=== PATIENT | male | born 1955 | race African-American/Black ===

== ENCOUNTER 2017-08-16 14:43 | Inpatient (IN) | payer BC, OTHER ==
--- NOTE | 2017-08-16 14:49 | PDOC ---
Rapid Medical Evaluation Time Seen by Provider: 08/16/17 14:46 Medical Evaluation: 08/16/17 14:46 I have performed a brief in-person evaluation of this patient. The patient presents with a chief complaint of: "I have a sore on my buttocks." Pertinent physical exam findings: GEN: NAD I have ordered the following: Nothing The patient will proceed to the ED for further evaluation. Discharge Disposition - Diagnosis Wound of sacral region - Referrals Referrals: Amado Hernandes MD [Primary Care Provider] - - Patient Instructions - Post Discharge Activity
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
[2017-08-16 16:34] LABS: EOS % 0.2 % (0-4.5); MCH 27.7 pg (25.7-33.7); MCHC 33.3 g/dl (32.0-35.9); MEAN CELL VOLUME 83.3 fl (80-96); MEAN PLT VOLUME 8.1 fl (7.5-11.1); NEUT % 95.1 % (42.8-82.8); PLATELET COUNT 417 K/MM3 (134-434); RDW 18.1 % (11.9-15.9); WHITE BLOOD COUNT 9.8 K/mm3 (4.0-10.0)
[2017-08-16 16:50] LABS: INR 1.33 (0.82-1.09)
[2017-08-16 16:53] LABS: ACTIVATED PTT 33.3 SECONDS (26.9-34.4)
[2017-08-16] MEDS ORDERED: SODIUM CHLORIDE 1,000 ML IV STA ×2 (16:59→22:25)
--- NOTE | 2017-08-16 17:08 | PDOC ---
Attending Attestation - Resident Resident Name: Robert Shankar - ED Attending Attestation I have performed the following: I have examined & evaluated the patient, The case was reviewed & discussed with the resident, I agree w/resident's findings & plan, Exceptions are as noted - HPI HPI: 08/16/17 17:01 62 M with h/o Stage IV lung cancer on chemotherapy at [facility], paraplegic, presenting to ER with worsening sacral decubitus ulcer. Pt states that his wounds are being cared for by a wound-care nurse, but the ulcer on his buttock has been progressively worsening. He denies F/C. Denies any significant pain or drainage from wound. Of note, pt was found to be tachycardic in ER to 120. EKG was obtained revealing ST elevations in II, III, aVF, and V4-V6. Pt denies any chest pain or shortness of breath. He states that he has known metastases to his heart. Denies any recent viral illnesses. - Physicial Exam PE: 08/16/17 17:05 "GENERAL: Awake, alert, and fully oriented, in no acute distress HEAD: No signs of trauma EYES: PERRLA, EOMI, sclera anicteric, conjunctiva clear ENT: Auricles normal inspection, hearing grossly normal, nares patent, oropharynx clear without exudates. Moist mucosa NECK: Nontender, no stepoffs, Normal ROM, supple, no lymphadenopathy, JVD, or masses LUNGS: Breath sounds equal, clear to auscultation bilaterally. No wheezes, and no crackles HEART: tachycardic, no friction rub ABDOMEN: Soft, nontender, normoactive bowel sounds. No guarding, no rebound. No masses EXTREMITIES: Normal range of motion, no edema. No clubbing or cyanosis. No cords, erythema, or tenderness SKIN: Stage IV decubitus ulcer to L buttock, with surrounding erythema, foul smelling " - Medical Decision Making 08/16/17 17:08 62 M with metastatic lung CA presenting with worsening decubitus ulcer. Vitals notable for tachycardia, concerning for sepsis. Exam notable for stage IV ulcer , with signs of infection. Pt also found to have ST elevations on EKG. Pt without chest pain or SOB. EKG more consistent with pericarditis rather than acute ischemia, especially given that there are no reciprocal changes on EKG. - Labs, trop, cultures - Abx - Admit Spoke with Dr. Suazo regarding EKG findings. Given that pt denies CP/SOB, he agrees that ischemia is unlikely. Pt admitted to hospitalist. Heart Score/ECG Review - ECG Impressions Comment:: 08/16/17 17:15 NSR, DANIEL in II, III, aVF, V4-V6, no reciprocal changes
[2017-08-16] MEDS ORDERED: VANCOMYCIN 1 GRAM (PRE-DOCKED) 1,000 MG/250 ML BAG IVPB ONE ×2 (17:15→17:18)
[2017-08-16 17:40] LABS: URINE APPEARANCE SLCLOUDY; URINE BILIRUBIN NEGATIVE (NEGATIVE); URINE BLOOD 2+ (NEGATIVE); URINE COLOR YELLOW; URINE GLUCOSE (UA) NEGATIVE (NEGATIVE); URINE KETONE NEGATIVE (NEGATIVE); URINE NITRITE POSITIVE (NEGATIVE); URINE PROTEIN NEGATIVE (NEGATIVE); URINE UROBILINOGEN NEGATIVE mg/dL (0.2-1.0)
[2017-08-16 17:43] LABS: URINE LEUK ESTERASE 3+ (NEGATIVE)
[2017-08-16 17:46] LABS: URINE BACTERIA MANY /hpf (NONE SEEN); URINE HYALINE CAST 1 /lpf; URINE MUCUS RARE; URINE RBC 2 /hpf (0-3); URINE WBC 22 /hpf (3-5)
[2017-08-16 18:00] LABS: ALBUMIN 3.1 g/dl (3.4-5.0); ANION GAP 8 (8-16); BILIRUBIN,TOTAL 0.5 mg/dL (0.2-1.0); CALCIUM 8.8 mg/dL (8.5-10.1); CO2 28 mmol/L (21-32); CREATININE 0.7 mg/dL (0.7-1.3); GLUCOSE,RANDOM 96 mg/dL (74-106); SGOT/AST 25 U/L (15-37); SGPT/ALT 59 U/L (12-78); TOT PROT 6.8 g/dl (6.4-8.2)
[2017-08-16 18:01] LABS: TROPONIN I 0.02 ng/ml (0.00-0.05)
[2017-08-16 18:01] LABS: ALK PHOS 143 U/L (45-117)
[2017-08-16] MEDS ORDERED: LEVOFLOXACIN 750 MG IVPB 750 MG/150 ML BAG IVPB ONE ×2 (18:54→19:01)
[2017-08-16] MEDS ORDERED: SODIUM CHLORIDE 1,000 ML IV SCH ×2 (19:15→21:00)
[2017-08-16] MEDS ORDERED: ONDANSETRON 8 MG TABLET (FP) PO PRN (20:15)
[2017-08-16 20:50] LABS: URINE LEUK ESTERASE 3+ (NEGATIVE)
[2017-08-16] MEDS ORDERED: METRONIDAZOLE 500 MG PREMIXED 500 MG/100 ML MG IVPB SCH (21:00)
[2017-08-16] MEDS ORDERED: AZTREONAM 2 GM in DEXTROSE 5%-WATER - 50 ML IVPB SCH ×2 (21:00→21:45)
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
[2017-08-16] MEDS ORDERED: AZTREONAM 2 GRAM SYRINGE 2 GM/10 ML DISP.SYRIN IVPUSH ONE (21:15)
[2017-08-16] MEDS ORDERED: ENOXAPARIN NA (PORCINE) 40 MG/0.4 ML DISP.SYRIN SQ SCH ×2 (21:15→21:45)
[2017-08-16] MEDS ORDERED: MAGNESIUM OXIDE 400 MG TABLET (FP) ONE (21:30)
[2017-08-16] MEDS: MAGNESIUM OXIDE 400 MG TABLET (FP) PO SCH (21:31)
[2017-08-16] MEDS ORDERED: ENOXAPARIN NA (PORCINE) 30 MG/0.3 ML DISP.SYRIN SQ SCH (22:00)
[2017-08-16] MEDS ORDERED: HEPARIN NA (PORCINE) 5,000 UNITS/ML 1ML VIAL SQ SCH (22:00)
[2017-08-16] MEDS ORDERED: HYDROXYCHLOROQUINE SO4 200 MG TABLET (FP) PO SCH (22:00)
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
[2017-08-16] MEDS: SODIUM CHLORIDE 1,000 ML IV SCH (23:30)
[2017-08-17] MEDS: DIPHENOXYLATE 2.5/ATROPINE.025 1 COMBO TABLET PO SCH ×3 (00:15→14:34)
[2017-08-17 01:00] VITALS: BMI 34.8
[2017-08-17] MEDS: morphine SO4 SUSTAINED ACTING 15 MG TABLET.SA PO SCH ×4 (01:10→17:14)
[2017-08-17] MEDS: METRONIDAZOLE 500 MG PREMIXED 500 MG/100 ML MG IVPB SCH ×3 (01:14→17:17)
[2017-08-17] MEDS ORDERED: VANCOMYCIN 1,000 MG in DEXTROSE 5%-WATER - 250 ML IVPB SCH ×2 (06:00→12:45)
[2017-08-17] MEDS ORDERED: VANCOMYCIN 1,000 MG in DEXTROSE 5%-WATER - 250 ML IVPB ONE (06:00)
[2017-08-17] MEDS: ENOXAPARIN NA (PORCINE) 40 MG/0.4 ML DISP.SYRIN SQ SCH (09:56)
[2017-08-17] MEDS: FOLIC ACID 1 MG TABLET (FP) PO SCH (09:56)
[2017-08-17] MEDS: MAGNESIUM OXIDE 400 MG TABLET (FP) PO SCH (09:56)
--- NOTE | 2017-08-17 12:35 | PN ---
Progress Note (short form) - Note Progress Note: ID Consult dictated R ischial decubitus ulcer Tachycardia, lactic acidosis R/O sepsis secondary to skin source PCN allergy Stage IV lung ca Await c/s Surgical evaluation Empiric vancomycin/ ceftriaxone/ flagyl
--- NOTE | 2017-08-17 14:32 | PN ---
Progress Note (short form) - Note Progress Note: currently has no complaints. on further pressing states he occasionally has CP around his port-acath site that is worse when he is sitting up. denies fever, chills, N/V/C/D Current Medications Generic Name Dose Route Start Last Admin Trade Name Freq PRN Reason Stop Dose Admin Diphenoxylate HCl/Atropine 2 combo 08/16/17 22:00 08/17/17 06:36 Lomotil - PO Not Given TID RACHEAL Enoxaparin Sodium 40 mg 08/17/17 10:00 08/17/17 09:56 Lovenox - SQ 40 mg DAILY RACHEAL Administration Folic Acid 1 mg 08/17/17 10:00 08/17/17 09:56 Folic Acid - PO 1 mg DAILY RACHEAL Administration Metronidazole 500 mg in 100 mls @ 100 mls/hr 08/16/17 22:30 08/17/17 09:56 Flagyl 500mg Premixed Ivpb - IVPB 100 mls/hr Q8H-IV RACHEAL Administration Sodium Chloride 1,000 mls @ 83 mls/hr 08/16/17 22:30 08/16/17 23:30 Normal Saline - IV 83 mls/hr ASDIR RACHEAL Administration Ceftriaxone Sodium 2 gm/ 100 mls @ 200 mls/hr 08/17/17 14:00 Dextrose IVPB DAILY RACHEAL Vancomycin HCl 1,000 mg/ 250 mls @ 166.667 mls/hr 08/17/17 14:00 Dextrose IVPB 0200,1400 RACHEAL Magnesium Oxide 400 mg 08/16/17 20:15 08/17/17 09:56 Mag-Ox - PO 400 mg DAILY RACHEAL Administration Morphine Sulfate 15 mg 08/17/17 00:00 08/17/17 12:00 Ms Contin - PO Not Given Q6HPO RACHEAL Ondansetron HCl 8 mg 08/16/17 20:15 Zofran - PO Q6H PRN Last Vital Signs Temp Pulse Resp BP Pulse Ox 98 F 115 H 20 127/76 98 08/17/17 06:00 08/17/17 06:00 08/17/17 08:00 08/17/17 06:00 08/17/17 08:00 General NAD CV S1 S2 RRR no murmur/rub/gallop +chest wall tenderness around port Lungs CTA B/L no wheezing/rales/rhonchi Abdomen soft NT/ND Extremities LUE mobile mass 1cm tender refused my examination of his sacrum CBCD WBC 9.8 K/mm3 (4.0-10.0) 08/16/17 15:17 RBC 5.08 M/mm3 (4.00-5.60) 08/16/17 15:17 Hgb 14.1 GM/dL (11.7-16.9) 08/16/17 15: Hct 42.3 % (35.4-49) 08/16/17 15: MCV 83.3 fl (80-96) 08/16/17 15: MCHC 33.3 g/dl (32.0-35.9) 08/16/17 15: RDW 18.1 % (11.9-15.9) H 08/16/17 15:17 Plt Count 417 K/MM3 (134-434) 08/16/17 15: MPV 8.1 fl (7.5-11.1) 08/16/17 15:17 CMP Sodium 137 mmol/L (136-145) 08/16/17 17:00 Potassium 4.4 mmol/L (3.5-5.1) 08/16/17 17:00 Chloride 101 mmol/L (98-107) 08/16/17 17:00 Carbon Dioxide 28 mmol/L (21-32) 08/16/17 17:00 Anion Gap 8 (8-16) 08/16/17 17:00 BUN 17 mg/dL (7-18) 08/16/17 17:00 Creatinine 0.7 mg/dL (0.7-1.3) 08/16/17 17:00 Creat Clearance w eGFR > 60 (>60) 08/16/17 17:00 Calcium 8.8 mg/dL (8.5-10.1) 08/16/17 17:00 Total Bilirubin 0.5 mg/dL (0.2-1.0) 08/16/17 17:00 AST 25 U/L (15-37) 08/16/17 17:00 ALT 59 U/L (12-78) 08/16/17 17:00 Alkaline Phosphatase 143 U/L (45-117) H 08/16/17 17:00 Total Protein 6.8 g/dl (6.4-8.2) 08/16/17 17:00 Albumin 3.1 g/dl (3.4-5.0) L 08/16/17 17:00 Microbiology 08/17/17 02:15 Gram Stain - Final Decubiti A/P 62 yo M [facility] stage 4 Lung ca s/p RTx and on chemo ([id number], last cycle 08/12) and paraplegia presented to the ER after his noticed that his sacral decubitus ulcer had debris and foul odor 1. Severe Sepsis due to sacral decubitus- as per RN who visualized has slough. pt did not allow my evaluation as he just had bandage changed. will likely require debridement. lactic acidosis resolved Started on Vanco/Ceftriaxone/ Flagyl. ID and vascular surgery on board. pain control 2. Diffuse ST elevation- low suspicion for pericarditis. symptoms vaguely suggestive of it. will get echo. hold treatment at this time. cardiac enzymes neg x2. 3. Sinus tachycardia- improved but remains tachycardic. CTA negative for PE. doppler negative for dvt. will monitor as infection is treated 4. +UA- possible source of infection however has chronic indwelling corral. will wait for UCx. on abx 5. Diarrhea- no repeat episdoes while hospitalized. will hold lomotil 6. Stage 4 lung ca- will call [facility] on Saturday at pts request to inform of current hospital stay. next scheduled chemo 09/03/17 7. Paraplegia 8. DVT ppx- lovenox Visit type - Emergency Visit Emergency Visit: Yes ED Registration Date: 08/16/17 Care time: The patient presented to the Emergency Department on the above date and was hospitalized for further evaluation of their emergent condition. - New Patient This patient is new to me today: Yes Date on this admission: 08/17/17 - Critical Care Critical Care patient: No - Discharge Referral Referred to [facility] No
[2017-08-17] MEDS: VANCOMYCIN 1,000 MG in DEXTROSE 5%-WATER - 250 ML IVPB SCH (14:43)
[2017-08-17] MEDS: CEFTRIAXONE 2 GM in DEXTROSE 5%-WATER - 100 ML IVPB SCH (16:25)
[2017-08-18] MEDS: SODIUM CHLORIDE 1,000 ML IV SCH (00:34)
[2017-08-18] MEDS: morphine SO4 SUSTAINED ACTING 15 MG TABLET.SA PO SCH ×4 (00:34→17:33)
[2017-08-18] MEDS ORDERED: PT OWN MED DRAWER 7, Y5N ONE ×2 (01:16→09:52)
[2017-08-18] MEDS: METRONIDAZOLE 500 MG PREMIXED 500 MG/100 ML MG IVPB SCH ×3 (01:19→17:33)
[2017-08-18] MEDS: VANCOMYCIN 1,000 MG in DEXTROSE 5%-WATER - 250 ML IVPB SCH ×2 (02:01→14:55)
[2017-08-18] MEDS ORDERED: DIPHENOXYLATE 2.5/ATROPINE.025 1 COMBO TABLET PO PRN (05:21)
[2017-08-18] MEDS: ENOXAPARIN NA (PORCINE) 40 MG/0.4 ML DISP.SYRIN SQ SCH (09:47)
[2017-08-18] MEDS: MAGNESIUM OXIDE 400 MG TABLET (FP) PO SCH (09:47)
[2017-08-18] MEDS: FOLIC ACID 1 MG TABLET (FP) PO SCH (09:48)
[2017-08-18] MEDS: CEFTRIAXONE 2 GM in DEXTROSE 5%-WATER - 100 ML IVPB SCH (09:54)
--- NOTE | 2017-08-18 12:06 | PN ---
Physical Exam: SUBJECTIVE: c/o right upper arm mass which gives him chronic pain at times. Requested wheelchair accessible room but no such room available on . Disimpacted himself last night. Denies diarrhea, pain, palpitation, chest pain or sob. OBJECTIVE: Vital Signs Period Temp Pulse Resp BP Sys/Topete Pulse Ox Last 24 Hr 98 F-99.6 F 108-119 20-20 114-129/63-87 97-98 GENERAL: The patient is awake, alert, and fully oriented, in no acute distress. EYES: PERRL, extraocular movements intact, sclera anicteric, conjunctiva clear. No ptosis. ENT: Ears normal, nares patent, oropharynx clear without exudates, moist mucous membranes. LUNGS: CTAB HEART: Tachycardic but regular, S1, S2 without murmur, rub or gallop. ABDOMEN: Soft, nt, nd, normoactive bowel sound BACK: stage 2 sacral decubitus, erythematous, no drainage, foul smelling. : corral 100cc clear urine Active Medications Generic Name Dose Route Start Last Admin Trade Name Freq PRN Reason Stop Dose Admin Diphenoxylate HCl/Atropine 2 combo 08/18/17 05:21 Lomotil - PO Q8H PRN DIARRHEA Enoxaparin Sodium 40 mg 08/17/17 10:00 08/18/17 09:47 Lovenox - SQ 40 mg DAILY RACHEAL Administration Folic Acid 1 mg 08/17/17 10:00 08/18/17 09:48 Folic Acid - PO 1 mg DAILY RACHEAL Administration Metronidazole 500 mg in 100 mls @ 100 mls/hr 08/16/17 22:30 08/18/17 09:49 Flagyl 500mg Premixed Ivpb - IVPB 100 mls/hr Q8H-IV RACHEAL Administration Sodium Chloride 1,000 mls @ 83 mls/hr 08/16/17 22:30 08/18/17 00:34 Normal Saline - IV 83 mls/hr ASDIR RACHEAL Administration Ceftriaxone Sodium 2 gm/ 100 mls @ 200 mls/hr 08/17/17 14:00 08/18/17 09:54 Dextrose IVPB 200 mls/hr DAILY RACHEAL Administration Vancomycin HCl 1,000 mg/ 250 mls @ 166.667 mls/hr 08/17/17 14:00 08/18/17 02: 01 Dextrose IVPB 166.667 mls/hr 0200,1400 RACHEAL Administration Magnesium Oxide 400 mg 08/16/17 20:15 08/18/17 09:47 Mag-Ox - PO 400 mg DAILY RACHEAL Administration Morphine Sulfate 15 mg 08/17/17 00:00 08/18/17 06:40 Ms Contin - PO 15 mg Q6HPO RACHEAL Administration Ondansetron HCl 8 mg 08/16/17 20:15 Zofran - PO Q6H PRN ASSESSMENT/PLAN: 62 year old male with a pmh stage IV lung CA, paraplegia, and multiple sacral decubiti is admitted to the hospital for treatment of sepsis 2/2 sacral decubitus ulcer. Sepsis 2/2 Sacral Ulcer - Afrebile - cont. vanco/ceftriaxone/flagyl day 3 - Cont. maintainence fluid NS 83/hr - Vascular and ID on board Pericarditis - Repeat EKG consistent with pericarditis - Start motrin 600mg TID - f/u ECHO and daily EKG Sinus tachycardia - Asymptomatic; likely reactive - Repeat EKG shows rate improving to low 100s R upper arm mass - chronic - f/u U/S Metastatic Lung Cancer: - Next chemo at [place] 09/03/17 Chronic Indwelling Corral Catheter - Change corral q1 month - +ve urine culture - cont. abx FEN -NS @ 83cc/hr -replete lytes as necessary -regular diet Prophylaxis -Lovenox 40mg QD for DVT prophylaxis Disposition - Need to inform [facility] on saturday regarding patient's hospitalization Visit type - Emergency Visit Emergency Visit: No - New Patient This patient is new to me today: Yes Date on this admission: 08/18/17 - Critical Care Critical Care patient: No
[2017-08-18 15:07] LABS: C-REACTIVE PROTEIN 5.1 MG/DL (0.00-0.3)
--- NOTE | 2017-08-18 15:18 | PN ---
Teaching Attending Note Name of Resident: Gustavo Hairston ATTENDING PHYSICIAN STATEMENT I saw and evaluated the patient. I reviewed the resident's note and discussed the case with the resident. I agree with the resident's findings and plan as documented. SUBJECTIVE:asymptomatic. denies CP, SOB, fever, chills, N/V/C/D, palpitations OBJECTIVE: Last Vital Signs Temp Pulse Resp BP Pulse Ox 98 F 119 H 20 114/63 97 08/18/17 10:00 08/18/17 10:00 08/18/17 10:00 08/18/17 10:00 08/18/17 09:00 General NAD CV S1 S2 tachy + port R chest Lungs CTA B/L anteriorly Extremities firm mobile tender 1 cm mass LUE ASSESSMENT AND PLAN: 62 yo M iwth PMH stage 4 Lung ca s/p RTx and on chemo ([id number], last cycle 08/12 ) and paraplegia presented to the ER after his noticed that his sacral decubitus ulcer had debris and foul odor 1. Severe Sepsis due to sacral decubitus- stable. remains tachycardic. awaiting vascular surgery input on wound. on Vanco/Ceftriaxone/Flagyl day 2. ID and vascular surgery on board. pain control 2. Diffuse ST elevation- repeat EKG done for tachycardia with now more pronounced ST elevatins diffusely. Check CRP. start IBU 600mg TID. Echo tomorrow. 3. Sinus tachycardia- remains tachycardic. CTA neg for PE. will monitor for improvement with IBU. cont low dose IVF. 4. LUE mass- check U/s. no signs of infection 5. +UA- possible source of infection however has chronic indwelling corral. will wait for UCx. on abx 6. Diarrhea- no repeat episdoes while hospitalized. will hold lomotil 7. Stage 4 lung ca- will call [facility] on Saturday at pts request to inform of current hospital stay. next scheduled chemo 09/03/17 8. Paraplegia 9. DVT ppx- lovenox
--- NOTE | 2017-08-18 15:25 | CONS ---
DATE OF CONSULTATION: DATE OF DICTATION: 08/17/2017 The patient is a 62-year-old male with recent diagnosis of stage IV adenocarcinoma of the lung on chemotherapy, history of paraplegia, evaluated for worsening decubitus ulcer. 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 He is a longstanding paraplegic since 1975. He had developed a decubitus ulcer in the past which healed. He now presents with a worsening right ischial decubitus over the past 2 weeks. There was some drainage reported. He denies any associated fever or chills. He receives chemotherapy for his lung cancer every 3 weeks, the last cycle of which was on August 12, 2017. He denies history of resistant pathogens. PAST MEDICAL HISTORY: Positive for stage IV lung cancer with metastases to the spine, paraplegia, prior history of sacral decubitus ulcer in 2009, chronic indwelling River catheter. ALLERGIES: PENICILLIN. Reports developing hives, no history of anaphylaxis. MEDICATIONS: The patient's chemotherapy includes carboplatin, pemetrexed, and bevacizumab. SOCIAL HISTORY: Lives at home with his . SYSTEMS REVIEW: Neurologic: Positive for paraplegia. Cardiac: Negative chest pain or palpitations. Respiratory: Negative cough or sputum production. Gastrointestinal: Negative vomiting or diarrhea. Genitourinary: Positive for indwelling River catheter. LABORATORY DATA: White count 9.8, hematocrit 42.3, platelet count 417. BUN 17, creatinine 0.7. Urinalysis with 22 white cells. Lactic acid 4.4. Doppler exam negative for DVT. CAT scan of the chest shows a right upper lobe lung mass and right pleural effusion. Cultures are pending. PHYSICAL EXAMINATION: General: He is awake and alert. He is not acutely toxic-appearing. Vital Signs: Temperature 98, blood pressure 127/76, pulse 110 and regular, respirations 20 per minute. HEENT: Sclerae are anicteric. Heart Sounds: S1, S2. Tachycardic. Lungs: Clear. Abdomen: Soft. No tenderness elicited. No mass, rebound or rigidity. Skin: There was a port present in the right upper chest. No erythema or tenderness. Extremities: Positive for edema. There is a right ischial decubitus ulcer which is packed. There are superficial ulcers present in the sacral area and the right buttock. IMPRESSION: 1. Right ischial decubitus ulcer. 2. Tachycardia and elevated lactic acidosis, possible sepsis secondary to skin sores. 3. PENICILLIN ALLERGY. 4. Metastatic lung cancer. Await cultures. Empiric antibiotic coverage in this PENICILLIN ALLERGIC patient with vancomycin, ceftriaxone and Flagyl. Local wound care. Surgical evaluation. Case discussed with patient's present at the time of examination. Thank you for the kind referral. MELANIA JOSHI M.D. [id number]
[2017-08-18] MEDS: IBUPROFEN 600 MG TABLET (FP) PO SCH ×2 (16:49→22:00)
[2017-08-19] MEDS: SODIUM CHLORIDE 1,000 ML IV SCH (00:47)
[2017-08-19] MEDS: VANCOMYCIN 1,000 MG in DEXTROSE 5%-WATER - 250 ML IVPB SCH (01:42)
[2017-08-19] MEDS: morphine SO4 SUSTAINED ACTING 15 MG TABLET.SA PO SCH ×6 (02:19→21:02)
[2017-08-19] MEDS: METRONIDAZOLE 500 MG PREMIXED 500 MG/100 ML MG IVPB SCH ×4 (02:19→18:00)
[2017-08-19] MEDS: IBUPROFEN 600 MG TABLET (FP) PO SCH ×4 (06:49→23:48)
[2017-08-19 08:10] LABS: BASO % 0.4 % (0-2.0); EOS % 0.6 % (0-4.5); MCH 27.3 pg (25.7-33.7); MEAN CELL VOLUME 82.6 fl (80-96); MEAN PLT VOLUME 8.2 fl (7.5-11.1); NEUT % 79.3 % (42.8-82.8); PLATELET COUNT 210 K/MM3 (134-434); WHITE BLOOD COUNT 3.5 K/mm3 (4.0-10.0)
[2017-08-19 08:31] LABS: ANION GAP 9 (8-16); CALCIUM 8.3 mg/dL (8.5-10.1); CO2 26 mmol/L (21-32); CREATININE 0.4 mg/dL (0.7-1.3); GLUCOSE,RANDOM 81 mg/dL (74-106)
[2017-08-19 08:40] LABS: C-REACTIVE PROTEIN 11.6 MG/DL (0.00-0.3)
[2017-08-19] MEDS ORDERED: PT OWN MED DRAWER 7, Y5N ONE ×2 (10:15→11:56)
[2017-08-19] MEDS: FOLIC ACID 1 MG TABLET (FP) PO SCH (10:24)
[2017-08-19] MEDS: CEFTRIAXONE 2 GM in DEXTROSE 5%-WATER - 100 ML IVPB SCH (10:24)
[2017-08-19] MEDS: MAGNESIUM OXIDE 400 MG TABLET (FP) PO SCH (10:24)
[2017-08-19] MEDS: ENOXAPARIN NA (PORCINE) 40 MG/0.4 ML DISP.SYRIN SQ SCH (10:25)
--- NOTE | 2017-08-19 13:12 | PN ---
Progress Note, Physician History of Present Illness: Patient examined with Dr Del Rosario Afebrile Remains tachycardic Leukopenic Wound c/s polymicrobial - Current Medication List Current Medications: Active Medications Diphenoxylate HCl/Atropine (Lomotil -) 2 combo PO Q8H PRN PRN Reason: DIARRHEA Enoxaparin Sodium (Lovenox -) 40 mg SQ DAILY [facility] Last Admin: 08/19/17 10:25 Dose: 40 mg Folic Acid (Folic Acid -) 1 mg PO DAILY [facility] Last Admin: 08/19/17 10:24 Dose: 1 mg Metronidazole (Flagyl 500mg Premixed Ivpb -) 500 mg in 100 mls @ 100 mls/hr IVPB Q8H-IV [facility] Last Admin: 08/19/17 10:24 Dose: 100 mls/hr Ceftriaxone Sodium 2 gm/ (Dextrose) 100 mls @ 200 mls/hr IVPB DAILY [facility] Last Admin: 08/19/17 10:24 Dose: 200 mls/hr Vancomycin HCl 1,000 mg/ (Dextrose) 250 mls @ 166.667 mls/hr IVPB 0200,1400 [facility] Last Admin: 08/19/17 01:42 Dose: 166.667 mls/hr Ibuprofen (Motrin -) 600 mg PO Q8H [facility] Last Admin: 08/19/17 06:49 Dose: 600 mg Magnesium Oxide (Mag-Ox -) 400 mg PO DAILY [facility] Last Admin: 08/19/17 10:24 Dose: 400 mg Morphine Sulfate (Ms Contin -) 15 mg PO Q6HPO [facility] Last Admin: 08/19/17 06:51 Dose: Not Given Ondansetron HCl (Zofran -) 8 mg PO Q6H PRN Last Admin: 08/19/17 11:59 Dose: 8 mg - Objective Vital Signs: Vital Signs Temperature 97.8 F 08/19/17 10:00 Pulse Rate 105 H 08/19/17 10:00 Respiratory Rate 24 08/19/17 10:00 Blood Pressure 137/85 08/19/17 10:00 O2 Sat by Pulse Oximetry (%) 97 08/18/17 21:00 Constitutional: Yes: No Distress Eyes: Yes: Conjunctiva Clear Cardiovascular: Yes: Regular Rate and Rhythm, Tachycardia, S1, S2 Respiratory: Yes: Diminished Gastrointestinal: Yes: Normal Bowel Sounds, Soft. No: Tenderness Integumentary: Yes: Other (R ischial ulcer with some necrotic tissue, malodorous drainage) Labs: CBC, BMP 08/19/17 06:00 08/19/17 06:00 INR, PTT INR 1.33 (0.82-1.09) H 08/16/17 15:54 Assessment/Plan Infected R ischial decubitus ulcer- polymicrobial Possible sepsis secondary to skin source Leukopenia Paraplegia PCN allergy Metastatic lung ca Continue ceftriaxone/ flagyl D/C vancomycin For debridement
--- NOTE | 2017-08-19 13:40 | PN ---
Physical Exam: SUBJECTIVE: Patient seen and examined at bedside. Patient feels better today; no new complaints. OBJECTIVE: Vital Signs Period Temp Pulse Resp BP Sys/Topete Pulse Ox Last 24 Hr 97.8 F-98.5 F 105-117 20-24 102-154/63-98 97 GENERAL: The patient is awake, alert, and fully oriented, in no acute distress. HEAD: Normal with no signs of trauma. LUNGS: Breath sounds equal, clear to auscultation bilaterally, no wheezes, no crackles, no accessory muscle use. HEART: Regular rate and rhythm, S1, S2 without murmur, rub or gallop. ABDOMEN: Soft, nontender, nondistended, normoactive bowel sounds, no guarding, no rebound, no hepatosplenomegaly, no masses. NEUROLOGICAL: Cranial nerves II through XII grossly intact. Normal speech, gait not observed. Laboratory Results - last 24 hr 08/16/17 08/16/17 08/19/17 17:00 20:06 06:00 WBC RBC Hgb Hct MCV MCH MCHC RDW Plt Count MPV Neutrophils % Lymphocytes % Monocytes % Eosinophils % Basophils % Total Absolute Neuts 9.30 Sodium 137 139 Potassium 4.4 4.0 Chloride 101 104 Carbon Dioxide 28 26 Anion Gap 8 9 BUN 17 10 D Creatinine 0.7 0.4 L D Creat Clearance w eGFR > 60 Random Glucose 96 81 Calcium 8.8 8.3 L Total Bilirubin 0.5 AST 25 ALT 59 Alkaline Phosphatase 143 H C-Reactive Protein 5.1 H 11.6 H D Total Protein 6.8 Albumin 3.1 L 08/19/17 06:00 WBC 3.5 L D RBC 3.99 L D Hgb 10.9 L D Hct 33.0 L D MCV 82.6 MCH 27.3 MCHC 33.0 RDW 18.0 H Plt Count 210 D MPV 8.2 Neutrophils % 79.3 Lymphocytes % 10.9 D Monocytes % 8.8 D Eosinophils % 0.6 D Basophils % 0.4 D Total Absolute Neuts Sodium Potassium Chloride Carbon Dioxide Anion Gap BUN Creatinine Creat Clearance w eGFR Random Glucose Calcium Total Bilirubin AST ALT Alkaline Phosphatase C-Reactive Protein Total Protein Albumin Active Medications Generic Name Dose Route Start Last Admin Trade Name Freq PRN Reason Stop Dose Admin Diphenoxylate HCl/Atropine 2 combo 08/18/17 05:21 Lomotil - PO Q8H PRN DIARRHEA Enoxaparin Sodium 40 mg 08/17/17 10:00 08/19/17 10:25 Lovenox - SQ 40 mg DAILY RACHEAL Administration Folic Acid 1 mg 08/17/17 10:00 08/19/17 10:24 Folic Acid - PO 1 mg DAILY RACHEAL Administration Metronidazole 500 mg in 100 mls @ 100 mls/hr 08/16/17 22:30 08/19/17 10:24 Flagyl 500mg Premixed Ivpb - IVPB 100 mls/hr Q8H-IV RACHEAL Administration Ceftriaxone Sodium 2 gm/ 100 mls @ 200 mls/hr 08/17/17 14:00 08/19/17 10:24 Dextrose IVPB 200 mls/hr DAILY RACHEAL Administration Ibuprofen 600 mg 08/18/17 15:00 08/19/17 06:49 Motrin - PO 600 mg Q8H RACHEAL Administration Magnesium Oxide 400 mg 08/16/17 20:15 08/19/17 10:24 Mag-Ox - PO 400 mg DAILY RACHEAL Administration Morphine Sulfate 15 mg 08/17/17 00:00 08/19/17 13:08 Ms Contin - PO Not Given Q6HPO RACHEAL Ondansetron HCl 8 mg 08/16/17 20:15 08/19/17 11:59 Zofran - PO 8 mg Q6H PRN Administration ASSESSMENT/PLAN: The patient is a 62 year old male w/ PMH stage IV lung CA w/ mets to spine and heart, paraplegia, and multiple sacral decubiti is admitted to the hospital for treatment of sepsis 2/2 sacral decubitus ulcer. Sepsis 2/2 Sacral Ulcer - Afrebile for the past 24h - cont. vanco/ceftriaxone/flagyl day 3 -vanco trough pending - Vascular and ID on board; will f/u reccs Sinus tachycardia w/ multiple ST elevations 2/2 Pericarditis vs heart mets -motrin 600mg TID -f/u ECHO -patient asymptomatic R upper arm mass -US showing solid mass concerning for malignancy -will reach out to patient's oncologist at [facility] for decision to biopsy Metastatic Lung Cancer: - Next chemo at [place] 09/03/17 Chronic Indwelling Corral Catheter - Change corral q1 month - +ve urine culture - cont. abx FEN -no fluids indicated -replete lytes as necessary -regular diet Prophylaxis -Lovenox 40mg QD for DVT prophylaxis Dispo -admit to tele Visit type - Emergency Visit Emergency Visit: Yes ED Registration Date: 08/16/17 Care time: The patient presented to the Emergency Department on the above date and was hospitalized for further evaluation of their emergent condition. - New Patient This patient is new to me today: Yes Date on this admission: 08/19/17 - Critical Care Critical Care patient: No
--- NOTE | 2017-08-19 13:59 | PN ---
Teaching Attending Note Name of Resident: Conner Abreu ATTENDING PHYSICIAN STATEMENT I saw and evaluated the patient. I reviewed the resident's note and discussed the case with the resident. I agree with the resident's findings and plan as documented. SUBJECTIVE:continues to have chest discomfort but same as on presentation. denies CP, SOB, fever, chills, N/V/C/D OBJECTIVE: Last Vital Signs Temp Pulse Resp BP Pulse Ox 97.8 F 105 H 24 137/85 97 08/19/17 10:00 08/19/17 10:00 08/19/17 10:00 08/19/17 10:00 08/18/17 21:00 General NAD CV S1 S2 tachy + port R chest Lungs CTA B/L anteriorly ASSESSMENT AND PLAN: 62 yo M iwth PMH stage 4 Lung ca s/p RTx and on chemo (k8ldism, last cycle 08/12 ) and paraplegia presented to the ER after his noticed that his sacral decubitus ulcer had debris and foul odor 1. Severe Sepsis due to sacral decubitus- stable. remains tachycardic. plan for debridement in the AM. on Vanco/Ceftriaxone/Flagyl day 3. ID and vascular surgery on board. pain control 2. Diffuse ST elevation- concern for pericarditis. does have mets to the heart that this can be. awaiting echo. on IBU RTC. 3. Sinus tachycardia- remains tachycardic. elevated CRP. CTA neg for PE. will monitor for improvement with IBU. cont low dose IVF. 4. LUE mass- consistent with solid tumor concern for malignancy. spoke with pt and who wants to hold off on bx at this time and f/u with [facility] for further management 5. +E coli UTI- + indwelling catheter. place new catheter this admission. on abx for ulcer. f/u C&S. 6. Diarrhea- no repeat episdoes while hospitalized. will hold lomotil 7. Stage 4 lung ca- will call [facility] on Saturday at pts request to inform of current hospital stay. next scheduled chemo 09/03/17 8. Paraplegia 9. DVT ppx- lovenox 10. spoke with on the phone about plan. wants to discuss with [facility] prior to any procedure being performed but will likely request the debridement done here. will wait on arm mass. verbalized understanding and agreement with plan. all questions answered.
--- NOTE | 2017-08-19 15:16 | PN ---
Progress Note (short form) - Note Progress Note: Vascular Surgery Right buttocks ulcer with necrotic tissue. Will do debridement mark at 2pm. NPO past midnight. Rufus Del Rosario DO
[2017-08-20] MEDS: morphine SO4 SUSTAINED ACTING 15 MG TABLET.SA PO SCH ×4 (01:26→18:28)
[2017-08-20] MEDS: METRONIDAZOLE 500 MG PREMIXED 500 MG/100 ML MG IVPB SCH ×3 (01:27→17:59)
--- NOTE | 2017-08-20 01:35 | EKG ---
Test Reason : Blood Pressure : / mmHG Vent. Rate : 108 BPM Atrial Rate : 108 BPM P-R Int : 154 ms QRS Dur : 094 ms QT Int : 304 ms P-R-T Axes : 051 042 051 degrees QTc Int : 407 ms SINUS TACHYCARDIA DIFFUSE ST ELEVATION SUGGESTS ACUTE PERICARDITIS CANNOT RULE OUT INJURY PATTERN ABNORMAL ECG WHEN COMPARED WITH ECG OF 16-AUG-2017 15:13, VENT. RATE HAS DECREASED CLINICAL CORRELATION IS RECOMMENDED Confirmed by SILAS ZAPATA, ROMAIN ([id number]) on 08/20/2017 1:34:55 AM Referred By: Jeremy KNOTT Confirmed By:ROMAIN ROSEN MD
--- NOTE | 2017-08-20 01:49 | EKG ---
Test Reason : Blood Pressure : / mmHG Vent. Rate : 124 BPM Atrial Rate : 124 BPM P-R Int : 148 ms QRS Dur : 078 ms QT Int : 280 ms P-R-T Axes : 047 034 069 degrees QTc Int : 402 ms SINUS TACHYCARDIA DIFFUSE ST ELEVATION SUGGESTS ACUTE PERICARDITIS CANNOT RULE OUT ACUTE INJURY PATTERN ABNORMAL ECG NO PREVIOUS ECGS AVAILABLE Confirmed by ROMAIN ROSEN MD ([id number]) on 08/20/2017 1:49:05 AM Referred By: Confirmed By:ROMAIN ROSEN MD
[2017-08-20] MEDS: IBUPROFEN 600 MG TABLET (FP) PO SCH ×3 (06:30→21:16)
[2017-08-20 07:28] LABS: BASO % 0.4 % (0-2.0); EOS % 0.5 % (0-4.5); MCHC 32.5 g/dl (32.0-35.9); MEAN CELL VOLUME 82.8 fl (80-96); MEAN PLT VOLUME 8.3 fl (7.5-11.1); PLATELET COUNT 188 K/MM3 (134-434); WHITE BLOOD COUNT 3.9 K/mm3 (4.0-10.0)
[2017-08-20 07:33] LABS: ALBUMIN 2.5 g/dl (3.4-5.0); ANION GAP 10 (8-16); CALCIUM 8.4 mg/dL (8.5-10.1); CO2 25 mmol/L (21-32); GLUCOSE,RANDOM 84 mg/dL (74-106); SGOT/AST 26 U/L (15-37); SGPT/ALT 33 U/L (12-78)
[2017-08-20 07:34] LABS: ALK PHOS 112 U/L (45-117); BILIRUBIN,TOTAL 0.5 mg/dL (0.2-1.0); CREATININE 0.4 mg/dL (0.7-1.3); TOT PROT 5.5 g/dl (6.4-8.2)
[2017-08-20] MEDS: FOLIC ACID 1 MG TABLET (FP) PO SCH (09:40)
[2017-08-20] MEDS: MAGNESIUM OXIDE 400 MG TABLET (FP) PO SCH (09:41)
[2017-08-20] MEDS: ENOXAPARIN NA (PORCINE) 40 MG/0.4 ML DISP.SYRIN SQ SCH (09:41)
[2017-08-20] MEDS ORDERED: PT OWN MED DRAWER 7, Y5N ONE (10:23)
[2017-08-20] MEDS: CEFTRIAXONE 2 GM in DEXTROSE 5%-WATER - 100 ML IVPB SCH (10:25)
--- NOTE | 2017-08-20 13:13 | PN ---
Teaching Attending Note Name of Resident: Ambika Carty ATTENDING PHYSICIAN STATEMENT Time of evaluation: 12:05 PM I saw and evaluated the patient. I reviewed the resident's note and discussed the case with the resident. I agree with the resident's findings and plan as documented. SUBJECTIVE: Patient seen and examined, denies any pain currently, no new fevers, chills, nausea, vomiting, abdominal or urinary symptoms. No back pain currently. OBJECTIVE: Vital Signs Period Temp Pulse Resp BP Sys/Topete Pulse Ox Last 24 Hr 97.3 F-98.8 F 113-120 20-20 103-143/74-100 99 Intake & Output 08/17/17 08/18/17 08/19/17 08/20/17 23:59 23:59 23:59 23:59 Intake Total 728 1114 1960 120 Output Total 4100 2450 2000 1200 Balance -3372 -1336 -40 -1080 Weight 250 lb General: lying in bed in no acute distress CVS:S1S2 regular, tachy Chest: CTAB, no rales or wheezing Extremities: LUE arm 3x3 cm circular swelling on ventral arm with ill defined margin, no swelling/erythema or tenderness noted, Positive pulses Abdomen: soft, NT, ND Home Medication List Medication Instructions Recorded Confirmed Type Diphenoxylate 2.5/Atropine.025 2 combo PO TID 08/16/17 08/16/17 History [Lomotil -] Folic Acid 1 mg PO DAILY 08/16/17 08/16/17 History Hydroxychloroquine So4 [Plaquenil 200 mg PO BID 08/16/17 08/16/17 History -] Magnesium Oxide [Magnesium] 400 mg PO DAILY 08/16/17 08/16/17 History Morphine Sulfate [Morphine Sulfate 15 mg PO QID 08/16/17 08/16/17 History ER] Ondansetron [Zofran -] 8 mg PO PRN 08/16/17 08/16/17 History Active Medications Generic Name Dose Route Start Last Admin Trade Name Freq PRN Reason Stop Dose Admin Diphenoxylate HCl/Atropine 2 combo 08/18/17 05:21 Lomotil - PO Q8H PRN DIARRHEA Enoxaparin Sodium 40 mg 08/17/17 10:00 08/20/17 09:41 Lovenox - SQ Not Given DAILY RACHEAL Folic Acid 1 mg 08/17/17 10:00 08/20/17 09:40 Folic Acid - PO Not Given DAILY [facility] Metronidazole 500 mg in 100 mls @ 100 mls/hr 08/16/17 22:30 08/20/17 09:40 Flagyl 500mg Premixed Ivpb - IVPB 100 mls/hr Q8H-IV RACHEAL Administration Ceftriaxone Sodium 2 gm/ 100 mls @ 200 mls/hr 08/17/17 14:00 08/20/17 10:25 Dextrose IVPB 200 mls/hr DAILY RACHEAL Administration Ibuprofen 600 mg 08/18/17 15:00 08/20/17 06:30 Motrin - PO 600 mg Q8H RACHEAL Administration Magnesium Oxide 400 mg 08/16/17 20:15 08/20/17 09:41 Mag-Ox - PO Not Given DAILY [facility] Morphine Sulfate 15 mg 08/17/17 00:00 08/20/17 05:31 Ms Contin - PO Not Given Q6HPO [facility] Ondansetron HCl 8 mg 08/16/17 20:15 08/19/17 11:59 Zofran - PO 8 mg Q6H PRN Administration Laboratory Results - last 24 hr 08/19/17 08/20/17 08/20/17 13:42 05:05 05:05 WBC 3.9 L RBC 4.03 Hgb 10.9 L Hct 33.3 L MCV 82.8 MCH 27.0 MCHC 32.5 RDW 18.0 H Plt Count 188 MPV 8.3 Neutrophils % 73.0 Lymphocytes % 13.3 D Monocytes % 12.8 H Eosinophils % 0.5 Basophils % 0.4 Sodium 140 Potassium 3.9 Chloride 105 Carbon Dioxide 25 Anion Gap 10 BUN 8 Creatinine 0.4 L Creat Clearance w eGFR > 60 Random Glucose 84 Calcium 8.4 L Total Bilirubin 0.5 AST 26 ALT 33 D Alkaline Phosphatase 112 D Total Protein 5.5 L Albumin 2.5 L Vancomycin Pre-Dose 6.[address] Chest - neg for PE, RUL spiculated lung mass LUE Ultrasound - solid mass 4.1-3.2 cm ASSESSMENT AND PLAN: 62 yo M iwth PMH stage 4 Lung ca s/p RTx and on chemo ([id number], last cycle 08/12 ) and paraplegia presented to the ER after his noticed that his sacral decubitus ulcer had debris and foul odor - Severe Sepsis due to sacral decubitus - Diffuse ST elevation- concern for pericarditis. does have mets to the heart that this can be. awaiting echo. on IBU RTC. - Sinus tachycardia - LUE mass - +E coli UTI - Diarrhea resolved, hold lomotil - Stage 4 lung ca- will call [facility] on Saturday at pts request to inform of current hospital stay. next scheduled chemo 09/03/17 - Paraplegia -Chronic indwelling corral. Plan: -For debridement today, Ceftriaxone/Flagyl day 4, vancomycin d/mine. Wound cultures noted. EKG unchanged, 2D echo reviewed, Outpatient follow up. Corral catheter changed, urine cultures noted, on Ceftriaxone. Sinus tachycardia overall unchanged, CT PE neg, sepsis resolved. Check TSH discuss with [facility] for outpatient follow for LUE mass, per patient, [facility] aware of the same. Will defer further management to them. Dispo pending debridement with improvement in infectious process, with outpatient oncology follow up. Plan discussed with patient in detail, all questions answered.
[2017-08-20] MEDS ORDERED: LIDOCAINE HCL 1%, 10 MG/ML (20ML VIAL) ONE (13:27)
[2017-08-20] MEDS ORDERED: ONDANSETRON 4 MG/2 ML VIAL IVPUSH PRN ×2 (14:04→15:57)
[2017-08-20] MEDS ORDERED: PROMETHAZINE HCL 25 MG/1 ML VIAL IVPUSH PRN ×2 (14:04→15:57)
[2017-08-20] MEDS ORDERED: LACTATED RINGERS SOLUTION 1,000 ML IV SCH ×2 (14:15→15:57)
[2017-08-20] MEDS ORDERED: PROPOFOL 20 ML ONE (14:45)
[2017-08-20] MEDS ORDERED: MIDAZOLAM HCL 2 MG/2 ML SINGLE DOSE VIAL ONE (14:45)
[2017-08-20] MEDS ORDERED: LIDOCAINE HCL 1%, 10 MG/ML (50 mL VIAL) IJ ONE (15:09)
--- NOTE | 2017-08-20 15:37 | OP ---
Operative Note - Note: Operative Date: 08/20/17 Pre-Operative Diagnosis: right buttocks ulcer stage 4 Operation: Excisional debridement skin, subcutaneous tissue, muscle. Post-Operative Diagnosis: Same as Pre-op Surgeon: Rufus Del Rosario Anesthesia: Fractional Estimated Blood Loss (mls): 10 Operative Report Dictated: Yes
--- NOTE | 2017-08-20 16:44 | PN ---
Physical Exam: SUBJECTIVE: Patient seen and examined. Pt denies pain. No fever, chills. Pt ready for debridement procedure today. No events overnight. OBJECTIVE: Vital Signs Period Temp Pulse Resp BP Sys/Topete Pulse Ox Last 24 Hr 97.3 F-98.8 F 108-120 16-76 103-143/74-94 99-100 GENERAL: The patient is awake, alert, and fully oriented, in no acute distress. LUNGS: Breath sounds equal, clear to auscultation bilaterally, no wheezes, no crackles, no accessory muscle use. HEART: Regular rhythm, tachycardia, +S1/S2. ABDOMEN: Soft, nontender, nondistended. EXTREMITIES: Warm, well-perfused, no edema. PSYCH: Normal mood, normal affect. SKIN: Warm, dry, normal turgor, no rashes. Stage 4 ulcer to Right buttock. Laboratory Results - last 24 hr 08/20/17 08/20/17 05:05 05:05 WBC 3.9 L RBC 4.03 Hgb 10.9 L Hct 33.3 L MCV 82.8 MCH 27.0 MCHC 32.5 RDW 18.0 H Plt Count 188 MPV 8.3 Neutrophils % 73.0 Lymphocytes % 13.3 D Monocytes % 12.8 H Eosinophils % 0.5 Basophils % 0.4 Sodium 140 Potassium 3.9 Chloride 105 Carbon Dioxide 25 Anion Gap 10 BUN 8 Creatinine 0.4 L Creat Clearance w eGFR > 60 Random Glucose 84 Calcium 8.4 L Total Bilirubin 0.5 AST 26 ALT 33 D Alkaline Phosphatase 112 D Total Protein 5.5 L Albumin 2.5 L Active Medications Generic Name Dose Route Start Last Admin Trade Name Freq PRN Reason Stop Dose Admin Diphenoxylate HCl/Atropine 2 combo 08/20/17 15:57 Lomotil - PO Q8H PRN DIARRHEA Enoxaparin Sodium 40 mg 08/21/17 10:00 Lovenox - SQ DAILY [facility] Fentanyl 50 mcg 08/20/17 15:57 Sublimaze Injection - IVPUSH [id number] PRN PAIN Folic Acid 1 mg 08/21/17 10:00 Folic Acid - PO DAILY [facility] Ceftriaxone Sodium 2 gm/ 100 mls @ 200 mls/hr 08/21/17 10:00 Dextrose IVPB DAILY [facility] Metronidazole 500 mg in 100 mls @ 100 mls/hr 08/20/17 18:00 Flagyl 500mg Premixed Ivpb - IVPB Q8H-IV [facility] Lactated Ringer's 1,000 mls @ 125 mls/hr 08/20/17 15:57 Lactated Ringers Solution IV ASDIR RACHEAL Ibuprofen 600 mg 08/20/17 22:00 Motrin - PO TID [facility] Magnesium Oxide 400 mg 08/21/17 10:00 Mag-Ox - PO DAILY [facility] Morphine Sulfate 15 mg 08/20/17 18:00 Ms Contin - PO Q6HPO [facility] Ondansetron HCl 8 mg 08/20/17 18:00 Zofran - PO QID PRN Ondansetron HCl 4 mg 08/20/17 15:57 Zofran Injection IVPUSH Q6H PRN NAUSEA AND/OR VOMITING Promethazine HCl 12.5 mg 08/20/17 15:57 Phenergan Injection - IVPUSH Q6H PRN NAUSEA-FOR RESCUE AFTER 15 MIN IMAGIN08/19/17 Echo -> Left ventricle normal size and function. Mild MR and aortic sclerosis. Mild AR. ASSESSMENT/PLAN: 62yo M with PMH of Lung Ca Stage IV (on chemo, last tx 08/12/17), paraplegic, presenting with sacral decub with debris and foul odor, admitted for sepsis 2/2 sacral decub. # severe sepsis 2/2 sacral decub - s/p debridement -> Wound Vac ordered - Day 4 of IV Ceftriaxone and Day 5 of IV Flagyl - pain control with morphine and motrin - specialty bed (accumax pump/mattress) ordered # UTI - urine culture (+) for E. coli -> continue IV Ceftriaxone - new corral placed # Left UE mass - concerning for malignancy - call placed to [facility] (Dr. Hernandes), waiting for call-back - pt wants to f/u with [facility] for further management # Lung Ca Stage IV - f/u as outpt with [facility] (next chemo tx scheduled for 09/03) # consistent tachycardia - pt denies chest pain - CTA (-) for PE - Echo reveals normal Left ventricle size and function # FEN - Fluids: po - Electrolytes: wnl, continue to monitor - Nutrition: regular diet # Prophylaxis - DVT ppx with Lovenox Visit type - Emergency Visit Emergency Visit: Yes ED Registration Date: 08/16/17 Care time: The patient presented to the Emergency Department on the above date and was hospitalized for further evaluation of their emergent condition. - New Patient This patient is new to me today: Yes Date on this admission: 08/20/17 - Critical Care Critical Care patient: No
[2017-08-20] MEDS ORDERED: ONDANSETRON 4 MG TABLET PO PRN (18:00)
[2017-08-20] MEDS: DIPHENOXYLATE 2.5/ATROPINE.025 1 COMBO TABLET PO PRN (21:17)
[2017-08-21] MEDS: morphine SO4 SUSTAINED ACTING 15 MG TABLET.SA PO SCH ×4 (00:06→18:07)
[2017-08-21] MEDS: METRONIDAZOLE 500 MG PREMIXED 500 MG/100 ML MG IVPB SCH ×3 (01:24→17:26)
[2017-08-21] MEDS: DIPHENOXYLATE 2.5/ATROPINE.025 1 COMBO TABLET PO PRN (02:52)
[2017-08-21] MEDS: IBUPROFEN 600 MG TABLET (FP) PO SCH ×3 (06:04→21:38)
[2017-08-21 07:41] LABS: BASO % 0.9 % (0-2.0); EOS % 0.8 % (0-4.5); MCH 27.1 pg (25.7-33.7); MCHC 32.8 g/dl (32.0-35.9); MEAN CELL VOLUME 82.6 fl (80-96); MEAN PLT VOLUME 8.2 fl (7.5-11.1); NEUT % 62.5 % (42.8-82.8); PLATELET COUNT 148 K/MM3 (134-434); RDW 18.3 % (11.9-15.9); WHITE BLOOD COUNT 2.9 K/mm3 (4.0-10.0)
[2017-08-21] MEDS: AZTREONAM 2 GRAM SYRINGE 2 GM/10 ML DISP.SYRIN IVPUSH SCH (08:27)
[2017-08-21 08:39] LABS: ANION GAP 9 (8-16); CALCIUM 8.4 mg/dL (8.5-10.1); CO2 25 mmol/L (21-32); CREATININE 0.4 mg/dL (0.7-1.3); GLUCOSE,RANDOM 81 mg/dL (74-106); THYROID STIMULATING HORMONE 1.68 uIU/ml (0.358-3.74)
--- NOTE | 2017-08-21 09:46 | OP ---
DATE OF OPERATION: 08/20/2017 PREOPERATIVE DIAGNOSIS: Right buttock ulcer, stage 4. POSTOPERATIVE DIAGNOSIS: Right buttock ulcer, stage 4. PROCEDURE: Excisional debridement, right buttock, skin, subcutaneous tissue, and muscle. SURGEON: Rufus Scott DO ANESTHESIA: Fractional. BLOOD LOSS: 10 mL INDICATION FOR PROCEDURE: The patient is a 62-year-old paraplegic who has recently developed a stage 4 right buttock ulcer with necrotic tissue. It was decided that he would need to go in for an excisional debridement. Patient was consented for the procedure, understanding all risks, benefits, and alternatives, then taken to the operating room. DESCRIPTION OF PROCEDURE: Once in the operating room, he was laid on the operating table in supine manner and then was shifted to left side down. We then went ahead and prepped and draped the right buttocks in a sterile surgical manner. We then went ahead and injected 10 mL of % into the ulcer. We then went ahead and took Metzenbaum scissors and excised all the necrotic tissue including the skin, subcutaneous tissue, and muscle. Bovie electrocautery was used to control all hemostasis. Once all the necrotic tissue was removed, it was sent to Pathology. We then went ahead and irrigated the area copiously. We then went ahead and placed a saline-moist dressing inside the wound. We then went ahead and placed a 4 x 4, ABD pad, and tape. We will now evaluate the patient in the morning and place a wound VAC in the area. Patient tolerated the procedure with no complication. Patient transferred to the PACU in stable condition. RUFUS SCOTT DO FINISHING POWDER PRESS OPERATOR/[id number]
[2017-08-21] MEDS ORDERED: CEFTRIAXONE 2 GM in DEXTROSE 5%-WATER - 100 ML IVPB SCH (10:00)
[2017-08-21] MEDS: CEFTRIAXONE 2 GM in DEXTROSE 5%-WATER - 100 ML IVPB SCH (10:04)
[2017-08-21] MEDS: FOLIC ACID 1 MG TABLET (FP) PO SCH (10:05)
[2017-08-21] MEDS: ENOXAPARIN NA (PORCINE) 40 MG/0.4 ML DISP.SYRIN SQ SCH (10:05)
[2017-08-21] MEDS: MAGNESIUM OXIDE 400 MG TABLET (FP) PO SCH (10:05)
--- NOTE | 2017-08-21 10:11 | PN ---
Progress Note (short form) - Note Progress Note: POD #1 Alert. Paraplegic. Resting comfortably without complaint. AVSS. Afebril. Gen: nad Skin: Stage 1 pressure ulcer located on low thoracic spine ~ 2 x 2 x 1 cm, clean Right buttock Stage 4 ulcer 4 x 2.5 x 1.5 cm (no bone exposed) Problem List - Problems (1) Wound of right buttock Assessment/Plan: VAC dressing applied on rounds. Dressing changes ordered for W-F-Sat Optifoam dressing to thoracic pressure ulcer Offload all pressure sensitive areas Frequent repositioning Cont medical management Code(s): S31.819A - UNSPECIFIED OPEN WOUND OF RIGHT BUTTOCK, INITIAL ENCOUNTER
--- NOTE | 2017-08-21 11:19 | PN ---
Progress Note, Physician Chief Complaint: s/p debridement of right buttock ulcer History of Present Illness: under MAC post op day one - Current Medication List Current Medications: Active Medications Diphenoxylate HCl/Atropine (Lomotil -) 2 combo PO Q8H PRN PRN Reason: DIARRHEA Last Admin: 08/21/17 02:52 Dose: 2 combo Enoxaparin Sodium (Lovenox -) 40 mg SQ DAILY [facility] Last Admin: 08/21/17 10:05 Dose: 40 mg Fentanyl (Sublimaze Injection -) 50 mcg IVPUSH [id number] PRN PRN Reason: PAIN Folic Acid (Folic Acid -) 1 mg PO DAILY [facility] Last Admin: 08/21/17 10:05 Dose: 1 mg Metronidazole (Flagyl 500mg Premixed Ivpb -) 500 mg in 100 mls @ 100 mls/hr IVPB Q8H-IV [facility] Last Admin: 08/21/17 10:48 Dose: 100 mls/hr Ceftriaxone Sodium 2 gm/ (Dextrose) 100 mls @ 200 mls/hr IVPB DAILY [facility] Last Admin: 08/21/17 10:04 Dose: 200 mls/hr Ibuprofen (Motrin -) 600 mg PO TID [facility] Last Admin: 08/21/17 06:04 Dose: 600 mg Magnesium Oxide (Mag-Ox -) 400 mg PO DAILY [facility] Last Admin: 08/21/17 10:05 Dose: 400 mg Morphine Sulfate (Ms Contin -) 15 mg PO Q6HPO [facility] Last Admin: 08/21/17 06:05 Dose: 15 mg Ondansetron HCl (Zofran -) 8 mg PO QID PRN Ondansetron HCl (Zofran Injection) 4 mg IVPUSH Q6H PRN PRN Reason: NAUSEA AND/OR VOMITING Promethazine HCl (Phenergan Injection -) 12.5 mg IVPUSH Q6H PRN PRN Reason: NAUSEA-FOR RESCUE AFTER 15 MIN - Objective Vital Signs: Vital Signs Temperature 98.8 F 08/21/17 06:00 Pulse Rate 108 H 08/21/17 06:00 Respiratory Rate 18 08/21/17 06:00 Blood Pressure 139/84 08/21/17 06:00 O2 Sat by Pulse Oximetry (%) 98 08/20/17 21:00 Constitutional: Yes: Well Nourished Cardiovascular: Yes: WNL Respiratory: Yes: WNL Gastrointestinal: Yes: WNL Labs: CBC, BMP 08/21/17 05:25 08/21/17 05:25 INR, PTT INR 1.33 (0.82-1.09) H 08/16/17 15:54 Assessment/Plan No adverse effect of anesthetic, pain controlled, dept of anesthesia will sign off care at this time
[2017-08-21] MEDS ORDERED: MINERAL OIL/PETROLAT/WATER TOPICAL CREAM 113 GM JAR TP PRN (12:16)
--- NOTE | 2017-08-21 16:44 | PN ---
Teaching Attending Note Name of Resident: Ambika Carty ATTENDING PHYSICIAN STATEMENT Time of evaluation: 10:10 AM I saw and evaluated the patient. I reviewed the resident's note and discussed the case with the resident. I agree with the resident's findings and plan as documented. SUBJECTIVE: Patient seen and examined. diarrhea post procedure yesterday, none since. No nausea, vomiting or abdominal pain. denies any fevers or chills. OBJECTIVE: Vital Signs Period Temp Pulse Resp BP Sys/Topete Pulse Ox Last 24 Hr 97.5 F-98.8 F 100-120 18-20 106-140/60-84 98-100 Intake & Output 08/18/17 08/19/17 08/20/17 08/21/17 23:59 23:59 23:59 23:59 Intake Total 1114 1960 570 590 Output Total 2450 1999 2059 300 Balance -5146 -40 -8571 290 General: sitting in bed in no acute distress Abdomen: soft, NT, ND back: sharply demarcated erythamotous area (?contact dermatitis), non warm, non tender Sacral decub with dressing, further exam deferred for now Extremities; Left arm unchanged mass Home Medication List Medication Instructions Recorded Confirmed Type Diphenoxylate 2.5/Atropine.025 2 combo PO TID 08/16/17 08/16/17 History [Lomotil -] Folic Acid 1 mg PO DAILY 08/16/17 08/16/17 History Hydroxychloroquine So4 [Plaquenil 200 mg PO BID 08/16/17 08/16/17 History -] Magnesium Oxide [Magnesium] 400 mg PO DAILY 08/16/17 08/16/17 History Morphine Sulfate [Morphine Sulfate 15 mg PO QID 08/16/17 08/16/17 History ER] Ondansetron [Zofran -] 8 mg PO PRN 08/16/17 08/16/17 History Active Medications Generic Name Dose Route Start Last Admin Trade Name Freq PRN Reason Stop Dose Admin Enoxaparin Sodium 40 mg 08/21/17 10:00 08/21/17 10:05 Lovenox - SQ 40 mg DAILY RACHEAL Administration Fentanyl 50 mcg 08/20/17 15:57 Sublimaze Injection - IVPUSH [id number] PRN PAIN Folic Acid 1 mg 08/21/17 10:00 08/21/17 10:05 Folic Acid - PO 1 mg DAILY RACHEAL Administration Metronidazole 500 mg in 100 mls @ 100 mls/hr 08/20/17 18:00 08/21/17 10:48 Flagyl 500mg Premixed Ivpb - IVPB 100 mls/hr Q8H-IV [facility] Administration Ceftriaxone Sodium 2 gm/ 100 mls @ 200 mls/hr 08/21/17 10:00 08/21/17 10:04 Dextrose IVPB 200 mls/hr DAILY [facility]HEAL Administration Ibuprofen 600 mg 08/20/17 22:00 08/21/17 13:27 Motrin - PO 600 mg TID RACHEAL Administration Magnesium Oxide 400 mg 08/21/17 10:00 08/21/17 10:05 Mag-Ox - PO 400 mg DAILY R[facility]AL Administration Morphine Sulfate 15 mg 08/20/17 18:00 08/21/17 11:59 Ms Contin - PO 15 mg Q6HPO RACHEAL Administration Multi-Ingredient Lotion 1 applic 08/21/17 12:16 Eucerin (Small Jar) - TP BID PRN DRY SKIN Ondansetron HCl 8 mg 08/20/17 18:00 Zofran - PO QID PRN Ondansetron HCl 4 mg 08/20/17 15:57 Zofran Injection IVPUSH Q6H PRN NAUSEA AND/OR VOMITING Promethazine HCl 12.5 mg 08/20/17 15:57 Phenergan Injection - IVPUSH Q6H PRN NAUSEA-FOR RESCUE AFTER 15 MIN Laboratory Results - last 24 hr 08/21/17 08/21/17 05:25 05:25 WBC 2.9 L RBC 3.88 L Hgb 10.5 L Hct 32.0 L MCV 82.6 MCH 27.1 MCHC 32.8 RDW 18.3 H Plt Count 148 D MPV 8.2 Neutrophils % 62.5 Lymphocytes % 16.1 D Monocytes % 19.7 H Eosinophils % 0.8 Basophils % 0.9 Sodium 141 Potassium 4.0 Chloride 107 Carbon Dioxide 25 Anion Gap 9 BUN 10 D Creatinine 0.4 L Random Glucose 81 Calcium 8.4 L TSH 1.68 Microbiology 08/16/17 15:17 Blood - Peripheral Venous Blood Culture - Final NO GROWTH AFTER 5 DAYS INCUBATION 08/16/17 15:17 Blood - Peripheral Venous Blood Culture - Final NO GROWTH AFTER 5 DAYS INCUBATION 12/16/17 02:15 Decubiti Gram Stain - Final 08/17/17 02:15 Decubiti Wound Culture - Final Escherichia Coli Morganella Morganii Corynebacterium Species Streptococcus Viridans 08/16/17 15:17 Urine - Urine Clean Catch Urine Culture - Final Escherichia Coli ASSESSMENT AND PLAN: 62 yo M iwth PMH stage 4 Lung ca s/p RTx and on chemo ([id number], last cycle 08/12 ) and paraplegia presented to the ER after his noticed that his sacral decubitus ulcer had debris and foul odor - Severe Sepsis due to sacral decubitus - Diffuse ST elevation- concern for pericarditis. h/o mets to heart, 2D echo non concerning, EKG unchanged - Sinus tachycardia - LUE mass - +E coli UTI - Diarrhea resolved, hold lomotil - Stage 4 lung ca- will call [facility] on Saturday at pts request to inform of current hospital stay. next scheduled chemo 09/03/17 - Paraplegia -Chronic indwelling corral. Plan: -s/p debridement 08/20 with no concerns. Afebrile, normal WBC, Wound care, wound vac Ceftriaxone/Flagyl day 5, vancomycin d/mine. Wound cultures noted. Discuss with ID for taper. Diarrhea post procedure yesterday, resolved now. Will hold lomotil, check Stool C difficile if recurrent before resuming lomotil. EKG unchanged, 2D echo reviewed, Outpatient follow up. Corral catheter changed, urine cultures noted, on Ceftriaxone. Sinus tachycardia overall unchanged, CT PE neg, sepsis resolved. TSH WNL. Per Patient, [facility] aware of LUE mass,discussed with PCP as well, agree with further w/u outpatient at [facility] for the mass. Dispo planning in 24 hours if no new events, improving, on oral antibiotics pending ID input. Anticipate home VNS/wound care, discuss with CM. Plan discussed with patient in detail, all questions answered.
--- NOTE | 2017-08-21 22:20 | PN ---
Physical Exam: SUBJECTIVE: Patient seen and examined. Pt denies chest pain, abdominal pain, sob, fever, chills. Pt c/o diarrhea, which he attributes to chemo meds. No events overnight. OBJECTIVE: Vital Signs Period Temp Pulse Resp BP Sys/Topete Pulse Ox Last 24 Hr 97.5 F-98.8 F 100-118 18-20 108-139/60-84 98-100 GENERAL: The patient is awake, alert, and fully oriented, in no acute distress. LUNGS: Breath sounds equal, clear to auscultation bilaterally, no wheezes, no crackles, no accessory muscle use. HEART: Regular rhythm, tachycardia, +S1/S2. ABDOMEN: Soft, nontender, nondistended. EXTREMITIES: Warm, well-perfused, no edema. Left arm mass unchanged. PSYCH: Normal mood, normal affect. SKIN: Warm, dry, normal turgor, no rashes. Stage 4 ulcer to Right buttock and Stage 1 pressure ulcer to lower thoracic spine, clean. Laboratory Results - last 24 hr 08/21/17 08/21/17 05:25 05:25 WBC 2.9 L RBC 3.88 L Hgb 10.5 L Hct 32.0 L MCV 82.6 MCH 27.1 MCHC 32.8 RDW 18.3 H Plt Count 148 D MPV 8.2 Neutrophils % 62.5 Lymphocytes % 16.1 D Monocytes % 19.7 H Eosinophils % 0.8 Basophils % 0.9 Sodium 141 Potassium 4.0 Chloride 107 Carbon Dioxide 25 Anion Gap 9 BUN 10 D Creatinine 0.4 L Random Glucose 81 Calcium 8.4 L TSH 1.68 Active Medications Generic Name Dose Route Start Last Admin Trade Name Calvin PRN Reason Stop Dose Admin Enoxaparin Sodium 40 mg 08/21/17 10:00 08/21/17 10:05 Lovenox - SQ 40 mg DAILY [facility]AL Administration Fentanyl 50 mcg 08/20/17 15:57 Sublimaze Injection - IVPUSH [id number] PRN PAIN Folic Acid 1 mg 08/21/17 10:00 08/21/17 10:05 Folic Acid - PO 1 mg DAILY [facility] Administration Metronidazole 500 mg in 100 mls @ 100 mls/hr 08/20/17 18:00 08/21/17 17:26 Flagyl 500mg Premixed Ivpb - IVPB 100 mls/hr Q8H-IV [facility] Administration Ceftriaxone Sodium 2 gm/ 100 mls @ 200 mls/hr 08/21/17 10:00 08/21/17 10:04 Dextrose IVPB 200 mls/hr DAILY [facility] Administration Ibuprofen 600 mg 08/20/17 22:00 08/21/17 21:38 Motrin - PO 600 mg TID RACHEAL Administration Magnesium Oxide 400 mg 08/21/17 10:00 08/21/17 10:05 Mag-Ox - PO 400 mg DAILY [facility] Administration Morphine Sulfate 15 mg 08/20/17 18:00 08/21/17 18:07 Ms Contin - PO 15 mg Q6HPO RACHEAL Administration Multi-Ingredient Lotion 1 applic 08/21/17 12:16 Eucerin (Small Jar) - TP BID PRN DRY SKIN Ondansetron HCl 8 mg 08/20/17 18:00 Zofran - PO QID PRN Ondansetron HCl 4 mg 08/20/17 15:57 Zofran Injection IVPUSH Q6H PRN NAUSEA AND/OR VOMITING Promethazine HCl 12.5 mg 08/20/17 15:57 Phenergan Injection - IVPUSH Q6H PRN NAUSEA-FOR RESCUE AFTER 15 MIN ASSESSMENT/PLAN: 62yo M with PMH of Lung Ca Stage IV (on chemo, last tx 08/12/17), paraplegic, presenting with sacral decub with debris and foul odor, admitted for sepsis 2/2 sacral decub. # severe sepsis 2/2 sacral decub, s/p debridement - POD 1 - Wound VAC dressing applied by surgical PA - dressing changes ordered for W-F-Sat - Optifoam dressing to thoracic pressure ulcer - offload all pressure sensitive areas - frequent repositioning - Day 5 of IV Ceftriaxone and Day 6 of IV Flagyl - pain control with morphine and motrin # diarrhea - f/u cdiff - hold Lomitil until cdiff sample provided # UTI - urine culture (+) for E. coli -> continue IV Ceftriaxone - corral cath changed # Left UE mass - concerning for malignancy - spoke with Dr. Hernandes from [facility] and we agree that pt should f /u there for further management # Lung Ca Stage IV - f/u as outpt with [facility] (next chemo tx scheduled for 09/03) # consistent tachycardia - pt denies chest pain - CTA (-) for PE - Echo reveals normal Left ventricle size and function - TSH wnl # FEN - Fluids: po - Electrolytes: wnl, continue to monitor - Nutrition: regular diet # Prophylaxis - DVT ppx with Lovenox Visit type - Emergency Visit Emergency Visit: Yes ED Registration Date: 08/16/17 Care time: The patient presented to the Emergency Department on the above date and was hospitalized for further evaluation of their emergent condition. - New Patient This patient is new to me today: No - Critical Care Critical Care patient: No
[2017-08-22] MEDS: morphine SO4 SUSTAINED ACTING 15 MG TABLET.SA PO SCH ×3 (00:03→12:00)
[2017-08-22] MEDS: METRONIDAZOLE 500 MG PREMIXED 500 MG/100 ML MG IVPB SCH ×2 (01:30→09:27)
[2017-08-22] MEDS: IBUPROFEN 600 MG TABLET (FP) PO SCH ×2 (06:27→13:47)
[2017-08-22 07:15] LABS: BASO % 0.7 % (0-2.0); EOS % 0.7 % (0-4.5); MCH 27.4 pg (25.7-33.7); MCHC 33.1 g/dl (32.0-35.9); MEAN CELL VOLUME 82.8 fl (80-96); MEAN PLT VOLUME 8.8 fl (7.5-11.1); PLATELET COUNT 151 K/MM3 (134-434); RDW 17.8 % (11.9-15.9); WHITE BLOOD COUNT 2.8 K/mm3 (4.0-10.0)
[2017-08-22] MEDS ORDERED: PT OWN MED DRAWER 7, Y5N ONE (09:00)
[2017-08-22] MEDS: MAGNESIUM OXIDE 400 MG TABLET (FP) PO SCH (09:27)
[2017-08-22] MEDS: FOLIC ACID 1 MG TABLET (FP) PO SCH (09:27)
[2017-08-22] MEDS: ENOXAPARIN NA (PORCINE) 40 MG/0.4 ML DISP.SYRIN SQ SCH (09:27)
[2017-08-22] MEDS: CEFTRIAXONE 2 GM in DEXTROSE 5%-WATER - 100 ML IVPB SCH (09:27)
--- NOTE | 2017-08-22 13:19 | PN ---
Teaching Attending Note Name of Resident: Ambika Carty ATTENDING PHYSICIAN STATEMENT Time of evaluation: 11:45 AM I saw and evaluated the patient. I reviewed the resident's note and discussed the case with the resident. I agree with the resident's findings and plan as documented. SUBJECTIVE: Patient seen and examined. no complaints. Overall feels good. No fevers, chills , back pain or new complaints. OBJECTIVE: Vital Signs Period Temp Pulse Resp BP Sys/Topete Pulse Ox Last 24 Hr 98.0 F-98.8 F 98-110 18-20 118-136/60-83 98 Intake & Output 08/19/17 08/20/17 08/21/17 08/22/17 23:59 23:59 23:59 23:59 Intake Total 5972 117 0125 100 Output Total 1999 2059 700 400 Balance -40 -1490 670 -300 General: sitting in bed in no acute distress Home Medication List Medication Instructions Recorded Confirmed Type Diphenoxylate 2.5/Atropine.025 2 combo PO TID 08/16/17 08/16/17 History [Lomotil -] Folic Acid 1 mg PO DAILY 08/16/17 08/16/17 History Hydroxychloroquine So4 [Plaquenil 200 mg PO BID 08/16/17 08/16/17 History -] Magnesium Oxide [Magnesium] 400 mg PO DAILY 08/16/17 08/16/17 History Morphine Sulfate [Morphine Sulfate 15 mg PO QID 08/16/17 08/16/17 History ER] Ondansetron [Zofran -] 8 mg PO PRN 08/16/17 08/16/17 History Active Medications Generic Name Dose Route Start Last Admin Trade Name Freq PRN Reason Stop Dose Admin Enoxaparin Sodium 40 mg 08/21/17 10:00 08/22/17 09:27 Lovenox - SQ 40 mg DAILY RACHEAL Administration Fentanyl 50 mcg 08/20/17 15:57 Sublimaze Injection - IVPUSH [id number] PRN PAIN Folic Acid 1 mg 08/21/17 10:00 08/22/17 09:27 Folic Acid - PO 1 mg DAILY RACHEAL Administration Metronidazole 500 mg in 100 mls @ 100 mls/hr 08/20/17 18:00 08/22/17 09:27 Flagyl 500mg Premixed Ivpb - IVPB 100 mls/hr Q8H-IV RACHEAL Administration Ceftriaxone Sodium 2 gm/ 100 mls @ 200 mls/hr 08/21/17 10:00 08/22/17 09:27 Dextrose IVPB 200 mls/hr DAILY RACHEAL Administration Ibuprofen 600 mg 08/20/17 22:00 08/22/17 06:27 Motrin - PO 600 mg TID RACHEAL Administration Magnesium Oxide 400 mg 08/21/17 10:00 08/22/17 09:27 Mag-Ox - PO 400 mg DAILY RACHEAL Administration Morphine Sulfate 15 mg 08/20/17 18:00 08/22/17 06:28 Ms Contin - PO 15 mg Q6HPO RACHEAL Administration Multi-Ingredient Lotion 1 applic 08/21/17 12:16 Eucerin (Small Jar) - TP BID PRN DRY SKIN Ondansetron HCl 8 mg 08/20/17 18:00 Zofran - PO QID PRN Ondansetron HCl 4 mg 08/20/17 15:57 Zofran Injection IVPUSH Q6H PRN NAUSEA AND/OR VOMITING Promethazine HCl 12.5 mg 08/20/17 15:57 Phenergan Injection - IVPUSH Q6H PRN NAUSEA-FOR RESCUE AFTER 15 MIN Laboratory Results - last 24 hr 08/22/17 05:05 WBC 2.8 L RBC 3.77 L Hgb 10.3 L Hct 31.2 L MCV 82.8 MCH 27.4 MCHC 33.1 RDW 17.8 H Plt Count 151 MPV 8.8 Neutrophils % 63.0 Lymphocytes % 15.5 Monocytes % 20.1 H Eosinophils % 0.7 Basophils % 0.7 Microbiology 08/16/17 15:17 Blood - Peripheral Venous Blood Culture - Final NO GROWTH AFTER 5 DAYS INCUBATION 08/16/17 15:17 Blood - Peripheral Venous Blood Culture - Final NO GROWTH AFTER 5 DAYS INCUBATION 08/17/17 02:15 Decubiti Gram Stain - Final 08/17/17 02:15 Decubiti Wound Culture - Final Escherichia Coli Morganella Morganii Corynebacterium Species Streptococcus Viridans 08/16/17 15:17 Urine - Urine Clean Catch Urine Culture - Final Escherichia Coli ASSESSMENT AND PLAN: 62 yo M iwth PMH stage 4 Lung ca s/p RTx and on chemo ([id number], last cycle 08/12 ) and paraplegia presented to the ER after his noticed that his sacral decubitus ulcer had debris and foul odor - Severe Sepsis due to sacral decubitus - Diffuse ST elevation- concern for pericarditis. h/o mets to heart, 2D echo non concerning, EKG unchanged - Sinus tachycardia - LUE mass - +E coli UTI - Diarrhea resolved, hold lomotil - Stage 4 lung ca- will call [facility] on Saturday at pts request to inform of current hospital stay. next scheduled chemo 09/03/17 - Paraplegia -Chronic indwelling corral. Plan: -s/p debridement 08/20 with no concerns. Afebrile, normal WBC, Wound care, wound vac, discuss with Dr. Del Rosario for outpatient wound care follow up. Ceftriaxone/Flagyl day 6, vancomycin d/mine. Wound cultures noted. Follow up with Dr. Hughes for oral taper. Diarrhea post procedure 1 episode, resolved now. No active concerns. EKG unchanged, 2D echo reviewed, Outpatient follow up. Corral catheter changed, urine cultures noted, on Ceftriaxone. Sinus tachycardia overall unchanged, CT PE neg, sepsis resolved. TSH WNL. Per Patient, MSK aware of LUE mass,discussed with PCP as well, agree with further w/u outpatient at [facility] for the mass. Dispo planning in 24 hours if no new events, improving, on oral antibiotics pending ID input. Anticipate home VNS/wound care today pending ID input, disposition arrangements and home wound care/wound Vac arrangement. Plan discussed with patient in detail, all questions answered.
--- NOTE | 2017-08-22 15:07 | PN ---
Progress Note, Physician History of Present Illness: No c/o ischial pain Afebrile Leukopenic Wound c/s polymicrobial - Current Medication List Current Medications: Active Medications Enoxaparin Sodium (Lovenox -) 40 mg SQ DAILY [facility] Last Admin: 08/22/17 09:27 Dose: 40 mg Fentanyl (Sublimaze Injection -) 50 mcg IVPUSH [id number] PRN PRN Reason: PAIN Folic Acid (Folic Acid -) 1 mg PO DAILY [facility] Last Admin: 08/22/17 09:27 Dose: 1 mg Metronidazole (Flagyl 500mg Premixed Ivpb -) 500 mg in 100 mls @ 100 mls/hr IVPB Q8H-IV [facility] Last Admin: 08/22/17 09:27 Dose: 100 mls/hr Ceftriaxone Sodium 2 gm/ (Dextrose) 100 mls @ 200 mls/hr IVPB DAILY [facility] Last Admin: 08/22/17 09:27 Dose: 200 mls/hr Ibuprofen (Motrin -) 600 mg PO TID [facility] Last Admin: 08/22/17 13:47 Dose: 600 mg Magnesium Oxide (Mag-Ox -) 400 mg PO DAILY [facility] Last Admin: 08/22/17 09:27 Dose: 400 mg Morphine Sulfate (Ms Contin -) 15 mg PO Q6HPO [facility] Last Admin: 08/22/17 12:00 Dose: 15 mg Multi-Ingredient Lotion (Eucerin (Small Jar) -) 1 applic TP BID PRN PRN Reason: DRY SKIN Ondansetron HCl (Zofran -) 8 mg PO QID PRN Ondansetron HCl (Zofran Injection) 4 mg IVPUSH Q6H PRN PRN Reason: NAUSEA AND/OR VOMITING Promethazine HCl (Phenergan Injection -) 12.5 mg IVPUSH Q6H PRN PRN Reason: NAUSEA-FOR RESCUE AFTER 15 MIN - Objective Vital Signs: Vital Signs Temperature 98.0 F 08/22/17 07:39 Pulse Rate 108 H 08/22/17 07:39 Respiratory Rate 20 08/22/17 09:00 Blood Pressure 129/76 08/22/17 07:39 O2 Sat by Pulse Oximetry (%) 98 08/22/17 09:00 Constitutional: Yes: No Distress Eyes: Yes: Conjunctiva Clear Cardiovascular: Yes: Regular Rate and Rhythm, S1, S2 Respiratory: Yes: Diminished Gastrointestinal: Yes: Normal Bowel Sounds, Soft, Abdomen, Obese. No: Tenderness Integumentary: Yes: Other (VAC in place) Labs: CBC, BMP 08/22/17 05:05 08/21/17 05:25 INR, PTT INR 1.33 (0.82-1.09) H 08/16/17 15:54 Assessment/Plan Infected R ischial decubitus ulcer- polymicrobial Possible sepsis secondary to skin source Leukopenia Paraplegia PCN allergy- tolerated cephalosporin Metastatic lung ca Discontinue ceftriaxone/ flagyl Keflex / Flagyl po additional 7d Outpatient wound care follow up
[2017-08-22] MEDS ORDERED: metroNIDAZOLE 250 MG TABLET PO SCH (15:15)
--- NOTE | 2017-08-22 16:50 | PATH ---
Surgical Pathology Report Patient Name: DWAYNE ROLAND [facility]. Rec. #: [id number] /Age/Gender: 1955 (Age: 62) / M Account: [id number] Location: 4 W TELEMETRY U Taken: 08/20/2017 Received: 08/21/2017 Reported: 08/22/2017 Physicians: Dilia Mclean M.D. Specimen(s) Received DEBRIDEMENT TISSUE RIGHT BUTTOCKS Clinical History Wound right buttocks Final Diagnosis BUTTOCKS, RIGHT, DEBRIDEMENT: FIBROADIPOSE TISSUE AND SKELETAL MUSCLE WITH MARKED ACUTE AND CHRONIC INFLAMMATION AND NECROSIS. Electronically Signed Courtney Grajeda M.D. Gross Description Received in formalin labeled "debrided tissue right buttocks," is a 4.8 x 4.5 x 1.7 cm aggregate of ware koenig, necrotic portions of soft tissue. A service center representative section is submitted in one cassette. 08/21/201708/21/2017
--- NOTE | 2017-08-22 17:33 | PN ---
Progress Note (short form) - Note Progress Note: VA[facility] Surgery Pt seen and examined. VAC paper work filled out Pt will get vac at home Will follow up in wound care clinic in 2 weeks. Rufus Del Rosario DO
[2017-08-22] MEDS ORDERED: CEPHALEXIN MONOHYDRATE 500 MG CAPSULE (UD) PO SCH (18:00)
[2017-08-22 19:03] VITALS: BP 130/90; PULSE 109; TEMP 98.8
--- NOTE | 2017-08-22 21:32 | DS ---
Physical Exam: SUBJECTIVE: Patient seen and examined. Pt feels ready to go home and offers no complaints. No fevers, chills, diarrhea. No events overnight. OBJECTIVE: Vital Signs Period Temp Pulse Resp BP Sys/Topete Pulse Ox Last 24 Hr 98.0 F-98.8 F 98-113 18-20 112-134/71-90 98 PHYSICAL EXAM GENERAL: The patient is awake, alert, and fully oriented, in no acute distress. LUNGS: Breath sounds equal, clear to auscultation bilaterally, no wheezes, no crackles, no accessory muscle use. HEART: Regular rhythm, tachycardia, +S1/S2. ABDOMEN: Soft, nontender, nondistended, (+) bowel sounds x 4. EXTREMITIES: Warm, well-perfused, no edema. Left arm mass unchanged. PSYCH: Normal mood, normal affect. SKIN: Warm, dry, normal turgor, no rashes. Stage 4 ulcer to Right buttock and Stage 1 pressure ulcer to lower thoracic spine, clean. LABS Laboratory Results - last 24 hr 08/22/17 05:05 WBC 2.8 L RBC 3.77 L Hgb 10.3 L Hct 31.2 L MCV 82.8 MCH 27.4 MCHC 33.1 RDW 17.8 H Plt Count 151 MPV 8.8 Neutrophils % 63.0 Lymphocytes % 15.5 Monocytes % 20.1 H Eosinophils % 0.7 Basophils % 0.7 HOSPITAL COURSE: Date of Admission:08/16/17 Date of Discharge: 08/22/17 62yo M with PMH of Lung Ca Stage IV (on chemo, last tx 08/12/17), paraplegic, presenting with sacral decub with debris and foul odor, admitted for sepsis 2/2 sacral decub. Pt received debridement and wound vac application. Pt had some episodes of diarrhea (including one episode just after the debridement procedure ), which resolved on its own. Pt found to have a UTI and treated with IV antibiotics. A mass on the Left UE concerning for malignancy was discovered and will be followed-up by Dr. Hernandes at [facility], where pt receives chemotherapy. Pt had consistent tachycardia throughout this hospitalization, which he attributed to cancer in his heart. 08/16/17 CXR -> no acute pathology. Right jugular line in place. Degenerative changes noted. 08/16/17 CTA -> no pulmonary embolism. Small-moderate Right pleural effusion and nonspecific mediastinal lymphadenopathy. 4 x 2 cm spiculated Right upper lobe lateral opacity - ?primary neoplasm. Marked T10 compression fracture with marked T9-T10 dislocation, with resultant severe central spinal canal narrowing. 08/17/17 Vascular Study -> no DVTs to eriberto LE. 08/18/17 Extremity US -> 4.1 x 3.2 cm solid lesion in Left UE just superior to elbow suspicious for neoplasm. 08/19/17 Echo -> Left ventricle normal in size and function. Mild MR and aortic sclerosis noted. Mild Aortic regurg. 08/16/17 blood culture (-) x 5 days 08/16/17 urine culture (+) for E. coli 08/17/17 decub wound culture (+) for E. coli, Morganella Morganii, Corynebacterium species, and Strep Viridans 08/22/17 cdiff (-) Pt at baseline level of function. Pt stable for discharge home with wound vac and wound care instructions. Minutes to complete discharge: 45 Discharge Summary Reason For Visit: WOUND OF SACRAL REGION Condition: Improved - Instructions Diet, Activity, Other Instructions: You were treated for infection of a decubitus ulcer. Please continue your antibiotics: Flagyl 3 times daily (every 8 hrs) and Keflex 4 times daily (every 6 hrs) both for 7 more days. Your Wound Vac will be delivered tomorrow. Follow surgeon (Dr. Del Rosario) instructions for wound care. Please continue your other home medications as prescribed. Please follow up with your Oncologist (Dr. Hernandes) for ongoing chemotherapy and to assess the mass on your Left arm. Please follow up with Dr. Del Rosario for Wound Care. An appointment has been made for you at the [facility]ound [facility] on Saturday09/06/16 at 10:30am. Please continue to eat a regular diet and increase physical activity as tolerated. Please return to the hospital immediately if you experience persistent or increased pain related to your ulcers, fever, chills, chest pain, difficulty breathing, or for any other medical emergency. Referrals: Amado Hernandes MD [Primary Care Provider] - Rufus Del Rosario MD [Staff Physician] - 09/06/17 10:30 am Disposition: VNS/HOME HEALTH CARE - Home Medications Comprehensive Discharge Medication List: Ambulatory Orders Diphenoxylate 2.5/Atropine.025 [Lomotil -] 2 combo PO TID 08/16/17 Folic Acid 1 mg PO DAILY 08/16/17 Hydroxychloroquine So4 [Plaquenil -] 200 mg PO BID 08/16/17 Magnesium Oxide [Magnesium] 400 mg PO DAILY 08/16/17 Morphine Sulfate [Morphine Sulfate ER] 15 mg PO QID 08/16/17 Ondansetron [Zofran -] 8 mg PO PRN 08/16/17 Cephalexin Monohydrate [Keflex -] 500 mg PO Q6HPO #28 capsule 08/22/17 Ibuprofen [Motrin -] 600 mg PO TID tablet 08/22/17 Metronidazole [Flagyl -] 500 mg PO TID #21 tablet 08/22/17 Mineral Oil/Petrolat,Wht/Water [Eucerin (Small Jar) -] 1 applic TP BID PRN jar 08/22/17 This patient is new to me today: No Emergency Visit: Yes ED Registration Date: 08/16/17 Care time: The patient presented to the Emergency Department on the above date and was hospitalized for further evaluation of their emergent condition. Critical Care patient: No - Discharge Referral Referred to [facility] Yes Physician Referral: Rufus Del Rosario DO ([facility])
== END 2017-08-22 17:55 | disposition home health service (06) | DRG 853 ==
LOC: JER 14:43 → JERBED 18:49 → UNDODISIN 21:39 → J4W 08-17 00:46
PROVIDERS: ADMIT Internal Medicine; ATTEND Hospitalist
PROC: 0KBN0ZZ Excision of Right Hip Muscle, Open Approach (ICD-10-PCS; principal; 2017-08-20 14:00)
DX: A41.89 Other specified sepsis (principal); L89.314 Pressure ulcer of right buttock, stage 4; C34.90 Malignant neoplasm of unspecified part of unspecified bronchus or lung; C79.89 Secondary malignant neoplasm of other specified sites; C79.51 Secondary malignant neoplasm of bone; G82.20 Paraplegia, unspecified; E87.2 Acidosis; N39.0 Urinary tract infection, site not specified; M48.54XA Collapsed vertebra, not elsewhere classified, thoracic region, initial encounter for fracture; J90 Pleural effusion, not elsewhere classified; R59.0 Localized enlarged lymph nodes; R00.0 Tachycardia, unspecified; A08.8 Other specified intestinal infections; D72.818 Other decreased white blood cell count; R22.9 Localized swelling, mass and lump, unspecified; B96.29 Other Escherichia coli [E. coli] as the cause of diseases classified elsewhere; S31.819A Unspecified open wound of right buttock, initial encounter; I70.0 Atherosclerosis of aorta; Z88.0 Allergy status to penicillin
CPT/HCPCS: 36415; 71020-TC; 71275-TC; 76882; 80048; 80053; 81003; 81015; 82550; 83605; 83880; 84443; 84484; 85025; 85610; 85730; 86140; 87040; 87070; 87086; 87186; 87205; 87324; 87449; 88304-TC; 93005; 93010; 93306-TC; 93970-TC; 94760; 99283-25; G0480

== ENCOUNTER 2017-09-20 12:48 | Inpatient (IN) | payer BC, OTHER ==
[2017-09-20] MEDS ORDERED: SODIUM CHLORIDE 1,000 ML IV STA (13:10)
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
[2017-09-20] MEDS ORDERED: ONDANSETRON 4 MG/2 ML VIAL IVPB ONE (13:17)
[2017-09-20] MEDS ORDERED: ONDANSETRON *ODT* 4 MG TABLET ONE (13:18)
[2017-09-20] MEDS ORDERED: LIDOCAINE 2.5%/PRILOCAINE 2.5% (5 Gram/TUBE) TP ONE (13:19)
[2017-09-20] MEDS ORDERED: ACETAMINOPHEN 1000 MG/100 ML VIAL (NON FORMULARY) IVPB ONE (13:38)
[2017-09-20] MEDS ORDERED: ACETAMINOPHEN INJECTION 100 ML IVPB ONE (14:20)
[2017-09-20 14:23] LABS: VENOUS PC02 25.6 mmHg (38-52); VENOUS PH 7.49 (7.32-7.42); VENOUS PO2 28.5 mmHg (28-48)
[2017-09-20 14:24] LABS: HEMATOCRIT 33.3 % (35.4-49); HEMOGLOBIN 10.8 GM/dL (11.7-16.9); MCH 27.5 pg (25.7-33.7); MCHC 32.3 g/dl (32.0-35.9); MEAN CELL VOLUME 84.9 fl (80-96); MEAN PLT VOLUME 9.8 fl (7.5-11.1); PLATELET COUNT 108 K/MM3 (134-434); RBC 3.92 M/mm3 (4.00-5.60); RDW 21.5 % (11.9-15.9); WHITE BLOOD COUNT 7.4 K/mm3 (4.0-10.0)
[2017-09-20] MEDS ORDERED: ONDANSETRON *ODT* 4 MG TABLET SL ONE (14:25)
[2017-09-20 14:44] LABS: INR 1.73 (0.82-1.09); PROTHROMBIN TIME (PATIENT) 19.6 SEC (9.98-11.88)
[2017-09-20 14:47] LABS: ACTIVATED PTT 33.1 SECONDS (26.9-34.4)
[2017-09-20 14:49] LABS: ALBUMIN 1.6 g/dl (3.4-5.0); ANION GAP 15 (8-16); BILIRUBIN,TOTAL 1.7 mg/dL (0.2-1.0); BLOOD UREA NITROGEN 33 mg/dL (7-18); CALCIUM 7.4 mg/dL (8.5-10.1); CHLORIDE 96 mmol/L (98-107); CO2 19 mmol/L (21-32); CREATININE 0.8 mg/dL (0.7-1.3); GLUCOSE,RANDOM 109 mg/dL (74-106); POTASSIUM 4.2 mmol/L (3.5-5.1); SGOT/AST 44 U/L (15-37); SGPT/ALT 19 U/L (12-78); SODIUM 130 mmol/L (136-145); TOT PROT 5.7 g/dl (6.4-8.2)
[2017-09-20 14:52] LABS: ALK PHOS 134 U/L (45-117)
[2017-09-20] MEDS ORDERED: VANCOMYCIN 1,500 MG in DEXTROSE 5%-WATER - 500 ML IVPB ONE (15:17)
[2017-09-20] MEDS ORDERED: PIPERACILLIN/TAZOB 4.5 GM/100 ML PRE-DOCKED IVPB ONE (15:17)
[2017-09-20] MEDS ORDERED: SODIUM CHLORIDE 1,000 ML IV ONE ×2 (15:19→16:41)
[2017-09-20] MEDS ORDERED: ADENOSINE 6 MG/2 ML VIAL IVPUSH ONE ×5 (15:23→16:27)
[2017-09-20] MEDS ORDERED: PIPERACILLIN/TAZOB 4.5 GM 4.5 GM/100 ML BAG IVPB ONE (15:30)
[2017-09-20 15:47] LABS: ANISOCYTOSIS 2+; MACROCYTOSIS 0; PLATELET ESTIMATE DECREASED; TEAR DROP CELLS 0
[2017-09-20] MEDS ORDERED: AMIODARONE HCL 150 MG/3 ML VIAL IVPUSH ONE (16:26)
[2017-09-20] MEDS ORDERED: AMIODARONE HCL 150 MG/3 ML VIAL ONE (16:34)
[2017-09-20] MEDS ORDERED: AMIODARONE HCL INJECTION 150 MG in DEXTROSE 5%-WATER - 97 ML IVPB ONE (16:39)
[2017-09-20] MEDS ORDERED: HEPARIN NA (PORCINE) 5,000 UNITS/ML 1ML VIAL IVPUSH PRN ×2 (17:10)
[2017-09-20] MEDS ORDERED: HEPARIN - 25,000 UNIT in SODIUM CHLORIDE 495 ML IV SCH (17:15)
[2017-09-20] MEDS: AMIODARONE IN DEXTROSE,ISO-OSM 360 MG/200 ML BAG IVPB SCH (17:22)
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
[2017-09-20] MEDS ORDERED: SODIUM CHLORIDE 0.9% 1000 ML INFUS.BAG IV ONE (21:11)
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
[2017-09-20 22:46] LABS: HEMATOCRIT 27.2 % (35.4-49); MCH 27.9 pg (25.7-33.7); MCHC 32.9 g/dl (32.0-35.9); MEAN CELL VOLUME 84.8 fl (80-96); MEAN PLT VOLUME 9.1 fl (7.5-11.1); PLATELET COUNT 78 K/MM3 (134-434); RBC 3.21 M/mm3 (4.00-5.60); RDW 20.5 % (11.9-15.9); WHITE BLOOD COUNT 6.2 K/mm3 (4.0-10.0)
[2017-09-20 23:35] LABS: ANION GAP 11 (8-16); BLOOD UREA NITROGEN 29 mg/dL (7-18); CHLORIDE 102 mmol/L (98-107); CO2 22 mmol/L (21-32); CREATININE 0.6 mg/dL (0.7-1.3); GLUCOSE,RANDOM 137 mg/dL (74-106); POTASSIUM 3.4 mmol/L (3.5-5.1); SODIUM 135 mmol/L (136-145)
[2017-09-21] MEDS ORDERED: PIPERACIL/TAZOB 3.375 GM 3.375 GM/50 ML PREMIX IVPB ONE (02:00)
[2017-09-21] MEDS ORDERED: PIPERACILLIN/TAZOB 3.375 GM 3.375 GM in DEXTROSE 5%-WATER - 100 ML IVPB ONE (02:00)
[2017-09-21] MEDS ORDERED: SODIUM CHLORIDE 1,000 ML IV ONE (03:15)
[2017-09-21 06:26] LABS: HEMATOCRIT 26.4 % (35.4-49); HEMOGLOBIN 8.8 GM/dL (11.7-16.9); MCH 28.1 pg (25.7-33.7); MCHC 33.3 g/dl (32.0-35.9); MEAN CELL VOLUME 84.3 fl (80-96); MEAN PLT VOLUME 9.7 fl (7.5-11.1); PLATELET COUNT 88 K/MM3 (134-434); RBC 3.13 M/mm3 (4.00-5.60); RDW 21.6 % (11.9-15.9); WHITE BLOOD COUNT 6.5 K/mm3 (4.0-10.0)
[2017-09-21 06:43] LABS: ADD RBC MORPHOLOGY YES
[2017-09-21 06:58] LABS: ALBUMIN 1.3 g/dl (3.4-5.0); ANION GAP 11 (8-16); BLOOD UREA NITROGEN 25 mg/dL (7-18); CHLORIDE 105 mmol/L (98-107); CO2 21 mmol/L (21-32); GLUCOSE,RANDOM 98 mg/dL (74-106); MAGNESIUM 1.7 mg/dL (1.8-2.4); POTASSIUM 3.5 mmol/L (3.5-5.1); SODIUM 137 mmol/L (136-145)
[2017-09-21 07:02] LABS: ALK PHOS 100 U/L (45-117); BILIRUBIN,TOTAL 1.2 mg/dL (0.2-1.0); CALCIUM 7.3 mg/dL (8.5-10.1); CREATININE 0.5 mg/dL (0.7-1.3); SGOT/AST 38 U/L (15-37); SGPT/ALT 17 U/L (12-78); TOT PROT 4.7 g/dl (6.4-8.2)
--- NOTE | 2017-09-21 09:04 | PN ---
Progress Note (short form) - Note Progress Note: Patient seen and examined in the ICU. Awake and alert. Denies CP but reports some intermittent SOB. Now saturation 94% on RA. Rapid AFib on Amiodarone drip. Noted (+) blood cultures. ID has been consulted. Intake & Output 09/18/17 09/19/17 09/20/17 09/21/17 23:59 23:59 23:59 23:59 Intake Total 1000 1000 Output Total 1000 Balance 1000 0 Weight 235 lb 9 oz Last Vital Signs Temp Pulse Resp BP Pulse Ox 99.5 F 136 H 30 H 90/55 100 09/21/17 08:22 09/21/17 08:22 09/21/17 08:22 09/21/17 08:22 09/20/17 20:55 Active Medications Folic Acid (Folic Acid -) 1 mg PO DAILY RACHEAL Amiodarone HCl/Dextrose (Nexterone 360 Mg/200 Ml Bag) 360 mg in 200 mls @ 16.667 mls/hr IVPB TITR RACHEAL; 0.5 MG/MIN PRN Reason: Protocol Last Titration: 09/21/17 03:00 Dose: 0.5 mg/min, 16.667 mls/hr Pneumococcal 13-Valent Conj Vacc (Prevnar 13 Syringe -) 0.5 ml IM .ONCE ONE Stop: 09/21/17 10:01 Gen: awake, alert, NAD HEENT: PERRL, EOMI, no rhinorhea or exudate PULM: clear, no wheezes, accessed L side portacath CDI CV: tachy, irregular ABD: soft, NT, ND Back: Large ~ 5 x 5 cm stage IV sacral to R thigh with tunneling, there is pus draining from wound, appears to be tracking downward. EXT: no sensation, dependent edema bilaterally, there is increase edema in R posterior thigh with skin changes and ? induration (pt is unclear if this is chronic) Neuro: T8 paraplegia, no sensation or mvt ~ umbilicus down. UE and mental status otherwise intact. IMP: Rapid AFib Metastatic Lung CA (?) Infected deep tissue Sacral decubitus ulcer Lactic acidosis Paraplegia Elevated INR Thrombocytopenia (?) VTE PLAN: ABX per ID Surgical evaluation O2 as needed To discuss with Heme need/safety for AC Amiodarone CTA ICU monitoring Dr Redding Critical care time spent in reviewing chart, evaluating patient and formulating plan - 36 minutes.
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
[2017-09-21] MEDS ORDERED: MAGNESIUM SULF 50% (8.12 MEQ/2 ML-1 GM VIAL) IVPB ONE (09:18)
[2017-09-21 09:57] LABS: ANISOCYTOSIS 2+; MACROCYTOSIS 0; PLATELET ESTIMATE DECREASED
[2017-09-21] MEDS ORDERED: PNEUMOC 13-VAL CONJ-DIP CRM/PF 0.5 ML DISP.SYRIN IM ONE (10:00)
[2017-09-21] MEDS ORDERED: FOLIC ACID 1 MG TABLET (FP) PO SCH (10:00)
[2017-09-21] MEDS ORDERED: MAGNESIUM SULFATE IN WATER 2 GM/50 ML IVPB IVPB ONE (10:00)
[2017-09-21] MEDS ORDERED: CEFEPIME HCL 2 GM VIAL (RESTRICTED TO ID) IVPB SCH (10:30)
[2017-09-21] MEDS ORDERED: MEROPENEM 1 GM PUSH 1 GM/20 ML DISP.SYRIN IVPUSH SCH (10:45)
[2017-09-21 10:52] LABS: URINE APPEARANCE CLEAR; URINE BILIRUBIN NEGATIVE (NEGATIVE); URINE BLOOD NEGATIVE (NEGATIVE); URINE COLOR YELLOW; URINE GLUCOSE (UA) NEGATIVE (NEGATIVE); URINE KETONE NEGATIVE (NEGATIVE); URINE LEUK ESTERASE NEGATIVE (NEGATIVE); URINE NITRITE NEGATIVE (NEGATIVE); URINE PROTEIN NEGATIVE (NEGATIVE); URINE UROBILINOGEN NEGATIVE mg/dL (0.2-1.0)
[2017-09-21] MEDS ORDERED: CEFEPIME 2 GM in DEXTROSE 5%-WATER - 100 ML IVPB SCH (11:00)
[2017-09-21] MEDS: VANCOMYCIN 1,500 MG in DEXTROSE 5%-WATER - 500 ML IVPB SCH ×2 (11:39→23:41)
--- NOTE | 2017-09-21 13:02 | PN ---
Progress Note, Physician History of Present Illness: Pt w/o fever, chills, CP, palp, dizziness. - Current Medication List Current Medications: Active Medications Folic Acid (Folic Acid -) 1 mg PO DAILY RACHEAL Last Admin: 09/21/17 10:49 Dose: 1 mg Amiodarone HCl/Dextrose (Nexterone 360 Mg/200 Ml Bag) 360 mg in 200 mls @ 16.667 mls/hr IVPB TITR RACHEAL; 0.5 MG/MIN PRN Reason: Protocol Last Titration: 09/21/17 03:00 Dose: 0.5 mg/min, 16.667 mls/hr Vancomycin HCl 1,500 mg/ (Dextrose) 500 mls @ 250 mls/hr IVPB BID@1100,2300 RACHEAL PRN Reason: Protocol Last Admin: 09/21/17 11:39 Dose: 250 mls/hr Metronidazole (Flagyl 500mg Premixed Ivpb -) 500 mg in 100 mls @ 100 mls/hr IVPB Q8H-IV RACHEAL Last Admin: 09/21/17 10:49 Dose: 100 mls/hr Cefepime HCl 2 gm/ Dextrose 100 mls @ 100 mls/hr IVPB Q8H-IV RACHEAL - Objective Vital Signs: Vital Signs Temperature 99.5 F 09/21/17 08:22 Pulse Rate 139 H 09/21/17 11:56 Respiratory Rate 21 09/21/17 11:56 Blood Pressure 106/60 09/21/17 11:56 O2 Sat by Pulse Oximetry (%) 97 09/21/17 09:00 Constitutional: Yes: No Distress, Calm, Other (VAC is noted) Cardiovascular: Yes: Tachycardia, S1, S2 Respiratory: Yes: Regular, CTA Bilaterally. No: Rales Gastrointestinal: Yes: Normal Bowel Sounds, Soft. No: Tenderness Wound/Incision: Yes: Other (right site chest scar: healed, no erythema/ calor/ pain with palpation. left side of the chest (site of current port-a-cath): healed, no erythema/ calor/ pain with palpation.) Neurological: Yes: Alert, Oriented Labs: CBC, BMP 09/21/17 06:00 09/21/17 06:00 INR, PTT INR 1.73 (0.82-1.09) H D 09/20/17 14:15 - ....Imaging Cat Scan: Pending Problem List - Problems (1) Septic shock Code(s): A41.9 - SEPSIS, UNSPECIFIED ORGANISM; R65.21 - SEVERE SEPSIS WITH SEPTIC SHOCK (2) Sepsis Code(s): A41.9 - SEPSIS, UNSPECIFIED ORGANISM Qualifiers: Sepsis type: sepsis due to unspecified organism Qualified Code(s): A41.9 - Sepsis, unspecified organism (3) Sacral decubitus ulcer, stage IV Code(s): L89.154 - PRESSURE ULCER OF SACRAL REGION, STAGE 4 (4) Atrial tachycardia Code(s): I47.1 - SUPRAVENTRICULAR TACHYCARDIA (5) Lactic acidosis Assessment/Plan: improving Code(s): E87.2 - ACIDOSIS (6) Metastatic primary lung cancer Code(s): C34.90 - MALIGNANT NEOPLASM OF UNSP PART OF UNSP BRONCHUS OR LUNG Qualifiers: Laterality: unspecified laterality Qualified Code(s): C34.90 - Malignant neoplasm of unspecified part of unspecified bronchus or lung (7) Paraplegia Code(s): G82.20 - PARAPLEGIA, UNSPECIFIED (8) Bacteremia Code(s): R78.81 - BACTEREMIA Assessment/Plan IV Amiodarone- heart rate still above 100 IV abtx- per ID Admitted to ICU Pulmonary/CCM, ID, Cardio consults appreciated; Case was d/w Dr. Hidalgo and K[facility]h Onco consult Surgery consult AM labs Pt's family at bedside (, son, other relatives). I reviewed with pt and family possibility of port-a-cath removal; all questions were answered; pt and family agreed with removal of port-a-cath. Poor prognosis; pt's is aware, all questions were answered. Time spent for managing pt's care: over 45 minutes
[2017-09-21] MEDS ORDERED: morphine CARPU-JECT 10 MG/1 ML DISP.SYRIN IVPUSH PRN (14:51)
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
[2017-09-21] MEDS: AMIODARONE IN DEXTROSE,ISO-OSM 360 MG/200 ML BAG IVPB SCH (16:56)
[2017-09-21] MEDS ORDERED: PT OWN MED DRAWER 7, Y5N ONE ×3 (17:37→23:38)
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
[2017-09-21] MEDS: MEROPENEM 1 GM PUSH 1 GM/20 ML DISP.SYRIN IVPUSH SCH (19:28)
[2017-09-21] MEDS ORDERED: LIDOCAINE HCL/PF 2% SDV 5ML VIAL ONE (19:48)
[2017-09-21] MEDS ORDERED: SODIUM CHLORIDE 0.9% P/F 10 ML VIAL IJ ONE (19:48)
[2017-09-21] MEDS ORDERED: AMIODARONE HCL 150 MG/3 ML VIAL ONE (19:48)
[2017-09-21] MEDS ORDERED: ETOMIDATE 20 MG/10 ML AMPUL IVPUSH ONE (19:48)
[2017-09-21] MEDS ORDERED: VECURONIUM BROMIDE 10 MG VIAL ONE (19:48)
[2017-09-21] MEDS ORDERED: AMIODARONE IN DEXTROSE,ISO-OSM 360 MG/200 ML BAG IVPB SCH (20:18)
[2017-09-21] MEDS ORDERED: SUCCINYLCHOLINE CHLORIDE 200 MG/10 ML VIAL ONE (20:24)
[2017-09-21] MEDS: CLINDAMYCIN 900 MG PREMIX IVPB 900 MG/50 ML BAG IVPB SCH (20:30)
[2017-09-21] MEDS ORDERED: MIDAZOLAM HCL 2 MG/2 ML SINGLE DOSE VIAL ONE (20:30)
[2017-09-21] MEDS ORDERED: AMIODARONE HCL 150 MG/3 ML VIAL IVPB ONE (20:30)
[2017-09-21] MEDS ORDERED: CLINDAMYCIN 900 MG PREMIX BAG IVPB ONE (21:50)
[2017-09-21] MEDS ORDERED: PROMETHAZINE HCL 25 MG/1 ML VIAL IVPUSH PRN (22:16)
[2017-09-21] MEDS ORDERED: ONDANSETRON 4 MG/2 ML VIAL IVPUSH PRN (22:16)
[2017-09-21] MEDS ORDERED: PROPOFOL 1,000,000 MCG/100 ML VIAL ONE (22:16)
[2017-09-21] MEDS ORDERED: ELECTROLYTE-148 SOLN 1,000 ML IV SCH (22:30)
[2017-09-21] MEDS ORDERED: PROPOFOL 1,000,000 MCG/100 ML VIAL IVPB SCH (22:30)
--- NOTE | 2017-09-21 22:41 | OP ---
Operative Note - Note: Operative Date: 09/21/17 Pre-Operative Diagnosis: Gas gangrene of sacrum right buttock and Right leg Operation: Right guillotine above knee amputation, Irrigation and Dressing Right sacral decubitus ulcer Findings: Wet gangrene of Right leg posterior compartment tracking proximal to he sacrum and distal to the knee, 400ml of foul smelling pus right thigh posterior compartment tracking along fascia. Post-Operative Diagnosis: Same as Pre-op Surgeon: Juan Antonio Pacheco Slab Installer: Henry Cruz Anesthesiologist/HOSPICE DIRECTOR: Naveed Amor Specimens Removed: right leg with wet gangrene Estimated Blood Loss (mls): 10 Instrument used (Debridements only): scalpel, scissor, sagital saw Drains, Volume Out (mls): 200 (corral) Blood Volume Replaced (mls): 0 Fluid Volume Replaced (mls): 1,500 Operative Report Dictated: Yes
[2017-09-21] MEDS ORDERED: SODIUM CHLORIDE 1,000 ML IV SCH (23:00)
[2017-09-21] MEDS ORDERED: CLINDAMYCIN 600MG PREMIX IVPB 600 MG/50 ML BAG IVPB SCH (23:00)
[2017-09-21] MEDS ORDERED: fentaNYL CITRATE 250 MCG/5 ML VIAL ONE (23:02)
[2017-09-21] MEDS: FENTANYL INJECTION 500 MCG in DEXTROSE 5%-WATER - 90 ML IVPB SCH (23:43)
[2017-09-22 00:24] LABS: ALBUMIN 1.3 g/dl (3.4-5.0); ANION GAP 14 (8-16); BLOOD UREA NITROGEN 21 mg/dL (7-18); CALCIUM 7.1 mg/dL (8.5-10.1); CHLORIDE 101 mmol/L (98-107); CO2 20 mmol/L (21-32); CREATININE 0.5 mg/dL (0.7-1.3); GLUCOSE,RANDOM 166 mg/dL (74-106); POTASSIUM 3.1 mmol/L (3.5-5.1); SODIUM 135 mmol/L (136-145); TOT PROT 4.9 g/dl (6.4-8.2)
[2017-09-22 00:25] LABS: ALK PHOS 133 U/L (45-117); BILIRUBIN,TOTAL 0.9 mg/dL (0.2-1.0); SGOT/AST 53 U/L (15-37); SGPT/ALT 24 U/L (12-78)
[2017-09-22 00:27] LABS: MCH 27.8 pg (25.7-33.7); MCHC 32.3 g/dl (32.0-35.9); MEAN PLT VOLUME 10.3 fl (7.5-11.1); PLATELET COUNT 96 K/MM3 (134-434); RBC 3.26 M/mm3 (4.00-5.60); RDW 21.7 % (11.9-15.9); WHITE BLOOD COUNT 6.9 K/mm3 (4.0-10.0)
[2017-09-22 00:41] LABS: ADD RBC MORPHOLOGY YES
[2017-09-22] MEDS ORDERED: SODIUM CHLORIDE 0.9% 1000 ML INFUS.BAG IV ONE (01:02)
[2017-09-22 01:42] LABS: PHOSPHOROUS 3.5 mg/dL (2.5-4.9)
[2017-09-22 01:43] LABS: MAGNESIUM 1.8 mg/dL (1.8-2.4)
[2017-09-22] MEDS ORDERED: NOREPINEPHRINE BITARTRATE 4 MG/4 ML ML IV ONE (01:47)
[2017-09-22] MEDS ORDERED: PT OWN MED DRAWER 7, Y5N ONE ×3 (01:52→16:39)
[2017-09-22] MEDS: CLINDAMYCIN 900 MG PREMIX IVPB 900 MG/50 ML BAG IVPB SCH ×3 (01:54→17:12)
[2017-09-22] MEDS: MEROPENEM 1 GM PUSH 1 GM/20 ML DISP.SYRIN IVPUSH SCH ×3 (01:54→17:12)
[2017-09-22] MEDS ORDERED: VASOPRESSIN 20 UNITS/ML VIAL IV ONE (02:55)
[2017-09-22 02:56] LABS: ANISOCYTOSIS 2+; MACROCYTOSIS 2+
[2017-09-22] MEDS ORDERED: KCL 10 MEQ IVPB 10 MEQ/100 ML INFUS.BAG IVPB SCH (03:00)
[2017-09-22] MEDS ORDERED: MAGNESIUM SULF 50% (8.12 MEQ/2 ML-1 GM VIAL) ONE (03:13)
[2017-09-22] MEDS: NOREPINEPHRINE BITARTRATE 4,000 MCG in DEXTROSE 5%-WATER - 496 ML IV SCH ×2 (03:19→14:34)
[2017-09-22] MEDS: VASOPRESSIN 50 UNITS in SODIUM CHLORIDE 97.5 ML IVPB SCH (03:21)
[2017-09-22] MEDS ORDERED: fentaNYL CITRATE 250 MCG/5 ML VIAL ONE ×3 (03:45→19:26)
[2017-09-22] MEDS ORDERED: PROPOFOL 1,000,000 MCG/100 ML VIAL ONE ×4 (03:46→19:26)
[2017-09-22 07:20] LABS: HEMATOCRIT 27.5 % (35.4-49); HEMOGLOBIN 8.9 GM/dL (11.7-16.9); MCH 27.8 pg (25.7-33.7); MCHC 32.4 g/dl (32.0-35.9); MEAN CELL VOLUME 85.8 fl (80-96); MEAN PLT VOLUME 9.9 fl (7.5-11.1); PLATELET COUNT 96 K/MM3 (134-434); RBC 3.21 M/mm3 (4.00-5.60); RDW 21.8 % (11.9-15.9)
[2017-09-22 07:27] LABS: ALBUMIN 1.2 g/dl (3.4-5.0); ALK PHOS 128 U/L (45-117); ANION GAP 12 (8-16); BILIRUBIN,TOTAL 0.8 mg/dL (0.2-1.0); BLOOD UREA NITROGEN 21 mg/dL (7-18); CHLORIDE 102 mmol/L (98-107); CO2 18 mmol/L (21-32); CREATININE 0.5 mg/dL (0.7-1.3); GLUCOSE,RANDOM 144 mg/dL (74-106); SGOT/AST 43 U/L (15-37); SGPT/ALT 21 U/L (12-78); SODIUM 132 mmol/L (136-145); TOT PROT 4.7 g/dl (6.4-8.2)
[2017-09-22 07:37] LABS: CALCIUM 6.6 mg/dL (8.5-10.1)
[2017-09-22] MEDS ORDERED: morphine CARPU-JECT 10 MG/1 ML DISP.SYRIN IVPUSH PRN (07:54)
[2017-09-22] MEDS ORDERED: AMIODARONE IN DEXTROSE,ISO-OSM 360 MG/200 ML BAG IVPB SCH (07:54)
[2017-09-22] MEDS ORDERED: PIPERACIL/TAZOB 3.375 GM 3.375 GM/50 ML PREMIX IVPB ONE (07:54)
[2017-09-22] MEDS ORDERED: BENZOIN/ALOE VERA/STORAX/TOLU 58 ML BOTTLE ONE (08:57)
--- NOTE | 2017-09-22 09:10 | OP ---
DATE OF OPERATION: 09/21/2017 PREOPERATIVE DIAGNOSIS: Gas gangrene of the sacrum, buttock and right leg. POSTOPERATIVE DIAGNOSIS: Gas gangrene of the sacrum, buttock and right leg. PROCEDURES PERFORMED: 1. Right guillotine above-knee amputation. 2. Irrigation and dressing of right sacral decubitus ulcer. ATTENDING SURGEON: Juan Antonio Pacheco M.D. RADAR TECHNICIAN: Henry Cruz M.D. ANESTHESIOLOGIST: Naveed Amor M.D. ESTIMATED BLOOD LOSS: 10 mL. TOURNIQUET TIME: 51 minutes. Drainge: River with 200 mL of urine, and 400 mL of pus right leg and buttock. INTRAVENOUS FLUID REPLACED: 1500 mL. SPECIMENS: Culture swab of right leg pus, and right leg with wet gangrene. INSTRUMENTS USED FOR DEBRIDEMENT: Scalpel, scissors, sagittal saw, Bovie cautery. INDICATIONS: The patient is a 62-year-old male admitted on September 20 with worsening weakness, malaise and hemodynamic instability, tachycardic to 170. Two weeks earlier he had debridement by Dr. Del Rosario of a sacral decubitus ulcer. He had a VAC placed on the sacral decubitus ulcer, and did not note, until presenting to the hospital, the change in girth of his right leg. It was twice the size of his left. He did not feel it. He is a paraplegic and has been since 18 years. He was seen by Infectious Disease on September 21, 2017. They noticed the change in the size of the girth of his leg as well as redness and warmth. CT scan of the right lower extremity revealed gas gangrene of the right hemipelvis in the area of the right buttock, tracking cranially towards the sacrum and distally towards the right knee/right lower extremity. This finding was shared and we were called for evaluation at this time, at which point we had a discussion with regards to the risks, benefits and alternatives to guillotine amputation and irrigation to allow for drainage of the site. DESCRIPTION OF PROCEDURE: The patient was brought to the operating room and placed in the supine position on the operating table with the legs extended and parallel to the body's axis in the midline. The right leg was shaved, prepped and draped into a standard surgical field. The patient was induced with general anesthesia and endotracheally intubated. The right and left arms were 90 degrees perpendicular to the body's axis. A formal time-out was completed, identifying the right leg as the operative site. We proceeded first with a sterile prep and drape, and then scribing a circumferential straight-line incision for guillotine amputation of the right leg. The leg was exsanguinated, and the tourniquet was inflated to a pressure of 350 mmHg. We proceeded then with a scalpel to open the horizontal line on the right lower extremity which was scribed. This was carried down through, with care taken to identify the femoral bundle anteromedially in the field. This was taken down with Bovie cautery. Of note, there was significant edema in the soft tissues. When we entered the fascia medially and posteriorly on the field, there was a gush of foul-smelling pus. The pus was suctioned from the wound after a culture was taken. There was a significant amount of soft tissue loss within the medial and posterior compartments of the thigh. Carefully, the femoral bundle was identified. The vein and artery were cross clamped, divided and then suture ligated to allow for hemostasis. The muscle bellies themselves were cut with limited regard for the fascial plane, making an attempt to cauterize the muscle bellies with Bovie cautery as we proceeded. The dissection was carried laterally down through the femur itself. It was identified and a Ogden was used to elevate the tissue proximally and distally. We then proceeded to identify the femur and circumferentially clear soft tissues away. Once the sciatic nerve was identified, it was also cross clamped and tied. After being divided, we then proceeded with division of the femur itself. A sagittal saw was used, after the periosteum of the femur was elevated proximally , to create a deep through the femur, protecting the posterior structures. Once this was completed, the medullary cavity was packed with bone wax, and contoured to allow for hemostasis of the medullary cavity. The remainder of the superficial vessels medially, including the saphenous vein and posterior small branches, were identified, tied and divided. The right leg was then passed off of the field. It was clear that there was a dissection plane in the posterior compartment. Foul smelling pus, approximately an additional 300 mL, was suctioned from the field. An attempt was made to dissect along the infection dissection plane to clean up any tissue which was infected. We proceeded to do that until the tourniquet was inflated. We then held pressure at the site of the guillotine amputation on the right, on the cut surface, and the tourniquet was released. Small bleeders were controlled using cautery along the periphery of the skin. There was not significant blood loss beyond this. We proceeded then, with the leg elevated, suction and irrigate the cavity that seemed to track proximally into the sacral decubitus ulcer. This was copiously irrigated with sterile irrigation, approximately 1 liter. Once all of the purulent material was removed from the site, the wound itself was packed on its distal cut edge with Betadine-soaked Kerlix and then dressed sterilely along the edge proximally. In the right sacral decubitus ulcer and right buttock, the site was cleaned, and gauze packing was placed with an absorbent dressing at the site of the previous VAC dressing. We attempted to express any purulent from the area of the sacrum, and the remainder of the hip and thigh. There appeared to be no more purulent material that we were able to drain. The site had a sterile dressing placed, and was it was secured to the skin using Joey wrap and tape. After completion of the case, the patient remained stable throughout. He was returned to the ICU in stable condition. He tolerated the procedure well. He was left intubated, with the plan for possible extubation and possible return to the operating room. The findings of the surgery were discussed with the family, and they had their questions answered to their satisfaction. We will continue to follow the patient throughout his postoperative course. MD CHUCHO Arroyo/[id number] MTDClifford
--- NOTE | 2017-09-22 09:12 | PN ---
Progress Note (short form) - Note Progress Note: Patient seen and examined in the ICU. S/P Right AKA yesterday. Intubated and sedated. NE And Vasopressin for hemodynamic support. AC Mode of vent 40% FiO2. Remains on Amiodarone drip. Intake & Output 09/19/17 09/20/17 09/21/17 09/22/17 23:59 23:59 23:59 23:59 Intake Total 1000 4950 1430 Output Total 2520 300 Balance 1000 2430 1130 Weight 235 lb 9 oz Last Vital Signs Temp Pulse Resp BP Pulse Ox 99.4 F 89 19 122/92 100 09/22/17 09:00 09/22/17 09:00 09/22/17 09:00 09/22/17 09:00 09/22/17 08:00 Active Medications Chlorhexidine Gluconate (Hibiclens For Decolonization -) 1 applic TP HS RACHEAL Folic Acid (Folic Acid -) 1 mg PO DAILY RACHEAL Sodium Chloride (Normal Saline -) 1,000 mls @ 100 mls/hr IV ASDIR RACHEAL Last Admin: 09/21/17 23:48 Dose: 100 mls/hr Fentanyl 500 mcg/ Dextrose 100 mls @ 10 mls/hr IVPB TITR RACHEAL PRN Reason: 50 MCG/HR Stop: 09/22/17 22:59 Last Admin: 09/21/17 23:43 Dose: 10 mls/hr Norepinephrine Bitartrate 4, (000 mcg/ Dextrose) 500 mls @ 37.5 mls/hr IV TITR RACHEAL; 5 MCG/MIN PRN Reason: Protocol Last Admin: 09/22/17 03:19 Dose: 5 mcg/min, 37.5 mls/hr Vasopressin 50 units/ Sodium (Chloride) 100 mls @ 4 mls/hr IVPB TITR RACHEAL; 2 UNITS/HR PRN Reason: Protocol Last Admin: 09/22/17 03:21 Dose: 2 units/hr, 4 mls/hr Amiodarone HCl/Dextrose (Nexterone 360 Mg/200 Ml Bag) 360 mg in 200 mls @ 33.333 mls/hr IVPB TITR RACHEAL; 1 MG/MIN PRN Reason: Protocol Clindamycin Phosphate (Cleocin 900 Mg Premix Ivpb -) 900 mg in 50 mls @ 100 mls /hr IVPB Q8H-IV RACHEAL Meropenem (Merrem (Restricted To Id) -) 1 gm in 20 mls @ 240 mls/hr IVPUSH Q8H- IV RACHEAL PRN Reason: Protocol Vancomycin HCl 1,500 mg/ (Dextrose) 500 mls @ 250 mls/hr IVPB BID@1100,2300 RACHEAL PRN Reason: Protocol Morphine Sulfate (Morphine Injection -) 2 mg IVPUSH Q6H PRN PRN Reason: PAIN LEVEL 4 - 6 Mupirocin (Bactroban Ointment (For Decolonization) -) 1 applic NS BID RACHEAL Stop: 09/27/17 09:59 Piperacillin/Tazobactam/Dextrose (Zosyn 3.375gm Ivpb (Premix)) 3.375 gm IVPB ONCE ONE Stop: 09/22/17 07:55 Gen: Intubated and sedated HEENT: Orally intubated PULM: clear, no wheezes, accessed L side portacath CDI CV: tachy, irregular ABD: soft, NT, ND EXT: Right AKA, (+) PP on the LLE Neuro: sedated Laboratory Results - last 24 hr 09/21/17 09/21/17 09/21/17 06:00 08:30 23:10 WBC RBC Hgb Hct MCV MCH MCHC RDW Plt Count MPV Total Counted Neutrophils % Neutrophils % (Manual) 55.7 D Band Neutrophils % 33.0 Lymphocytes % Lymphocytes % (Manual) 6.2 L D Monocytes % (Manual) 1 L Eosinophils % (Manual) 0.0 Basophils % (Manual) 0.0 Myelocytes % (Man) 2 D Metamyelocytes 1 D Hypochromia 1+ Platelet Estimate Decreased Polychromasia 1+ Poikilocytosis 0 Anisocytosis 2+ Microcytosis 0 Macrocytosis 0 PTT (Actin FS) Sodium 135 L Potassium 3.1 L Chloride 101 Carbon Dioxide 20 L Anion Gap 14 BUN 21 H Creatinine 0.5 L Creat Clearance w eGFR > 60 Random Glucose 166 H D Lactic Acid Calcium 7.1 L Phosphorus 3.5 Magnesium 1.8 Total Bilirubin 0.9 D AST 53 H D ALT 24 D Alkaline Phosphatase 133 H D Creatine Kinase 292 Creatine Kinase Index 0.3 CK-MB (CK-2) < 1.0 Troponin I 0.03 Total Protein 4.9 L Albumin 1.3 L Urine Color Yellow Urine Appearance Clear Urine pH 5.0 Ur Specific [place] 1.018 Urine Protein Negative Urine Glucose (UA) Negative Urine Ketones Negative Urine Blood Negative Urine Nitrite Negative Urine Bilirubin Negative Urine Urobilinogen Negative Ur Leukocyte Esterase Negative 09/21/17 09/21/17 09/22/17 23:10 23:10 06:35 WBC 6.9 11.0 H D RBC 3.26 L 3.21 L Hgb 9.0 L 8.9 L Hct 28.0 L 27.5 L MCV 86.0 85.8 MCH 27.8 27.8 MCHC 32.3 32.4 RDW 21.7 H 21.8 H Plt Count 96 L 96 L MPV 10.3 9.9 Total Counted 100 Neutrophils % No Result Required. Neutrophils % (Manual) 87.0 H D Band Neutrophils % 5.0 Lymphocytes % No Result Required. Lymphocytes % (Manual) 2.0 L D Monocytes % (Manual) 4 D Eosinophils % (Manual) 2.0 D Basophils % (Manual) Myelocytes % (Man) Metamyelocytes Hypochromia Platelet Estimate Polychromasia Poikilocytosis Anisocytosis 2+ Microcytosis 2+ Macrocytosis 2+ PTT (Actin FS) Sodium Potassium Chloride Carbon Dioxide Anion Gap BUN Creatinine Creat Clearance w eGFR Random Glucose Lactic Acid 2.4 H* Calcium Phosphorus Magnesium Total Bilirubin AST ALT Alkaline Phosphatase Creatine Kinase Creatine Kinase Index CK-MB (CK-2) Troponin I Total Protein Albumin Urine Color Urine Appearance Urine pH Ur Specific [place] Urine Protein Urine Glucose (UA) Urine Ketones Urine Blood Urine Nitrite Urine Bilirubin Urine Urobilinogen Ur Leukocyte Esterase 09/22/17 09/22/17 09/22/17 06:35 06:35 06:35 WBC RBC Hgb Hct MCV MCH MCHC RDW Plt Count MPV Total Counted Neutrophils % Neutrophils % (Manual) Band Neutrophils % Lymphocytes % Lymphocytes % (Manual) Monocytes % (Manual) Eosinophils % (Manual) Basophils % (Manual) Myelocytes % (Man) Metamyelocytes Hypochromia Platelet Estimate Polychromasia Poikilocytosis Anisocytosis Microcytosis Macrocytosis PTT (Actin FS) 32.4 Sodium 132 L Potassium 4.0 D Chloride 102 Carbon Dioxide 18 L Anion Gap 12 BUN 21 H Creatinine 0.5 L Creat Clearance w eGFR > 60 Random Glucose 144 H Lactic Acid 2.2 H* Calcium 6.6 L* Phosphorus Magnesium Total Bilirubin 0.8 AST 43 H ALT 21 Alkaline Phosphatase 128 H Creatine Kinase Creatine Kinase Index CK-MB (CK-2) Troponin I Total Protein 4.7 L Albumin 1.2 L Urine Color Urine Appearance Urine pH Ur Specific [place] Urine Protein Urine Glucose (UA) Urine Ketones Urine Blood Urine Nitrite Urine Bilirubin Urine Urobilinogen Ur Leukocyte Esterase IMP: Rapid AFib Metastatic Lung CA (?) Infected deep tissue Sacral decubitus ulcer Lactic acidosis Paraplegia Elevated INR Thrombocytopenia (?) cardiac thrombus vs malignancy (?) VTE PLAN: ABX per ID Increase AC Mode of vent Pressors to maintain MAP Amiodarone AC Strict I & O Wound care per surgery Hope to extubate by tomorrow Dr Redding Critical care time spent in reviewing chart, evaluating patient and formulating plan - 36 minutes.
[2017-09-22] MEDS: SODIUM CHLORIDE 1,000 ML IV SCH (09:15)
[2017-09-22] MEDS: FOLIC ACID 1 MG TABLET (FP) PO SCH (09:38)
[2017-09-22] MEDS: MUPIROCIN 2% TOPICAL OINTMENT FOR DECOLONIZATION NS SCH ×2 (09:38→22:15)
--- NOTE | 2017-09-22 10:12 | PN ---
Progress Note (short form) - Note Progress Note: Anesthesia post op note, POD#1, S/P Right AKA amputation, due to sepsis in a patient with metastatic lung cancer. Patient seen and examined. Intubated, sedated. On pressors and Amiodarone. Continued hemodynamic support, ventilation and antibiotics. Managed by ICU. No apparent anesthesia related complications. Signed off.
--- NOTE | 2017-09-22 10:48 | PN ---
Progress Note, Physician Chief Complaint: gas gangrene sacurm and right leg History of Present Illness: 62yo male PMH Lung CA with mets to Skin, Heart, Spine, left eye; pt is under care of [facility], were he is receiving Chemo( last chemo was last week on Saturday) via port-a-cath (than was changer last week. Presented with fever and weakness on 09/20. CT scan showed extensive gas gangrene of the right leg. He has been on vasopressor support since surgery, fount to have MRSA bactermia, febrile - Current Medication List Current Medications: Active Medications Chlorhexidine Gluconate (Hibiclens For Decolonization -) 1 applic TP HS RACHEAL Folic Acid (Folic Acid -) 1 mg PO DAILY RACHEAL Last Admin: 09/22/17 09:38 Dose: Not Given Fentanyl 500 mcg/ Dextrose 100 mls @ 10 mls/hr IVPB TITR RACHEAL PRN Reason: 50 MCG/HR Stop: 09/22/17 22:59 Last Admin: 09/21/17 23:43 Dose: 10 mls/hr Norepinephrine Bitartrate 4, (000 mcg/ Dextrose) 500 mls @ 37.5 mls/hr IV TITR RACHEAL; 5 MCG/MIN PRN Reason: Protocol Last Admin: 09/22/17 03:19 Dose: 5 mcg/min, 37.5 mls/hr Vasopressin 50 units/ Sodium (Chloride) 100 mls @ 4 mls/hr IVPB TITR RACHEAL; 2 UNITS/HR PRN Reason: Protocol Last Admin: 09/22/17 03:21 Dose: 2 units/hr, 4 mls/hr Amiodarone HCl/Dextrose (Nexterone 360 Mg/200 Ml Bag) 360 mg in 200 mls @ 33.333 mls/hr IVPB TITR RACHEAL; 1 MG/MIN PRN Reason: Protocol Clindamycin Phosphate (Cleocin 900 Mg Premix Ivpb -) 900 mg in 50 mls @ 100 mls /hr IVPB Q8H-IV RACHEAL Last Admin: 09/22/17 09:38 Dose: 100 mls/hr Meropenem (Merrem (Restricted To Id) -) 1 gm in 20 mls @ 240 mls/hr IVPUSH Q8H- IV RACHEAL PRN Reason: Protocol Vancomycin HCl 1,500 mg/ (Dextrose) 500 mls @ 250 mls/hr IVPB BID@1100,2300 RACHEAL PRN Reason: Protocol Sodium Chloride (Normal Saline -) 1,000 mls @ 150 mls/hr IV ASDIR RACHEAL Last Admin: 09/22/17 09:15 Dose: 150 mls/hr Morphine Sulfate (Morphine Injection -) 2 mg IVPUSH Q6H PRN PRN Reason: PAIN LEVEL 4 - 6 Mupirocin (Bactroban Ointment (For Decolonization) -) 1 applic NS BID RACHEAL Stop: 09/27/17 09:59 Last Admin: 09/22/17 09:38 Dose: 1 applic - Objective Vital Signs: Vital Signs Temperature 99.3 F 09/22/17 10:00 Pulse Rate 81 09/22/17 10:00 Respiratory Rate 19 09/22/17 10:00 Blood Pressure 93/64 09/22/17 10:00 O2 Sat by Pulse Oximetry (%) 100 09/22/17 08:00 Vital Signs Period Temp Pulse Resp BP Sys/Topete Pulse Ox Last 24 Hr 96.6 F-99.5 F 81-142 12-26 67-122/54-92 100-100 Intake & Output 09/21/17 09/22/17 09/22/17 23:59 07:59 15:59 Intake Total 3000 1430 Output Total 620 300 Balance 2380 1130 Intake: IV 2500 1080 DIPRIVAN - 1,000,000 mcg 100 In 100 ml @ 10 MCG/KG/MIN 6.411 mls/hr IVPB TITR [facility] Rx#:[id number] Levophed - 4,000 Mcg In 150 D5w - 496 ml @ 5 MCG/MIN 37.5 mls/hr IV TITR [facility] Rx#:[id number] NEXTERONE 360 MG/200 ML 200 BAG 360 mg In 200 ml @ 1 MG/MIN 33.333 mls/hr IVPB TITR [facility] Rx#:[id number] Normal Saline - 1,000 ml 1000 600 @ 100 mls/hr IV ASDIR RACHEAL Rx#:[id number] Pitressin - 50 Units In 30 Normal Saline - 97.5 ml @ 2 UNITS/HR 4 mls/hr IVPB TITR [facility] Rx#:[id number] IVPB 500 350 Output: Urine 600 300 River 500 300 Estimated Blood Loss 20 Other: Voiding Method Indwelling Catheter Indwelling Catheter Constitutional: Yes: Obese Eyes: Yes: Conjunctiva Clear, EOM Intact HENT: Yes: Atraumatic, Normocephalic Neck: Yes: Supple, Trachea Midline Cardiovascular: Yes: Tachycardia, S1, S2 Respiratory: Yes: Regular, CTA Bilaterally, Intubated, Mechanically Ventilated Gastrointestinal: Yes: Normal Bowel Sounds, Soft ...Rectal Exam: Yes: Deferred Extremities: Yes: Amputation (RLE). No: Cool, Cyanosis Peripheral Pulses: Left Doralis Pedis: 2+, Left Femoral: 2+, Right Femoral: 2+ Neurological: Yes: Alert, Oriented Psychiatric: Yes: Alert, Oriented Labs: CBC, BMP 09/22/17 06:35 09/22/17 06:35 INR, PTT INR 1.73 (0.82-1.09) H D 09/20/17 14:15 Microbiology 09/22/17 06:35 Blood - Tara Cath Blood Culture - Preliminary NO GROWTH OBTAINED AFTER 24 HOURS, INCUBATION TO CONTINUE FOR 4 DAYS. 09/22/17 06:35 Blood - Tara Cath Blood Culture - Preliminary NO GROWTH OBTAINED AFTER 24 HOURS, INCUBATION TO CONTINUE FOR 4 DAYS. 09/20/17 14:20 Blood - Peripheral Venous Blood Culture - Preliminary Presumptive Mrsa (Pbp2a Pos) 09/20/17 14:20 Back Gram Stain - Final 09/20/17 14:20 Back Wound Culture - Preliminary Escherichia Coli Staphylococcus Coagulase Neg Diphtheroid/Corynebacterium Pending Organism 09/20/17 14:20 Blood - Peripheral Venous Blood Culture - Preliminary Staphylococcus Latex Coag Pos 09/20/17 14:20 Nasopharyngeal Swab Influenza Types A,B Antigen (ABNER) - Final 09/20/17 14:20 Nasopharyngeal Swab - Final - ....Imaging X-ray: Report Reviewed, Image Reviewed (Right sided chemoport) Problem List - Problems (1) Gas gangrene of lower extremity Assessment/Plan: 62 yo male PMH Right leg gas gangrene (extending from upper sacrum to Knee) extending from a pelvic abscess and an infected decubitus ulcer seen on CT scan of of the pelvis and lower extremity. Patient is a and will not accept blood transfusion or blood products. He hemodynamically unstable BP 94/60 and HR 140, no pressors. POD#1 s/p RLE Guillotine AKA, Now toxic shock on pressors. ICU supportive care Broad spectrum IV antibiotics appreciate orthopedics reccomendations - Dr. Mckinley Allen appreciate advice - Dr. Del Rosario Discussed hubbard with Dr. Tahyer Plan to Return to OR for Re-debridemnt Right AKA stump and sacral decubitus ulcer, removal of chemoport and placement of central line 09/23/2017 Code(s): A48.0 - GAS GANGRENE (2) Septic shock Code(s): A41.9 - SEPSIS, UNSPECIFIED ORGANISM; R65.21 - SEVERE SEPSIS WITH SEPTIC SHOCK (3) Lung cancer metastatic to bone Code(s): C34.90 - MALIGNANT NEOPLASM OF UNSP PART OF UNSP BRONCHUS OR LUNG; C79.51 - SECONDARY MALIGNANT NEOPLASM OF BONE (4) Atrial tachycardia Code(s): I47.1 - SUPRAVENTRICULAR TACHYCARDIA (5) Gram-positive bacteremia Code(s): R78.81 - BACTEREMIA (6) Infected pressure ulcer Code(s): L89.90 - PRESSURE ULCER OF UNSPECIFIED SITE, UNSPECIFIED STAGE; L08.9 - LOCAL INFECTION OF THE SKIN AND SUBCUTANEOUS TISSUE, UNSP Qualifiers: Pressure ulcer stage: stage 4 Qualified Code(s): L89.94 - Pressure ulcer of unspecified site, stage 4; L08.9 - Local infection of the skin and subcutaneous tissue, unspecified; L08.9 - Local infection of the skin and subcutaneous tissue, unspecified
--- NOTE | 2017-09-22 11:04 | CONSULT ---
Consult - text type - Consultation Consultation Note: Asked to evaluate this patient from orthopaedic standpoint. He is a 62M with a complex medical history. His PMH is significant for paraplegia, metastatic lung CA (receiving chemotherapy at [facility]), sacral decubitus ulcer s/p debridement with vac dressing. He was admitted on 09/20/17 with fever, hemodynamic instability, malaise, and right leg swelling. CT scan showed gas gangrene of the right hemipevis and thigh. The patient underwent emergent right AKA with I& D of decubitus ulcer. PMH: as above Meds: reviewed in the chart All: metronidazole/penicillins/lactose ROS: positive for fevers/mailaise PE: Tmax: 99.3 patient is intubated. Has dressings overlying recent surgical site on right LE. Unable to perform a focused exam due to current patient status. Labs: WBC 11.0, H/H: 8.9/27.5 Blood Cultures: coag positive Staph Aureus CT scan 09/21: extensive inflammatory changes right lower pelvis and thigh with abscess Imp: Right chronic pelvic/sacral infection with abscess s/p I&D and right AKA last night -continue current care per Dr Pacheco and ICU team -from an orthopedic standpoint, if infection is not controlled and further extension of the debridement is required to include the right hip joint or hemipelvis and orthopaedic input in felt necessary, would recommend transfer to local tertiary care facility as this would require support from either an Orthopaedic Tumor specialist or Orthopaedic Trauma specialist. This would be the type of orthopaedic surgeon that could offer the needed support in this clinical setting.
[2017-09-22] MEDS: FENTANYL INJECTION 500 MCG in DEXTROSE 5%-WATER - 90 ML IVPB SCH ×2 (11:06→14:45)
[2017-09-22] MEDS: VANCOMYCIN 1,500 MG in DEXTROSE 5%-WATER - 500 ML IVPB SCH ×2 (11:08→22:19)
[2017-09-22] MEDS: AMIODARONE IN DEXTROSE,ISO-OSM 360 MG/200 ML BAG IVPB SCH (12:30)
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
--- NOTE | 2017-09-22 12:50 | EKG ---
Test Reason : Blood Pressure : / mmHG Vent. Rate : 125 BPM Atrial Rate : 125 BPM P-R Int : 184 ms QRS Dur : 116 ms QT Int : 250 ms P-R-T Axes : 054 076 059 degrees QTc Int : 360 ms SINUS TACHYCARDIA LOW VOLTAGE QRS INCOMPLETE LEFT BUNDLE BRANCH BLOCK ACUTE PERICARDITIS NONSPECIFIC T WAVE ABNORMALITY ABNORMAL ECG WHEN COMPARED WITH ECG OF 20-SEP-2017 13:08, PREVIOUS ECG HAS UNDETERMINED RHYTHM, NEEDS REVIEW INCOMPLETE LEFT BUNDLE BRANCH BLOCK IS NOW PRESENT Confirmed by Srinivas Flores ([id number]) on 09/22/2017 12:49:54 PM Referred By: Confirmed By:Srinivas Flores
--- NOTE | 2017-09-22 13:32 | PN ---
Progress Note, Physician - Current Medication List Current Medications: Active Medications Chlorhexidine Gluconate (Hibiclens For Decolonization -) 1 applic TP HS RACHEAL Folic Acid (Folic Acid -) 1 mg PO DAILY RACHEAL Last Admin: 09/22/17 09:38 Dose: Not Given Fentanyl 500 mcg/ Dextrose 100 mls @ 10 mls/hr IVPB TITR RAC[facility]AL PRN Reason: 50 MCG/HR Stop: 09/22/17 22:59 Last Admin: 09/22/17 14:45 Dose: 10 mls/hr Norepinephrine Bitartrate 4, (000 mcg/ Dextrose) 500 mls @ 37.5 mls/hr IV TITR RACHEAL; 5 MCG/MIN PRN Reason: Protocol Last Admin: 09/22/17 14:34 Dose: 5 mcg/min, 37.5 mls/hr Vasopressin 50 units/ Sodium (Chloride) 100 mls @ 4 mls/hr IVPB TITR RACHEAL; 2 UNITS/HR PRN Reason: Protocol Last Titration: 09/22/17 14:30 Dose: 0 units/hr, 0 mls/hr Clindamycin Phosphate (Cleocin 900 Mg Premix Ivpb -) 900 mg in 50 mls @ 100 mls /hr IVPB Q8H-IV RACHEAL Last Admin: 09/22/17 09:38 Dose: 100 mls/hr Meropenem (Merrem (Restricted To Id) -) 1 gm in 20 mls @ 240 mls/hr IVPUSH Q8H- IV RACHEAL PRN Reason: Protocol Last Admin: 09/22/17 10:00 Dose: 240 mls/hr Vancomycin HCl 1,500 mg/ (Dextrose) 500 mls @ 250 mls/hr IVPB BID@1100,2300 RACHEAL PRN Reason: Protocol Last Admin: 09/22/17 11:08 Dose: 250 mls/hr Sodium Chloride (Normal Saline -) 1,000 mls @ 150 mls/hr IV ASDIR RACHEAL Last Admin: 09/22/17 09:15 Dose: 150 mls/hr Amiodarone HCl/Dextrose (Nexterone 360 Mg/200 Ml Bag) 360 mg in 200 mls @ 16.667 mls/hr IVPB TITR [facility]; 0.5 MG/MIN PRN Reason: Protocol Last Admin: 09/22/17 12:30 Dose: 0.5 mg/min, 16.667 mls/hr Morphine Sulfate (Morphine Injection -) 2 mg IVPUSH Q6H PRN PRN Reason: PAIN LEVEL 4 - 6 Mupirocin (Bactroban Ointment (For Decolonization) -) 1 applic NS BID RACHEAL Stop: 09/27/17 09:59 Last Admin: 09/22/17 09:38 Dose: 1 applic - Objective Vital Signs: Vital Signs Temperature 99.6 F 09/22/17 14:00 Pulse Rate 83 09/22/17 14:34 Respiratory Rate 16 09/22/17 14:00 Blood Pressure 94/64 09/22/17 14:34 O2 Sat by Pulse Oximetry (%) 100 09/22/17 08:00 Labs: CBC, BMP 09/22/17 06:35 09/22/17 06:35 INR, PTT INR 1.73 (0.82-1.09) H D 09/20/17 14:15 <Joel Suazo - Last Filed: 09/22/17 15:05> History of Present Illness: Pt is intubated. Pt is on Pressors (NE, Vassopressin) Pt is on IV Ammiodarone, Pt is sedated, on IV Propofol - Current Medication List Current Medications: Active Medications Chlorhexidine Gluconate (Hibiclens For Decolonization -) 1 applic TP HS RACHEAL Folic Acid (Folic Acid -) 1 mg PO DAILY [facility] Last Admin: 09/22/17 09:38 Dose: Not Given Fentanyl 500 mcg/ Dextrose 100 mls @ 10 mls/hr IVPB TITR [facility] PRN Reason: 50 MCG/HR Stop: 09/22/17 22:59 Last Admin: 09/22/17 11:06 Dose: 10 mls/hr Norepinephrine Bitartrate 4, (000 mcg/ Dextrose) 500 mls @ 37.5 mls/hr IV TITR [facility]ACHEAL; 5 MCG/MIN PRN Reason: Protocol Last Admin: 09/22/17 03:19 Dose: 5 mcg/min, 37.5 mls/hr Vasopressin 50 units/ Sodium (Chloride) 100 mls @ 4 mls/hr IVPB TITR [facility]; 2 UNITS/HR PRN Reason: Protocol Last Titration: 09/22/17 11:00 Dose: 2 units/hr, 4 mls/hr Clindamycin Phosphate (Cleocin 900 Mg Premix Ivpb -) 900 mg in 50 mls @ 100 mls /hr IVPB Q8H-IV RACHEAL Last Admin: 09/22/17 09:38 Dose: 100 mls/hr Meropenem (Merrem (Restricted To Id) -) 1 gm in 20 mls @ 240 mls/hr IVPUSH Q8H- IV RACHEAL PRN Reason: Protocol Last Admin: 09/22/17 10:00 Dose: 240 mls/hr Vancomycin HCl 1,500 mg/ (Dextrose) 500 mls @ 250 mls/hr IVPB BID@1100,2300 RACHEAL PRN Reason: Protocol Last Admin: 09/22/17 11:08 Dose: 250 mls/hr Sodium Chloride (Normal Saline -) 1,000 mls @ 150 mls/hr IV ASDIR RACHEAL Last Admin: 09/22/17 09:15 Dose: 150 mls/hr Amiodarone HCl/Dextrose (Nexterone 360 Mg/200 Ml Bag) 360 mg in 200 mls @ 16.667 mls/hr IVPB TITR RACHEAL; 0.5 MG/MIN PRN Reason: Protocol Last Admin: 09/22/17 12:30 Dose: 0.5 mg/min, 16.667 mls/hr Morphine Sulfate (Morphine Injection -) 2 mg IVPUSH Q6H PRN PRN Reason: PAIN LEVEL 4 - 6 Mupirocin (Bactroban Ointment (For Decolonization) -) 1 applic NS BID [facility] Stop: 09/27/17 09:59 Last Admin: 09/22/17 09:38 Dose: 1 applic - Objective Vital Signs: Vital Signs Temperature 99.4 F 09/22/17 12:00 Pulse Rate 79 09/22/17 12:00 Respiratory Rate 19 09/22/17 12:00 Blood Pressure 99/70 09/22/17 12:00 O2 Sat by Pulse Oximetry (%) 100 09/22/17 08:00 Constitutional: Yes: No Distress, Calm Cardiovascular: Yes: Regular Rate and Rhythm, S1, S2 Respiratory: Yes: Regular, Other (coase BS bilat.) Gastrointestinal: Yes: Normal Bowel Sounds, Soft Extremities: Yes: Other (s/p right AKA, clean dressing) Labs: CBC, BMP 09/22/17 06:35 09/22/17 06:35 INR, PTT INR 1.73 (0.82-1.09) H D 09/20/17 14:15 <Brody Thayer - Last Filed: 09/22/17 19:43> Problem List - Problems (1) Septic shock Code(s): A41.9 - SEPSIS, UNSPECIFIED ORGANISM; R65.21 - SEVERE SEPSIS WITH SEPTIC SHOCK (2) Atrial tachycardia Code(s): I47.1 - SUPRAVENTRICULAR TACHYCARDIA (3) Paraplegia Code(s): G82.20 - PARAPLEGIA, UNSPECIFIED (4) Metastatic primary lung cancer Code(s): C34.90 - MALIGNANT NEOPLASM OF UNSP PART OF UNSP BRONCHUS OR LUNG QualifierTitle: Laterality: unspecified laterality Qualified Code(s): C34.90 - Malignant neoplasm of unspecified part of unspecified bronchus or lung (5) Wound of sacral region Code(s): S31.000A - UNSP OPN WND LOW BACK AND PELV W/O PENET RETROPERITON, INIT QualifierTitle: Encounter type: initial encounter Qualified Code(s): S31.000A - Unspecified open wound of lower back and pelvis without penetration into retroperitoneum, initial encounter (6) Coagulopathy Code(s): D68.9 - COAGULATION DEFECT, UNSPECIFIED (7) Anemia Code(s): D64.9 - ANEMIA, UNSPECIFIED QualifierTitle: Anemia type: unspecified type Qualified Code(s): D64.9 - Anemia, unspecified (8) Thrombocytopenia Code(s): D69.6 - THROMBOCYTOPENIA, UNSPECIFIED <Joel Suazo - Last Filed: 09/22/17 15:05> - Problems (1) Septic shock Code(s): A41.9 - SEPSIS, UNSPECIFIED ORGANISM; R65.21 - SEVERE SEPSIS WITH SEPTIC SHOCK (2) Sepsis Code(s): A41.9 - SEPSIS, UNSPECIFIED ORGANISM Qualifiers: Sepsis type: sepsis due to unspecified organism Qualified Code(s): A41.9 - Sepsis, unspecified organism (3) Sacral decubitus ulcer, stage IV Code(s): L89.154 - PRESSURE ULCER OF SACRAL REGION, STAGE 4 (4) Atrial tachycardia Code(s): I47.1 - SUPRAVENTRICULAR TACHYCARDIA (5) Lactic acidosis Code(s): E87.2 - ACIDOSIS (6) Metastatic primary lung cancer Code(s): C34.90 - MALIGNANT NEOPLASM OF UNSP PART OF UNSP BRONCHUS OR LUNG Qualifiers: Laterality: unspecified laterality Qualified Code(s): C34.90 - Malignant neoplasm of unspecified part of unspecified bronchus or lung (7) Paraplegia Code(s): G82.20 - PARAPLEGIA, UNSPECIFIED (8) Bacteremia Code(s): R78.81 - BACTEREMIA (9) Gas gangrene of lower extremity Assessment/Plan: per LE CT scan, needed surgery last night; due to extensive infection pt underwent right AKA Code(s): A48.0 - GAS GANGRENE (10) Above knee amputation of right lower extremity Code(s): Z89.611 - ACQUIRED ABSENCE OF RIGHT LEG ABOVE KNEE (11) Gram-positive bacteremia Code(s): R78.81 - BACTEREMIA <Brody Thayer - Last Filed: 09/22/17 19:43> Assessment/Plan Admitted to ICU. Pt on Pressors, Ammidarone, Propofol Pulmonary/CCM, ID, Cardio, Onco, Surgery consults appreciated. s/p emergency surgery last night, s/p right AKA Pt for OR tomorrow for reevaluation. Case was d/w Dr. Linn: pt with MRSA bacteremia, needs port-a-cath removed. Case was d/w Dr. Del Rosario. AM labs. Case was d/w pt's nurse. Prognosis: poor; pt's is aware, all questions were answered. <Brody Thayer - Last Filed: 09/22/17 19:43>
--- NOTE | 2017-09-22 17:33 | PN ---
Progress Note (short form) - Note Progress Note: sedated intubated POD #1 Vital Signs Period Temp Pulse Resp BP Sys/Topete Pulse Ox Last 24 Hr 96.6 F-100.2 F 78-138 12-23 67-122/54-92 100-100 cor-rrr lungs decreased at bases abd soft,nt ext dressing right amputation site CBC, BMP 09/22/17 06:35 09/22/17 06:35 Microbiology 09/20/17 14:20 Blood - Peripheral Venous Blood Culture - Preliminary Presumptive Mrsa (Pbp2a Pos) 09/20/17 14:20 Back Gram Stain - Final 09/20/17 14:20 Back Wound Culture - Preliminary Escherichia Coli Staphylococcus Coagulase Neg Diphtheroid/Corynebacterium Pending Organism 09/20/17 14:20 Blood - Peripheral Venous Blood Culture - Preliminary Staphylococcus Latex Coag Pos 09/20/17 14:20 Nasopharyngeal Swab Influenza Types A,B Antigen (ABNER) - Final 09/20/17 14:20 Nasopharyngeal Swab - Final a/p sepsis pressors being tapered mrsa bacteremia gas gangrene of the RLE with sacral ulcer/decubitus jehovahs witness metastatic lung cancer doing poorly vanco/meropenem/clindamycin vancomycin trough in am repeat blood cultures sent today may need port removed overall prognosis guarded d/w Dr Thayer Problem List - Problems (1) Sepsis Code(s): A41.9 - SEPSIS, UNSPECIFIED ORGANISM Qualifiers: Sepsis type: sepsis due to unspecified organism Qualified Code(s): A41.9 - Sepsis, unspecified organism (2) Gram-positive bacteremia Code(s): R78.81 - BACTEREMIA (3) Infected pressure ulcer Code(s): L89.90 - PRESSURE ULCER OF UNSPECIFIED SITE, UNSPECIFIED STAGE; L08.9 - LOCAL INFECTION OF THE SKIN AND SUBCUTANEOUS TISSUE, UNSP Qualifiers: Pressure ulcer stage: stage 4 Qualified Code(s): L89.94 - Pressure ulcer of unspecified site, stage 4; L08.9 - Local infection of the skin and subcutaneous tissue, unspecified; L08.9 - Local infection of the skin and subcutaneous tissue, unspecified (4) Atrial tachycardia Code(s): I47.1 - SUPRAVENTRICULAR TACHYCARDIA (5) Metastatic primary lung cancer Code(s): C34.90 - MALIGNANT NEOPLASM OF UNSP PART OF UNSP BRONCHUS OR LUNG Qualifiers: Laterality: unspecified laterality Qualified Code(s): C34.90 - Malignant neoplasm of unspecified part of unspecified bronchus or lung (6) Penicillin allergy Code(s): Z88.0 - ALLERGY STATUS TO PENICILLIN
[2017-09-22] MEDS ORDERED: ACETAMINOPHEN 1000 MG/100 ML VIAL (NON FORMULARY) IVPB ONE (17:45)
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
[2017-09-22] MEDS ORDERED: VASOPRESSIN 50 UNITS in SODIUM CHLORIDE 97.5 ML IVPB SCH (20:45)
[2017-09-22] MEDS ORDERED: CHLORHEXIDINE GLUCONATE 4% CLEANSER FOR DECOLONIZATION TP SCH (22:00)
[2017-09-23] MEDS: CLINDAMYCIN 900 MG PREMIX IVPB 900 MG/50 ML BAG IVPB SCH ×3 (01:09→17:23)
[2017-09-23] MEDS: MEROPENEM 1 GM PUSH 1 GM/20 ML DISP.SYRIN IVPUSH SCH ×3 (01:09→17:41)
[2017-09-23] MEDS ORDERED: fentaNYL CITRATE 250 MCG/5 ML VIAL ONE ×3 (02:44→23:02)
[2017-09-23] MEDS: NOREPINEPHRINE BITARTRATE 4,000 MCG in DEXTROSE 5%-WATER - 496 ML IV SCH ×4 (06:17→22:00)
[2017-09-23] MEDS: VASOPRESSIN 50 UNITS in SODIUM CHLORIDE 97.5 ML IVPB SCH ×2 (06:18→15:39)
[2017-09-23 06:24] LABS: HEMATOCRIT 27.8 % (35.4-49); HEMOGLOBIN 8.7 GM/dL (11.7-16.9); MCH 27.3 pg (25.7-33.7); MCHC 31.4 g/dl (32.0-35.9); MEAN PLT VOLUME 10.5 fl (7.5-11.1); PLATELET COUNT 123 K/MM3 (134-434); RDW 22.2 % (11.9-15.9); WHITE BLOOD COUNT 13.9 K/mm3 (4.0-10.0)
[2017-09-23 06:59] LABS: CHLORIDE 98 mmol/L (98-107); POTASSIUM 3.7 mmol/L (3.5-5.1); SODIUM 131 mmol/L (136-145)
[2017-09-23 07:11] LABS: ALBUMIN 1.2 g/dl (3.4-5.0); ALK PHOS 122 U/L (45-117); ANION GAP 15 (8-16); BILIRUBIN,TOTAL 0.8 mg/dL (0.2-1.0); BLOOD UREA NITROGEN 14 mg/dL (7-18); CO2 18 mmol/L (21-32); CREATININE 0.5 mg/dL (0.7-1.3); GLUCOSE,RANDOM 127 mg/dL (74-106); SGOT/AST 33 U/L (15-37); SGPT/ALT 17 U/L (12-78); TOT PROT 4.9 g/dl (6.4-8.2)
[2017-09-23 07:27] LABS: CALCIUM 6.5 mg/dL (8.5-10.1)
[2017-09-23 07:27] LABS: ARTERIAL BLD GAS O2 SATURATION 99.2 % (90-98.9); ARTERIAL BLOOD GAS BASE EXCESS -3.6 meq/l (-2-2); ARTERIAL BLOOD GAS PCO2 31.2 mmHg (35-45); ARTERIAL BLOOD GAS pH 7.42 (7.35-7.45)
[2017-09-23 07:30] LABS: ALLENS TEST POSITIVE
[2017-09-23 07:37] LABS: MAGNESIUM 1.4 mg/dL (1.8-2.4); PHOSPHOROUS 3.7 mg/dL (2.5-4.9)
--- NOTE | 2017-09-23 07:39 | PN ---
Progress Note, Physician Chief Complaint: ID Intubated pressor support Antibiotics Vancomycin Meropenem Clindamycin S/P amputation AKA and schedule for debridement OR - Current Medication List Current Medications: Active Medications Chlorhexidine Gluconate (Hibiclens For Decolonization -) 1 applic TP HS RACHEAL Last Admin: 09/22/17 22:15 Dose: 1 applic Folic Acid (Folic Acid -) 1 mg PO DAILY RACHEAL Last Admin: 09/22/17 09:38 Dose: Not Given Norepinephrine Bitartrate 4, (000 mcg/ Dextrose) 500 mls @ 37.5 mls/hr IV TITR RACHEAL; 5 MCG/MIN PRN Reason: Protocol Last Admin: 09/23/17 06:17 Dose: 10 mcg/min, 75 mls/hr Vasopressin 50 units/ Sodium (Chloride) 100 mls @ 4 mls/hr IVPB TITR RACHEAL; 2 UNITS/HR PRN Reason: Protocol Last Admin: 09/23/17 06:18 Dose: 3 units/hr, 6 mls/hr Clindamycin Phosphate (Cleocin 900 Mg Premix Ivpb -) 900 mg in 50 mls @ 100 mls /hr IVPB Q8H-IV RACHEAL Last Admin: 09/23/17 01:09 Dose: 100 mls/hr Meropenem (Merrem (Restricted To Id) -) 1 gm in 20 mls @ 240 mls/hr IVPUSH Q8H- IV RACHEAL PRN Reason: Protocol Last Admin: 09/23/17 01:09 Dose: 240 mls/hr Vancomycin HCl 1,500 mg/ (Dextrose) 500 mls @ 250 mls/hr IVPB BID@1100,2300 RACHEAL PRN Reason: Protocol Last Admin: 09/22/17 22:19 Dose: 250 mls/hr Sodium Chloride (Normal Saline -) 1,000 mls @ 150 mls/hr IV ASDIR RACHEAL Last Admin: 09/22/17 09:15 Dose: 150 mls/hr Amiodarone HCl/Dextrose (Nexterone 360 Mg/200 Ml Bag) 360 mg in 200 mls @ 16.667 mls/hr IVPB TITR RACHEAL; 0.5 MG/MIN PRN Reason: Protocol Last Admin: 09/22/17 12:30 Dose: 0.5 mg/min, 16.667 mls/hr Morphine Sulfate (Morphine Injection -) 2 mg IVPUSH Q6H PRN PRN Reason: PAIN LEVEL 4 - 6 Mupirocin (Bactroban Ointment (For Decolonization) -) 1 applic NS BID RACHEAL Stop: 09/27/17 09:59 Last Admin: 09/22/17 22:15 Dose: 1 applic - Objective Vital Signs: Vital Signs Temperature 98.8 F 09/23/17 06:53 Pulse Rate 82 09/23/17 06:53 Respiratory Rate 19 09/23/17 06:53 Blood Pressure 98/71 09/23/17 06:53 O2 Sat by Pulse Oximetry (%) 100 09/22/17 20:30 Labs: CBC, BMP 09/23/17 05:22 09/23/17 05:22 INR, PTT INR 1.73 (0.82-1.09) H D 09/20/17 14:15 Assessment/Plan Microbiology 09/20/17 14:20 Back Gram Stain - Final 09/22/17 06:35 Blood - Tara Cath Blood Culture - Preliminary NO GROWTH OBTAINED AFTER 24 HOURS, INCUBATION TO CONTINUE FOR 4 DAYS. 09/22/17 06:35 Blood - Tara Cath Blood Culture - Preliminary NO GROWTH OBTAINED AFTER 24 HOURS, INCUBATION TO CONTINUE FOR 4 DAYS. 09/20/17 14:20 Blood - Peripheral Venous Blood Culture - Preliminary Staphylococcus Latex Coag Pos 09/20/17 14:20 Blood - Peripheral Venous Blood Culture - Preliminary Presumptive Mrsa (Pbp2a Pos) 09/20/17 14:20 Back Wound Culture - Preliminary Escherichia Coli Staphylococcus Coagulase Neg Diphtheroid/Corynebacterium Pending Organism Laboratory Tests 09/22/17 09/22/17 09/23/17 06:35 06:35 05:22 WBC 13.9 H Hgb 8.7 L Hct 27.8 L Plt Count 123 L D ABG pO2 at Pt Temp Oxygen Flow Rate BUN 21 H Creatinine 0.5 L Lactic Acid 2.2 H* 09/23/17 09/23/17 05:22 07:10 WBC Hgb Hct Plt Count ABG pO2 at Pt Temp 153.0 H* Oxygen Flow Rate 40% BUN Pending Creatinine Pending Lactic Acid Assessment Toxic shock syndrome MRSA Gas gangrene sacrum leg Sepsis syndrome Metastatic cancer Plan Recommendation for transfer to tertiary care facility made though probably to unstable to be moved now Surgery per Dr Tara Rothman level to repeat ECHO shows no vegetations LENIN Robin MD
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
[2017-09-23] MEDS: MUPIROCIN 2% TOPICAL OINTMENT FOR DECOLONIZATION NS SCH ×2 (09:00→21:20)
[2017-09-23] MEDS: FOLIC ACID 1 MG TABLET (FP) PO SCH (09:01)
[2017-09-23] MEDS ORDERED: PT OWN MED DRAWER 7, Y5N ONE ×2 (09:07→17:39)
[2017-09-23] MEDS ORDERED: MAGNESIUM SULF 50% (8.12 MEQ/2 ML-1 GM VIAL) IVPB ONE (09:11)
[2017-09-23] MEDS ORDERED: PROPOFOL 1,000,000 MCG/100 ML VIAL IVPB SCH (09:15)
[2017-09-23] MEDS ORDERED: FENTANYL INJECTION 500 MCG in DEXTROSE 5%-WATER - 90 ML IVPB SCH ×3 (09:15→14:30)
[2017-09-23] MEDS: SODIUM CHLORIDE 1,000 ML IV SCH ×2 (09:15→15:38)
[2017-09-23] MEDS ORDERED: MAGNESIUM 1GM/D5W - 1 GM/100 ML IVPB IVPB ONE (09:30)
[2017-09-23] MEDS ORDERED: LIDOCAINE HCL 1%, 10 MG/ML (20ML VIAL) ONE (10:11)
[2017-09-23] MEDS ORDERED: BUPIVACAINE HCL/PF 0.5% (5MG/ML) 10 ML VIAL ONE (10:11)
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
--- NOTE | 2017-09-23 11:56 | PN ---
Teaching Attending Note Name of Resident: Kenny Willard ATTENDING PHYSICIAN STATEMENT I saw and evaluated the patient. I reviewed the resident's note and discussed the case with the resident. I agree with the resident's findings and plan as documented. SUBJECTIVE: Patient seen and examined in the ICU. Intubated and sedated. NE And Vasopressin for hemodynamic support. AC Mode of vent 40% FiO2. Remains on Amiodarone drip. Intake & Output 09/20/17 09/21/17 09/22/17 09/23/17 23:59 23:59 23:59 23:59 Intake Total 1000 4950 5238.2 3100 Output Total 2520 1550 700 Balance 1000 2430 3688.2 2400 Weight 235 lb 9 oz Last Vital Signs Temp Pulse Resp BP Pulse Ox 99.3 F 79 16 106/68 100 09/23/17 11:00 09/23/17 11:00 09/23/17 11:00 09/23/17 11:00 09/23/17 08:00 Active Medications Chlorhexidine Gluconate (Hibiclens For Decolonization -) 1 applic TP HS RACHEAL Last Admin: 09/22/17 22:15 Dose: 1 applic Folic Acid (Folic Acid -) 1 mg PO DAILY RACHEAL Last Admin: 09/23/17 09:01 Dose: Not Given Norepinephrine Bitartrate 4, (000 mcg/ Dextrose) 500 mls @ 37.5 mls/hr IV TITR RACHEAL; 5 MCG/MIN PRN Reason: Protocol Last Admin: 09/23/17 06:17 Dose: 10 mcg/min, 75 mls/hr Vasopressin 50 units/ Sodium (Chloride) 100 mls @ 4 mls/hr IVPB TITR RACHEAL; 2 UNITS/HR PRN Reason: Protocol Last Admin: 09/23/17 06:18 Dose: 3 units/hr, 6 mls/hr Clindamycin Phosphate (Cleocin 900 Mg Premix Ivpb -) 900 mg in 50 mls @ 100 mls /hr IVPB Q8H-IV RACHEAL Last Admin: 09/23/17 09:00 Dose: 100 mls/hr Meropenem (Merrem (Restricted To Id) -) 1 gm in 20 mls @ 240 mls/hr IVPUSH Q8H- IV RACHEAL PRN Reason: Protocol Last Admin: 09/23/17 09:13 Dose: 240 mls/hr Vancomycin HCl 1,500 mg/ (Dextrose) 500 mls @ 250 mls/hr IVPB BID@1100,2300 RACHEAL PRN Reason: Protocol Last Admin: 09/22/17 22:19 Dose: 250 mls/hr Sodium Chloride (Normal Saline -) 1,000 mls @ 150 mls/hr IV ASDIR RACHEAL Last Admin: 09/23/17 09:15 Dose: 150 mls/hr Amiodarone HCl/Dextrose (Nexterone 360 Mg/200 Ml Bag) 360 mg in 200 mls @ 16.667 mls/hr IVPB TITR RACHEAL; 0.5 MG/MIN PRN Reason: Protocol Last Admin: 09/22/17 12:30 Dose: 0.5 mg/min, 16.667 mls/hr Fentanyl 500 mcg/ Dextrose 100 mls @ 1 mls/hr IVPB TITR RACHEAL PRN Reason: 5 MCG/HR Last Admin: 09/23/17 09:15 Dose: 1 mls/hr Propofol (Diprivan -) 1,000,000 mcg in 100 mls @ 3.205 mls/hr IVPB TITR RACHEAL; 5 MCG/KG/MIN PRN Reason: Protocol Last Admin: 09/23/17 09:00 Dose: 5 mcg/kg/min, 3.205 mls/hr Morphine Sulfate (Morphine Injection -) 2 mg IVPUSH Q6H PRN PRN Reason: PAIN LEVEL 4 - 6 Mupirocin (Bactroban Ointment (For Decolonization) -) 1 applic NS BID RACHEAL Stop: 09/27/17 09:59 Last Admin: 09/23/17 09:00 Dose: 1 applic Gen: Intubated and sedated HEENT: Orally intubated PULM: scattered rhonchi, no wheezes, accessed L side portacath CDI CV: tachy, irregular ABD: soft, NT, ND EXT: Right AKA, (+) PP on the LLE Neuro: sedated Laboratory Results - last 24 hr 09/23/17 09/23/17 09/23/17 05:22 05:22 05:22 WBC 13.9 H RBC 3.20 L Hgb 8.7 L Hct 27.8 L MCV 87.0 MCH 27.3 MCHC 31.4 L RDW 22.2 H Plt Count 123 L D MPV 10.5 PTT (Actin FS) 35.1 H Puncture Site ABG pH ABG pCO2 at Pt Temp ABG pO2 at Pt Temp ABG HCO3 ABG O2 Sat (Measured) ABG O2 Content ABG Base Excess Jean Carlos Test O2 Delivery Device Oxygen Flow Rate Vent Mode Vent Rate Mechanical Rate PEEP Pressure Support Vent Sodium Potassium Chloride Carbon Dioxide Anion Gap BUN Creatinine Creat Clearance w eGFR Random Glucose Lactic Acid Calcium Phosphorus 3.7 Magnesium 1.4 L D Ferritin Total Bilirubin AST ALT Alkaline Phosphatase C-Reactive Protein Total Protein Albumin Vitamin B12 Vancomycin Pre-Dose 09/23/17 09/23/17 09/23/17 05:22 05:22 05:45 WBC RBC Hgb Hct MCV MCH MCHC RDW Plt Count MPV PTT (Actin FS) Puncture Site ABG pH ABG pCO2 at Pt Temp ABG pO2 at Pt Temp ABG HCO3 ABG O2 Sat (Measured) ABG O2 Content ABG Base Excess Jean Carlos Test O2 Delivery Device Oxygen Flow Rate Vent Mode Vent Rate Mechanical Rate PEEP Pressure Support Vent Sodium 131 L Potassium 3.7 Chloride 98 Carbon Dioxide 18 L Anion Gap 15 BUN 14 D Creatinine 0.5 L Creat Clearance w eGFR > 60 Random Glucose 127 H Lactic Acid 2.8 H* Calcium 6.5 L* Phosphorus Magnesium Ferritin 1859.992 H Total Bilirubin 0.8 AST 33 D ALT 17 Alkaline Phosphatase 122 H C-Reactive Protein Cancelled Total Protein 4.9 L Albumin 1.2 L Vitamin B12 52519 H Vancomycin Pre-Dose 09/23/17 09/23/17 07:10 09:50 WBC RBC Hgb Hct MCV MCH MCHC RDW Plt Count MPV PTT (Actin FS) Puncture Site Right brachial ABG pH 7.42 ABG pCO2 at Pt Temp 31.2 L ABG pO2 at Pt Temp 153.0 H* ABG HCO3 19.8 L ABG O2 Sat (Measured) 99.2 H ABG O2 Content 12.0 L ABG Base Excess -3.6 L Jean Carlos Test Positive O2 Delivery Device Vent Oxygen Flow Rate 40% Vent Mode Vent Vent Rate 12 Mechanical Rate Yes PEEP 5.0 Pressure Support Vent 600 Sodium Potassium Chloride Carbon Dioxide Anion Gap BUN Creatinine Creat Clearance w eGFR Random Glucose Lactic Acid Calcium Phosphorus Magnesium Ferritin Total Bilirubin AST ALT Alkaline Phosphatase C-Reactive Protein Total Protein Albumin Vitamin B12 Vancomycin Pre-Dose 16.966 H* D IMP: Rapid AFib Metastatic Lung CA (?) Infected deep tissue Sacral decubitus ulcer Lactic acidosis Paraplegia Elevated INR Thrombocytopenia (?) cardiac thrombus vs malignancy (?) VTE PLAN: For OR today ABX per ID AC Mode of vent Pressors to maintain MAP Amiodarone AC Strict I & O Wound care per surgery Dr Redding Critical care time spent in reviewing chart, evaluating patient and formulating plan - 36 minutes.
[2017-09-23] MEDS ORDERED: ROCURONIUM BROMIDE 50 MG/5 ML VIAL ONE ×2 (11:57→13:02)
[2017-09-23] MEDS: AMIODARONE IN DEXTROSE,ISO-OSM 360 MG/200 ML BAG IVPB SCH ×3 (12:30→21:21)
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
--- NOTE | 2017-09-23 13:35 | OP ---
Operative Note - Note: Operative Date: 09/23/17 Pre-Operative Diagnosis: Septic shock, gas gangrene right leg and ischium Operation: Placement of Right Internal Jugular Central Venous Catheter, Removal of Left internal Jugular Chemoport, Pulse Irrigation and Debridement of Right Lower extremity stump and Right ischial Decubitus Findings: Dissecting tract posterior fascia of the stump to sacral level, pouring out foul smelling pus (~50m) with patch necrosis and minimal bleeding on tissue surfaces. 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 Implants: none Post-Operative Diagnosis: Same as Pre-op Surgeon: Juan Antonio Pacheco Routing Machine Operator: Henry Cruz Anesthesiologist/DIRECTOR MEDICAL SAFETY: Matilda House MD Anesthesia: General Specimens Removed: chemoport Estimated Blood Loss (mls): 5 Instrument used (Debridements only): silva scissor Drains, Volume Out (mls): 75 (corral, pus 50ml) Blood Volume Replaced (mls): 0 Fluid Volume Replaced (mls): 500 Operative Report Dictated: Yes
[2017-09-23] MEDS: VANCOMYCIN 1,500 MG in DEXTROSE 5%-WATER - 500 ML IVPB SCH ×2 (14:01→23:07)
[2017-09-23] MEDS ORDERED: morphine CARPU-JECT 10 MG/1 ML DISP.SYRIN IVPUSH PRN (15:25)
[2017-09-23] MEDS: PROPOFOL 1,000,000 MCG/100 ML VIAL IVPB SCH ×2 (15:37→21:21)
[2017-09-23] MEDS: FENTANYL INJECTION 500 MCG in DEXTROSE 5%-WATER - 90 ML IVPB SCH (16:04)
--- NOTE | 2017-09-23 16:53 | PN ---
Progress Note, Physician History of Present Illness: Pt is intubated. Pt is on Pressors (NE, Vassopressin) Pt is on IV Ammiodarone, Pt is sedated, on IV Propofol - Current Medication List Current Medications: Active Medications Chlorhexidine Gluconate (Hibiclens For Decolonization -) 1 applic TP HS RACHEAL Folic Acid (Folic Acid -) 1 mg PO DAILY RACHEAL Amiodarone HCl/Dextrose (Nexterone 360 Mg/200 Ml Bag) 360 mg in 200 mls @ 16.667 mls/hr IVPB TITR RACHEAL; 0.5 MG/MIN PRN Reason: Protocol Last Admin: 09/23/17 15:36 Dose: 0.5 mg/min, 16.667 mls/hr Clindamycin Phosphate (Cleocin 900 Mg Premix Ivpb -) 900 mg in 50 mls @ 100 mls /hr IVPB Q8H-IV RACHEAL Meropenem (Merrem (Restricted To Id) -) 1 gm in 20 mls @ 240 mls/hr IVPUSH Q8H- IV RACHEAL PRN Reason: Protocol Norepinephrine Bitartrate 4, (000 mcg/ Dextrose) 500 mls @ 37.5 mls/hr IV TITR RACHEAL; 5 MCG/MIN PRN Reason: Protocol Last Titration: 09/23/17 15:41 Dose: 10 mcg/min, 75 mls/hr Propofol (Diprivan -) 1,000,000 mcg in 100 mls @ 3.205 mls/hr IVPB TITR RACHEAL; 5 MCG/KG/MIN PRN Reason: Protocol Last Titration: 09/23/17 15:49 Dose: 30 mcg/kg/min, 19.233 mls/hr Sodium Chloride (Normal Saline -) 1,000 mls @ 150 mls/hr IV ASDIR RACHEAL Last Admin: 09/23/17 15:38 Dose: 150 mls/hr Vancomycin HCl 1,500 mg/ (Dextrose) 500 mls @ 250 mls/hr IVPB BID@1100,2300 RACHEAL PRN Reason: Protocol Vasopressin 50 units/ Sodium (Chloride) 100 mls @ 4 mls/hr IVPB TITR RACHEAL; 2 UNITS/HR PRN Reason: Protocol Last Titration: 09/23/17 15:43 Dose: 3 units/hr, 6 mls/hr Fentanyl 500 mcg/ Dextrose 100 mls @ 10 mls/hr IVPB TITR RACHEAL; 50 MCG/HR PRN Reason: Protocol Last Admin: 09/23/17 16:04 Dose: 10 mls/hr Morphine Sulfate (Morphine Injection -) 2 mg IVPUSH Q6H PRN PRN Reason: PAIN LEVEL 4 - 6 Mupirocin (Bactroban Ointment (For Decolonization) -) 1 applic NS BID RACHEAL Stop: 09/27/17 09:59 - Objective Vital Signs: Vital Signs Temperature 99.0 F 09/23/17 16:00 Pulse Rate 77 09/23/17 16:00 Respiratory Rate 16 09/23/17 16:05 Blood Pressure 102/75 09/23/17 16:00 O2 Sat by Pulse Oximetry (%) 100 09/23/17 14:00 Constitutional: Yes: No Distress, Calm Cardiovascular: Yes: Regular Rate and Rhythm, S1, S2 Respiratory: Yes: Regular, CTA Bilaterally. No: Rales Gastrointestinal: Yes: Normal Bowel Sounds, Soft Extremities: Yes: Other (s/p right AKA) Labs: CBC, BMP 09/23/17 05:22 09/23/17 05:22 INR, PTT INR 1.73 (0.82-1.09) H D 09/20/17 14:15 Problem List - Problems (1) Septic shock Code(s): A41.9 - SEPSIS, UNSPECIFIED ORGANISM; R65.21 - SEVERE SEPSIS WITH SEPTIC SHOCK (2) Sepsis Code(s): A41.9 - SEPSIS, UNSPECIFIED ORGANISM Qualifiers: Sepsis type: sepsis due to unspecified organism Qualified Code(s): A41.9 - Sepsis, unspecified organism (3) Sacral decubitus ulcer, stage IV Code(s): L89.154 - PRESSURE ULCER OF SACRAL REGION, STAGE 4 (4) Atrial tachycardia Code(s): I47.1 - SUPRAVENTRICULAR TACHYCARDIA (5) Lactic acidosis Code(s): E87.2 - ACIDOSIS (6) Metastatic primary lung cancer Code(s): C34.90 - MALIGNANT NEOPLASM OF UNSP PART OF UNSP BRONCHUS OR LUNG Qualifiers: Laterality: unspecified laterality Qualified Code(s): C34.90 - Malignant neoplasm of unspecified part of unspecified bronchus or lung (7) Paraplegia Code(s): G82.20 - PARAPLEGIA, UNSPECIFIED (8) Bacteremia Assessment/Plan: with MRSA Code(s): R78.81 - BACTEREMIA (9) Gas gangrene of lower extremity Code(s): A48.0 - GAS GANGRENE (10) Above knee amputation of right lower extremity Code(s): Z89.611 - ACQUIRED ABSENCE OF RIGHT LEG ABOVE KNEE (11) Gram-positive bacteremia Code(s): R78.81 - BACTEREMIA Assessment/Plan Admitted to ICU. Pt on IV Pressors (NE, Vasopressin), Amidarone, Propofol, abtx. IV abtx per ID. HR improved. Pulmonary/CCM, ID, Cardio, Onco, Surgery, Ortho consults appreciated. s/p emergency surgery 09/21/2017, s/p right AKA. Case was d/w anesthesia pre-procedure. s/p OR today for reevaluation/ debridment/ removal of port-a-cath. Both surgeries should be consider lifesaving procedures. Pt remained high risk for cardiovascular complications postop. Monitor electrolytes and replete AM labs. Case was d/w pt's nurse. Prognosis: poor; pt's is aware, all questions were answered. Time spent for managing pt's care: 45 minutes
[2017-09-23] MEDS: CHLORHEXIDINE GLUCONATE 4% CLEANSER FOR DECOLONIZATION TP SCH (21:21)
--- NOTE | 2017-09-23 21:55 | EKG ---
Test Reason : Blood Pressure : / mmHG Vent. Rate : 157 BPM Atrial Rate : 157 BPM P-R Int : 000 ms QRS Dur : 084 ms QT Int : 224 ms P-R-T Axes : 000 039 046 degrees QTc Int : 362 ms LIKELY ATRIAL FLUTTER WITH 2:1 AV CONDUCTION LOW VOLTAGE QRS ABNORMAL ECG WHEN COMPARED WITH ECG OF 18-AUG-2017 11:46, ATRIAL FLUTTER HAS REPLACED SINUS ATRIAL TACHYCARDIA VENT. RATE HAS INCREASED Confirmed by SILAS ZAPATA, ROMAIN ([id number]) on 09/23/2017 9:55:16 PM Referred By: Confirmed By:ROMAIN ROSEN MD
[2017-09-23] MEDS ORDERED: MUPIROCIN 2% TOPICAL OINTMENT FOR DECOLONIZATION NS SCH (22:00)
[2017-09-23] MEDS ORDERED: CHLORHEXIDINE GLUCONATE 4% CLEANSER FOR DECOLONIZATION TP SCH (22:00)
[2017-09-24] MEDS: VASOPRESSIN 50 UNITS in SODIUM CHLORIDE 97.5 ML IVPB SCH ×2 (01:00→15:16)
[2017-09-24] MEDS: MEROPENEM 1 GM PUSH 1 GM/20 ML DISP.SYRIN IVPUSH SCH ×3 (02:45→17:30)
[2017-09-24] MEDS: CLINDAMYCIN 900 MG PREMIX IVPB 900 MG/50 ML BAG IVPB SCH ×3 (02:46→17:30)
[2017-09-24] MEDS ORDERED: fentaNYL CITRATE 250 MCG/5 ML VIAL ONE (03:11)
[2017-09-24 06:17] LABS: BASO % 0.2 % (0-2.0); EOS % 2.4 % (0-4.5); HEMATOCRIT 25.8 % (35.4-49); HEMOGLOBIN 8.4 GM/dL (11.7-16.9); LYMPH % 6.9 % (8-40); MCH 27.8 pg (25.7-33.7); MCHC 32.6 g/dl (32.0-35.9); MEAN CELL VOLUME 85.4 fl (80-96); MEAN PLT VOLUME 9.7 fl (7.5-11.1); MONO % 5.9 % (3.8-10.2); NEUT % 84.6 % (42.8-82.8); PLATELET COUNT 101 K/MM3 (134-434); RBC 3.02 M/mm3 (4.00-5.60); RDW 21.7 % (11.9-15.9); WHITE BLOOD COUNT 9.9 K/mm3 (4.0-10.0)
[2017-09-24 06:27] LABS: ARTERIAL BLOOD GAS BASE EXCESS -0.7 meq/l (-2-2); ARTERIAL BLOOD GAS PCO2 34.6 mmHg (35-45); ARTERIAL BLOOD GAS pH 7.43 (7.35-7.45)
[2017-09-24 06:38] LABS: ALLENS TEST POSITIVE
[2017-09-24 06:41] LABS: CHLORIDE 89 mmol/L (98-107); POTASSIUM 3.3 mmol/L (3.5-5.1); SODIUM 125 mmol/L (136-145)
[2017-09-24 06:54] LABS: ALBUMIN 1.1 g/dl (3.4-5.0); ALK PHOS 126 U/L (45-117); ANION GAP 11 (8-16); BILIRUBIN,TOTAL 0.6 mg/dL (0.2-1.0); BLOOD UREA NITROGEN 6 mg/dL (7-18); CO2 25 mmol/L (21-32); CREATININE 0.3 mg/dL (0.7-1.3); GLUCOSE,RANDOM 104 mg/dL (74-106); MAGNESIUM 0.9 mg/dL (1.8-2.4); PHOSPHOROUS 2.3 mg/dL (2.5-4.9); SGOT/AST 24 U/L (15-37); SGPT/ALT 13 U/L (12-78); TOT PROT 4.6 g/dl (6.4-8.2)
[2017-09-24 07:00] LABS: CALCIUM 6.1 mg/dL (8.5-10.1)
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
--- NOTE | 2017-09-24 08:40 | PN ---
Progress Note (short form) - Note Progress Note: sedated intubated- opening his eyes POD #1-debridement #2 Right AKA site and decub ulcer with port removal Vital Signs Period Temp Pulse Resp BP Sys/Topete Pulse Ox Last 24 Hr 98.9 F-99.6 F 71-95 12-16 93-130/66-89 97-100 cor-rrr lungs decreased bs at bases abd soft, nt ext dressing intact right AKA RIGHT IJ, dressing left Chest wall CBC, BMP 09/24/17 05:13 09/24/17 05:13 vanco trough 15.9 Microbiology 09/22/17 06:35 Blood - Tara Cath Blood Culture - Preliminary NO GROWTH OBTAINED AFTER 48 HOURS, INCUBATION TO CONTINUE FOR 3 DAYS. 09/22/17 06:35 Blood - Tara Cath Blood Culture - Preliminary NO GROWTH OBTAINED AFTER 48 HOURS, INCUBATION TO CONTINUE FOR 3 DAYS. 09/20/17 14:20 Blood - Peripheral Venous Blood Culture - Final S Aureus 09/20/17 14:20 Blood - Peripheral Venous Blood Culture - Final S Aureus 09/20/17 14:20 Back Gram Stain - Final 09/20/17 14:20 Back Wound Culture - Preliminary Escherichia Coli Staphylococcus Coagulase Neg Diphtheroid/Corynebacterium Group D Strep Or Entero Coccus 09/21/17 08:30 Urine - Urine River Urine Culture - Final Yeast Like Organism 09/21/17 Unknown Leg - Right Upper Wound Culture - Preliminary Non Lactose Fermenting Gnb Presumptive Mrsa (Pbp2a Pos) 09/20/17 14:20 Nasopharyngeal Swab Influenza Types A,B Antigen (ABNER) - Final 09/20/17 14:20 Nasopharyngeal Swab - Final a/p sepsis pressors being tapered mrsa bacteremia gas gangrene of the RLE with sacral ulcer/decubitus s/p AKA 09/21 jehovahs witness metastatic lung cancer doing poorly vanco/meropenem/clindamycin repeat blood cultures negative port removed source of bacteremia appears to be leg- operative culture growing MRSA and GNR- id and sensi pending continue same antibiotics aggressive wound management per surgery Problem List - Problems (1) Sepsis Code(s): A41.9 - SEPSIS, UNSPECIFIED ORGANISM Qualifiers: Sepsis type: sepsis due to unspecified organism Qualified Code(s): A41.9 - Sepsis, unspecified organism (2) Gram-positive bacteremia Code(s): R78.81 - BACTEREMIA (3) Infected pressure ulcer Code(s): L89.90 - PRESSURE ULCER OF UNSPECIFIED SITE, UNSPECIFIED STAGE; L08.9 - LOCAL INFECTION OF THE SKIN AND SUBCUTANEOUS TISSUE, UNSP Qualifiers: Pressure ulcer stage: stage 4 Qualified Code(s): L89.94 - Pressure ulcer of unspecified site, stage 4; L08.9 - Local infection of the skin and subcutaneous tissue, unspecified; L08.9 - Local infection of the skin and subcutaneous tissue, unspecified (4) Atrial tachycardia Code(s): I47.1 - SUPRAVENTRICULAR TACHYCARDIA (5) Metastatic primary lung cancer Code(s): C34.90 - MALIGNANT NEOPLASM OF UNSP PART OF UNSP BRONCHUS OR LUNG Qualifiers: Laterality: unspecified laterality Qualified Code(s): C34.90 - Malignant neoplasm of unspecified part of unspecified bronchus or lung (6) Penicillin allergy Code(s): Z88.0 - ALLERGY STATUS TO PENICILLIN
[2017-09-24] MEDS: PROPOFOL 1,000,000 MCG/100 ML VIAL IVPB SCH ×2 (09:07→18:36)
[2017-09-24] MEDS: FOLIC ACID 1 MG TABLET (FP) PO SCH (09:22)
[2017-09-24] MEDS: MUPIROCIN 2% TOPICAL OINTMENT FOR DECOLONIZATION NS SCH ×2 (09:22→21:34)
--- NOTE | 2017-09-24 09:32 | PN ---
Progress Note, Physician Chief Complaint: gas gangrene sacurm and right leg History of Present Illness: 62yo male PMH Lung CA with mets to Skin, Heart, Spine, left eye; pt is under care of [facility] [place], were he is receiving Chemo( last chemo was last week on Saturday) via port-a-cath (than was changer last week. Presented with fever and weakness on 09/20. CT scan showed extensive gas gangrene of the right leg. He has been on vasopressor support since surgery, found to have MRSA bactermia, low grade fevers 99. sedated and intubated. - Current Medication List Current Medications: Active Medications Chlorhexidine Gluconate (Hibiclens For Decolonization -) 1 applic TP HS RACHEAL Last Admin: 09/23/17 21:21 Dose: 1 applic Folic Acid (Folic Acid -) 1 mg PO DAILY RACHEAL Last Admin: 09/24/17 09:22 Dose: Not Given Amiodarone HCl/Dextrose (Nexterone 360 Mg/200 Ml Bag) 360 mg in 200 mls @ 16.667 mls/hr IVPB TITR RACHEAL; 0.5 MG/MIN PRN Reason: Protocol Last Admin: 09/23/17 21:21 Dose: 0.5 mg/min, 16.667 mls/hr Clindamycin Phosphate (Cleocin 900 Mg Premix Ivpb -) 900 mg in 50 mls @ 100 mls /hr IVPB Q8H-IV RACHEAL Last Admin: 09/24/17 09:20 Dose: 100 mls/hr Meropenem (Merrem (Restricted To Id) -) 1 gm in 20 mls @ 240 mls/hr IVPUSH Q8H- IV RACHEAL PRN Reason: Protocol Last Admin: 09/24/17 09:21 Dose: 240 mls/hr Norepinephrine Bitartrate 4, (000 mcg/ Dextrose) 500 mls @ 37.5 mls/hr IV TITR RACHEAL; 5 MCG/MIN PRN Reason: Protocol Last Titration: 09/24/17 06:35 Dose: 8 mcg/min, 60 mls/hr Propofol (Diprivan -) 1,000,000 mcg in 100 mls @ 3.205 mls/hr IVPB TITR RACHEAL; 5 MCG/KG/MIN PRN Reason: Protocol Last Admin: 09/24/17 09:07 Dose: 40 mcg/kg/min, 25.644 mls/hr Sodium Chloride (Normal Saline -) 1,000 mls @ 150 mls/hr IV ASDIR RACHEAL Last Admin: 09/23/17 15:38 Dose: 150 mls/hr Vancomycin HCl 1,500 mg/ (Dextrose) 500 mls @ 250 mls/hr IVPB BID@1100,2300 RACHEAL PRN Reason: Protocol Last Admin: 09/23/17 23:07 Dose: 250 mls/hr Vasopressin 50 units/ Sodium (Chloride) 100 mls @ 4 mls/hr IVPB TITR RACHEAL; 2 UNITS/HR PRN Reason: Protocol Last Admin: 09/24/17 01:00 Dose: 3 units/hr, 6 mls/hr Fentanyl 500 mcg/ Dextrose 100 mls @ 10 mls/hr IVPB TITR RACHEAL; 50 MCG/HR PRN Reason: Protocol Last Admin: 09/24/17 00:00 Dose: 10 mls/hr Morphine Sulfate (Morphine Injection -) 2 mg IVPUSH Q6H PRN PRN Reason: PAIN LEVEL 4 - 6 Mupirocin (Bactroban Ointment (For Decolonization) -) 1 applic NS BID RACHEAL Stop: 09/27/17 09:59 Last Admin: 09/24/17 09:22 Dose: 1 applic - Objective Vital Signs: Vital Signs Temperature 99.5 F 09/24/17 06:00 Pulse Rate 81 09/24/17 06:00 Respiratory Rate 15 09/24/17 06:30 Blood Pressure 107/75 09/24/17 06:00 O2 Sat by Pulse Oximetry (%) 100 09/23/17 21:00 Vital Signs Period Temp Pulse Resp BP Sys/Topete Pulse Ox Last 24 Hr 98.9 F-99.6 F 71-95 12-16 93-130/67-89 97-100 Intake & Output 09/23/17 09/24/17 09/24/17 23:59 07:59 15:59 Intake Total 3449.6 3931.2 Output Total 900 1300 Balance 2549.6 2631.2 Weight 231 lb Intake: IV 3399.6 3331.2 FENTANYL 240 180 Levophed - 4,000 Mcg In 900 900 D5w - 496 ml @ 5 MCG/MIN 37.5 mls/hr IV TITR RACHEAL Rx#:[id number] NEXTERONE 360 MG/200 ML 200.4 192 BAG 360 mg In 200 ml @ 0. 5 MG/MIN 16.667 mls/hr IVPB TITR RACHEAL Rx#: [id number] Normal Saline - 1,000 ml 1800 1800 @ 150 mls/hr IV ASDIR RACHEAL Rx#:[id number] PROPOFOL 187.2 187.2 Pitressin - 50 Units In 72 72 Normal Saline - 97.5 ml @ 2 UNITS/HR 4 mls/hr IVPB TITR RACHEAL Rx#:[id number] IVPB 50 600 Oral 0 Output: Urine 900 1300 River 900 1300 Other: Voiding Method Indwelling Catheter Weight Measurement Method Built in [facility] Constitutional: Yes: No Distress, Calm, Obese Eyes: Yes: Conjunctiva Clear, EOM Intact HENT: Yes: Atraumatic, Normocephalic Neck: Yes: Supple, Trachea Midline Cardiovascular: Yes: Regular Rate and Rhythm, S1, S2 Respiratory: Yes: Regular, Intubated, Mechanically Ventilated Gastrointestinal: Yes: Normal Bowel Sounds, Soft ...Rectal Exam: Yes: Deferred Genitourinary: No: CVA Tenderness - Left, CVA Tenderness - Right Musculoskeletal: Yes: Muscle Weakness Extremities: Yes: Amputation (R AKA). No: Cool, Cyanosis Edema: No Peripheral Pulses WNL: Yes Peripheral Pulses: Left Radial: 2+, Right Radial: 2+, Left Doralis Pedis: 2+, Left Femoral: 2+, Right Femoral: 2+ Wound/Incision: Yes: Dressing Dry and Intact, Unapproximated. No: Dressing Removed, Draining, Reddened Neurological: Yes: Alert, Oriented Psychiatric: Yes: Alert, Oriented Labs: CBC, BMP 09/24/17 05:13 09/24/17 05:13 INR, PTT INR 1.73 (0.82-1.09) H D 09/20/17 14:15 Problem List - Problems (1) Septic shock Assessment/Plan: 62 yo male PMH Right leg gas gangrene (extending from upper sacrum to Knee) extending from a pelvic abscess and an infected decubitus ulcer seen on CT scan of of the pelvis and lower extremity. Patient is a BAHAI and will not accept blood transfusion or blood products. He hemodynamically unstable BP 94/60 and HR 140, no pressors. POD#3/1 s/p RLE Gaudencio SANCHES, Now toxic shock on vasopressors. From perspective of general surgery there is not much more I can offer. He likely has osteomyelitis that is i the sacrum, right radames- pelvis and remaining femur. This was discussed with family. ICU supportive care Broad spectrum IV antibiotics trend labs, correct electrolyte abnormalities hypoNa Local wound care Ethics discussion with family to discuss goals of care Code(s): A41.9 - SEPSIS, UNSPECIFIED ORGANISM; R65.21 - SEVERE SEPSIS WITH SEPTIC SHOCK (2) Gas gangrene of lower extremity Code(s): A48.0 - GAS GANGRENE (3) Lung cancer metastatic to bone Code(s): C34.90 - MALIGNANT NEOPLASM OF UNSP PART OF UNSP BRONCHUS OR LUNG; C79.51 - SECONDARY MALIGNANT NEOPLASM OF BONE (4) Atrial tachycardia Code(s): I47.1 - SUPRAVENTRICULAR TACHYCARDIA (5) Gram-positive bacteremia Code(s): R78.81 - BACTEREMIA (6) Infected pressure ulcer Code(s): L89.90 - PRESSURE ULCER OF UNSPECIFIED SITE, UNSPECIFIED STAGE; L08.9 - LOCAL INFECTION OF THE SKIN AND SUBCUTANEOUS TISSUE, UNSP Qualifiers: Pressure ulcer stage: stage 4 Qualified Code(s): L89.94 - Pressure ulcer of unspecified site, stage 4; L08.9 - Local infection of the skin and subcutaneous tissue, unspecified; L08.9 - Local infection of the skin and subcutaneous tissue, unspecified
[2017-09-24] MEDS ORDERED: MAGNESIUM SULF 50% (8.12 MEQ/2 ML-1 GM VIAL) IVPB ONE ×2 (09:55→15:39)
[2017-09-24] MEDS ORDERED: POTASSIUM PHOSPHATE 15 MM in SODIUM CHLORIDE 250 ML IVPB ONE (09:55)
[2017-09-24] MEDS ORDERED: MAGNESIUM SULFATE IN WATER 2 GM/50 ML IVPB IVPB ONE (10:15)
--- NOTE | 2017-09-24 10:25 | PN ---
Progress Note (short form) - Note Progress Note: Anesthesia postop note 62 y/o M, critically ill, s/p GA for port removal, central line placement, wash out of right stump wound POD#1, in ICU, ventilated, on Propofol and Fentanyl drips, septic on vasopressine and levophed, DNR. No anesthesia complications.
[2017-09-24] MEDS: VANCOMYCIN 1,500 MG in DEXTROSE 5%-WATER - 500 ML IVPB SCH ×2 (10:36→23:07)
[2017-09-24] MEDS ORDERED: MAGNESIUM SULF 50% (8.12 MEQ/2 ML-1 GM VIAL) ONE (10:42)
[2017-09-24] MEDS: NOREPINEPHRINE BITARTRATE 4,000 MCG in DEXTROSE 5%-WATER - 496 ML IV SCH ×2 (11:03→15:25)
--- NOTE | 2017-09-24 11:13 | PN ---
Progress Note (short form) - Note Progress Note: seen and examined. intubated/sedated s/p RT. AKA for gas gangrene Cor: RSR, No murmurs, No gallops Lungs: Clear to P&A Abd: Soft, Normal bowel sounds, No organomegaly Ext:No significant edema Temp Pulse Resp BP Pulse Ox 99 F 90 14 93/66 99 09/24/17 10:00 09/24/17 10:00 09/24/17 10:00 09/24/17 10:00 09/24/17 09:27 CBC, BMP 09/24/17 05:13 09/24/17 05:13 Current Medications Generic Name Dose Route Start Last Admin Trade Name Freq PRN Reason Stop Dose Admin Chlorhexidine Gluconate 1 applic 09/23/17 22:00 09/23/17 21:21 Hibiclens For Decolonization - TP 1 applic HS RACHEAL Administration Folic Acid 1 mg 09/24/17 10:00 09/24/17 09:22 Folic Acid - PO Not Given DAILY RACHEAL Amiodarone HCl/Dextrose 360 mg in 200 mls @ 16.667 mls/hr 09/23/17 15:25 21:21 Nexterone 360 Mg/200 Ml Bag IVPB 0.5 mg/min TITR RACHEAL 16.667 mls/hr Protocol Administration 0.5 MG/MIN Clindamycin Phosphate 900 mg in 50 mls @ 100 mls/hr 09/23/17 18:00 09/24/17 09:20 Cleocin 900 Mg Premix Ivpb - IVPB 100 mls/hr Q8H-IV RACHEAL Administration Meropenem 1 gm in 20 mls @ 240 mls/hr 09/23/17 18:00 09/24/17 09:21 Merrem (Restricted To Id) - IVPUSH 240 mls/hr Q8H-IV RACHEAL Administration Protocol Norepinephrine Bitartrate 4, 500 mls @ 37.5 mls/hr 09/23/17 15:25 09/24/17 11 :03 000 mcg/ Dextrose IV 8 mcg/min TITR RACHEAL 60 mls/hr Protocol Administration 5 MCG/MIN Propofol 1,000,000 mcg in 100 mls @ 3.205 mls/hr 09/23/17 15:25 09/24/17 09: 07 Diprivan - IVPB 40 mcg/kg/min TITR RACHEAL 25.644 mls/hr Protocol Administration 5 MCG/KG/MIN Sodium Chloride 1,000 mls @ 150 mls/hr 09/23/17 15:25 09/23/17 15:38 Normal Saline - IV 150 mls/hr ASDIR RACHEAL Administration Vancomycin HCl 1,500 mg/ 500 mls @ 250 mls/hr 09/23/17 23:00 09/24/17 10:36 Dextrose IVPB 250 mls/hr BID@1100,2300 RACHEAL Administration Protocol Vasopressin 50 units/ Sodium 100 mls @ 4 mls/hr 09/23/17 15:25 09/24/17 01:00 Chloride IVPB 3 units/hr TITR RACHEAL 6 mls/hr Protocol Administration 2 UNITS/HR Fentanyl 500 mcg/ Dextrose 100 mls @ 10 mls/hr 09/23/17 15:58 09/24/17 00:00 IVPB 10 mls/hr TITR RACHEAL Administration Protocol 50 MCG/HR Potassium Phosphate 15 mm/ 255 mls @ 62.5 mls/hr 09/24/17 09:55 09/24/17 11: 04 Sodium Chloride IVPB 09/24/17 13:59 62.5 mls/hr ONCE ONE Administration MAGNESIUM SULFATE IN WATER 2 gm in 50 mls @ 50 mls/hr 09/24/17 10:15 11:05 Magnesium Sulf 2 G/50 Ml Bag IVPB 09/24/17 11:14 50 mls/hr ONCE ONE Administration Morphine Sulfate 2 mg 09/23/17 15:25 Morphine Injection - IVPUSH Q6H PRN PAIN LEVEL 4 - 6 Mupirocin 1 applic 09/23/17 22:00 09/24/17 09:22 Bactroban Ointment (For Decolonization) - NS 09/27/17 09:59 1 applic BID RACHEAL Administration 62 y/o man bed 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 s/p palliative chemotherapy in 07/19 at [place]. Had RT to rt. lung in 07/19 Most recent chemotherapy 09/19/17 On vanco/flagyl/cefepime for septic shock from sacral decubitus Continue supportive care sepsis pressors being tapered mrsa bacteremia gas gangrene of the RLE with sacral ulcer/decubitus Jehovah witness, monitor hgb. if needed will start High dose epogen with IV iron vanco/meropenem/clindamycin
--- NOTE | 2017-09-24 12:06 | PN ---
Teaching Attending Note Name of Resident: Kenny Willard ATTENDING PHYSICIAN STATEMENT I saw and evaluated the patient. I reviewed the resident's note and discussed the case with the resident. I agree with the resident's findings and plan as documented. SUBJECTIVE: Patient seen and examined in the ICU. Remains intubated and sedated. Remains on NE And Vasopressin for hemodynamic support. AC Mode of vent 40% FiO2. Remains on Amiodarone drip. Intake & Output 09/21/17 09/22/17 09/23/17 09/24/17 23:59 23:59 23:59 23:59 Intake Total 4950 5238.2 7099.6 3931.2 Output Total 2520 1550 2350 1300 Balance 2430 3688.2 4749.6 2631.2 Weight 231 lb Last Vital Signs Temp Pulse Resp BP Pulse Ox 99 F 90 14 93/66 99 09/24/17 10:00 09/24/17 10:00 09/24/17 10:00 09/24/17 10:00 09/24/17 09:27 Active Medications Chlorhexidine Gluconate (Hibiclens For Decolonization -) 1 applic TP HS RACHEAL Last Admin: 09/23/17 21:21 Dose: 1 applic Folic Acid (Folic Acid -) 1 mg PO DAILY RACHEAL Last Admin: 09/24/17 09:22 Dose: Not Given Amiodarone HCl/Dextrose (Nexterone 360 Mg/200 Ml Bag) 360 mg in 200 mls @ 16.667 mls/hr IVPB TITR RACHEAL; 0.5 MG/MIN PRN Reason: Protocol Last Admin: 09/23/17 21:21 Dose: 0.5 mg/min, 16.667 mls/hr Clindamycin Phosphate (Cleocin 900 Mg Premix Ivpb -) 900 mg in 50 mls @ 100 mls /hr IVPB Q8H-IV RACHEAL Last Admin: 09/24/17 09:20 Dose: 100 mls/hr Meropenem (Merrem (Restricted To Id) -) 1 gm in 20 mls @ 240 mls/hr IVPUSH Q8H- IV RACHEAL PRN Reason: Protocol Last Admin: 09/24/17 09:21 Dose: 240 mls/hr Norepinephrine Bitartrate 4, (000 mcg/ Dextrose) 500 mls @ 37.5 mls/hr IV TITR RACHEAL; 5 MCG/MIN PRN Reason: Protocol Last Admin: 09/24/17 11:03 Dose: 8 mcg/min, 60 mls/hr Propofol (Diprivan -) 1,000,000 mcg in 100 mls @ 3.205 mls/hr IVPB TITR RACHEAL; 5 MCG/KG/MIN PRN Reason: Protocol Last Admin: 09/24/17 09:07 Dose: 40 mcg/kg/min, 25.644 mls/hr Sodium Chloride (Normal Saline -) 1,000 mls @ 150 mls/hr IV ASDIR RACHEAL Last Admin: 09/23/17 15:38 Dose: 150 mls/hr Vancomycin HCl 1,500 mg/ (Dextrose) 500 mls @ 250 mls/hr IVPB BID@1100,2300 RACHEAL PRN Reason: Protocol Last Admin: 09/24/17 10:36 Dose: 250 mls/hr Vasopressin 50 units/ Sodium (Chloride) 100 mls @ 4 mls/hr IVPB TITR RACHEAL; 2 UNITS/HR PRN Reason: Protocol Last Admin: 09/24/17 01:00 Dose: 3 units/hr, 6 mls/hr Fentanyl 500 mcg/ Dextrose 100 mls @ 10 mls/hr IVPB TITR RACHEAL; 50 MCG/HR PRN Reason: Protocol Last Admin: 09/24/17 00:00 Dose: 10 mls/hr Potassium Phosphate 15 mm/ (Sodium Chloride) 255 mls @ 62.5 mls/hr IVPB ONCE ONE Stop: 09/24/17 13:59 Last Admin: 09/24/17 11:04 Dose: 62.5 mls/hr Morphine Sulfate (Morphine Injection -) 2 mg IVPUSH Q6H PRN PRN Reason: PAIN LEVEL 4 - 6 Mupirocin (Bactroban Ointment (For Decolonization) -) 1 applic NS BID RACHEAL Stop: 09/27/17 09:59 Last Admin: 09/24/17 09:22 Dose: 1 applic Gen: Intubated and sedated HEENT: Orally intubated PULM: scattered rhonchi, no wheezes, accessed L side portacath CDI CV: tachy, irregular ABD: soft, NT, ND EXT: Right AKA, (+) PP on the LLE Neuro: sedated Laboratory Results - last 24 hr 09/23/17 09/24/17 09/24/17 05:22 05:13 05:13 WBC 9.9 RBC 3.02 L Hgb 8.4 L Hct 25.8 L MCV 85.4 MCH 27.8 MCHC 32.6 RDW 21.7 H Plt Count 101 L MPV 9.7 Neutrophils % 84.6 H D Lymphocytes % 6.9 L D Monocytes % 5.9 Eosinophils % 2.4 D Basophils % 0.2 PTT (Actin FS) 34.7 H Puncture Site ABG pH ABG pCO2 at Pt Temp ABG pO2 at Pt Temp ABG HCO3 ABG O2 Sat (Measured) ABG O2 Content ABG Base Excess Jean Carlos Test O2 Delivery Device Oxygen Flow Rate Vent Rate PEEP Sodium Potassium Chloride Carbon Dioxide Anion Gap BUN Creatinine Creat Clearance w eGFR Random Glucose Calcium Phosphorus Magnesium Iron 27 L TIBC 103 L Iron Saturation 26 Total Bilirubin AST ALT Alkaline Phosphatase Total Protein Albumin 09/24/17 09/24/17 05:13 05:50 WBC RBC Hgb Hct MCV MCH MCHC RDW Plt Count MPV Neutrophils % Lymphocytes % Monocytes % Eosinophils % Basophils % PTT (Actin FS) Puncture Site Left radial ABG pH 7.43 ABG pCO2 at Pt Temp 34.6 L ABG pO2 at Pt Temp 124.0 H D ABG HCO3 22.8 ABG O2 Sat (Measured) 99.0 H ABG O2 Content 12.1 L ABG Base Excess -0.7 Jean Carlos Test Positive O2 Delivery Device Vent Oxygen Flow Rate 40% Vent Rate 12 PEEP 5.0 Sodium 125 L Potassium 3.3 L Chloride 89 L Carbon Dioxide 25 D Anion Gap 11 BUN 6 L D Creatinine 0.3 L D Creat Clearance w eGFR > 60 Random Glucose 104 Calcium 6.1 L* Phosphorus 2.3 L D Magnesium 0.9 L D Iron TIBC Iron Saturation Total Bilirubin 0.6 D AST 24 D ALT 13 D Alkaline Phosphatase 126 H Total Protein 4.6 L Albumin 1.1 L IMP: Rapid AFib Metastatic Lung CA (?) Infected deep tissue Sacral decubitus ulcer Lactic acidosis Paraplegia Elevated INR Thrombocytopenia (?) cardiac thrombus vs malignancy (?) VTE PLAN: Local wound care per surgery ABX per ID AC Mode of vent Pressors to maintain MAP Amiodarone AC Strict I & O Dr [place] Critical care time spent in reviewing chart, evaluating patient and formulating plan - 36 minutes.
--- NOTE | 2017-09-24 12:14 | PN ---
Physical Exam: SUBJECTIVE: Patient seen and examined in ICU Patient is intubated/sedated/on pressors. Vent settings- Rate 12, TV 600, 40% fio2, and PEEP-5 OBJECTIVE: Vital Signs Period Temp Pulse Resp BP Sys/Topete Pulse Ox Last 24 Hr 98.9 F-99.6 F 71-108 12-16 93-130/66-89 99-100 GENERAL: The patient is intubated and sedated. HEAD: Normal with no signs of trauma. ENT: ET tube in place NECK: Trachea midline CHEST/LUNGS: Breath sounds equal, Rhonchi throughout. Patient with portacath in place. HEART: Irregularly irregular, S1, S2 without murmur, rub or gallop. ABDOMEN: Soft, nontender, nondistended, normoactive bowel sounds, no guarding, no rebound, no hepatosplenomegaly, no masses. EXTREMITIES: Right AKA with dressing over stump. NEURO: Patient intubated and sedated. Unable to perform neurological examination Laboratory Results - last 24 hr 09/23/17 09/24/17 09/24/17 05:22 05:13 05:13 WBC 9.9 RBC 3.02 L Hgb 8.4 L Hct 25.8 L MCV 85.4 MCH 27.8 MCHC 32.6 RDW 21.7 H Plt Count 101 L MPV 9.7 Neutrophils % 84.6 H D Lymphocytes % 6.9 L D Monocytes % 5.9 Eosinophils % 2.4 D Basophils % 0.2 PTT (Actin FS) 34.7 H Puncture Site ABG pH ABG pCO2 at Pt Temp ABG pO2 at Pt Temp ABG HCO3 ABG O2 Sat (Measured) ABG O2 Content ABG Base Excess Jean Carlos Test O2 Delivery Device Oxygen Flow Rate Vent Rate PEEP Sodium Potassium Chloride Carbon Dioxide Anion Gap BUN Creatinine Creat Clearance w eGFR Random Glucose Calcium Phosphorus Magnesium Iron 27 L TIBC 103 L Iron Saturation 26 Total Bilirubin AST ALT Alkaline Phosphatase Total Protein Albumin 09/24/17 09/24/17 05:13 05:50 WBC RBC Hgb Hct MCV MCH MCHC RDW Plt Count MPV Neutrophils % Lymphocytes % Monocytes % Eosinophils % Basophils % PTT (Actin FS) Puncture Site Left radial ABG pH 7.43 ABG pCO2 at Pt Temp 34.6 L ABG pO2 at Pt Temp 124.0 H D ABG HCO3 22.8 ABG O2 Sat (Measured) 99.0 H ABG O2 Content 12.1 L ABG Base Excess -0.7 Jean Carlos Test Positive O2 Delivery Device Vent Oxygen Flow Rate 40% Vent Rate 12 PEEP 5.0 Sodium 125 L Potassium 3.3 L Chloride 89 L Carbon Dioxide 25 D Anion Gap 11 BUN 6 L D Creatinine 0.3 L D Creat Clearance w eGFR > 60 Random Glucose 104 Calcium 6.1 L* Phosphorus 2.3 L D Magnesium 0.9 L D Iron TIBC Iron Saturation Total Bilirubin 0.6 D AST 24 D ALT 13 D Alkaline Phosphatase 126 H Total Protein 4.6 L Albumin 1.1 L Active Medications Generic Name Dose Route Start Last Admin Trade Name Freq PRN Reason Stop Dose Admin Chlorhexidine Gluconate 1 applic 09/23/17 22:00 09/23/17 21:21 Hibiclens For Decolonization - TP 1 applic HS RACHEAL Administration Folic Acid 1 mg 09/24/17 10:00 09/24/17 09:22 Folic Acid - PO Not Given DAILY RACHEAL Amiodarone HCl/Dextrose 360 mg in 200 mls @ 16.667 mls/hr 09/23/17 15:25 21:21 Nexterone 360 Mg/200 Ml Bag IVPB 0.5 mg/min TITR RACHEAL 16.667 mls/hr Protocol Administration 0.5 MG/MIN Clindamycin Phosphate 900 mg in 50 mls @ 100 mls/hr 09/23/17 18:00 09/24/17 09:20 Cleocin 900 Mg Premix Ivpb - IVPB 100 mls/hr Q8H-IV RACHEAL Administration Meropenem 1 gm in 20 mls @ 240 mls/hr 09/23/17 18:00 09/24/17 09:21 Merrem (Restricted To Id) - IVPUSH 240 mls/hr Q8H-IV RACHEAL Administration Protocol Norepinephrine Bitartrate 4, 500 mls @ 37.5 mls/hr 09/23/17 15:25 09/24/17 11 :03 000 mcg/ Dextrose IV 8 mcg/min TITR RACHEAL 60 mls/hr Protocol Administration 5 MCG/MIN Propofol 1,000,000 mcg in 100 mls @ 3.205 mls/hr 09/23/17 15:25 09/24/17 09: 07 Diprivan - IVPB 40 mcg/kg/min TITR RACHEAL 25.644 mls/hr Protocol Administration 5 MCG/KG/MIN Sodium Chloride 1,000 mls @ 150 mls/hr 09/23/17 15:25 09/23/17 15:38 Normal Saline - IV 150 mls/hr ASDIR RACHEAL Administration Vancomycin HCl 1,500 mg/ 500 mls @ 250 mls/hr 09/23/17 23:00 09/24/17 10:36 Dextrose IVPB 250 mls/hr BID@1100,2300 RACHEAL Administration Protocol Vasopressin 50 units/ Sodium 100 mls @ 4 mls/hr 09/23/17 15:25 09/24/17 01:00 Chloride IVPB 3 units/hr TITR RACHEAL 6 mls/hr Protocol Administration 2 UNITS/HR Fentanyl 500 mcg/ Dextrose 100 mls @ 10 mls/hr 09/23/17 15:58 09/24/17 00:00 IVPB 10 mls/hr TITR RACHEAL Administration Protocol 50 MCG/HR Potassium Phosphate 15 mm/ 255 mls @ 62.5 mls/hr 09/24/17 09:55 09/24/17 11: 04 Sodium Chloride IVPB 09/24/17 13:59 62.5 mls/hr ONCE ONE Administration Morphine Sulfate 2 mg 09/23/17 15:25 Morphine Injection - IVPUSH Q6H PRN PAIN LEVEL 4 - 6 Mupirocin 1 applic 09/23/17 22:00 09/24/17 09:22 Bactroban Ointment (For Decolonization) - NS 09/27/17 09:59 1 applic BID RACHEAL Administration ASSESSMENT/PLAN: 62 y/o man bed bound from T8 paraplegia with metastatic lung CA now with tachydysrhthmia, lactic acidosis, and possible infected deep tissues from long standing sacal decub s/p Right AKA and debriedment with washout #CV Rapid Afib On pressors -Continue levophed, vasopressin drips -Continue amiodarone drip #ID Sacral decubitis ulcer with infected deep tissue of right leg -Continue wound care per surgery. -Dr. Pacheco on the case -Continue Clindamycin 900 mg iv q8h -Continue Meropenem 1g q8h -Continue Vancomycin 1500 mg BID -Dr. Linn on case for ID #Neuro Paraplegia Intubated/sedated/on pressors -Continue fentanyl drip -Continue propofol drip #FEN/GI -NS @ 150 cc/hr -Recheck CMP, Mg, Phos--replete prn -NPO #Dispo Continue ICU level of care Visit type - Emergency Visit Emergency Visit: Yes ED Registration Date: 09/20/17 Care time: The patient presented to the Emergency Department on the above date and was hospitalized for further evaluation of their emergent condition. - New Patient This patient is new to me today: No - Critical Care Critical Care patient: Yes Total Critical Care Time (in minutes): 40 Critical Care Statement: The care of this patient involved high complexity decision making to prevent further life threatening deterioration of the patient 's condition and/or to evaluate & treat vital organ system(s) failure or risk of failure.
[2017-09-24] MEDS: AMIODARONE IN DEXTROSE,ISO-OSM 360 MG/200 ML BAG IVPB SCH ×2 (14:15→15:25)
[2017-09-24 14:31] LABS: ALBUMIN 1.1 g/dl (3.4-5.0); ALK PHOS 131 U/L (45-117); BILIRUBIN,TOTAL 0.6 mg/dL (0.2-1.0); BLOOD UREA NITROGEN 4 mg/dL (7-18); CHLORIDE 86 mmol/L (98-107); CO2 22 mmol/L (21-32); CREATININE 0.3 mg/dL (0.7-1.3); GLUCOSE,RANDOM 141 mg/dL (74-106); PHOSPHOROUS 2.1 mg/dL (2.5-4.9); POTASSIUM 3.5 mmol/L (3.5-5.1); SGPT/ALT 12 U/L (12-78); TOT PROT 4.8 g/dl (6.4-8.2)
[2017-09-24 14:32] LABS: MAGNESIUM 1.1 mg/dL (1.8-2.4); SGOT/AST 29 U/L (15-37)
[2017-09-24] MEDS: FENTANYL INJECTION 500 MCG in DEXTROSE 5%-WATER - 90 ML IVPB SCH ×2 (15:17)
[2017-09-24] MEDS ORDERED: MAGNESIUM 2GM/50ML STERILE WATER IVPB IVPB ONE (15:39)
[2017-09-24 15:41] LABS: ANION GAP 13 (8-16)
[2017-09-24] MEDS ORDERED: POTASSIUM PHOSPHATE 30 MM in SODIUM CHLORIDE 250 ML IVPB ONE (15:42)
[2017-09-24 15:44] LABS: CALCIUM 6.3 mg/dL (8.5-10.1)
[2017-09-24 15:45] LABS: SODIUM 121 mmol/L (136-145)
[2017-09-24] MEDS: SODIUM CHLORIDE 1,000 ML IV SCH ×2 (16:33→16:34)
[2017-09-24] MEDS ORDERED: PT OWN MED DRAWER 7, Y5N ONE (17:25)
[2017-09-24 17:41] VITALS: BMI 32.2
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
[2017-09-24] MEDS: NOREPINEPHRINE BITARTRATE 4,000 MCG in SODIUM CHLORIDE 496 ML IV SCH (21:33)
[2017-09-24] MEDS: FENTANYL INJECTION 500 MCG in SODIUM CHLORIDE 90 ML IVPB SCH (21:33)
[2017-09-24] MEDS: CHLORHEXIDINE GLUCONATE 4% CLEANSER FOR DECOLONIZATION TP SCH (21:34)
--- NOTE | 2017-09-24 22:07 | PN ---
Progress Note, Physician History of Present Illness: Pt is intubated. Pt is on Pressors (NE, Vassopressin) Pt is on IV Ammiodarone, Pt is awake, no CP, no SOB, no abd pain, no body aches. Pt was seen and examined in ICU in AM - Current Medication List Current Medications: Active Medications Chlorhexidine Gluconate (Hibiclens For Decolonization -) 1 applic TP HS RACHEAL Last Admin: 09/24/17 21:34 Dose: 1 applic Folic Acid (Folic Acid -) 1 mg PO DAILY RACHEAL Last Admin: 09/24/17 09:22 Dose: Not Given Amiodarone HCl/Dextrose (Nexterone 360 Mg/200 Ml Bag) 360 mg in 200 mls @ 16.667 mls/hr IVPB TITR RACHEAL; 0.5 MG/MIN PRN Reason: Protocol Last Admin: 09/24/17 15:25 Dose: Not Given Clindamycin Phosphate (Cleocin 900 Mg Premix Ivpb -) 900 mg in 50 mls @ 100 mls /hr IVPB Q8H-IV RACHEAL Last Admin: 09/24/17 17:30 Dose: 100 mls/hr Meropenem (Merrem (Restricted To Id) -) 1 gm in 20 mls @ 240 mls/hr IVPUSH Q8H- IV RACHEAL PRN Reason: Protocol Last Admin: 09/24/17 17:30 Dose: 240 mls/hr Propofol (Diprivan -) 1,000,000 mcg in 100 mls @ 3.205 mls/hr IVPB TITR RACHEAL; 5 MCG/KG/MIN PRN Reason: Protocol Last Admin: 09/24/17 18:36 Dose: 40 mcg/kg/min, 25.644 mls/hr Vancomycin HCl 1,500 mg/ (Dextrose) 500 mls @ 250 mls/hr IVPB BID@1100,2300 RACHEAL PRN Reason: Protocol Last Admin: 09/24/17 10:36 Dose: 250 mls/hr Vasopressin 50 units/ Sodium (Chloride) 100 mls @ 4 mls/hr IVPB TITR RACHEAL; 2 UNITS/HR PRN Reason: Protocol Last Admin: 09/24/17 15:16 Dose: 3 units/hr, 6 mls/hr Sodium Chloride (Normal Saline -) 1,000 mls @ 150 mls/hr IV ASDIR RACHEAL Last Admin: 09/24/17 16:34 Dose: 150 mls/hr Norepinephrine Bitartrate 4, (000 mcg/ Sodium Chloride) 500 mls @ 37.5 mls/hr IV TITR RACHEAL; 5 MCG/MIN PRN Reason: Protocol Last Admin: 09/24/17 21:33 Dose: 6 mcg/min, 45 mls/hr Fentanyl 500 mcg/ Sodium (Chloride) 100 mls @ 10 mls/hr IVPB TITR RACHEAL; 50 MCG/ HR PRN Reason: Protocol Last Admin: 09/24/17 21:33 Dose: 10 mls/hr Morphine Sulfate (Morphine Injection -) 2 mg IVPUSH Q6H PRN PRN Reason: PAIN LEVEL 4 - 6 Mupirocin (Bactroban Ointment (For Decolonization) -) 1 applic NS BID RACHEAL Stop: 09/27/17 09:59 Last Admin: 09/24/17 21:34 Dose: 1 applic - Objective Vital Signs: Vital Signs Temperature 98.8 F 09/24/17 14:00 Pulse Rate 83 09/24/17 20:00 Respiratory Rate 15 09/24/17 20:29 Blood Pressure 121/77 09/24/17 20:00 O2 Sat by Pulse Oximetry (%) 100 09/24/17 20:29 Constitutional: Yes: No Distress, Calm Cardiovascular: Yes: Regular Rate and Rhythm, Tachycardia Respiratory: Yes: Regular, Rhonchi (scattered). No: Wheezes Gastrointestinal: Yes: Normal Bowel Sounds, Soft. No: Tenderness Neurological: Yes: Alert Labs: CBC, BMP 09/24/17 05:13 INR, PTT INR 1.73 (0.82-1.09) H D 09/20/17 14:15 Problem List - Problems (1) Septic shock Code(s): A41.9 - SEPSIS, UNSPECIFIED ORGANISM; R65.21 - SEVERE SEPSIS WITH SEPTIC SHOCK (2) Sepsis Code(s): A41.9 - SEPSIS, UNSPECIFIED ORGANISM Qualifiers: Sepsis type: sepsis due to unspecified organism Qualified Code(s): A41.9 - Sepsis, unspecified organism (3) Sacral decubitus ulcer, stage IV Code(s): L89.154 - PRESSURE ULCER OF SACRAL REGION, STAGE 4 (4) Atrial tachycardia Code(s): I47.1 - SUPRAVENTRICULAR TACHYCARDIA (5) Lactic acidosis Code(s): E87.2 - ACIDOSIS (6) Metastatic primary lung cancer Code(s): C34.90 - MALIGNANT NEOPLASM OF UNSP PART OF UNSP BRONCHUS OR LUNG Qualifiers: Laterality: unspecified laterality Qualified Code(s): C34.90 - Malignant neoplasm of unspecified part of unspecified bronchus or lung (7) Paraplegia Code(s): G82.20 - PARAPLEGIA, UNSPECIFIED (8) Bacteremia Code(s): R78.81 - BACTEREMIA (9) Gas gangrene of lower extremity Code(s): A48.0 - GAS GANGRENE (10) Above knee amputation of right lower extremity Code(s): Z89.611 - ACQUIRED ABSENCE OF RIGHT LEG ABOVE KNEE (11) Gram-positive bacteremia Code(s): R78.81 - BACTEREMIA (12) Anemia Code(s): D64.9 - ANEMIA, UNSPECIFIED Qualifiers: Anemia type: unspecified type Qualified Code(s): D64.9 - Anemia, unspecified (13) Thrombocytopenia Code(s): D69.6 - THROMBOCYTOPENIA, UNSPECIFIED (14) Hypomagnesemia Code(s): E83.42 - HYPOMAGNESEMIA (15) Hypophosphatemia Code(s): E83.39 - OTHER DISORDERS OF PHOSPHORUS METABOLISM (16) Hyponatremia Assessment/Plan: repeated BMP is pending Code(s): E87.1 - HYPO-OSMOLALITY AND HYPONATREMIA Assessment/Plan Admitted to ICU. Pt on Pressors (NE, Vasopressin), Amiodarone, Propofol, IV abtx- per ID Pulmonary/CCM, ID, Cardio, Onco, Surgery, Ortho consults appreciated. s/p emergency surgery 09/21/2017, s/p right AKA s/p OR on 09/23/2017 for reevaluation/ debridement/ removal of port-a-cath/ central line placement. If pt is not extubated consider TF via OGT. Vent management per CCM- AC mode Wound care per Sx Replace electolytes. Case was d/w ICU resident. Renal Consult- Dr. Molina consult appreciated. To monitor electolytes. AM labs. Case was d/w pt's nurse. Prognosis: poor; pt's is aware. Time spent for managing pt's care: 40 minutes.
[2017-09-24 22:34] LABS: BLOOD UREA NITROGEN 4 mg/dL (7-18); CO2 26 mmol/L (21-32); CREATININE 0.2 mg/dL (0.7-1.3); GLUCOSE,RANDOM 103 mg/dL (74-106)
[2017-09-24 22:43] LABS: ANION GAP 11 (8-16); CHLORIDE 85 mmol/L (98-107); POTASSIUM 3.5 mmol/L (3.5-5.1)
[2017-09-24 22:44] LABS: SODIUM 122 mmol/L (136-145)
[2017-09-24] MEDS: CALCIUM GLUCONATE 10% - 1,000 MG/10 ML VIAL IVPUSH SCH ×2 (22:45→23:32)
[2017-09-25] MEDS: MEROPENEM 1 GM PUSH 1 GM/20 ML DISP.SYRIN IVPUSH SCH (02:30)
[2017-09-25] MEDS ORDERED: fentaNYL CITRATE 250 MCG/5 ML VIAL ONE ×3 (03:17→20:56)
[2017-09-25] MEDS: CLINDAMYCIN 900 MG PREMIX IVPB 900 MG/50 ML BAG IVPB SCH ×3 (03:45→17:07)
[2017-09-25 06:48] LABS: ARTERIAL BLD GAS O2 SATURATION 88.1 % (90-98.9); ARTERIAL BLOOD GAS BASE EXCESS 2.3 meq/l (-2-2); ARTERIAL BLOOD GAS PCO2 39.5 mmHg (35-45); ARTERIAL BLOOD GAS pH 7.44 (7.35-7.45)
--- NOTE | 2017-09-25 07:02 | PN ---
Progress Note, Physician Chief Complaint: ID Intubated S/P extensive debridement sacrum leg as well as right leg amputation(AKA) Vancomycin Meroepenem Clindamycin - Current Medication List Current Medications: Active Medications Chlorhexidine Gluconate (Hibiclens For Decolonization -) 1 applic TP HS RACHEAL Last Admin: 09/24/17 21:34 Dose: 1 applic Folic Acid (Folic Acid -) 1 mg PO DAILY RACHEAL Last Admin: 09/24/17 09:22 Dose: Not Given Amiodarone HCl/Dextrose (Nexterone 360 Mg/200 Ml Bag) 360 mg in 200 mls @ 16.667 mls/hr IVPB TITR RACHEAL; 0.5 MG/MIN PRN Reason: Protocol Last Admin: 09/24/17 15:25 Dose: Not Given Clindamycin Phosphate (Cleocin 900 Mg Premix Ivpb -) 900 mg in 50 mls @ 100 mls /hr IVPB Q8H-IV RACHEAL Last Admin: 09/25/17 03:45 Dose: 100 mls/hr Meropenem (Merrem (Restricted To Id) -) 1 gm in 20 mls @ 240 mls/hr IVPUSH Q8H- IV RACHEAL PRN Reason: Protocol Last Admin: 09/25/17 02:30 Dose: 240 mls/hr Propofol (Diprivan -) 1,000,000 mcg in 100 mls @ 3.205 mls/hr IVPB TITR RACHEAL; 5 MCG/KG/MIN PRN Reason: Protocol Last Admin: 09/24/17 18:36 Dose: 40 mcg/kg/min, 25.644 mls/hr Vancomycin HCl 1,500 mg/ (Dextrose) 500 mls @ 250 mls/hr IVPB BID@1100,2300 RACHEAL PRN Reason: Protocol Last Admin: 09/24/17 23:07 Dose: 250 mls/hr Vasopressin 50 units/ Sodium (Chloride) 100 mls @ 4 mls/hr IVPB TITR RACHEAL; 2 UNITS/HR PRN Reason: Protocol Last Admin: 09/24/17 15:16 Dose: 3 units/hr, 6 mls/hr Sodium Chloride (Normal Saline -) 1,000 mls @ 150 mls/hr IV ASDIR RACHEAL Last Admin: 09/24/17 16:34 Dose: 150 mls/hr Norepinephrine Bitartrate 4, (000 mcg/ Sodium Chloride) 500 mls @ 37.5 mls/hr IV TITR RACHEAL; 5 MCG/MIN PRN Reason: Protocol Last Admin: 09/24/17 21:33 Dose: 6 mcg/min, 45 mls/hr Fentanyl 500 mcg/ Sodium (Chloride) 100 mls @ 10 mls/hr IVPB TITR RACHEAL; 50 MCG/ HR PRN Reason: Protocol Last Admin: 09/24/17 21:33 Dose: 10 mls/hr Morphine Sulfate (Morphine Injection -) 2 mg IVPUSH Q6H PRN PRN Reason: PAIN LEVEL 4 - 6 Mupirocin (Bactroban Ointment (For Decolonization) -) 1 applic NS BID RACHEAL Stop: 09/27/17 09:59 Last Admin: 09/24/17 21:34 Dose: 1 applic - Objective Vital Signs: Vital Signs Temperature 99.5 F 09/25/17 06:00 Pulse Rate 87 09/25/17 06:00 Respiratory Rate 18 09/25/17 06:15 Blood Pressure 110/72 09/25/17 06:00 O2 Sat by Pulse Oximetry (%) 100 09/24/17 20:29 Labs: INR, PTT INR 1.73 (0.82-1.09) H D 09/20/17 14:15 Assessment/Plan Microbiology 09/21/17 Unknown Leg - Right Upper Gram Stain - Final 09/21/17 Unknown Leg - Right Upper Wound Culture - Final Escherichia Coli S Aureus 09/21/17 08:30 Urine - Urine River Urine Culture - Final Yeast Like Organism 09/20/17 14:20 Blood - Peripheral Venous Blood Culture - Final Mr S Aureus 09/20/17 14:20 Blood - Peripheral Venous Blood Culture - Final Mr S Aureus 09/20/17 14:20 Back Gram Stain - Final 09/20/17 14:20 Back Wound Culture - Final Escherichia Coli Staphylococcus Coagulase Neg Diphtheroid/Corynebacterium Enterococcus Faecalis Laboratory Tests 09/23/17 09/24/17 09/24/17 09:50 05:13 13:30 WBC 9.9 Hgb 8.4 L Hct Plt Count 101 L Sodium Potassium BUN Creatinine Calcium Total Bilirubin 0.6 AST 29 D ALT 12 Alkaline Phosphatase 131 H Vancomycin Pre-Dose 16.966 H* D 01/23/18 01/24/18 21:00 06:35 WBC Pending Hgb Pending Hct Pending Plt Count Pending Sodium 122 L* Potassium 3.5 BUN 4 L Creatinine 0.2 L D Calcium 6.0 L* Total Bilirubin AST ALT Alkaline Phosphatase Vancomycin Pre-Dose Assessment Gas gangrene post extensive debridment sacrum leg along with right AKA Polymicrobial wound with sensitivities reviewed Sepsis syndrome MRSA bacteremia on Vanco Metastatic cancer Plan Continue Vancomycin Can stop Meropenem Substitute Ce ftriaxone for gram negative coverage Continue Clinda for anaerobic coverage Sharda ZAPATA Check Vanco level trough
[2017-09-25 07:16] LABS: ALLENS TEST POSITIVE
[2017-09-25 08:01] LABS: BASO % 0.1 % (0-2.0); EOS % 1.1 % (0-4.5); HEMATOCRIT 24.4 % (35.4-49); LYMPH % 6.5 % (8-40); MEAN CELL VOLUME 84.8 fl (80-96); MEAN PLT VOLUME 10.1 fl (7.5-11.1); MONO % 5.9 % (3.8-10.2); NEUT % 86.4 % (42.8-82.8); PLATELET COUNT 113 K/MM3 (134-434); RBC 2.88 M/mm3 (4.00-5.60); RDW 20.6 % (11.9-15.9); WHITE BLOOD COUNT 8.6 K/mm3 (4.0-10.0)
[2017-09-25 08:47] LABS: CHLORIDE 86 mmol/L (98-107); POTASSIUM 3.6 mmol/L (3.5-5.1)
--- NOTE | 2017-09-25 09:04 | PATH ---
Surgical Pathology Report Patient Name: DWAYNE ROLAND Med. Rec. #: [id number] /Age/Gender: 1955 (Age: 62) / M Account: [id number] Location: ICU [facility] Taken: 09/23/2017 Received: 09/24/2017 Reported: 09/25/2017 Physicians: Juan Antonio Pacheco M.D. Specimen(s) Received FOREIGN BODY PORT Clinical History Atrial flutter, malignancy of lung Final Diagnosis Internal jugular, CHEMOPORT, left, removal: [employer]PITAL [employer]SE[employer]. CONSISTENT WITH PORT. MAcroscopic diagnosis. Electronically Signed Courtney Grajeda M.D. Gross Description Received fresh labeled "removed port," is a 2.6 x 2.3 x 1.4 cm white, triangular device, consistent with a port. The port displays a 26 cm in length portion of white tubing extending from one aspect. No soft tissue is present. No sections are submitted, gross only. /09/24/2017 saudi09/24/2017
[2017-09-25] MEDS: SODIUM CHLORIDE 1,000 ML IV SCH ×2 (09:15→17:07)
[2017-09-25] MEDS: FOLIC ACID 1 MG TABLET (FP) PO SCH (09:15)
[2017-09-25] MEDS: MUPIROCIN 2% TOPICAL OINTMENT FOR DECOLONIZATION NS SCH ×2 (09:16→21:18)
[2017-09-25 09:26] LABS: ALK PHOS 129 U/L (45-117); ANION GAP 11 (8-16); BILIRUBIN,TOTAL 0.9 mg/dL (0.2-1.0); BLOOD UREA NITROGEN 3 mg/dL (7-18); CO2 27 mmol/L (21-32); CREATININE 0.3 mg/dL (0.7-1.3); GLUCOSE,RANDOM 82 mg/dL (74-106); MAGNESIUM 1.3 mg/dL (1.8-2.4); PHOSPHOROUS 2.1 mg/dL (2.5-4.9); SGOT/AST 19 U/L (15-37); SGPT/ALT 11 U/L (12-78); TOT PROT 4.6 g/dl (6.4-8.2)
[2017-09-25 09:44] LABS: CALCIUM 6.2 mg/dL (8.5-10.1); SODIUM 124 mmol/L (136-145)
--- NOTE | 2017-09-25 09:57 | PN ---
Progress Note, Physician Chief Complaint: gas gangrene sacurm and right leg History of Present Illness: 62yo male PMH Lung CA with mets to Skin, Heart, Spine, left eye; pt is under care of [facility], were he is receiving Chemo( last chemo was last week on Saturday) via port-a-cath (than was changer last week. Presented with fever and weakness on 09/20. CT scan showed extensive gas gangrene of the right leg. He has been on vasopressor support since surgery, found to have MRSA bactermia, low grade fevers 99.5. sedated and intubated. - Current Medication List Current Medications: Active Medications Chlorhexidine Gluconate (Hibiclens For Decolonization -) 1 applic TP HS RACHEAL Last Admin: 09/24/17 21:34 Dose: 1 applic Folic Acid (Folic Acid -) 1 mg PO DAILY RACHEAL Last Admin: 09/25/17 09:15 Dose: Not Given Amiodarone HCl/Dextrose (Nexterone 360 Mg/200 Ml Bag) 360 mg in 200 mls @ 16.667 mls/hr IVPB TITR RACHEAL; 0.5 MG/MIN PRN Reason: Protocol Last Admin: 09/24/17 15:25 Dose: Not Given Clindamycin Phosphate (Cleocin 900 Mg Premix Ivpb -) 900 mg in 50 mls @ 100 mls /hr IVPB Q8H-IV RACHEAL Last Admin: 09/25/17 09:14 Dose: 100 mls/hr Propofol (Diprivan -) 1,000,000 mcg in 100 mls @ 3.205 mls/hr IVPB TITR RACHEAL; 5 MCG/KG/MIN PRN Reason: Protocol Last Titration: 09/25/17 06:57 Dose: 50 mcg/kg/min, 32.055 mls/hr Vancomycin HCl 1,500 mg/ (Dextrose) 500 mls @ 250 mls/hr IVPB BID@1100,2300 RACHEAL PRN Reason: Protocol Last Admin: 09/24/17 23:07 Dose: 250 mls/hr Vasopressin 50 units/ Sodium (Chloride) 100 mls @ 4 mls/hr IVPB TITR RACHEAL; 2 UNITS/HR PRN Reason: Protocol Last Titration: 09/25/17 06:57 Dose: 0 units/hr, 0 mls/hr Sodium Chloride (Normal Saline -) 1,000 mls @ 150 mls/hr IV ASDIR RACHEAL Last Admin: 09/25/17 09:15 Dose: 150 mls/hr Norepinephrine Bitartrate 4, (000 mcg/ Sodium Chloride) 500 mls @ 37.5 mls/hr IV TITR RACHEAL; 5 MCG/MIN PRN Reason: Protocol Last Titration: 09/25/17 06:58 Dose: 2 mcg/min, 15 mls/hr Fentanyl 500 mcg/ Sodium (Chloride) 100 mls @ 10 mls/hr IVPB TITR RACHEAL; 50 MCG/ HR PRN Reason: Protocol Last Admin: 09/24/17 21:33 Dose: 10 mls/hr CEFTRIAXONE IN IS-OSM DEXTROSE (Ceftriaxone 2 Gm-D5w Bag) 2 gm in 50 mls @ 100 mls/hr IVPB DAILY RACHEAL Morphine Sulfate (Morphine Injection -) 2 mg IVPUSH Q6H PRN PRN Reason: PAIN LEVEL 4 - 6 Mupirocin (Bactroban Ointment (For Decolonization) -) 1 applic NS BID RACHEAL Stop: 09/27/17 09:59 Last Admin: 09/25/17 09:16 Dose: 1 applic - Objective Vital Signs: Vital Signs Temperature 99.3 F 09/25/17 08:00 Pulse Rate 85 09/25/17 08:00 Respiratory Rate 12 09/25/17 08:00 Blood Pressure 101/71 09/25/17 08:00 O2 Sat by Pulse Oximetry (%) 100 09/25/17 08:00 Vital Signs Period Temp Pulse Resp BP Sys/Topete Pulse Ox Last 24 Hr 98.8 F-99.5 F 79-90 12-18 93-132/65-85 99-100 Intake & Output 09/24/17 09/25/17 09/25/17 23:59 07:59 15:59 Intake Total 3220 3174 Output Total 600 500 Balance 2620 2674 Weight 231 lb 220 lb Intake: IV 2997 2374 FENTANYL 140 Levophed - 4,000 Mcg In 677 168 Normal Saline - 496 ml @ 5 MCG/MIN 37.5 mls/hr IV TITR RACHEAL Rx#:[id number] NEXTERONE 360 MG/200 ML 185 180 BAG 360 mg In 200 ml @ 0. 5 MG/MIN 16.667 mls/hr IVPB TITR RACHEAL Rx#: [id number] Normal Saline - 1,000 ml 1713 1800 @ 150 mls/hr IV ASDIR RACHEAL Rx#:[id number] PROPOFOL 200 186 Pitressin - 50 Units In 82 40 Normal Saline - 97.5 ml @ 2 UNITS/HR 4 mls/hr IVPB TITR RACHEAL Rx#:[id number] IVPB 223 800 Output: Urine 600 500 River 600 500 Other: Voiding Method Indwelling Catheter Indwelling Catheter Height 5 ft 11 in Body Mass Index (BMI) 32.2 Weight Measurement Method Built in [facility] Constitutional: Yes: No Distress, Calm, Obese Eyes: Yes: Conjunctiva Clear, EOM Intact HENT: Yes: Atraumatic, Normocephalic Cardiovascular: Yes: Regular Rate and Rhythm, S1, S2 Respiratory: Yes: Regular, CTA Bilaterally, Intubated, Mechanically Ventilated Gastrointestinal: Yes: Normal Bowel Sounds, Soft ...Rectal Exam: Yes: Guaiac Positive, Hemorrhoids/External, Sphincter Tone Normal, Other (no masses). No: Mass Genitourinary: No: CVA Tenderness - Left, CVA Tenderness - Right Musculoskeletal: Yes: Muscle Weakness (LE B/L) Extremities: Yes: Amputation (Right AKA stump). No: Cool, Cyanosis Edema: Yes Edema: LUE: 2+, RUE: 2+, LLE: 2+ Peripheral Pulses WNL: Yes Peripheral Pulses: Left Doralis Pedis: 2+, Left Femoral: 2+, Right Femoral: 2+ Wound/Incision: Yes: Dressing Dry and Intact, Dressing Removed, Unapproximated Neurological: Yes: Alert, Oriented Psychiatric: Yes: Alert, Oriented Labs: CBC, BMP 09/25/17 06:35 09/25/17 06:35 INR, PTT INR 1.73 (0.82-1.09) H D 09/20/17 14:15 Problem List - Problems (1) Septic shock Assessment/Plan: 62 yo male PMH Right leg gas gangrene (extending from upper sacrum to Knee) extending from a pelvic abscess and an infected decubitus ulcer seen on CT scan of of the pelvis and lower extremity. 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 He hemodynamically unstable BP 94/60 and HR 140, no pressors. POD#3/1 s/p RLE Guillotine AKA, Now toxic shock on vasopressors. ICU supportive care Broad spectrum IV antibiotics trend labs, correct electrolyte abnormalities hypoNa Local wound care - Daily bedside procedure Ethics discussion with family to discuss goals of care Flexiseal placed in rectum - to divert contamination of the ulcer and stump NGT placed - start tube feeds @20ml/hr titrate to goal Code(s): A41.9 - SEPSIS, UNSPECIFIED ORGANISM; R65.21 - SEVERE SEPSIS WITH SEPTIC SHOCK (2) Gas gangrene of lower extremity Code(s): A48.0 - GAS GANGRENE (3) Lung cancer metastatic to bone Code(s): C34.90 - MALIGNANT NEOPLASM OF UNSP PART OF UNSP BRONCHUS OR LUNG; C79.51 - SECONDARY MALIGNANT NEOPLASM OF BONE (4) Atrial tachycardia Code(s): I47.1 - SUPRAVENTRICULAR TACHYCARDIA (5) Gram-positive bacteremia Code(s): R78.81 - BACTEREMIA (6) Infected pressure ulcer Code(s): L89.90 - PRESSURE ULCER OF UNSPECIFIED SITE, UNSPECIFIED STAGE; L08.9 - LOCAL INFECTION OF THE SKIN AND SUBCUTANEOUS TISSUE, UNSP Qualifiers: Pressure ulcer stage: stage 4 Qualified Code(s): L89.94 - Pressure ulcer of unspecified site, stage 4; L08.9 - Local infection of the skin and subcutaneous tissue, unspecified; L08.9 - Local infection of the skin and subcutaneous tissue, unspecified
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
--- NOTE | 2017-09-25 10:46 | PN ---
Progress Note, Physician History of Present Illness: Pt is intubated. Pt is on Pressors (NE; off Vassopressin) Pt is on IV Amiodarone. Pt is awake, no CP, no SOB, no abd pain, no body aches. Pt was seen and examined in ICU in AM - Current Medication List Current Medications: Active Medications Chlorhexidine Gluconate (Hibiclens For Decolonization -) 1 applic TP HS RACHEAL Last Admin: 09/24/17 21:34 Dose: 1 applic Folic Acid (Folic Acid -) 1 mg PO DAILY RACHEAL Last Admin: 09/25/17 09:15 Dose: Not Given Amiodarone HCl/Dextrose (Nexterone 360 Mg/200 Ml Bag) 360 mg in 200 mls @ 16.667 mls/hr IVPB TITR RACHEAL; 0.5 MG/MIN PRN Reason: Protocol Last Admin: 09/24/17 15:25 Dose: Not Given Clindamycin Phosphate (Cleocin 900 Mg Premix Ivpb -) 900 mg in 50 mls @ 100 mls /hr IVPB Q8H-IV RACHEAL Last Admin: 09/25/17 09:14 Dose: 100 mls/hr Propofol (Diprivan -) 1,000,000 mcg in 100 mls @ 3.205 mls/hr IVPB TITR RACHEAL; 5 MCG/KG/MIN PRN Reason: Protocol Last Titration: 09/25/17 06:57 Dose: 50 mcg/kg/min, 32.055 mls/hr Vancomycin HCl 1,500 mg/ (Dextrose) 500 mls @ 250 mls/hr IVPB BID@1100,2300 RACHEAL PRN Reason: Protocol Last Admin: 09/24/17 23:07 Dose: 250 mls/hr Vasopressin 50 units/ Sodium (Chloride) 100 mls @ 4 mls/hr IVPB TITR RACHEAL; 2 UNITS/HR PRN Reason: Protocol Last Titration: 09/25/17 06:57 Dose: 0 units/hr, 0 mls/hr Sodium Chloride (Normal Saline -) 1,000 mls @ 150 mls/hr IV ASDIR RACHEAL Last Admin: 09/25/17 09:15 Dose: 150 mls/hr Norepinephrine Bitartrate 4, (000 mcg/ Sodium Chloride) 500 mls @ 37.5 mls/hr IV TITR RACHEAL; 5 MCG/MIN PRN Reason: Protocol Last Titration: 09/25/17 06:58 Dose: 2 mcg/min, 15 mls/hr Fentanyl 500 mcg/ Sodium (Chloride) 100 mls @ 10 mls/hr IVPB TITR RACHEAL; 50 MCG/ HR PRN Reason: Protocol Last Admin: 09/24/17 21:33 Dose: 10 mls/hr CEFTRIAXONE IN IS-OSM DEXTROSE (Ceftriaxone 2 Gm-D5w Bag) 2 gm in 50 mls @ 100 mls/hr IVPB DAILY RACHEAL Morphine Sulfate (Morphine Injection -) 2 mg IVPUSH Q6H PRN PRN Reason: PAIN LEVEL 4 - 6 Mupirocin (Bactroban Ointment (For Decolonization) -) 1 applic NS BID RACHEAL Stop: 09/27/17 09:59 Last Admin: 09/25/17 09:16 Dose: 1 applic - Objective Vital Signs: Vital Signs Temperature 98.3 F 09/25/17 10:00 Pulse Rate 80 09/25/17 10:00 Respiratory Rate 12 09/25/17 10:00 Blood Pressure 96/68 09/25/17 10:00 O2 Sat by Pulse Oximetry (%) 100 09/25/17 08:45 Constitutional: Yes: No Distress, Calm Cardiovascular: Yes: Regular Rate and Rhythm, S1, S2 Respiratory: Yes: Regular, Other (intubated, coarse BS). No: Rhonchi, Wheezes Gastrointestinal: Yes: Normal Bowel Sounds, Soft. No: Tenderness Extremities: Yes: Other (right AKA) Neurological: Yes: Other (arousable to voice) Labs: CBC, BMP 09/25/17 06:35 09/25/17 06:35 INR, PTT INR 1.73 (0.82-1.09) H D 09/20/17 14:15 Problem List - Problems (1) Septic shock Code(s): A41.9 - SEPSIS, UNSPECIFIED ORGANISM; R65.21 - SEVERE SEPSIS WITH SEPTIC SHOCK (2) Sepsis Code(s): A41.9 - SEPSIS, UNSPECIFIED ORGANISM Qualifiers: Sepsis type: sepsis due to unspecified organism Qualified Code(s): A41.9 - Sepsis, unspecified organism (3) Sacral decubitus ulcer, stage IV Code(s): L89.154 - PRESSURE ULCER OF SACRAL REGION, STAGE 4 (4) Atrial tachycardia Code(s): I47.1 - SUPRAVENTRICULAR TACHYCARDIA (5) Lactic acidosis Code(s): E87.2 - ACIDOSIS (6) Metastatic primary lung cancer Code(s): C34.90 - MALIGNANT NEOPLASM OF UNSP PART OF UNSP BRONCHUS OR LUNG Qualifiers: Laterality: unspecified laterality Qualified Code(s): C34.90 - Malignant neoplasm of unspecified part of unspecified bronchus or lung (7) Paraplegia Code(s): G82.20 - PARAPLEGIA, UNSPECIFIED (8) Bacteremia Code(s): R78.81 - BACTEREMIA (9) Gas gangrene of lower extremity Code(s): A48.0 - GAS GANGRENE (10) Above knee amputation of right lower extremity Code(s): Z89.611 - ACQUIRED ABSENCE OF RIGHT LEG ABOVE KNEE (11) Gram-positive bacteremia Code(s): R78.81 - BACTEREMIA (12) Anemia Code(s): D64.9 - ANEMIA, UNSPECIFIED Qualifiers: Anemia type: unspecified type Qualified Code(s): D64.9 - Anemia, unspecified (13) Thrombocytopenia Code(s): D69.6 - THROMBOCYTOPENIA, UNSPECIFIED (14) Hypomagnesemia Code(s): E83.42 - HYPOMAGNESEMIA (15) Hypophosphatemia Code(s): E83.39 - OTHER DISORDERS OF PHOSPHORUS METABOLISM (16) Hyponatremia Code(s): E87.1 - HYPO-OSMOLALITY AND HYPONATREMIA Assessment/Plan Admitted to ICU. Pt on Pressors (NE), off Vasopressin. On IV Amiodarone, Propofol. IV abtx- per ID Pulmonary/CCM, ID, Cardio, Onco, Surgery, Ortho, Renal consults appreciated. s/p emergency surgery 09/21/2017, s/p right AKA s/p OR on 09/23/2017 for reevaluation/ debridement/ removal of port-a-cath/ central line placement. If pt is not extubated consider TF via OGT. Vent management per CCM- AC mode Wound care per Sx. Pt's care was d/w Dr. Pacheco. To replete electolytes. Case was d/w Dr. Molina. Stable Na; to monitor Na; to try to give all IVF in NS. H/H is trending down; pt is Jehova witness, no PRBC Tx. AM labs. Case was d/w pt's nurse. Pt's treatment was d/w ICU resident. Prognosis: poor; pt's is aware. Time spent for managing pt's care: 45 minutes.
[2017-09-25] MEDS: VANCOMYCIN 1,500 MG in DEXTROSE 5%-WATER - 500 ML IVPB SCH ×2 (11:00→23:55)
[2017-09-25] MEDS: CEFTRIAXONE IN IS-OSM DEXTROSE 2 GM/50 ML BAG IVPB SCH (11:47)
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
[2017-09-25] MEDS: PROPOFOL 1,000,000 MCG/100 ML VIAL IVPB SCH ×3 (13:00→17:07)
--- NOTE | 2017-09-25 13:24 | PATH ---
Surgical Pathology Report Patient Name: DWAYNE ROLAND [facility]. Rec. #: [id number] /Age/Gender: 1955 (Age: 62) / M Account: [id number] Location: ICU [employer] Taken: 09/21/2017 Received: 09/23/2017 Reported: 09/25/2017 Physicians: Evelyn Arroyo M.D. Specimen(s) Received RIGHT LEG ABOVE THE KNEE AMPUTATION Clinical History Right leg gangrene, septic Final Diagnosis RIGHT LEG, ABOVE KNEE AMPUTATION: ULCERATION AND GANGRENOUS NECROSIS OF SKIN AND SOFT TISSUE, EXTENDING TO MARGIN. MILD CALCIFIC ATHEROSCLEROSIS OF VESSELS PRESENT. NO DEFINITE OSTEOMYELITIS IDENTIFIED. Electronically Signed Lester Pettit M.D. Gross Description Received fresh labeled "right leg above the knee," is a 64 cm in length product of a right above the knee amputation. The epidermal surface is ware-brown and displays a 2.0 x 1.3 cm ulcerated lesion on the dorsal-medial aspect of the ankle. The lesion appears to involve the underlying bone. The foot appears swollen. There is an additional 3.2 x 3.0 cm well-healed scar on the lateral aspect of the upper caal. This soft tissue margin appears focally necrotic. Sectioning of the vasculature displays focal, segmental, mild atherosclerosis. [employer] sections are submitted in 9 cassettes as follows: 1-ankle ulcer with underlying bone, following decalcification; 2-upper caal scar; 3-section from swollen-appearing dorsal foot; 4-bone marrow from margin, following decalcification; 5-skin and soft tissue margin; 6-popliteal artery; 7-anterior tibial artery; 8-posterior tibial artery; 9-dorsalis pedis. /09/23/2017 saudi/09/23/2017
[2017-09-25] MEDS ORDERED: MAGNESIUM SULF 50% (8.12 MEQ/2 ML-1 GM VIAL) IVPB ONE (13:27)
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
[2017-09-25] MEDS ORDERED: POTASSIUM PHOSPHATE 30 MM in SODIUM CHLORIDE 250 ML IVPB ONE (13:45)
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
[2017-09-25] MEDS: AMIODARONE IN DEXTROSE,ISO-OSM 360 MG/200 ML BAG IVPB SCH (15:25)
[2017-09-25] MEDS: VASOPRESSIN 50 UNITS in SODIUM CHLORIDE 97.5 ML IVPB SCH (15:25)
[2017-09-25] MEDS: FENTANYL INJECTION 500 MCG in SODIUM CHLORIDE 90 ML IVPB SCH ×2 (15:39→18:45)
[2017-09-25] MEDS: NOREPINEPHRINE BITARTRATE 4,000 MCG in SODIUM CHLORIDE 496 ML IV SCH ×2 (15:46→18:45)
[2017-09-25] MEDS ORDERED: MAGNESIUM SULF 50% (8.12 MEQ/2 ML-1 GM VIAL) IVPB SCH (16:45)
--- NOTE | 2017-09-25 17:06 | PROC ---
Incision and Drainage Indication/Location: Daily Complex Dressing Chnage: Large open Right Lower extremity Guillotine Amputation site 24cm diameter stump and Right Ischial 7.5cm diamter 4cm Deep Pressure ulcer Risks and Benefits Explained: Yes Consent on Chart: No (Verbal consent by Rocio Parker ) Betadine cleansed: Yes Anesthesia: other (not applicable insensate 2nd to paraplegia) Blade Size: Abrassive gauze and scissors Drainage: purulent drainge from each site Irrigated with Normal Saline: Yes Iodinated Packin in (Betadine soaked kerlex gauze) Plain packing: No Sterile Dressing Applied: Yes
[2017-09-25] MEDS: CHLORHEXIDINE GLUCONATE 4% CLEANSER FOR DECOLONIZATION TP SCH (21:18)
[2017-09-25] MEDS: CHLORHEXIDINE GLUCONATE 0.12% 15ML CUP MM SCH (21:22)
[2017-09-26] MEDS: FENTANYL INJECTION 500 MCG in SODIUM CHLORIDE 90 ML IVPB SCH ×5 (02:00→21:20)
[2017-09-26] MEDS ORDERED: fentaNYL CITRATE 250 MCG/5 ML VIAL ONE ×3 (03:08→20:30)
[2017-09-26] MEDS: CLINDAMYCIN 900 MG PREMIX IVPB 900 MG/50 ML BAG IVPB SCH ×3 (03:40→18:34)
[2017-09-26] MEDS: SODIUM CHLORIDE 1,000 ML IV SCH ×3 (04:30→18:08)
[2017-09-26 06:33] LABS: ARTERIAL BLOOD GAS BASE EXCESS 2.5 meq/l (-2-2); ARTERIAL BLOOD GAS PCO2 46.6 mmHg (35-45); ARTERIAL BLOOD GAS pH 7.39 (7.35-7.45)
[2017-09-26 06:34] LABS: ALLENS TEST POSITIVE
[2017-09-26 06:40] LABS: ARTERIAL BLOOD GAS PO2 34.9 mmHg (80-100)
[2017-09-26 07:19] LABS: BLOOD UREA NITROGEN 4 mg/dL (7-18); CHLORIDE 98 mmol/L (98-107); GLUCOSE,RANDOM 86 mg/dL (74-106); PHOSPHOROUS 2.4 mg/dL (2.5-4.9); POTASSIUM 3.3 mmol/L (3.5-5.1); SGOT/AST 20 U/L (15-37); SODIUM 136 mmol/L (136-145)
--- NOTE | 2017-09-26 07:20 | PN ---
Progress Note (short form) - Note Progress Note: ID Intubated but off pressors as of this morning only Antibiotics as follows: Ceftriaxone Clindamycin Vancomycin Selected Entries 09/26/17 09/26/17 06:00 06:35 Temperature 99.5 F Pulse Rate 85 Respiratory 14 Rate Blood Pressure 97/60 Microbiology 09/21/17 Unknown Leg - Right Upper Gram Stain - Final 09/21/17 Unknown Leg - Right Upper Wound Culture - Final Escherichia Coli Mr S Aureus 09/20/17 14:20 Blood - Peripheral Venous Blood Culture - Final Mr S Aureus 09/20/17 14:20 Blood - Peripheral Venous Blood Culture - Final Mr S Aureus 09/20/17 14:20 Back Gram Stain - Final 09/20/17 14:20 Back Wound Culture - Final Escherichia Coli Staphylococcus Coagulase Neg Diphtheroid/Corynebacterium Enterococcus Faecalis 09/23/17 15:10 Tissue-Other Tissue Culture - Preliminary NO AEROBIC GROWTH, 24 HRS 09/22/17 06:35 Blood - Tara Cath Blood Culture - Preliminary NO GROWTH OBTAINED AFTER 96 HOURS, INCUBATION TO CONTINUE FOR 1 DAYS. 09/22/17 06:35 Blood - Tara Cath Blood Culture - Preliminary NO GROWTH OBTAINED AFTER 96 HOURS, INCUBATION TO CONTINUE FOR 1 DAYS. Laboratory Tests 09/25/17 09/25/17 09/25/17 06:35 06:35 23:45 WBC 8.6 Hgb 8.0 L Plt Count 113 L BUN 3 L D Creatinine 0.3 L D C-Reactive Protein 12.6 H Vancomycin Pre-Dose 15.242 H* D 09/26/17 09/26/17 05:35 05:35 WBC Pending Hgb Pending Plt Count Pending BUN Pending Creatinine Pending C-Reactive Protein Vancomycin Pre-Dose Assessment Metastatic cancer T 8 paraplegia MRSA bacteremia Vanco levels where they need to be Gas gangrene polymicrobial esme noted being treated Severe sepsis syndrome Plan Would continue current antibiotics Off pressors this am Supportive care Complex dressing change per surgery noted Sharda ZAPATA
[2017-09-26 07:24] LABS: ALK PHOS 131 U/L (45-117); ANION GAP 10 (8-16); BILIRUBIN,TOTAL 0.6 mg/dL (0.2-1.0); CO2 28 mmol/L (21-32); CREATININE 0.3 mg/dL (0.7-1.3); MAGNESIUM 1.5 mg/dL (1.8-2.4); SGPT/ALT 10 U/L (12-78); TOT PROT 4.4 g/dl (6.4-8.2)
[2017-09-26 07:42] LABS: BASO % 0.2 % (0-2.0); EOS % 0.7 % (0-4.5); HEMATOCRIT 23.9 % (35.4-49); HEMOGLOBIN 7.9 GM/dL (11.7-16.9); LYMPH % 4.3 % (8-40); MCH 28.3 pg (25.7-33.7); MCHC 32.9 g/dl (32.0-35.9); MEAN CELL VOLUME 85.8 fl (80-96); MEAN PLT VOLUME 9.4 fl (7.5-11.1); MONO % 6.4 % (3.8-10.2); NEUT % 88.4 % (42.8-82.8); PLATELET COUNT 129 K/MM3 (134-434); RBC 2.79 M/mm3 (4.00-5.60); RDW 20.6 % (11.9-15.9); WHITE BLOOD COUNT 6.3 K/mm3 (4.0-10.0)
[2017-09-26 08:25] LABS: INR 1.37 (0.82-1.09); PROTHROMBIN TIME (PATIENT) 15.5 SEC (9.98-11.88)
[2017-09-26 08:33] LABS: CALCIUM 6.5 mg/dL (8.5-10.1)
[2017-09-26] MEDS: PROPOFOL 1,000,000 MCG/100 ML VIAL IVPB SCH ×3 (08:37→18:38)
[2017-09-26] MEDS ORDERED: PT OWN MED DRAWER 7, Y5N ONE ×4 (09:27→18:05)
[2017-09-26] MEDS: FAMOTIDINE 20 MG/50 ML IVPB 20 MG/50 ML MG IVPB SCH ×2 (09:40→21:19)
[2017-09-26] MEDS: MUPIROCIN 2% TOPICAL OINTMENT FOR DECOLONIZATION NS SCH ×2 (09:41→21:19)
[2017-09-26] MEDS: FOLIC ACID 1 MG TABLET (FP) PO SCH (09:41)
[2017-09-26] MEDS: CHLORHEXIDINE GLUCONATE 0.12% 15ML CUP MM SCH ×2 (09:41→21:19)
--- NOTE | 2017-09-26 09:41 | PN ---
Progress Note, Physician History of Present Illness: Pt was seen and examined in ICU in AM. See complete note, written later - Current Medication List Current Medications: Active Medications Chlorhexidine Gluconate (Hibiclens For Decolonization -) 1 applic TP HS [facility] Last Admin: 09/25/17 21:18 Dose: 1 applic Chlorhexidine Gluconate (Peridex -) 15 ml MM BID [facility] Last Admin: 09/25/17 21:22 Dose: 15 ml Folic Acid (Folic Acid -) 1 mg PO DAILY [facility] Last Admin: 09/25/17 09:15 Dose: Not Given Amiodarone HCl/Dextrose (Nexterone 360 Mg/200 Ml Bag) 360 mg in 200 mls @ 16.667 mls/hr IVPB TITR [facility]; 0.5 MG/MIN PRN Reason: Protocol Last Titration: 09/26/17 02:00 Dose: 0.5 mg/min, 16.667 mls/hr Clindamycin Phosphate (Cleocin 900 Mg Premix Ivpb -) 900 mg in 50 mls @ 100 mls /hr IVPB Q8H-IV [facility] Last Admin: 09/26/17 03:40 Dose: 100 mls/hr Propofol (Diprivan -) 1,000,000 mcg in 100 mls @ 3.205 mls/hr IVPB TITR [facility]; 5 MCG/KG/MIN PRN Reason: Protocol Last Admin: 09/26/17 08:37 Dose: 50 mcg/kg/min, 32.055 mls/hr Vancomycin HCl 1,500 mg/ (Dextrose) 500 mls @ 250 mls/hr IVPB BID@1100,2300 [facility] PRN Reason: Protocol Last Admin: 09/25/17 23:55 Dose: 250 mls/hr Vasopressin 50 units/ Sodium (Chloride) 100 mls @ 4 mls/hr IVPB TITR [facility]; 2 UNITS/HR PRN Reason: Protocol Last Admin: 09/25/17 15:25 Dose: Not Given Sodium Chloride (Normal Saline -) 1,000 mls @ 150 mls/hr IV ASDIR [facility] Last Admin: 09/26/17 04:30 Dose: 150 mls/hr Norepinephrine Bitartrate 4, (000 mcg/ Sodium Chloride) 500 mls @ 37.5 mls/hr IV TITR [facility]; 5 MCG/MIN PRN Reason: Protocol Last Titration: 09/26/17 05:00 Dose: 1 mcg/min, 7.5 mls/hr Fentanyl 500 mcg/ Sodium (Chloride) 100 mls @ 10 mls/hr IVPB TITR [facility]; 50 MCG/ HR PRN Reason: Protocol Last Admin: 09/26/17 08:35 Dose: 20 mls/hr CEFTRIAXONE IN IS-OSM DEXTROSE (Ceftriaxone 2 Gm-D5w Bag) 2 gm in 50 mls @ 100 mls/hr IVPB DAILY [facility] Last Admin: 09/25/17 11:47 Dose: 100 mls/hr Famotidine/Sodium Chloride (Pepcid 20 Mg Premixed Ivpb -) 20 mg in 50 mls @ 100 mls/hr IVPB BID [facility] Morphine Sulfate (Morphine Injection -) 2 mg IVPUSH Q6H PRN PRN Reason: PAIN LEVEL 4 - 6 Mupirocin (Bactroban Ointment (For Decolonization) -) 1 applic NS BID [facility] Stop: 09/27/17 09:59 Last Admin: 09/25/17 21:18 Dose: 1 applic - Objective Vital Signs: Vital Signs Temperature 99.5 F 09/26/17 06:00 Pulse Rate 90 09/26/17 08:44 Respiratory Rate 18 09/26/17 08:44 Blood Pressure 97/53 09/26/17 08:00 O2 Sat by Pulse Oximetry (%) 94 L 09/26/17 08:44 Labs: CBC, BMP 09/26/17 05:35 09/26/17 05:35 INR, PTT INR 1.37 (0.82-1.09) H 09/26/17 05:35 Fibrinogen 452.0 mg/dL (238-498) 09/26/17 05:35 Problem List - Problems (1) Septic shock Code(s): A41.9 - SEPSIS, UNSPECIFIED ORGANISM; R65.21 - SEVERE SEPSIS WITH SEPTIC SHOCK (2) Sepsis Code(s): A41.9 - SEPSIS, UNSPECIFIED ORGANISM Qualifiers: Sepsis type: sepsis due to unspecified organism Qualified Code(s): A41.9 - Sepsis, unspecified organism (3) Sacral decubitus ulcer, stage IV Code(s): L89.154 - PRESSURE ULCER OF SACRAL REGION, STAGE 4 (4) Atrial tachycardia Code(s): I47.1 - SUPRAVENTRICULAR TACHYCARDIA (5) Lactic acidosis Code(s): E87.2 - ACIDOSIS (6) Metastatic primary lung cancer Code(s): C34.90 - MALIGNANT NEOPLASM OF UNSP PART OF UNSP BRONCHUS OR LUNG Qualifiers: Laterality: unspecified laterality Qualified Code(s): C34.90 - Malignant neoplasm of unspecified part of unspecified bronchus or lung (7) Paraplegia Code(s): G82.20 - PARAPLEGIA, UNSPECIFIED (8) Bacteremia Code(s): R78.81 - BACTEREMIA (9) Gas gangrene of lower extremity Code(s): A48.0 - GAS GANGRENE (10) Above knee amputation of right lower extremity Code(s): Z89.611 - ACQUIRED ABSENCE OF RIGHT LEG ABOVE KNEE (11) Gram-positive bacteremia Code(s): R78.81 - BACTEREMIA (12) Anemia Code(s): D64.9 - ANEMIA, UNSPECIFIED Qualifiers: Anemia type: unspecified type Qualified Code(s): D64.9 - Anemia, unspecified (13) Thrombocytopenia Code(s): D69.6 - THROMBOCYTOPENIA, UNSPECIFIED (14) Hypomagnesemia Code(s): E83.42 - HYPOMAGNESEMIA (15) Hypophosphatemia Code(s): E83.39 - OTHER DISORDERS OF PHOSPHORUS METABOLISM (16) Hyponatremia Code(s): E87.1 - HYPO-OSMOLALITY AND HYPONATREMIA
--- NOTE | 2017-09-26 10:04 | PN ---
Progress Note (short form) - Note Progress Note: seen and examined. intubated back on pressors intubated, sedaed O/E General: Intubated. Cor: RSR, No murmurs, No gallops Lungs: Clear to P&A Abd: Soft, Normal bowel sounds, No organomegaly Ext: in dressing. (rt amputated), left :chronic skin changes , with edema Temp Pulse Resp BP Pulse Ox 99 F 90 14 93/66 99 09/24/17 10:00 09/24/17 10:00 09/24/17 10:00 09/24/17 10:00 09/24/17 09:27 CBC, BMP 09/24/17 05:13 09/24/17 05:13 Current Medications Generic Name Dose Route Start Last Admin Trade Name Freq PRN Reason Stop Dose Admin Chlorhexidine Gluconate 1 applic 09/23/17 22:00 09/23/17 21:21 Hibiclens For Decolonization - TP 1 applic HS [facility] Administration Folic Acid 1 mg 09/24/17 10:00 09/24/17 09:22 Folic Acid - PO Not Given DAILY [facility] Amiodarone HCl/Dextrose 360 mg in 200 mls @ 16.667 mls/hr 09/23/17 15:25 21:21 Nexterone 360 Mg/200 Ml Bag IVPB 0.5 mg/min TITR [facility] 16.667 mls/hr Protocol Administration 0.5 MG/MIN Clindamycin Phosphate 900 mg in 50 mls @ 100 mls/hr 09/23/17 18:00 09/24/17 09:20 Cleocin 900 Mg Premix Ivpb - IVPB 100 mls/hr Q8H-IV [facility] Administration Meropenem 1 gm in 20 mls @ 240 mls/hr 09/23/17 18:00 09/24/17 09:21 Merrem (Restricted To Id) - IVPUSH 240 mls/hr Q8H-IV [facility] Administration Protocol Norepinephrine Bitartrate 4, 500 mls @ 37.5 mls/hr 09/23/17 15:25 09/24/17 11 :03 000 mcg/ Dextrose IV 8 mcg/min TITR [facility] 60 mls/hr Protocol Administration 5 MCG/MIN Propofol 1,000,000 mcg in 100 mls @ 3.205 mls/hr 09/23/17 15:25 09/24/17 09: 07 Diprivan - IVPB 40 mcg/kg/min TITR [facility] 25.644 mls/hr Protocol Administration 5 MCG/KG/MIN Sodium Chloride 1,000 mls @ 150 mls/hr 09/23/17 15:25 09/23/17 15:38 Normal Saline - IV 150 mls/hr ASDIR [facility] Administration Vancomycin HCl 1,500 mg/ 500 mls @ 250 mls/hr 09/23/17 23:00 09/24/17 10:36 Dextrose IVPB 250 mls/hr BID@1100,2300 [facility] Administration Protocol Vasopressin 50 units/ Sodium 100 mls @ 4 mls/hr 09/23/17 15:25 09/24/17 01:00 Chloride IVPB 3 units/hr TITR [facility] 6 mls/hr Protocol Administration 2 UNITS/HR Fentanyl 500 mcg/ Dextrose 100 mls @ 10 mls/hr 09/23/17 15:58 09/24/17 00:00 IVPB 10 mls/hr TITR [facility] Administration Protocol 50 MCG/HR Potassium Phosphate 15 mm/ 255 mls @ 62.5 mls/hr 09/24/17 09:55 09/24/17 11: 04 Sodium Chloride IVPB 09/24/17 13:59 62.5 mls/hr ONCE ONE Administration MAGNESIUM SULFATE IN WATER 2 gm in 50 mls @ 50 mls/hr 09/24/17 10:15 11:05 Magnesium Sulf 2 G/50 Ml Bag IVPB 09/24/17 11:14 50 mls/hr ONCE ONE Administration Morphine Sulfate 2 mg 09/23/17 15:25 Morphine Injection - IVPUSH Q6H PRN PAIN LEVEL 4 - 6 Mupirocin 1 applic 09/23/17 22:00 09/24/17 09:22 Bactroban Ointment (For Decolonization) - NS 09/27/17 09:59 1 applic BID [facility] Administration Assessment/Plan: metastatic Lung Ca ( Primary Oncologist Dr.Daniel Ni [facility] [place], , s/p palliative chemotherapy in 07/19 at [facility]. Had RT to rt. lung in 07/19 Most recent chemotherapy 09/19/17) Septic shock MRSA bacteremia. gas gangrene of the RLE with sacral ulcer/decubitus Jehovah witness Anemia of chronic disease Thrombocytopenia from sepsis Bed bound from T8 paraplegia Intubated Noted Hgb trend, today 7.9 ( component of acuity of the clinical conditions, daily blood draws etc.), order stool occult spoke to the , regarding blood transfusion in case needed and she mentioned that he is a very strict follower and would not accept any PRBCs . Discussed about EPO with high dose Iron , she took the information and will discuss with us further. abx per ID monitor platelet count. ICU level of care continued. Critically ill .
--- NOTE | 2017-09-26 10:05 | PN ---
Progress Note, Physician Chief Complaint: gas gangrene sacurm and right leg History of Present Illness: 62yo male PMH Lung CA with mets to Skin, Heart, Spine, left eye; pt is under care of [facility], were he is receiving Chemo( last chemo was last week on Saturday) via port-a-cath (than was changer last week. Presented with fever and weakness on 09/20. CT scan showed extensive gas gangrene of the right leg. He has been on vasopressor support since surgery, found to have MRSA bactermia, low grade fevers 99.5. sedated and intubated. - Current Medication List Current Medications: Active Medications Chlorhexidine Gluconate (Hibiclens For Decolonization -) 1 applic TP HS [facility] Last Admin: 09/25/17 21:18 Dose: 1 applic Chlorhexidine Gluconate (Peridex -) 15 ml MM BID [facility] Last Admin: 09/26/17 09:41 Dose: 15 ml Folic Acid (Folic Acid -) 1 mg PO DAILY [facility] Last Admin: 09/26/17 09:41 Dose: 1 mg Amiodarone HCl/Dextrose (Nexterone 360 Mg/200 Ml Bag) 360 mg in 200 mls @ 16.667 mls/hr IVPB TITR [facility]; 0.5 MG/MIN PRN Reason: Protocol Last Titration: 09/26/17 02:00 Dose: 0.5 mg/min, 16.667 mls/hr Clindamycin Phosphate (Cleocin 900 Mg Premix Ivpb -) 900 mg in 50 mls @ 100 mls /hr IVPB Q8H-IV [facility] Last Admin: 09/26/17 09:39 Dose: 100 mls/hr Propofol (Diprivan -) 1,000,000 mcg in 100 mls @ 3.205 mls/hr IVPB TITR [facility]; 5 MCG/KG/MIN PRN Reason: Protocol Last Admin: 09/26/17 08:37 Dose: 50 mcg/kg/min, 32.055 mls/hr Vancomycin HCl 1,500 mg/ (Dextrose) 500 mls @ 250 mls/hr IVPB BID@1100,2300 [facility] PRN Reason: Protocol Last Admin: 09/25/17 23:55 Dose: 250 mls/hr Vasopressin 50 units/ Sodium (Chloride) 100 mls @ 4 mls/hr IVPB TITR [facility]; 2 UNITS/HR PRN Reason: Protocol Last Admin: 09/25/17 15:25 Dose: Not Given Sodium Chloride (Normal Saline -) 1,000 mls @ 150 mls/hr IV ASDIR [facility] Last Admin: 09/26/17 04:30 Dose: 150 mls/hr Norepinephrine Bitartrate 4, (000 mcg/ Sodium Chloride) 500 mls @ 37.5 mls/hr IV TITR [facility]; 5 MCG/MIN PRN Reason: Protocol Last Titration: 09/26/17 05:00 Dose: 1 mcg/min, 7.5 mls/hr Fentanyl 500 mcg/ Sodium (Chloride) 100 mls @ 10 mls/hr IVPB TITR [facility]; 50 MCG/ HR PRN Reason: Protocol Last Admin: 09/26/17 08:35 Dose: 20 mls/hr CEFTRIAXONE IN IS-OSM DEXTROSE (Ceftriaxone 2 Gm-D5w Bag) 2 gm in 50 mls @ 100 mls/hr IVPB DAILY [facility] Last Admin: 09/25/17 11:47 Dose: 100 mls/hr Famotidine/Sodium Chloride (Pepcid 20 Mg Premixed Ivpb -) 20 mg in 50 mls @ 100 mls/hr IVPB BID [facility] Last Admin: 09/26/17 09:40 Dose: 100 mls/hr Morphine Sulfate (Morphine Injection -) 2 mg IVPUSH Q6H PRN PRN Reason: PAIN LEVEL 4 - 6 Mupirocin (Bactroban Ointment (For Decolonization) -) 1 applic NS BID [facility] Stop: 09/27/17 09:59 Last Admin: 09/26/17 09:41 Dose: 1 applic - Objective Vital Signs: Vital Signs Temperature 99.5 F 09/26/17 06:00 Pulse Rate 90 09/26/17 08:44 Respiratory Rate 18 09/26/17 08:44 Blood Pressure 97/53 09/26/17 08:00 O2 Sat by Pulse Oximetry (%) 94 L 09/26/17 08:44 Vital Signs Period Temp Pulse Resp BP Sys/Topete Pulse Ox Last 24 Hr 98.1 F-99.5 F 78-95 12-18 94-162/53-85 94-100 Intake & Output 09/25/17 09/26/17 09/26/17 23:59 07:59 15:59 Intake Total 2686.4 3700 Output Total 2300 2300 Balance 386.4 1400 Weight 242 lb 9.6 oz Intake: IV 2606.4 2670 FENTANYL 240 240 Levophed - 4,000 Mcg In 180 90 Normal Saline - 496 ml @ 5 MCG/MIN 37.5 mls/hr IV TITR [facility] Rx#:[id number] NEXTERONE 360 MG/200 ML 199.2 180 BAG 360 mg In 200 ml @ 0. 5 MG/MIN 16.667 mls/hr IVPB TITR [facility] Rx#: [id number] Normal Saline - 1,000 ml 1800 1800 @ 150 mls/hr IV ASDIR [facility] Rx#:[id number] PROPOFOL 187.2 360 IVPB 50 550 Tube Feeding 20 360 Tube Irrigant 10 120 Output: Urine 2300 2300 River 2300 2300 Other: Voiding Method Indwelling Catheter Indwelling Catheter Bowel Movement No Yes: flexiceal Weight Measurement Method Built in [facility] Constitutional: Yes: No Distress, Calm, Obese Eyes: Yes: Conjunctiva Clear, EOM Intact HENT: Yes: Atraumatic, Normocephalic Neck: Yes: Supple, Trachea Midline Cardiovascular: Yes: Regular Rate and Rhythm, S1, S2. No: Murmur Respiratory: Yes: Regular, CTA Bilaterally, Intubated, Mechanically Ventilated Gastrointestinal: Yes: Normal Bowel Sounds, Soft, Abdomen, Obese ...Rectal Exam: Yes: Other (flexiseal) Genitourinary: Yes: River Present Musculoskeletal: Yes: Muscle Weakness (LE bilateral). No: Muscle Pain Extremities: Yes: Amputation (Right AKA stump). No: Cool, Cyanosis Edema: No Peripheral Pulses WNL: Yes Peripheral Pulses: Left Doralis Pedis: 2+, Left Femoral: 2+, Right Femoral: 2+ Wound/Incision: Yes: Clean/Dry, Dressing Dry and Intact, Dressing Removed, Unapproximated Neurological: Yes: Alert, Oriented Psychiatric: Yes: Alert, Oriented Labs: CBC, BMP 09/26/17 05:35 09/26/17 05:35 INR, PTT INR 1.37 (0.82-1.09) H 09/26/17 05:35 Fibrinogen 452.0 mg/dL (238-498) 09/26/17 05:35 - ....Imaging Chest X-ray: Report Reviewed, Image Reviewed Problem List - Problems (1) Septic shock Assessment/Plan: 62 yo male PMH Right leg gas gangrene (extending from upper sacrum to Knee) extending from a pelvic abscess and an infected decubitus ulcer seen on CT scan of of the pelvis and lower extremity. Patient is a SABIANIST and will not accept blood transfusion or blood products. He hemodynamically unstable BP 94/60 and HR 140, no pressors. POD#5/2 s/p RLE Guillotine AKA, Now toxic shock on vasopressors. ICU supportive care Broad spectrum IV antibiotics trend labs, correct electrolyte abnormalities hypoNa Local wound care - Daily bedside procedure Ethics discussion with family to discuss goals of care Flexiseal placed in rectum - to divert contamination of the ulcer and stump NGT placed - start tube feeds @20ml/hr titrate to goal Code(s): A41.9 - SEPSIS, UNSPECIFIED ORGANISM; R65.21 - SEVERE SEPSIS WITH SEPTIC SHOCK (2) Gas gangrene of lower extremity Code(s): A48.0 - GAS GANGRENE (3) Lung cancer metastatic to bone Code(s): C34.90 - MALIGNANT NEOPLASM OF UNSP PART OF UNSP BRONCHUS OR LUNG; C79.51 - SECONDARY MALIGNANT NEOPLASM OF BONE (4) Atrial tachycardia Code(s): I47.1 - SUPRAVENTRICULAR TACHYCARDIA (5) Gram-positive bacteremia Code(s): R78.81 - BACTEREMIA (6) Infected pressure ulcer Code(s): L89.90 - PRESSURE ULCER OF UNSPECIFIED SITE, UNSPECIFIED STAGE; L08.9 - LOCAL INFECTION OF THE SKIN AND SUBCUTANEOUS TISSUE, UNSP Qualifiers: Pressure ulcer stage: stage 4 Qualified Code(s): L89.94 - Pressure ulcer of unspecified site, stage 4; L08.9 - Local infection of the skin and subcutaneous tissue, unspecified; L08.9 - Local infection of the skin and subcutaneous tissue, unspecified
--- NOTE | 2017-09-26 10:28 | OP ---
DATE OF OPERATION: 09/23/2017 PREOPERATIVE DIAGNOSES: 1. Septic shock. 2. Gas gangrene, right lower extremity and ischium. POSTOPERATIVE DIAGNOSES: 1. Septic shock. 2. Gas gangrene, right lower extremity and ischium. PROCEDURE: Placement of right internal jugular central venous catheter, removal of left internal jugular chemoport, pulse irrigation and debridement of right lower extremity above-knee amputation guillotine stump and right ischial decubitus ulcer. ATTENDING SURGEON: Juan Antonio Pacheco MD FISHER TERRAPIN: Henry Cruz MD ANESTHESIA: General. ESTIMATED BLOOD LOSS: 5 mL INSTRUMENTS TO DEBRIDE: Mcfadden scissors, 10-blade scalpel. DRAINS: None. Obtained 75 mL of purulent drainage as well as necrotic debris. INTRAVENOUS FLUID: 500 mL IMPLANTS: None. INSTRUMENT COUNTS: Correct. INDICATION: Patient is a 62-year-old male in septic shock with gas gangrene of the right lower extremity status post a guillotine amputation of the right leg 2 days earlier. He was taken emergently then for debridement when a substantial gas gangrene was found to be at the level of the sacrum all the way down to the knee. He is a paraplegic. Decision was made intraoperatively to remove the right leg to decrease the infectious burden and try to obtain source control. He was maintained in the unit on vasopressors and IV support for the next day in order to resuscitate him enough to get him to the operating room for a subsequent debridement of the ischial decubitus ulcer which was in communication with the guillotine amputation site. His was counseled regarding risks, benefits, and alternatives of surgical approach, signed informed consent. He was taken for the procedure. DESCRIPTION OF PROCEDURE: Patient was brought to the operating room, placed in supine position on the operating table. He was sedated and intubated on general anesthesia. He was prepped and draped in standard surgical approach for a right internal jugular venous catheter and removal of left internal jugular chemoport. With the patient supine and without Trendelenburg, a formal timeout was completed with all parties in agreement. We proceeded first with probe examination of the right neck with the head turned towards the left to identify the internal jugular vein. Once it was identified, the guidewire needle was placed under direct visualization to the internal jugular vein in the direction of the right nipple. This was to allow for passage of the wire towards the verge of the superior vena cava and the right atrium. We proceeded to receive an immediate flash after passage through the soft tissues into the internal jugular vein. With this flash, the syringe was removed from the needle, and the guidewire was passed without incident through and through the needle into the heart with attention paid to assure that there was no induced arrhythmia. With the guidewire in place, the needle was Seldingered off of the guidewire. A small elizabeth was made at the skin. A soft tissue dilator was then passed into the internal jugular vein. With using modified Seldinger technique, the wire was pinned, and a primed central venous catheter with 3 ports was Seldingered over the guidewire into position and secured at 15 mm. The hub was secured to the skin using 0 silk. At which point, the site was cleaned. All ports were aspirated and appeared to have immediate flash and were flushed with saline irrigation. The site was cleaned. The remainder of the triple-lumen catheter was secured to the skin with a gentle curve to allow for easy flow of intravenous fluid. The flow appeared adequate at all ports, and they were flushed and capped. After the guidewire was removed from the distal port, it was reported, and the catheter was then sterilely dressed. We then turned our attention to the opposite side of the neck. Still with sterile prep and drape, a small incision was marked over the chemoport which was palpable from the skin. The incision was carried through with a 15-blade scalpel deep through the subcutaneous tissue with Bovie cautery. At which point, we proceeded to identify the chemoport in the subcutaneous tissues of the anterior chest wall. This was dissected using a Alley at all aspects, extricating the port from the subcutaneous tissue. The site was irrigated, and hemostasis was obtained. Once extricated from the site, pressure was held at the internal jugular on the left side, and the port was removed in its entirety. After removal of the port in its entirety, the distal 1-cm segment was sent for culture. The pressure was held for a period of 2 minutes. At which point, hemostasis was assured. The port site itself was packed with Iodoform 1 inch, and a sterile dressing was applied. Then, sterile prep and drape was removed. At which point, we proceeded then with placement of the patient in left lateral decubitus to facilitate access to the right guillotine amputation site and right ischial pressure ulcer which was stage 4. A second timeout was commenced to assure the appropriate site. With a beanbag in place and the patient bolstered at the left axilla and all extremities, we proceeded then with a sterile prep and drape of the site with Betadine. At which point, we proceeded with examination of the site from the previous surgery the day before. With it sterilely prepped into a field, we noticed that approximately 75 mL of foul-smelling, purulent material was identified. It was suctioned from the site. There appeared to be a tract from the posterior muscle compartment of the thigh all the way to the ischial pressure ulcer which was a stage 4. Palpable at the base was bone including femur and hemipelvis on the right. The site was suctioned of purulent material as previous cultures were sent. We then made a decision to pulse irrigate the site, and this was done with approximately 3 L of sterile irrigation fluid to clear any purulent material. This was done all over the cut surface of the guillotine amputation which measured 24.5 cm across in diameter and was circular. The femur bone itself had bone wax present, and the neurovascular bundle was identified and appeared to be adequately controlled without significant bleeding. We then turned our attention to the ischial tuberosity decubitus ulcer. A small rim of necrotic tissue was debrided sharply with scissors. We then, when a cut surface was identified to be bleeding, held pressure and used Bovie cautery to resect a small rim of additional tissue at the edge to a clean bleeding edge. We proceeded then to hold pressure and obtain hemostasis with Bovie cautery once again. At the base of the ulcer, it appeared to be the right hemipelvis. This was pulse irrigated. The tracts were clean. We were able to pass our hand from the guillotine amputation site up through the ischial tuberosity and palpate the sacrum along its way. With the tract completed from one side to the other, a decision was made then to sterilely pack with Betadine-soaked Kerlix to allow for ablation of the tract and hemostasis. Care was taken to pack each site, one from the distal guillotine amputation site , up through the lateral right thigh to the hip. At the ischial tuberosity, a decubitus ulcer which measured 7.5 cm long x 5 cm wide and 4 cm deep with the bone being the hemipelvis on the right, categorizing as a stage 4. It was also packed with Betadine-soaked gauze. The sites were cleaned. Sterile dressings were placed, absorbent ABD pads both at the ischial tuberosity site as well as the guillotine amputation site stump was then wrapped with Kerlix, Joey bandages, and Coban to secure the dressing and tape used to secure the ABD pad over the ischial tuberosity. The patient was then returned to supine position. He was returned to ICU in stable condition, having tolerated the procedure well. The counts were correct postoperatively. MD CHUCHO Arroyo/[id number] MTDD
[2017-09-26] MEDS ORDERED: MAGNESIUM SULF 50% (8.12 MEQ/2 ML-1 GM VIAL) IVPB ONE (11:38)
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
--- NOTE | 2017-09-26 11:56 | PN ---
Teaching Attending Note Name of Resident: Kenny Willard ATTENDING PHYSICIAN STATEMENT I saw and evaluated the patient. I reviewed the resident's note and discussed the case with the resident. I agree with the resident's findings and plan as documented. SUBJECTIVE: Patient seen and examined in the ICU. Remains intubated and sedated. Remains on pressors. AC Mode of vent 40% FiO2. Intake & Output 09/23/17 09/24/17 09/25/17 09/26/17 23:59 23:59 23:59 23:59 Intake Total 7099.6 7151.2 6510.4 3700 Output Total 2350 2800 3450 2300 Balance 4749.6 4351.2 3060.4 1400 Weight 231 lb 220 lb 242 lb 9.6 oz Last Vital Signs Temp Pulse Resp BP Pulse Ox 97.9 F 90 12 97/53 94 L 09/26/17 10:00 09/26/17 08:44 09/26/17 11:22 09/26/17 08:00 09/26/17 08:44 Active Medications Chlorhexidine Gluconate (Hibiclens For Decolonization -) 1 applic TP HS RACHEAL Last Admin: 09/25/17 21:18 Dose: 1 applic Chlorhexidine Gluconate (Peridex -) 15 ml MM BID [facility] Last Admin: 09/26/17 09:41 Dose: 15 ml Folic Acid (Folic Acid -) 1 mg PO DAILY RAC[facility] Last Admin: 09/26/17 09:41 Dose: 1 mg Amiodarone HCl/Dextrose (Nexterone 360 Mg/200 Ml Bag) 360 mg in 200 mls @ 16.667 mls/hr IVPB TITR RACHEAL; 0.5 MG/MIN PRN Reason: Protocol Last Titration: 09/26/17 02:00 Dose: 0.5 mg/min, 16.667 mls/hr Clindamycin Phosphate (Cleocin 900 Mg Premix Ivpb -) 900 mg in 50 mls @ 100 mls /hr IVPB Q8H-IV [facility] Last Admin: 09/26/17 09:39 Dose: 100 mls/hr Propofol (Diprivan -) 1,000,000 mcg in 100 mls @ 3.205 mls/hr IVPB TITR RACHEAL; 5 MCG/KG/MIN PRN Reason: Protocol Last Admin: 09/26/17 08:37 Dose: 50 mcg/kg/min, 32.055 mls/hr Vancomycin HCl 1,500 mg/ (Dextrose) 500 mls @ 250 mls/hr IVPB BID@1100,2300 RACHEAL PRN Reason: Protocol Last Admin: 09/25/17 23:55 Dose: 250 mls/hr Vasopressin 50 units/ Sodium (Chloride) 100 mls @ 4 mls/hr IVPB TITR RACHEAL; 2 UNITS/HR PRN Reason: Protocol Last Admin: 09/25/17 15:25 Dose: Not Given Sodium Chloride (Normal Saline -) 1,000 mls @ 150 mls/hr IV ASDIR [facility] Last Admin: 09/26/17 04:30 Dose: 150 mls/hr Norepinephrine Bitartrate 4, (000 mcg/ Sodium Chloride) 500 mls @ 37.5 mls/hr IV TITR RACHEAL; 5 MCG/MIN PRN Reason: Protocol Last Titration: 09/26/17 05:00 Dose: 1 mcg/min, 7.5 mls/hr Fentanyl 500 mcg/ Sodium (Chloride) 100 mls @ 10 mls/hr IVPB TITR RCAHEAL; 50 MCG/ HR PRN Reason: Protocol Last Admin: 09/26/17 08:35 Dose: 20 mls/hr CEFTRIAXONE IN IS-OSM DEXTROSE (Ceftriaxone 2 Gm-D5w Bag) 2 gm in 50 mls @ 100 mls/hr IVPB DAILY [facility] Last Admin: 09/25/17 11:47 Dose: 100 mls/hr Famotidine/Sodium Chloride (Pepcid 20 Mg Premixed Ivpb -) 20 mg in 50 mls @ 100 mls/hr IVPB BID [facility] Last Admin: 09/26/17 09:40 Dose: 100 mls/hr Potassium Phosphate 30 mm/ (Dextrose) 260 mls @ 62.5 mls/hr IVPB ONCE ONE Stop: 09/26/17 17:09 Magnesium Sulfate/Dextrose (Magnesium 1gm/D5w -) 1 gm in 100 mls @ 100 mls/hr IVPB ONCE ONE Stop: 09/26/17 12:59 Morphine Sulfate (Morphine Injection -) 2 mg IVPUSH Q6H PRN PRN Reason: PAIN LEVEL 4 - 6 Mupirocin (Bactroban Ointment (For Decolonization) -) 1 applic NS BID [facility] Stop: 09/27/17 09:59 Last Admin: 09/26/17 09:41 Dose: 1 applic Gen: Intubated and sedated HEENT: Orally intubated PULM: scattered rhonchi, no wheezes CV: tachy, irregular ABD: soft, NT, ND EXT: Right AKA, (+) PP on the LLE Neuro: sedated Laboratory Results - last 24 hr 09/25/17 09/25/17 09/25/17 06:35 06:35 23:45 WBC RBC Hgb Hct MCV MCH MCHC RDW Plt Count MPV Neutrophils % Lymphocytes % Monocytes % Eosinophils % Basophils % PT with INR INR PTT (Actin FS) Fibrinogen Puncture Site ABG pH ABG pCO2 at Pt Temp ABG pO2 at Pt Temp ABG HCO3 ABG O2 Sat (Measured) ABG O2 Content ABG Base Excess Jean Carlos Test Oxygen Flow Rate Vent Mode Vent Rate PEEP Pressure Support Vent Sodium 124 L* Potassium 3.6 Chloride 86 L Carbon Dioxide 27 Anion Gap 11 BUN 3 L D Creatinine 0.3 L D Creat Clearance w eGFR > 60 Random Glucose 82 D Calcium 6.2 L* Phosphorus 2.1 L Magnesium 1.3 L Total Bilirubin 0.9 D AST 19 D ALT 11 L Alkaline Phosphatase 129 H C-Reactive Protein 12.6 H Cancelled Total Protein 4.6 L Albumin 1.0 L Prealbumin Vancomycin Pre-Dose 15.242 H* D 09/26/17 09/26/17 09/26/17 05:35 05:35 05:35 WBC 6.3 RBC 2.79 L Hgb 7.9 L Hct 23.9 L MCV 85.8 MCH 28.3 MCHC 32.9 RDW 20.6 H Plt Count 129 L MPV 9.4 Neutrophils % 88.4 H Lymphocytes % 4.3 L D Monocytes % 6.4 Eosinophils % 0.7 Basophils % 0.2 PT with INR 15.50 H INR 1.37 H PTT (Actin FS) 36.1 H Fibrinogen 452.0 Puncture Site ABG pH ABG pCO2 at Pt Temp ABG pO2 at Pt Temp ABG HCO3 ABG O2 Sat (Measured) ABG O2 Content ABG Base Excess Jean Carlos Test Oxygen Flow Rate Vent Mode Vent Rate PEEP Pressure Support Vent Sodium Potassium Chloride Carbon Dioxide Anion Gap BUN Creatinine Creat Clearance w eGFR Random Glucose Calcium Phosphorus Magnesium Total Bilirubin AST ALT Alkaline Phosphatase C-Reactive Protein Total Protein Albumin Prealbumin Vancomycin Pre-Dose 09/26/17 09/26/17 09/26/17 05:35 05:35 06:10 WBC RBC Hgb Hct MCV MCH MCHC RDW Plt Count MPV Neutrophils % Lymphocytes % Monocytes % Eosinophils % Basophils % PT with INR INR PTT (Actin FS) Fibrinogen Puncture Site Right radial ABG pH 7.39 ABG pCO2 at Pt Temp 46.6 H ABG pO2 at Pt Temp 34.9 L* D ABG HCO3 27.3 H ABG O2 Sat (Measured) 60.0 L* ABG O2 Content 6.7 L* ABG Base Excess 2.5 H Jean Carlos Test Positive Oxygen Flow Rate 40% Vent Mode A/c Vent Rate 12 PEEP 5.0 Pressure Support Vent 600 Sodium 136 Potassium 3.3 L Chloride 98 D Carbon Dioxide 28 Anion Gap 10 BUN 4 L D Creatinine 0.3 L Creat Clearance w eGFR > 60 Random Glucose 86 Calcium 6.5 L* Phosphorus 2.4 L Magnesium 1.5 L Total Bilirubin 0.6 D AST 20 ALT 10 L Alkaline Phosphatase 131 H C-Reactive Protein Total Protein 4.4 L Albumin 1.0 L Prealbumin 3.25 L Vancomycin Pre-Dose IMP: Rapid AFib Metastatic Lung CA (?) Infected deep tissue Sacral decubitus ulcer Lactic acidosis Paraplegia Elevated INR Thrombocytopenia (?) cardiac thrombus vs malignancy (?) VTE PLAN: Local wound care per surgery ABX per ID AC Mode of vent Pressors to maintain MAP Amiodarone AC Strict I & O Will need diuresis once off pressors Dr [place] Critical care time spent in reviewing chart, evaluating patient and formulating plan - 36 minutes.
[2017-09-26] MEDS ORDERED: MAGNESIUM 1GM/D5W - 1 GM/100 ML IVPB IVPB ONE (12:00)
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
[2017-09-26] MEDS ORDERED: POTASSIUM PHOSPHATE 30 MM in DEXTROSE 5%-WATER - 250 ML IVPB ONE (13:00)
[2017-09-26] MEDS: VANCOMYCIN 1,500 MG in DEXTROSE 5%-WATER - 500 ML IVPB SCH ×2 (13:20→23:22)
[2017-09-26] MEDS: CEFTRIAXONE IN IS-OSM DEXTROSE 2 GM/50 ML BAG IVPB SCH (13:30)
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
[2017-09-26] MEDS: AMIODARONE IN DEXTROSE,ISO-OSM 360 MG/200 ML BAG IVPB SCH (14:53)
[2017-09-26] MEDS: VASOPRESSIN 50 UNITS in SODIUM CHLORIDE 97.5 ML IVPB SCH (14:53)
[2017-09-26] MEDS: NOREPINEPHRINE BITARTRATE 4,000 MCG in SODIUM CHLORIDE 496 ML IV SCH (18:38)
--- NOTE | 2017-09-26 20:22 | PN ---
Progress Note, Physician History of Present Illness: Pt is intubated, arousable to voice. Pt is on Pressors (NE; off Vassopressin) Pt is on IV Amiodarone. Pt w/o CP, SOB, abd pain, body aches. Pt was seen and examined in ICU in AM - Current Medication List Current Medications: Active Medications Chlorhexidine Gluconate (Hibiclens For Decolonization -) 1 applic TP HS RACHEAL Last Admin: 09/25/17 21:18 Dose: 1 applic Chlorhexidine Gluconate (Peridex -) 15 ml MM BID RACHEAL Last Admin: 09/26/17 09:41 Dose: 15 ml Folic Acid (Folic Acid -) 1 mg PO DAILY RACHEAL Last Admin: 09/26/17 09:41 Dose: 1 mg Amiodarone HCl/Dextrose (Nexterone 360 Mg/200 Ml Bag) 360 mg in 200 mls @ 16.667 mls/hr IVPB TITR RACHEAL; 0.5 MG/MIN PRN Reason: Protocol Last Admin: 09/26/17 14:53 Dose: 0.5 mg/min, 16.667 mls/hr Clindamycin Phosphate (Cleocin 900 Mg Premix Ivpb -) 900 mg in 50 mls @ 100 mls /hr IVPB Q8H-IV RACHEAL Last Admin: 09/26/17 18:34 Dose: 100 mls/hr Propofol (Diprivan -) 1,000,000 mcg in 100 mls @ 3.205 mls/hr IVPB TITR RACHEAL; 5 MCG/KG/MIN PRN Reason: Protocol Last Admin: 09/26/17 18:38 Dose: Not Given Vancomycin HCl 1,500 mg/ (Dextrose) 500 mls @ 250 mls/hr IVPB BID@1100,2300 RACHEAL PRN Reason: Protocol Last Admin: 09/26/17 13:20 Dose: 250 mls/hr Vasopressin 50 units/ Sodium (Chloride) 100 mls @ 4 mls/hr IVPB TITR RACHEAL; 2 UNITS/HR PRN Reason: Protocol Last Admin: 09/26/17 14:53 Dose: Not Given Sodium Chloride (Normal Saline -) 1,000 mls @ 150 mls/hr IV ASDIR RACHEAL Last Admin: 09/26/17 18:08 Dose: Not Given Norepinephrine Bitartrate 4, (000 mcg/ Sodium Chloride) 500 mls @ 37.5 mls/hr IV TITR RACHEAL; 5 MCG/MIN PRN Reason: Protocol Last Admin: 09/26/17 18:38 Dose: Not Given Fentanyl 500 mcg/ Sodium (Chloride) 100 mls @ 10 mls/hr IVPB TITR RACHEAL; 50 MCG/ HR PRN Reason: Protocol Last Admin: 09/26/17 18:39 Dose: Not Given CEFTRIAXONE IN IS-OSM DEXTROSE (Ceftriaxone 2 Gm-D5w Bag) 2 gm in 50 mls @ 100 mls/hr IVPB DAILY [facility] Last Admin: 09/26/17 13:30 Dose: 100 mls/hr Famotidine/Sodium Chloride (Pepcid 20 Mg Premixed Ivpb -) 20 mg in 50 mls @ 100 mls/hr IVPB BID [facility] Last Admin: 09/26/17 09:40 Dose: 100 mls/hr Mupirocin (Bactroban Ointment (For Decolonization) -) 1 applic NS BID [facility] Stop: 09/27/17 09:59 Last Admin: 09/26/17 09:41 Dose: 1 applic - Objective Vital Signs: Vital Signs Temperature 98.4 F 09/26/17 18:00 Pulse Rate 85 09/26/17 18:00 Respiratory Rate 14 09/26/17 18:43 Blood Pressure 99/57 09/26/17 18:00 O2 Sat by Pulse Oximetry (%) 94 L 09/26/17 08:44 Constitutional: Yes: No Distress, Calm, Other (NGT present) Cardiovascular: Yes: Regular Rate and Rhythm, S1, S2 Respiratory: Yes: Regular, Other (coarse BS bilat) Gastrointestinal: Yes: Normal Bowel Sounds, Soft, Other (rectal tube is present) . No: Tenderness Labs: CBC, BMP 09/26/17 05:35 09/26/17 05:35 INR, PTT INR 1.37 (0.82-1.09) H 09/26/17 05:35 Fibrinogen 452.0 mg/dL (238-498) 09/26/17 05:35 Problem List - Problems (1) Septic shock Code(s): A41.9 - SEPSIS, UNSPECIFIED ORGANISM; R65.21 - SEVERE SEPSIS WITH SEPTIC SHOCK (2) Sepsis Code(s): A41.9 - SEPSIS, UNSPECIFIED ORGANISM Qualifiers: Sepsis type: sepsis due to unspecified organism Qualified Code(s): A41.9 - Sepsis, unspecified organism (3) Sacral decubitus ulcer, stage IV Code(s): L89.154 - PRESSURE ULCER OF SACRAL REGION, STAGE 4 (4) Atrial tachycardia Code(s): I47.1 - SUPRAVENTRICULAR TACHYCARDIA (5) Lactic acidosis Code(s): E87.2 - ACIDOSIS (6) Metastatic primary lung cancer Code(s): C34.90 - MALIGNANT NEOPLASM OF UNSP PART OF UNSP BRONCHUS OR LUNG Qualifiers: Laterality: unspecified laterality Qualified Code(s): C34.90 - Malignant neoplasm of unspecified part of unspecified bronchus or lung (7) Paraplegia Code(s): G82.20 - PARAPLEGIA, UNSPECIFIED (8) Bacteremia Code(s): R78.81 - BACTEREMIA (9) Gas gangrene of lower extremity Code(s): A48.0 - GAS GANGRENE (10) Above knee amputation of right lower extremity Code(s): Z89.611 - ACQUIRED ABSENCE OF RIGHT LEG ABOVE KNEE (11) Gram-positive bacteremia Code(s): R78.81 - BACTEREMIA (12) Anemia Code(s): D64.9 - ANEMIA, UNSPECIFIED Qualifiers: Anemia type: unspecified type Qualified Code(s): D64.9 - Anemia, unspecified (13) Thrombocytopenia Code(s): D69.6 - THROMBOCYTOPENIA, UNSPECIFIED (14) Hypomagnesemia Code(s): E83.42 - HYPOMAGNESEMIA (15) Hypophosphatemia Code(s): E83.39 - OTHER DISORDERS OF PHOSPHORUS METABOLISM (16) Hyponatremia Code(s): E87.1 - HYPO-OSMOLALITY AND HYPONATREMIA Assessment/Plan Admitted to ICU. Pt on Pressors (NE), off Vasopressin. On IV Amiodarone, Propofol. IV abtx- per ID Pulmonary/CCM, ID, Cardio, Onco, Surgery, Ortho, Renal consults appreciated. s/p emergency surgery 09/21/2017, s/p right AKA s/p OR on 09/23/2017 for reevaluation/ debridement/ removal of port-a-cath/ central line placement. Pt was started on TF via NGT. Vent management per CCM- AC mode Wound care per Sx. Cont to monitor and replete electolytes. Improved Na+ level; continue to monitor Na+. H/H is trending down; pt is Jehova witness, no PRBC Tx; Case was d/w Dr. Romeo, recommended Epogen and Iron if pt's agrees.. Case was d/w pt's nurse. AM labs Prognosis: remains poor; pt's is aware. Time spent for managing pt's care: 40 minutes.
[2017-09-26] MEDS: CHLORHEXIDINE GLUCONATE 4% CLEANSER FOR DECOLONIZATION TP SCH (21:19)
[2017-09-27] MEDS: CLINDAMYCIN 900 MG PREMIX IVPB 900 MG/50 ML BAG IVPB SCH ×2 (02:00→10:01)
[2017-09-27] MEDS ORDERED: NOREPINEPHRINE BITARTRATE 4 MG/4 ML ML IV ONE ×2 (04:24→20:12)
[2017-09-27 06:15] LABS: BASO % 0.3 % (0-2.0); EOS % 1.4 % (0-4.5); HEMATOCRIT 23.3 % (35.4-49); HEMOGLOBIN 7.8 GM/dL (11.7-16.9); LYMPH % 7.6 % (8-40); MCH 28.7 pg (25.7-33.7); MCHC 33.4 g/dl (32.0-35.9); MEAN CELL VOLUME 85.9 fl (80-96); MEAN PLT VOLUME 9.2 fl (7.5-11.1); MONO % 7.1 % (3.8-10.2); NEUT % 83.6 % (42.8-82.8); PLATELET COUNT 176 K/MM3 (134-434); RBC 2.71 M/mm3 (4.00-5.60); RDW 21.2 % (11.9-15.9); WHITE BLOOD COUNT 5.4 K/mm3 (4.0-10.0)
[2017-09-27 07:04] LABS: ALBUMIN 1.1 g/dl (3.4-5.0); ALK PHOS 128 U/L (45-117); ANION GAP 10 (8-16); BILIRUBIN,TOTAL 0.4 mg/dL (0.2-1.0); BLOOD UREA NITROGEN 7 mg/dL (7-18); CHLORIDE 101 mmol/L (98-107); CO2 26 mmol/L (21-32); CREATININE 0.3 mg/dL (0.7-1.3); GLUCOSE,RANDOM 98 mg/dL (74-106); MAGNESIUM 1.5 mg/dL (1.8-2.4); PHOSPHOROUS 2.8 mg/dL (2.5-4.9); POTASSIUM 3.5 mmol/L (3.5-5.1); SGOT/AST 20 U/L (15-37); SGPT/ALT 11 U/L (12-78); SODIUM 137 mmol/L (136-145); TOT PROT 4.3 g/dl (6.4-8.2)
[2017-09-27 07:27] LABS: ARTERIAL BLD GAS O2 SATURATION 97.5 % (90-98.9); ARTERIAL BLOOD GAS BASE EXCESS 2.3 meq/l (-2-2); ARTERIAL BLOOD GAS PCO2 40.9 mmHg (35-45); ARTERIAL BLOOD GAS PO2 94.4 mmHg (80-100); ARTERIAL BLOOD GAS pH 7.43 (7.35-7.45)
[2017-09-27 07:37] LABS: ALLENS TEST POSITIVE
--- NOTE | 2017-09-27 07:58 | PN ---
Progress Note, Physician Chief Complaint: gas gangrene sacurm and right leg History of Present Illness: 62yo male PMH Lung CA with mets to Skin, Heart, Spine, left eye; pt is under care of [facility], were he is receiving Chemo( last chemo was last week on Saturday) via port-a-cath (than was changer last week. Presented with fever and weakness on 09/20. CT scan showed extensive gas gangrene of the right leg. He has been on vasopressor support since surgery, found to have MRSA bactermia, low grade fevers 99.5. sedated and intubated. - Current Medication List Current Medications: Active Medications Chlorhexidine Gluconate (Hibiclens For Decolonization -) 1 applic TP HS [facility] Last Admin: 09/26/17 21:19 Dose: 1 applic Chlorhexidine Gluconate (Peridex -) 15 ml MM BID RACHEAL Last Admin: 09/26/17 21:19 Dose: 15 ml Folic Acid (Folic Acid -) 1 mg PO DAILY [facility] Last Admin: 09/26/17 09:41 Dose: 1 mg Amiodarone HCl/Dextrose (Nexterone 360 Mg/200 Ml Bag) 360 mg in 200 mls @ 16.667 mls/hr IVPB TITR RACHEAL; 0.5 MG/MIN PRN Reason: Protocol Last Admin: 09/26/17 14:53 Dose: 0.5 mg/min, 16.667 mls/hr Clindamycin Phosphate (Cleocin 900 Mg Premix Ivpb -) 900 mg in 50 mls @ 100 mls /hr IVPB Q8H-IV [facility] Last Admin: 09/27/17 02:00 Dose: 100 mls/hr Propofol (Diprivan -) 1,000,000 mcg in 100 mls @ 3.205 mls/hr IVPB TITR RACHEAL; 5 MCG/KG/MIN PRN Reason: Protocol Last Admin: 09/26/17 18:38 Dose: Not Given Vancomycin HCl 1,500 mg/ (Dextrose) 500 mls @ 250 mls/hr IVPB BID@1100,2300 RACHEAL PRN Reason: Protocol Last Admin: 09/26/17 23:22 Dose: 250 mls/hr Vasopressin 50 units/ Sodium (Chloride) 100 mls @ 4 mls/hr IVPB TITR RACHEAL; 2 UNITS/HR PRN Reason: Protocol Last Admin: 09/26/17 14:53 Dose: Not Given Sodium Chloride (Normal Saline -) 1,000 mls @ 150 mls/hr IV ASDIR [facility] Last Admin: 09/26/17 18:08 Dose: Not Given Norepinephrine Bitartrate 4, (000 mcg/ Sodium Chloride) 500 mls @ 37.5 mls/hr IV TITR RACHEAL; 5 MCG/MIN PRN Reason: Protocol Last Admin: 09/26/17 18:38 Dose: Not Given Fentanyl 500 mcg/ Sodium (Chloride) 100 mls @ 10 mls/hr IVPB TITR RACHEAL; 50 MCG/ HR PRN Reason: Protocol Last Admin: 09/26/17 21:20 Dose: 10 mls/hr CEFTRIAXONE IN IS-OSM DEXTROSE (Ceftriaxone 2 Gm-D5w Bag) 2 gm in 50 mls @ 100 mls/hr IVPB DAILY [facility] Last Admin: 09/26/17 13:30 Dose: 100 mls/hr Famotidine/Sodium Chloride (Pepcid 20 Mg Premixed Ivpb -) 20 mg in 50 mls @ 100 mls/hr IVPB BID [facility] Last Admin: 09/26/17 21:19 Dose: 100 mls/hr Mupirocin (Bactroban Ointment (For Decolonization) -) 1 applic NS BID [facility] Stop: 09/27/17 09:59 Last Admin: 09/26/17 21:19 Dose: 1 applic - Objective Vital Signs: Vital Signs Temperature 98.2 F 09/27/17 02:00 Pulse Rate 90 09/27/17 06:00 Respiratory Rate 12 09/27/17 06:00 Blood Pressure 98/62 09/27/17 06:00 O2 Sat by Pulse Oximetry (%) 94 L 09/26/17 20:00 Constitutional: Yes: Well Nourished, No Distress, Calm, Obese Eyes: Yes: Conjunctiva Clear, EOM Intact HENT: Yes: Atraumatic, Normocephalic Neck: Yes: Supple, Trachea Midline Cardiovascular: Yes: Regular Rate and Rhythm, S1, S2 Respiratory: Yes: Regular, Intubated, Mechanically Ventilated, Rhonchi Gastrointestinal: Yes: Normal Bowel Sounds, Soft, Abdomen, Obese. No: Tenderness ...Rectal Exam: Yes: Deferred, Other (flexiseal in place) Labs: CBC, BMP 09/27/17 05:10 INR, PTT INR 1.37 (0.82-1.09) H 09/26/17 05:35 Fibrinogen 452.0 mg/dL (238-498) 09/26/17 05:35 Problem List - Problems (1) Septic shock Assessment/Plan: 62 yo male PMH Right leg gas gangrene (extending from upper sacrum to Knee) extending from a pelvic abscess and an infected decubitus ulcer seen on CT scan of of the pelvis and lower extremity. Patient is a [employer] and will not accept blood transfusion or blood products. He hemodynamically unstable BP 94/60 and HR 140, no pressors. POD#7/3 s/p RLE Gaudencio SANCHES, Now toxic shock on vasopressors. ICU supportive care Broad spectrum IV antibiotics trend labs, correct electrolytes Local wound care - Daily bedside procedure Ethics discussion with family to discuss goals of care Tube feeds @20ml/hr titrate to goal Code(s): A41.9 - SEPSIS, UNSPECIFIED ORGANISM; R65.21 - SEVERE SEPSIS WITH SEPTIC SHOCK (2) Gas gangrene of lower extremity Code(s): A48.0 - GAS GANGRENE (3) Lung cancer metastatic to bone Code(s): C34.90 - MALIGNANT NEOPLASM OF UNSP PART OF UNSP BRONCHUS OR LUNG; C79.51 - SECONDARY MALIGNANT NEOPLASM OF BONE (4) Atrial tachycardia Code(s): I47.1 - SUPRAVENTRICULAR TACHYCARDIA (5) Gram-positive bacteremia Code(s): R78.81 - BACTEREMIA (6) Infected pressure ulcer Code(s): L89.90 - PRESSURE ULCER OF UNSPECIFIED SITE, UNSPECIFIED STAGE; L08.9 - LOCAL INFECTION OF THE SKIN AND SUBCUTANEOUS TISSUE, UNSP Qualifiers: Pressure ulcer stage: stage 4 Qualified Code(s): L89.94 - Pressure ulcer of unspecified site, stage 4; L08.9 - Local infection of the skin and subcutaneous tissue, unspecified; L08.9 - Local infection of the skin and subcutaneous tissue, unspecified
[2017-09-27] MEDS ORDERED: fentaNYL CITRATE 250 MCG/5 ML VIAL ONE ×2 (08:19→20:09)
[2017-09-27] MEDS: FENTANYL INJECTION 500 MCG in SODIUM CHLORIDE 90 ML IVPB SCH ×2 (08:28→21:55)
[2017-09-27 08:29] LABS: CALCIUM 6.4 mg/dL (8.5-10.1)
[2017-09-27] MEDS: FAMOTIDINE 20 MG/50 ML IVPB 20 MG/50 ML MG IVPB SCH ×2 (10:00→21:57)
[2017-09-27] MEDS: FOLIC ACID 1 MG TABLET (FP) PO SCH (10:02)
[2017-09-27] MEDS: CEFTRIAXONE IN IS-OSM DEXTROSE 2 GM/50 ML BAG IVPB SCH (10:02)
[2017-09-27] MEDS: CHLORHEXIDINE GLUCONATE 0.12% 15ML CUP MM SCH ×2 (10:03→21:56)
[2017-09-27] MEDS: PROPOFOL 1,000,000 MCG/100 ML VIAL IVPB SCH ×2 (10:06→16:01)
--- NOTE | 2017-09-27 10:07 | PN ---
Progress Note, Physician History of Present Illness: Pt is intubated, alert, trying to communicate. Pt w/o CP, SOB, abd pain, back pain. Pt was seen and examined in ICU in AM. - Current Medication List Current Medications: Active Medications Chlorhexidine Gluconate (Hibiclens For Decolonization -) 1 applic TP HS RACHEAL Last Admin: 09/26/17 21:19 Dose: 1 applic Chlorhexidine Gluconate (Peridex -) 15 ml MM BID RACHEAL Last Admin: 09/27/17 10:03 Dose: 15 ml Folic Acid (Folic Acid -) 1 mg PO DAILY RACHEAL Last Admin: 09/27/17 10:02 Dose: 1 mg Amiodarone HCl/Dextrose (Nexterone 360 Mg/200 Ml Bag) 360 mg in 200 mls @ 16.667 mls/hr IVPB TITR RACHEAL; 0.5 MG/MIN PRN Reason: Protocol Last Admin: 09/26/17 14:53 Dose: 0.5 mg/min, 16.667 mls/hr Clindamycin Phosphate (Cleocin 900 Mg Premix Ivpb -) 900 mg in 50 mls @ 100 mls /hr IVPB Q8H-IV RACHEAL Last Admin: 09/27/17 10:01 Dose: 100 mls/hr Propofol (Diprivan -) 1,000,000 mcg in 100 mls @ 3.205 mls/hr IVPB TITR RACHEAL; 5 MCG/KG/MIN PRN Reason: Protocol Last Admin: 09/26/17 18:38 Dose: Not Given Vancomycin HCl 1,500 mg/ (Dextrose) 500 mls @ 250 mls/hr IVPB BID@1100,2300 RACHEAL PRN Reason: Protocol Last Admin: 09/26/17 23:22 Dose: 250 mls/hr Vasopressin 50 units/ Sodium (Chloride) 100 mls @ 4 mls/hr IVPB TITR RACHEAL; 2 UNITS/HR PRN Reason: Protocol Last Admin: 09/26/17 14:53 Dose: Not Given Sodium Chloride (Normal Saline -) 1,000 mls @ 150 mls/hr IV ASDIR RACHEAL Last Admin: 09/26/17 18:08 Dose: Not Given Norepinephrine Bitartrate 4, (000 mcg/ Sodium Chloride) 500 mls @ 37.5 mls/hr IV TITR RACHEAL; 5 MCG/MIN PRN Reason: Protocol Last Admin: 09/26/17 18:38 Dose: Not Given Fentanyl 500 mcg/ Sodium (Chloride) 100 mls @ 10 mls/hr IVPB TITR RACHEAL; 50 MCG/ HR PRN Reason: Protocol Last Admin: 09/27/17 08:28 Dose: 10 mls/hr CEFTRIAXONE IN IS-OSM DEXTROSE (Ceftriaxone 2 Gm-D5w Bag) 2 gm in 50 mls @ 100 mls/hr IVPB DAILY [facility] Last Admin: 09/27/17 10:02 Dose: 100 mls/hr Famotidine/Sodium Chloride (Pepcid 20 Mg Premixed Ivpb -) 20 mg in 50 mls @ 100 mls/hr IVPB BID RACHEAL Last Admin: 09/27/17 10:00 Dose: 100 mls/hr - Objective Vital Signs: Vital Signs Temperature 98.2 F 09/27/17 02:00 Pulse Rate 91 H 09/27/17 08:00 Respiratory Rate 18 09/27/17 08:38 Blood Pressure 102/56 09/27/17 08:00 O2 Sat by Pulse Oximetry (%) 100 09/27/17 08:38 Constitutional: Yes: No Distress, Calm Cardiovascular: Yes: Regular Rate and Rhythm, S1, S2 Respiratory: Yes: Regular, Other (bilat coarse BS) Gastrointestinal: Yes: Normal Bowel Sounds, Soft. No: Tenderness Edema: No Neurological: Yes: Alert Labs: CBC, BMP 09/27/17 05:10 09/27/17 05:10 INR, PTT INR 1.37 (0.82-1.09) H 09/26/17 05:35 Fibrinogen 452.0 mg/dL (238-498) 09/26/17 05:35 Problem List - Problems (1) Septic shock Code(s): A41.9 - SEPSIS, UNSPECIFIED ORGANISM; R65.21 - SEVERE SEPSIS WITH SEPTIC SHOCK (2) Sepsis Code(s): A41.9 - SEPSIS, UNSPECIFIED ORGANISM Qualifiers: Sepsis type: sepsis due to unspecified organism Qualified Code(s): A41.9 - Sepsis, unspecified organism (3) Sacral decubitus ulcer, stage IV Code(s): L89.154 - PRESSURE ULCER OF SACRAL REGION, STAGE 4 (4) Atrial tachycardia Code(s): I47.1 - SUPRAVENTRICULAR TACHYCARDIA (5) Lactic acidosis Code(s): E87.2 - ACIDOSIS (6) Metastatic primary lung cancer Code(s): C34.90 - MALIGNANT NEOPLASM OF UNSP PART OF UNSP BRONCHUS OR LUNG Qualifiers: Laterality: unspecified laterality Qualified Code(s): C34.90 - Malignant neoplasm of unspecified part of unspecified bronchus or lung (7) Paraplegia Code(s): G82.20 - PARAPLEGIA, UNSPECIFIED (8) Bacteremia Code(s): R78.81 - BACTEREMIA (9) Gas gangrene of lower extremity Code(s): A48.0 - GAS GANGRENE (10) Above knee amputation of right lower extremity Code(s): Z89.611 - ACQUIRED ABSENCE OF RIGHT LEG ABOVE KNEE (11) Gram-positive bacteremia Code(s): R78.81 - BACTEREMIA (12) Anemia Code(s): D64.9 - ANEMIA, UNSPECIFIED Qualifiers: Anemia type: unspecified type Qualified Code(s): D64.9 - Anemia, unspecified (13) Thrombocytopenia Code(s): D69.6 - THROMBOCYTOPENIA, UNSPECIFIED (14) Hypomagnesemia Code(s): E83.42 - HYPOMAGNESEMIA (15) Hypophosphatemia Code(s): E83.39 - OTHER DISORDERS OF PHOSPHORUS METABOLISM (16) Hyponatremia Code(s): E87.1 - HYPO-OSMOLALITY AND HYPONATREMIA Assessment/Plan Admitted to ICU. Pt on Pressors (NE), off Vasopressin. On IV Amiodarone, Propofol. IV abtx- per ID Pulmonary/CCM, ID, Cardio, Onco, Surgery, Ortho, Renal consults appreciated. s/p emergency surgery 09/21/2017, s/p right AKA s/p OR on 09/23/2017 for reevaluation/ debridement/ removal of port-a-cath/ central line placement. Pt was started on TF via NGT. Vent management per CCM- AC mode Wound care per Sx, case was d/w Dr. Mcnair. Cont to monitor and replete electolytes. Improved Na+ level; continue to monitor Na+. H/H is trending down; pt is Jehova witness, no PRBC Tx; Case was d/w Dr. Romeo, pt's agreed with Epogen. Case was d/w pt's nurse. AM labs Prognosis: remains poor; pt's is aware. Time spent for managing pt's care: 40 minutes.
[2017-09-27] MEDS ORDERED: MAGNESIUM SULF 50% (8.12 MEQ/2 ML-1 GM VIAL) IVPB ONE (11:30)
--- NOTE | 2017-09-27 11:56 | PN ---
Teaching Attending Note Name of Resident: Kenny Willard ATTENDING PHYSICIAN STATEMENT I saw and evaluated the patient. I reviewed the resident's note and discussed the case with the resident. I agree with the resident's findings and plan as documented. SUBJECTIVE: Patient seen and examined in the ICU. Remains intubated and sedated. Remains on 5 mcq NE for hemodynamic support. AC Mode of vent 40% FiO2. CXR: ETT too low / no gross change in bilateral Congestive changes R > L Intake & Output 09/24/17 09/25/17 09/26/17 09/27/17 23:59 23:59 23:59 23:59 Intake Total 7151.2 6510.4 6333 3262 Output Total 2800 3450 4100 1000 Balance 4351.2 3060.4 2233 2262 Weight 231 lb 220 lb 242 lb 9.6 oz 244 lb 3.2 oz Last Vital Signs Temp Pulse Resp BP Pulse Ox 98.2 F 99 H 17 102/56 100 09/27/17 02:00 09/27/17 11:00 09/27/17 11:00 09/27/17 08:00 09/27/17 11:00 Active Medications Chlorhexidine Gluconate (Hibiclens For Decolonization -) 1 applic TP HS RACHEAL Last Admin: 09/26/17 21:19 Dose: 1 applic Chlorhexidine Gluconate (Peridex -) 15 ml MM BID RACHEAL Last Admin: 09/27/17 10:03 Dose: 15 ml Folic Acid (Folic Acid -) 1 mg PO DAILY RACHEAL Last Admin: 09/27/17 10:02 Dose: 1 mg Amiodarone HCl/Dextrose (Nexterone 360 Mg/200 Ml Bag) 360 mg in 200 mls @ 16.667 mls/hr IVPB TITR RACHEAL; 0.5 MG/MIN PRN Reason: Protocol Last Admin: 09/26/17 14:53 Dose: 0.5 mg/min, 16.667 mls/hr Clindamycin Phosphate (Cleocin 900 Mg Premix Ivpb -) 900 mg in 50 mls @ 100 mls /hr IVPB Q8H-IV RACHEAL Last Admin: 09/27/17 10:01 Dose: 100 mls/hr Propofol (Diprivan -) 1,000,000 mcg in 100 mls @ 3.205 mls/hr IVPB TITR RACHEAL; 5 MCG/KG/MIN PRN Reason: Protocol Last Admin: 09/27/17 10:06 Dose: 42.11 mcg/kg/min, 27 mls/hr Vancomycin HCl 1,500 mg/ (Dextrose) 500 mls @ 250 mls/hr IVPB BID@1100,2300 RACHEAL PRN Reason: Protocol Last Admin: 09/26/17 23:22 Dose: 250 mls/hr Vasopressin 50 units/ Sodium (Chloride) 100 mls @ 4 mls/hr IVPB TITR RACHEAL; 2 UNITS/HR PRN Reason: Protocol Last Admin: 09/26/17 14:53 Dose: Not Given Sodium Chloride (Normal Saline -) 1,000 mls @ 150 mls/hr IV ASDIR [facility] Last Admin: 09/26/17 18:08 Dose: Not Given Norepinephrine Bitartrate 4, (000 mcg/ Sodium Chloride) 500 mls @ 37.5 mls/hr IV TITR RACHEAL; 5 MCG/MIN PRN Reason: Protocol Last Admin: 09/26/17 18:38 Dose: Not Given Fentanyl 500 mcg/ Sodium (Chloride) 100 mls @ 10 mls/hr IVPB TITR RACHEAL; 50 MCG/ HR PRN Reason: Protocol Last Admin: 09/27/17 08:28 Dose: 10 mls/hr CEFTRIAXONE IN IS-OSM DEXTROSE (Ceftriaxone 2 Gm-D5w Bag) 2 gm in 50 mls @ 100 mls/hr IVPB DAILY [facility] Last Admin: 09/27/17 10:02 Dose: 100 mls/hr Famotidine/Sodium Chloride (Pepcid 20 Mg Premixed Ivpb -) 20 mg in 50 mls @ 100 mls/hr IVPB BID [facility] Last Admin: 09/27/17 10:00 Dose: 100 mls/hr Gen: Intubated and sedated HEENT: Orally intubated PULM: scattered rhonchi, no wheezes CV: tachy, irregular ABD: soft, NT, ND EXT: Right AKA, (+) PP on the LLE Neuro: sedated Laboratory Results - last 24 hr 09/27/17 09/27/17 09/27/17 05:10 05:10 05:10 WBC 5.4 RBC 2.71 L Hgb 7.8 L Hct 23.3 L MCV 85.9 MCH 28.7 MCHC 33.4 RDW 21.2 H Plt Count 176 D MPV 9.2 Neutrophils % 83.6 H Lymphocytes % 7.6 L D Monocytes % 7.1 Eosinophils % 1.4 D Basophils % 0.3 PTT (Actin FS) 33.4 Puncture Site ABG pH ABG pCO2 at Pt Temp ABG pO2 at Pt Temp ABG HCO3 ABG O2 Sat (Measured) ABG O2 Content ABG Base Excess Jean Carlos Test O2 Delivery Device Oxygen Flow Rate Vent Mode Vent Rate Mechanical Rate PEEP Pressure Support Vent Sodium 137 Potassium 3.5 Chloride 101 Carbon Dioxide 26 Anion Gap 10 BUN 7 D Creatinine 0.3 L Creat Clearance w eGFR > 60 Random Glucose 98 Calcium 6.4 L* Phosphorus 2.8 Magnesium 1.5 L Total Bilirubin 0.4 D AST 20 ALT 11 L Alkaline Phosphatase 128 H Total Protein 4.3 L Albumin 1.1 L 09/27/17 06:11 WBC RBC Hgb Hct MCV MCH MCHC RDW Plt Count MPV Neutrophils % Lymphocytes % Monocytes % Eosinophils % Basophils % PTT (Actin FS) Puncture Site Right radial ABG pH 7.43 ABG pCO2 at Pt Temp 40.9 ABG pO2 at Pt Temp 94.4 D ABG HCO3 26.3 H ABG O2 Sat (Measured) 97.5 ABG O2 Content 10.2 L ABG Base Excess 2.3 H Jean Carlos Test Positive O2 Delivery Device Vent Oxygen Flow Rate 40 Vent Mode A/c Vent Rate 12 Mechanical Rate Yes PEEP 5.0 Pressure Support Vent 600 Sodium Potassium Chloride Carbon Dioxide Anion Gap BUN Creatinine Creat Clearance w eGFR Random Glucose Calcium Phosphorus Magnesium Total Bilirubin AST ALT Alkaline Phosphatase Total Protein Albumin IMP: Rapid AFib Metastatic Lung CA (?) Infected deep tissue Sacral decubitus ulcer Lactic acidosis Paraplegia Elevated INR Thrombocytopenia (?) cardiac thrombus vs malignancy (?) VTE PLAN: Local wound care per surgery ABX per ID AC Mode of vent Pressors to maintain MAP Amiodarone AC Strict I & O Will need diuresis once off pressors Enteral feeds Dr Redding Critical care time spent in reviewing chart, evaluating patient and formulating plan - 36 minutes.
[2017-09-27] MEDS ORDERED: PT OWN MED DRAWER 7, Y5N ONE ×4 (12:14→17:30)
[2017-09-27] MEDS: VANCOMYCIN 1,500 MG in DEXTROSE 5%-WATER - 500 ML IVPB SCH ×2 (12:28→22:24)
[2017-09-27] MEDS ORDERED: MAGNESIUM 4GM/H20 - 4 GM/100 ML IVPB IVPB ONE (12:30)
--- NOTE | 2017-09-27 13:22 | PN ---
Progress Note (short form) - Note Progress Note: seen and examined. agreed for TARA agents O/E General: Intubated. Cor: RSR, No murmurs, No gallops Lungs: Clear to P&A Abd: Soft, Normal bowel sounds, No organomegaly Ext: in dressing. (rt amputated), left :chronic skin changes , with edema Last Vital Signs Temp Pulse Resp BP Pulse Ox 100 F H 110 H 16 128/61 100 09/27/17 10:00 09/27/17 12:00 09/27/17 12:00 09/27/17 12:00 09/27/17 11:00 CBC, BMP 09/27/17 05:10 09/27/17 05:10 Current Medications Generic Name Dose Route Start Last Admin Trade Name Freq PRN Reason Stop Dose Admin Chlorhexidine Gluconate 1 applic 09/23/17 22:00 09/26/17 21:19 Hibiclens For Decolonization - TP 1 applic HS RACHEAL Administration Chlorhexidine Gluconate 15 ml 09/25/17 22:00 09/27/17 10:03 Peridex - MM 15 ml BID RACHEAL Administration Cyanocobalamin 1,000 mcg 10/04/17 10:00 Vitamin B12 Injection - IM Q7D@1000 RACHEAL Epoetin Memo 20,000 unit 09/27/17 13:30 Procrit - SQ DAILY RACHEAL Folic Acid 1 mg 09/24/17 10:00 09/27/17 10:02 Folic Acid - PO 1 mg DAILY RACHEAL Administration Amiodarone HCl/Dextrose 360 mg in 200 mls @ 16.667 mls/hr 09/23/17 15:25 14:53 Nexterone 360 Mg/200 Ml Bag IVPB 0.5 mg/min TITR RACHEAL 16.667 mls/hr Protocol Administration 0.5 MG/MIN Clindamycin Phosphate 900 mg in 50 mls @ 100 mls/hr 09/23/17 18:00 09/27/17 10:01 Cleocin 900 Mg Premix Ivpb - IVPB 100 mls/hr Q8H-IV RACHEAL Administration Propofol 1,000,000 mcg in 100 mls @ 3.205 mls/hr 09/23/17 15:25 09/27/17 10: 06 Diprivan - IVPB 42.11 mcg/kg/min TITR RACHEAL 27 mls/hr Protocol Administration 5 MCG/KG/MIN Vancomycin HCl 1,500 mg/ 500 mls @ 250 mls/hr 09/23/17 23:00 09/27/17 12:28 Dextrose IVPB 250 mls/hr BID@1100,2300 RACHEAL Administration Protocol Vasopressin 50 units/ Sodium 100 mls @ 4 mls/hr 09/23/17 15:25 09/26/17 14:53 Chloride IVPB Not Given TITR RACHEAL Protocol 2 UNITS/HR Sodium Chloride 1,000 mls @ 150 mls/hr 09/24/17 16:15 09/26/17 18:08 Normal Saline - IV Not Given ASDIR RACHEAL Norepinephrine Bitartrate 4, 500 mls @ 37.5 mls/hr 09/24/17 18:45 09/26/17 18 :38 000 mcg/ Sodium Chloride IV Not Given TITR RACHEAL Protocol 5 MCG/MIN Fentanyl 500 mcg/ Sodium 100 mls @ 10 mls/hr 09/24/17 18:45 09/27/17 08:28 Chloride IVPB 10 mls/hr TITR RACHEAL Administration Protocol 50 MCG/HR CEFTRIAXONE IN IS-OSM DEXTROSE 2 gm in 50 mls @ 100 mls/hr 09/25/17 10:00 10:02 Ceftriaxone 2 Gm-D5w Bag IVPB 100 mls/hr DAILY RAC[facility]AL Administration Famotidine/Sodium Chloride 20 mg in 50 mls @ 100 mls/hr 09/26/17 10:00 10:00 Pepcid 20 Mg Premixed Ivpb - IVPB 100 mls/hr BID RACHEAL Administration Magnesium Sulfate 4 gm in 100 mls @ 100 mls/hr 09/27/17 12:30 Magnesium 4gm/H20 - IVPB 09/27/17 13:29 ONCE ONE Iron Sucrose 100 mg/ Sodium 100 mls @ 200 mls/hr 09/27/17 13:16 Chloride IVPB 09/27/17 13:45 DAILY ONE Assessment/Plan: metastatic Lung Ca ( [place].Daniel Ni [facility] [place] [facility] [place] at [place]. Had RT to rt. lung in 07/19 Most recent chemotherapy 09/19/17) Septic shock MRSA bacteremia. gas gangrene of the RLE with sacral ulcer/decubitus Jehovah witness Anemia of chronic disease Thrombocytopenia from sepsis Bed bound from T8 paraplegia Intubated for epogen daily x5days for IV Iron daily x5days vitB12 weekly folate daily. abx per ID .
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
[2017-09-27] MEDS ORDERED: IRON SUCROSE INJECTION 100 MG in SODIUM CHLORIDE 95 ML IVPB ONE (13:45)
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
[2017-09-27] MEDS ORDERED: PROPOFOL 1,000,000 MCG/100 ML VIAL ONE (15:17)
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
[2017-09-27] MEDS: EPOETIN ALFA 20,000 UNIT/1 ML VIAL SQ SCH (16:01)
[2017-09-27] MEDS: AMINO ACIDS/PROTEIN HYDROLYS 30 ML LIQUID.PKT PO SCH (17:42)
[2017-09-27] MEDS: AMIODARONE IN DEXTROSE,ISO-OSM 360 MG/200 ML BAG IVPB SCH (17:43)
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
[2017-09-27] MEDS: VASOPRESSIN 50 UNITS in SODIUM CHLORIDE 97.5 ML IVPB SCH (21:52)
[2017-09-27] MEDS: NOREPINEPHRINE BITARTRATE 4,000 MCG in SODIUM CHLORIDE 496 ML IV SCH (21:53)
[2017-09-27] MEDS: SODIUM CHLORIDE 1,000 ML IV SCH (21:53)
[2017-09-27] MEDS: CHLORHEXIDINE GLUCONATE 4% CLEANSER FOR DECOLONIZATION TP SCH (21:55)
[2017-09-27] MEDS: AMIODARONE HCL 200 MG TABLET (FP) NGT SCH (22:25)
[2017-09-28 06:23] LABS: BASO % 0.5 % (0-2.0); EOS % 1.5 % (0-4.5); HEMATOCRIT 23.1 % (35.4-49); HEMOGLOBIN 7.6 GM/dL (11.7-16.9); LYMPH % 6.1 % (8-40); MCH 28.4 pg (25.7-33.7); MCHC 32.7 g/dl (32.0-35.9); MEAN CELL VOLUME 86.8 fl (80-96); MONO % 9.2 % (3.8-10.2); NEUT % 82.7 % (42.8-82.8); PLATELET COUNT 220 K/MM3 (134-434); RBC 2.66 M/mm3 (4.00-5.60); RDW 21.4 % (11.9-15.9); WHITE BLOOD COUNT 6.2 K/mm3 (4.0-10.0)
[2017-09-28 06:31] LABS: ADD RBC MORPHOLOGY YES
[2017-09-28 06:56] LABS: ALBUMIN 1.1 g/dl (3.4-5.0); ANION GAP 6 (8-16); BLOOD UREA NITROGEN 8 mg/dL (7-18); CHLORIDE 104 mmol/L (98-107); CO2 29 mmol/L (21-32); GLUCOSE,RANDOM 98 mg/dL (74-106); POTASSIUM 3.5 mmol/L (3.5-5.1); SODIUM 139 mmol/L (136-145)
[2017-09-28 07:01] LABS: ALK PHOS 129 U/L (45-117); BILIRUBIN,TOTAL 0.4 mg/dL (0.2-1.0); CREATININE 0.3 mg/dL (0.7-1.3); PHOSPHOROUS 2.5 mg/dL (2.5-4.9); SGOT/AST 22 U/L (15-37); SGPT/ALT 11 U/L (12-78); TOT PROT 4.5 g/dl (6.4-8.2)
[2017-09-28 07:03] LABS: ARTERIAL BLD GAS O2 SATURATION 98.6 % (90-98.9); ARTERIAL BLOOD GAS BASE EXCESS 3.1 meq/l (-2-2); ARTERIAL BLOOD GAS PCO2 31.1 mmHg (35-45); ARTERIAL BLOOD GAS pH 7.53 (7.35-7.45)
[2017-09-28 07:20] LABS: ALLENS TEST POSITIVE
--- NOTE | 2017-09-28 07:25 | PN ---
Progress Note (short form) - Note Progress Note: ID Intubated and had to be restarted on pressors over night Current antibiotics Vancomycin Ceftriaxone Metronidazole Selected Entries 09/28/17 09/28/17 06:00 06:48 Temperature 98.9 F Pulse Rate 88 Respiratory 14 Rate Blood Pressure 128/78 Exam AKA wit extensive open wounds sacrum leg Microbiology 09/23/17 15:10 Tissue-Other Gram Stain - Final 09/23/17 15:10 Tissue-Other Anaerobic Culture - Final NO GROWTH OF AEROBIC ORGANISMS AFTER 48 HOURS INCUBATION 09/21/17 Unknown Leg - Right Upper Gram Stain - Final 09/21/17 Unknown Leg - Right Upper Wound Culture - Final Escherichia Coli Mr S Aureus 09/20/17 14:20 Blood - Peripheral Venous Blood Culture - Final S Aureus 09/20/17 14:20 Blood - Peripheral Venous Blood Culture - Final Mr S Aureus 09/20/17 14:20 Back Gram Stain - Final 09/20/17 14:20 Back Wound Culture - Final Escherichia Coli Staphylococcus Coagulase Neg Diphtheroid/Corynebacterium Enterococcus Faecalis Laboratory Tests 09/25/17 09/27/17 09/28/17 23:45 05:10 06:10 WBC 6.2 Hgb 7.6 L Hct 23.1 L Plt Count 220 D BUN 7 D Creatinine 0.3 L Calcium 6.4 L* Total Bilirubin 0.4 D AST 20 ALT 11 L Alkaline Phosphatase 128 H Vancomycin Pre-Dose 15.242 H* D 09/28/17 06:10 WBC Hgb Hct Plt Count BUN Pending Creatinine Pending Calcium Total Bilirubin AST ALT Alkaline Phosphatase Vancomycin Pre-Dose Assessment Sepsis syndrome MRSA bacteremia Originally gas gangrene of sacrum dissecting into leg with extensive debridements in additiono to amputation Metastatic cancer Thoracic level paraplegia Plan Would continue all current antibiotics and recheck Vanco level tomorrow Sharda ZAPATA
[2017-09-28 07:27] LABS: CALCIUM 6.7 mg/dL (8.5-10.1)
[2017-09-28] MEDS ORDERED: fentaNYL CITRATE 250 MCG/5 ML VIAL ONE ×4 (07:39→21:58)
[2017-09-28] MEDS: FENTANYL INJECTION 500 MCG in SODIUM CHLORIDE 90 ML IVPB SCH ×3 (08:00→19:00)
[2017-09-28 08:19] LABS: ANISOCYTOSIS 2+; MACROCYTOSIS 1+; TEAR DROP CELLS 1+
[2017-09-28] MEDS: FAMOTIDINE 20 MG/50 ML IVPB 20 MG/50 ML MG IVPB SCH ×2 (09:06→22:14)
[2017-09-28] MEDS ORDERED: PT OWN MED DRAWER 7, Y5N ONE ×2 (09:14→09:38)
[2017-09-28] MEDS: FOLIC ACID 1 MG TABLET (FP) PO SCH (09:18)
[2017-09-28] MEDS: AMIODARONE HCL 200 MG TABLET (FP) NGT SCH (09:18)
[2017-09-28] MEDS: CHLORHEXIDINE GLUCONATE 0.12% 15ML CUP MM SCH ×2 (09:18→22:14)
[2017-09-28] MEDS: CEFTRIAXONE IN IS-OSM DEXTROSE 2 GM/50 ML BAG IVPB SCH (09:18)
[2017-09-28] MEDS: PROPOFOL 1,000,000 MCG/100 ML VIAL IVPB SCH ×3 (09:40→17:05)
--- NOTE | 2017-09-28 09:50 | PN ---
Progress Note, Physician History of Present Illness: Pt is intubated; on Fentanyl Drip, sedated. Pt was seen and examined in ICU in AM. - Current Medication List Current Medications: Active Medications Amino Acids (Prosource No Carb Liquid Pkt) 30 ml PO DAILY@1730 [facility] Last Admin: 09/27/17 17:42 Dose: 30 ml Amiodarone HCl (Cordarone -) 200 mg NGT DAILY [facility] Last Admin: 09/28/17 09:18 Dose: 200 mg Chlorhexidine Gluconate (Hibiclens For Decolonization -) 1 applic TP HS [facility] Last Admin: 09/27/17 21:55 Dose: 1 applic Chlorhexidine Gluconate (Peridex -) 15 ml MM BID [facility] Last Admin: 09/28/17 09:18 Dose: 15 ml Cyanocobalamin (Vitamin B12 Injection -) 1,000 mcg IM Q7D@1000 [facility] Epoetin Memo (Procrit -) 20,000 unit SQ DAILY [facility] Last Admin: 09/27/17 16:01 Dose: 20,000 unit Folic Acid (Folic Acid -) 1 mg PO DAILY [facility] Last Admin: 09/28/17 09:18 Dose: 1 mg Propofol (Diprivan -) 1,000,000 mcg in 100 mls @ 3.205 mls/hr IVPB TITR [facility]; 5 MCG/KG/MIN PRN Reason: Protocol Last Admin: 09/28/17 09:40 Dose: 42.11 mcg/kg/min, 27 mls/hr Vancomycin HCl 1,500 mg/ (Dextrose) 500 mls @ 250 mls/hr IVPB BID@1100,2300 [facility] PRN Reason: Protocol Last Admin: 09/27/17 22:24 Dose: 250 mls/hr Vasopressin 50 units/ Sodium (Chloride) 100 mls @ 4 mls/hr IVPB TITR [facility]; 2 UNITS/HR PRN Reason: Protocol Last Admin: 09/27/17 21:52 Dose: Not Given Sodium Chloride (Normal Saline -) 1,000 mls @ 150 mls/hr IV ASDIR [facility] Last Admin: 09/27/17 21:53 Dose: Not Given Norepinephrine Bitartrate 4, (000 mcg/ Sodium Chloride) 500 mls @ 37.5 mls/hr IV TITR [facility]; 5 MCG/MIN PRN Reason: Protocol Last Admin: 09/27/17 21:53 Dose: Not Given Fentanyl 500 mcg/ Sodium (Chloride) 100 mls @ 10 mls/hr IVPB TITR [facility]; 50 MCG/ HR PRN Reason: Protocol Last Admin: 09/28/17 08:00 Dose: 10 mls/hr CEFTRIAXONE IN IS-OSM DEXTROSE (Ceftriaxone 2 Gm-D5w Bag) 2 gm in 50 mls @ 100 mls/hr IVPB DAILY [facility] Last Admin: 09/28/17 09:18 Dose: 100 mls/hr Famotidine/Sodium Chloride (Pepcid 20 Mg Premixed Ivpb -) 20 mg in 50 mls @ 100 mls/hr IVPB BID [facility] Last Admin: 09/28/17 09:06 Dose: 100 mls/hr Metronidazole (Flagyl 500mg Premixed Ivpb -) 500 mg in 100 mls @ 100 mls/hr IVPB Q8H-IV [facility] Last Admin: 09/28/17 09:06 Dose: 100 mls/hr - Objective Vital Signs: Vital Signs Temperature 97.6 F 09/28/17 08:00 Pulse Rate 90 09/28/17 08:48 Respiratory Rate 17 09/28/17 08:48 Blood Pressure 120/69 09/28/17 08:00 O2 Sat by Pulse Oximetry (%) 100 09/28/17 08:48 Constitutional: Yes: No Distress, Calm Cardiovascular: Yes: Regular Rate and Rhythm, S1, S2 Respiratory: Yes: Regular, Other (Coarse BS) Gastrointestinal: Yes: Normal Bowel Sounds, Soft, Other (rectal tube is present) Edema: RLE: Trace Neurological: Yes: Other (Sedated) Labs: CBC, BMP 09/28/17 06:10 09/28/17 06:10 INR, PTT INR 1.37 (0.82-1.09) H 09/26/17 05:35 Fibrinogen 452.0 mg/dL (238-498) 09/26/17 05:35 Problem List - Problems (1) Septic shock Code(s): A41.9 - SEPSIS, UNSPECIFIED ORGANISM; R65.21 - SEVERE SEPSIS WITH SEPTIC SHOCK (2) Sepsis Code(s): A41.9 - SEPSIS, UNSPECIFIED ORGANISM Qualifiers: Sepsis type: sepsis due to unspecified organism Qualified Code(s): A41.9 - Sepsis, unspecified organism (3) Sacral decubitus ulcer, stage IV Code(s): L89.154 - PRESSURE ULCER OF SACRAL REGION, STAGE 4 (4) Atrial tachycardia Code(s): I47.1 - SUPRAVENTRICULAR TACHYCARDIA (5) Lactic acidosis Code(s): E87.2 - ACIDOSIS (6) Metastatic primary lung cancer Code(s): C34.90 - MALIGNANT NEOPLASM OF UNSP PART OF UNSP BRONCHUS OR LUNG Qualifiers: Laterality: unspecified laterality Qualified Code(s): C34.90 - Malignant neoplasm of unspecified part of unspecified bronchus or lung (7) Paraplegia Code(s): G82.20 - PARAPLEGIA, UNSPECIFIED (8) Bacteremia Code(s): R78.81 - BACTEREMIA (9) Gas gangrene of lower extremity Code(s): A48.0 - GAS GANGRENE (10) Above knee amputation of right lower extremity Code(s): Z89.611 - ACQUIRED ABSENCE OF RIGHT LEG ABOVE KNEE (11) Gram-positive bacteremia Code(s): R78.81 - BACTEREMIA (12) Anemia Code(s): D64.9 - ANEMIA, UNSPECIFIED Qualifiers: Anemia type: unspecified type Qualified Code(s): D64.9 - Anemia, unspecified (13) Thrombocytopenia Code(s): D69.6 - THROMBOCYTOPENIA, UNSPECIFIED (14) Hypomagnesemia Code(s): E83.42 - HYPOMAGNESEMIA (15) Hypophosphatemia Code(s): E83.39 - OTHER DISORDERS OF PHOSPHORUS METABOLISM (16) Hyponatremia Code(s): E87.1 - HYPO-OSMOLALITY AND HYPONATREMIA Assessment/Plan Admitted to ICU. Pt on Pressors (NE), off Vasopressin. Off IV Amiodarone. IV abtx- per ID Pulmonary/CCM, ID, Cardio, Onco, Surgery, Ortho, Renal consults appreciated. s/p emergency surgery 09/21/2017, s/p right AKA s/p OR on 09/23/2017 for reevaluation/ debridement/ removal of port-a-cath/ central line placement. Pt was started on TF via NGT. Vent management per CCM- AC mode. Wound care per Sx. Cont to monitor and replete electolytes. Improved Na+ level; continue to monitor Na+. H/H is trending down; pt is Jehova witness, no PRBC Tx; on Epogen. Case was d/w pt's nurse. AM labs. Prognosis: remains poor; pt's is aware; pt's condition and care was reviewed with pt's , all questions were answered. Time spent for managing pt's care: 45 minutes.
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
[2017-09-28] MEDS: VANCOMYCIN 1,500 MG in DEXTROSE 5%-WATER - 500 ML IVPB SCH ×2 (11:32→22:29)
[2017-09-28] MEDS: EPOETIN ALFA 20,000 UNIT/1 ML VIAL SQ SCH (11:33)
[2017-09-28] MEDS ORDERED: IRON SUCROSE INJECTION 100 MG in SODIUM CHLORIDE 95 ML IVPB ONE (12:14)
--- NOTE | 2017-09-28 12:19 | PN ---
Progress Note (short form) - Note Progress Note: Oncology follow-up Note S: Per RN, patient on low dose pressor, more awake and laert, overall improving. at bedside also feels the same way. Last Vital Signs Temp Pulse Resp BP Pulse Ox 97.5 F L 83 13 119/67 100 09/28/17 12:00 09/28/17 12:00 09/28/17 12:00 09/28/17 12:00 09/28/17 08:48 O/E General: Intubated. Cor: RSR, No murmurs, No gallops Lungs: Clear to P&A Abd: Soft, Normal bowel sounds, No organomegaly Ext: in dressing. (rt amputated), left :chronic skin changes , with edema CBC, BMP 09/28/17 06:10 09/28/17 06:10 Current Medications Generic Name Dose Route Start Last Admin Trade Name Freq PRN Reason Stop Dose Admin Amino Acids 30 ml 09/27/17 17:30 09/27/17 17:42 Prosource No Carb Liquid Pkt PO 30 ml DAILY@1730 [facility] Administration Amiodarone HCl 200 mg 09/27/17 21:00 09/28/17 09:18 Cordarone - NGT 200 mg DAILY [facility] Administration Chlorhexidine Gluconate 1 applic 09/23/17 22:00 09/27/17 21:55 Hibiclens For Decolonization - TP 1 applic HS [facility] Administration Chlorhexidine Gluconate 15 ml 09/25/17 22:00 09/28/17 09:18 Peridex - MM 15 ml BID [facility] Administration Cyanocobalamin 1,000 mcg 10/04/17 10:00 Vitamin B12 Injection - IM Q7D@1000 [facility] Epoetin Memo 20,000 unit 09/28/17 10:28 Procrit - SQ DAILY [facility] Folic Acid 1 mg 09/24/17 10:00 09/28/17 09:18 Folic Acid - PO 1 mg DAILY [facility] Administration Propofol 1,000,000 mcg in 100 mls @ 3.205 mls/hr 09/23/17 15:25 09/28/17 09: 40 Diprivan - IVPB 42.11 mcg/kg/min TITR [facility] 27 mls/hr Protocol Administration 5 MCG/KG/MIN Vancomycin HCl 1,500 mg/ 500 mls @ 250 mls/hr 09/23/17 23:00 09/28/17 11:32 Dextrose IVPB 250 mls/hr BID@1100,2300 [facility] Administration Protocol Vasopressin 50 units/ Sodium 100 mls @ 4 mls/hr 09/23/17 15:25 09/27/17 21:52 Chloride IVPB Not Given TITR [facility] Protocol 2 UNITS/HR Sodium Chloride 1,000 mls @ 150 mls/hr 09/24/17 16:15 09/27/17 21:53 Normal Saline - IV Not Given ASDIR [facility] Norepinephrine Bitartrate 4, 500 mls @ 37.5 mls/hr 09/24/17 18:45 09/27/17 21 :53 000 mcg/ Sodium Chloride IV Not Given TITR [facility] Protocol 5 MCG/MIN Fentanyl 500 mcg/ Sodium 100 mls @ 10 mls/hr 09/24/17 18:45 09/28/17 08:00 Chloride IVPB 10 mls/hr TITR [facility] Administration Protocol 50 MCG/HR CEFTRIAXONE IN IS-OSM DEXTROSE 2 gm in 50 mls @ 100 mls/hr 09/25/17 10:00 09:18 Ceftriaxone 2 Gm-D5w Bag IVPB 100 mls/hr DAILY [facility] Administration Famotidine/Sodium Chloride 20 mg in 50 mls @ 100 mls/hr 09/26/17 10:00 09:06 Pepcid 20 Mg Premixed Ivpb - IVPB 100 mls/hr BID [facility] Administration Metronidazole 500 mg in 100 mls @ 100 mls/hr 09/27/17 18:00 09/28/17 09:06 Flagyl 500mg Premixed Ivpb - IVPB 100 mls/hr Q8H-IV [facility] Administration Iron Sucrose 100 mg/ Sodium 100 mls @ 200 mls/hr 09/28/17 12:14 Chloride IVPB 09/28/17 12:43 ONCE ONE Assessment/Plan: 62 y/o male with metastatic Lung Ca ( [place].Daniel Ni [facility] [place] in [place] at [place]. Had RT to rt. lung in 07/19, Most recent chemotherapy 09/19/17) Now admitted with : Septic shock MRSA bacteremia. 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 abx per ID
--- NOTE | 2017-09-28 12:38 | PN ---
Progress Note, Physician History of Present Illness: Covering for Dr. Pacheco: Pt with multiple medical comorbidities including longstanding paraplegia, metastatic lung CA to bone and other organs, had been getting chemo at [facility] [place], s/p guillotine R AKA for sepsis and gas gangrene originating in R ischial decubitus and extending into hip and pelvic area on right and down RLE. He was taken back 2 days later for removal of chemo port, placement of RIJ CVC and pulse irrigation of right ischium and RLE stump. He has been intubated since the first surgery, sedated in the ICU, on Fentanyl and Propofol drips. Has been on pressors - vasopressin off because of hyponatremia, still on levophed, now at 15 mcg. Getting tube feeds at 50ml/hr via NGT. On antibiotics for bacteremia ( MRSA) and necrotizing infection per ID. Not currently stable for transfer, but likely requires ortho plastic or ortho trauma specialist for definitive source control (as per ortho note) at tertiary care facility, as hip/pelvis/posterior upper thigh still with necrotic tissue and open planes. Overall prognosis is poor, pt is DNR/DNI (if extubated), and family is aware. Surgery is doing dressing changes on AKA stump and R ischium with betadine/saline Kerlix gauze. Pt is not currently awake. is not at bedside. Nursing staff assisted with R ischial dressing change. - Current Medication List Current Medications: Active Medications Amino Acids (Prosource No Carb Liquid Pkt) 30 ml PO DAILY@1730 [facility] Last Admin: 09/27/17 17:42 Dose: 30 ml Amiodarone HCl (Cordarone -) 200 mg NGT DAILY [facility] Last Admin: 09/28/17 09:18 Dose: 200 mg Chlorhexidine Gluconate (Hibiclens For Decolonization -) 1 applic TP HS [facility] Last Admin: 09/27/17 21:55 Dose: 1 applic Chlorhexidine Gluconate (Peridex -) 15 ml MM BID [facility] Last Admin: 09/28/17 09:18 Dose: 15 ml Cyanocobalamin (Vitamin B12 Injection -) 1,000 mcg IM Q7D@1000 [facility] Epoetin Memo (Procrit -) 20,000 unit SQ DAILY [facility] Folic Acid (Folic Acid -) 1 mg PO DAILY [facility] Last Admin: 09/28/17 09:18 Dose: 1 mg Propofol (Diprivan -) 1,000,000 mcg in 100 mls @ 3.205 mls/hr IVPB TITR [facility]; 5 MCG/KG/MIN PRN Reason: Protocol Last Admin: 09/28/17 09:40 Dose: 42.11 mcg/kg/min, 27 mls/hr Vancomycin HCl 1,500 mg/ (Dextrose) 500 mls @ 250 mls/hr IVPB BID@1100,2300 [facility] PRN Reason: Protocol Last Admin: 09/28/17 11:32 Dose: 250 mls/hr Vasopressin 50 units/ Sodium (Chloride) 100 mls @ 4 mls/hr IVPB TITR [facility]; 2 UNITS/HR PRN Reason: Protocol Last Admin: 09/27/17 21:52 Dose: Not Given Sodium Chloride (Normal Saline -) 1,000 mls @ 150 mls/hr IV ASDIR [facility] Last Admin: 09/27/17 21:53 Dose: Not Given Norepinephrine Bitartrate 4, (000 mcg/ Sodium Chloride) 500 mls @ 37.5 mls/hr IV TITR [facility]; 5 MCG/MIN PRN Reason: Protocol Last Admin: 09/27/17 21:53 Dose: Not Given Fentanyl 500 mcg/ Sodium (Chloride) 100 mls @ 10 mls/hr IVPB TITR [facility]; 50 MCG/ HR PRN Reason: Protocol Last Admin: 09/28/17 08:00 Dose: 10 mls/hr CEFTRIAXONE IN IS-OSM DEXTROSE (Ceftriaxone 2 Gm-D5w Bag) 2 gm in 50 mls @ 100 mls/hr IVPB DAILY [facility] Last Admin: 09/28/17 09:18 Dose: 100 mls/hr Famotidine/Sodium Chloride (Pepcid 20 Mg Premixed Ivpb -) 20 mg in 50 mls @ 100 mls/hr IVPB BID [facility] Last Admin: 09/28/17 09:06 Dose: 100 mls/hr Metronidazole (Flagyl 500mg Premixed Ivpb -) 500 mg in 100 mls @ 100 mls/hr IVPB Q8H-IV [facility] Last Admin: 09/28/17 09:06 Dose: 100 mls/hr Iron Sucrose 100 mg/ Sodium (Chloride) 100 mls @ 200 mls/hr IVPB ONCE ONE Stop: 09/28/17 12:43 - Objective Vital Signs: Vital Signs Temperature 97.5 F L 09/28/17 12:00 Pulse Rate 83 09/28/17 12:00 Respiratory Rate 13 09/28/17 12:00 Blood Pressure 119/67 09/28/17 12:00 O2 Sat by Pulse Oximetry (%) 100 09/28/17 08:48 Vital Signs Period Temp Pulse Resp BP Sys/Topete Pulse Ox Last 24 Hr 97.5 F-99 F 78-92 12-19 100-128/60-78 100-100 Intake & Output 09/27/17 09/28/17 09/28/17 23:59 07:59 15:59 Intake Total 3505 3743.6 450 Output Total 1100 1000 450 Balance 2405 2743.6 0 Weight 252 lb Intake: IV 2685 2373.6 FENTANYL 120 120 Levophed - 4,000 Mcg In 200 225.6 Normal Saline - 496 ml @ 5 MCG/MIN 37.5 mls/hr IV TITR [facility] Rx#:[id number] NEXTERONE 360 MG/200 ML 175 BAG 360 mg In 200 ml @ 0. 5 MG/MIN 16.667 mls/hr IVPB TITR [facility] Rx#: [id number] Normal Saline - 1,000 ml 2000 1800 @ 150 mls/hr IV ASDIR [facility] Rx#:[id number] PROPOFOL 190 228 IVPB 650 450 Tube Feeding 650 600 Tube Irrigant 170 120 Output: Urine 1100 1000 450 River 1100 1000 450 Other: Voiding Method Indwelling Catheter Indwelling Catheter Indwelling Catheter Bowel Movement Yes: flexiseal Yes: flexiseal Yes: FLEXISEAL Weight Measurement Method Built in [facility] about 200ml out flexiseal emptied now have not been recording stool output Constitutional: Yes: Well Nourished, No Distress, Calm HENT: Yes: Other (NGT with feeds going, intubated) Respiratory: Yes: Intubated, Mechanically Ventilated Gastrointestinal: Yes: Soft, Abdomen, Obese. No: Tenderness ...Rectal Exam: Yes: Hemorrhoids/External, Other (flexiseal in place with liquid brown stool; R ischial decub with packing (see below)) Genitourinary: Yes: River Present (light yellow urine). No: Hematuria Extremities: Yes: Amputation (R AKA - stump dressed from yesterday's dressing change, edema down; will redo tomorrow), External Rotation (left leg) Edema: Yes Integumentary: Yes: Incision (RLE AKA stump dressed), Pressure Ulcer (small stage 2 on midback, covered with optifoam small stage 2 x 2 at sacral area, VICENTA stage 4 at right ischium with necrotic muscle and exposed bone (see below), tissue planes extend into RLE stump, and in many directions from opening, thin brown drainage continues) Wound/Incision: Yes: Dressing Dry and Intact (on R AKA stump; dressing on R ischial ulcer soaked with light and dark fluids), Dressing Removed (R ischium - changed with nursing assistance - repacked with betadine/saline dampened Kerlix roll with end placed into tunneled plane toward RLE, covered with ABD pad), Draining (R ischium - thin, brown drainage), Unapproximated (RLE AKA stump, dressed). No: Clean/Dry (R ischium - necrotic muscle and tissue in wound, bone edge palpable, no granulation tissue) Neurological: Yes: Pre-Existing Deficit (paraplegia), Unresponsive (to voice, does move some to painful stimuli). No: Alert Labs: CBC, BMP 09/28/17 06:10 09/28/17 06:10 CMP Sodium 139 mmol/L (136-145) 09/28/17 06:10 Potassium 3.5 mmol/L (3.5-5.1) 09/28/17 06:10 Chloride 104 mmol/L (98-107) 09/28/17 06:10 Carbon Dioxide 29 mmol/L (21-32) 09/28/17 06:10 Anion Gap 6 (8-16) L 09/28/17 06:10 BUN 8 mg/dL (7-18) 09/28/17 06:10 Creatinine 0.3 mg/dL (0.7-1.3) L 09/28/17 06:10 Creat Clearance w eGFR > 60 (>60) 09/28/17 06:10 Random Glucose 98 mg/dL (74-106) 09/28/17 06:10 Calcium 6.7 mg/dL (8.5-10.1) L* 09/28/17 06:10 Phosphorus 2.5 mg/dL (2.5-4.9) 09/28/17 06:10 Magnesium 2.0 mg/dL (1.8-2.4) D 09/28/17 06:10 Total Bilirubin 0.4 mg/dL (0.2-1.0) 09/28/17 06:10 AST 22 U/L (15-37) 09/28/17 06:10 ALT 11 U/L (12-78) L 09/28/17 06:10 Alkaline Phosphatase 129 U/L (45-117) H 09/28/17 06:10 Total Protein 4.5 g/dl (6.4-8.2) L 09/28/17 06:10 Albumin 1.1 g/dl (3.4-5.0) L 09/28/17 06:10 Prealbumin 3.25 mg/dl (20-40) L 09/26/17 05:35 Microbiology 09/22/17 06:35 Blood - Tara Cath Blood Culture - Final NO GROWTH AFTER 5 DAYS INCUBATION 09/22/17 06:35 Blood - Tara Cath Blood Culture - Final NO GROWTH AFTER 5 DAYS INCUBATION 09/23/17 15:10 Tissue-Other Gram Stain - Final 09/23/17 15:10 Tissue-Other Tissue Culture - Final NO GROWTH OF AEROBIC ORGANISMS AFTER 48 HOURS INCUBATION 09/23/17 15:10 Tissue-Other Anaerobic Culture - Final 09/20/17 14:20 Back Gram Stain - Final 09/20/17 14:20 Back Wound Culture - Final Escherichia Coli Staphylococcus Coagulase Neg Diphtheroid/Corynebacterium Enterococcus Faecalis 09/21/17 Unknown Leg - Right Upper Gram Stain - Final 09/21/17 Unknown Leg - Right Upper Wound Culture - Final Escherichia Coli Mr S Aureus 09/20/17 14:20 Blood - Peripheral Venous Blood Culture - Final Mr S Aureus 09/20/17 14:20 Blood - Peripheral Venous Blood Culture - Final Mr S Aureus 09/21/17 08:30 Urine - Urine River Urine Culture - Final Yeast Like Organism 09/20/17 14:20 Nasopharyngeal Swab Influenza Types A,B Antigen (ABNER) - Final 09/20/17 14:20 Nasopharyngeal Swab - Final - ....Imaging Chest X-ray: Report Reviewed (ETT near trisha, bilateral pleural and pulmonary changes - stable since prior film) Problem List - Problems (1) Septic shock due to methicillin resistant Staphylococcus aureus Assessment/Plan: Pt remains on levophed bacteremic with MRSA IV hydration and CVP monitoring strict I/O's continue antibiotics per ID ICU supportive care source is R ischial decubitus and pelvic gas gangrene ortho consult noted for complete/definitive source control, pt would likely need transfer to tertiary facility with ortho plastics or ortho trauma specialist available, when stable given medical comorbidities and metastatic lung CA, overall prognosis is poor, with or without further intervention Code(s): A41.02 - SEPSIS DUE TO METHICILLIN RESISTANT STAPHYLOCOCCUS AUREUS; R65.21 - SEVERE SEPSIS WITH SEPTIC SHOCK (2) Right ischial pressure sore, stage 4 Assessment/Plan: Necrotizing infection with gas gangrene, source of gas gangrene extending into RLE s/p R guillotine AKA R ischial ulcer being packed daily with betadine/saline Kerlix gauze, including reachable tracts continue dressing changes continue antibiotics per ID turn and position pt frequently to minimize pressure points Code(s): L89.314 - PRESSURE ULCER OF RIGHT BUTTOCK, STAGE 4 (3) Gas gangrene of pelvis Assessment/Plan: s/p R guillotine AKA extensive debridement into pelvis/hip area outside of scope of general surgery without ortho plastics or ortho trauma specialist continuing supportive treatment and dressing changes as able antibiotics per ID Code(s): A48.0 - GAS GANGRENE (4) Gas gangrene of lower extremity Assessment/Plan: POD 7/5 s/p R guillotine AKA and return to OR for washout/pulse irrigation of stump and R ischial decub/removal of port/insertion of CVC upper thigh likely still with affected tissues posteriorly tracking up into R ischial region, at least one open plane connects these two wounds stump being dressed with betadine/saline Kerlix, covered with ABD pads, Kerlix, Joey wrap and Coban done yesterday, will do again tomorrow edema decreased continue supportive care per ICU continue antibiotics per ID Code(s): A48.0 - GAS GANGRENE (5) Above knee amputation of right lower extremity Code(s): Z89.611 - ACQUIRED ABSENCE OF RIGHT LEG ABOVE KNEE (6) Anemia Assessment/Plan: Epogen started Code(s): D64.9 - ANEMIA, UNSPECIFIED Qualifiers: Anemia type: unspecified type Qualified Code(s): D64.9 - Anemia, unspecified (7) Lung cancer metastatic to bone Code(s): C34.90 - MALIGNANT NEOPLASM OF UNSP PART OF UNSP BRONCHUS OR LUNG; C79.51 - SECONDARY MALIGNANT NEOPLASM OF BONE (8) Paraplegia Code(s): G82.20 - PARAPLEGIA, UNSPECIFIED (9) Refusal of blood transfusions as patient is Denominational Code(s): Z53.1 - PROC/TRTMT NOT CRD OUT BEC PT BELIEF AND GROUP PRESSURE Assessment/Plan This patient is critically ill with life-threatening illness. Time spent reviewing chart, examining patient, talking with providers and/or family and documentation is 45 minutes
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
[2017-09-28] MEDS: VASOPRESSIN 50 UNITS in SODIUM CHLORIDE 97.5 ML IVPB SCH (15:25)
[2017-09-28] MEDS: SODIUM CHLORIDE 1,000 ML IV SCH (16:15)
[2017-09-28] MEDS: AMINO ACIDS/PROTEIN HYDROLYS 30 ML LIQUID.PKT PO SCH (17:05)
[2017-09-28] MEDS ORDERED: NOREPINEPHRINE BITARTRATE 4 MG/4 ML ML IV ONE ×2 (21:58→22:25)
[2017-09-28] MEDS: NOREPINEPHRINE BITARTRATE 4,000 MCG in SODIUM CHLORIDE 496 ML IV SCH (22:12)
[2017-09-28] MEDS: CHLORHEXIDINE GLUCONATE 4% CLEANSER FOR DECOLONIZATION TP SCH (22:14)
[2017-09-29] MEDS ORDERED: fentaNYL CITRATE 250 MCG/5 ML VIAL ONE ×3 (06:12→22:15)
[2017-09-29] MEDS: AMIODARONE HCL 200 MG TABLET (FP) NGT SCH (09:12)
[2017-09-29] MEDS: FOLIC ACID 1 MG TABLET (FP) PO SCH (09:12)
[2017-09-29] MEDS: FAMOTIDINE 20 MG/50 ML IVPB 20 MG/50 ML MG IVPB SCH ×2 (09:12→21:37)
[2017-09-29] MEDS: CHLORHEXIDINE GLUCONATE 0.12% 15ML CUP MM SCH ×2 (09:12→21:37)
[2017-09-29] MEDS: CEFTRIAXONE IN IS-OSM DEXTROSE 2 GM/50 ML BAG IVPB SCH (09:39)
[2017-09-29] MEDS: PROPOFOL 1,000,000 MCG/100 ML VIAL IVPB SCH ×4 (09:40→18:49)
[2017-09-29] MEDS ORDERED: IRON SUCROSE INJECTION 100 MG in SODIUM CHLORIDE 95 ML IVPB ONE (10:35)
[2017-09-29] MEDS: EPOETIN ALFA 10,000 UNIT/1 ML VIAL SQ SCH (10:43)
[2017-09-29] MEDS: VANCOMYCIN 1,500 MG in DEXTROSE 5%-WATER - 500 ML IVPB SCH (11:31)
--- NOTE | 2017-09-29 12:01 | PN ---
Progress Note, Physician History of Present Illness: Intubated sedated on ventilator Afebrile WBC WNL - Current Medication List Current Medications: Active Medications Amino Acids (Prosource No Carb Liquid Pkt) 30 ml PO DAILY@1730 [facility] Last Admin: 09/28/17 17:05 Dose: 30 ml Amiodarone HCl (Cordarone -) 200 mg NGT DAILY [facility] Last Admin: 09/29/17 09:12 Dose: 200 mg Chlorhexidine Gluconate (Hibiclens For Decolonization -) 1 applic TP HS [facility] Last Admin: 09/28/17 22:14 Dose: 1 applic Chlorhexidine Gluconate (Peridex -) 15 ml MM BID [facility] Last Admin: 09/29/17 09:12 Dose: 15 ml Cyanocobalamin (Vitamin B12 Injection -) 1,000 mcg IM Q7D@1000 [facility] Epoetin Memo (Procrit -) 20,000 unit SQ DAILY [facility] Last Admin: 09/29/17 10:43 Dose: 20,000 unit Folic Acid (Folic Acid -) 1 mg PO DAILY [facility] Last Admin: 09/29/17 09:12 Dose: 1 mg Propofol (Diprivan -) 1,000,000 mcg in 100 mls @ 3.205 mls/hr IVPB TITR [facility]; 5 MCG/KG/MIN PRN Reason: Protocol Last Admin: 09/29/17 09:40 Dose: 42.11 mcg/kg/min, 27 mls/hr Vasopressin 50 units/ Sodium (Chloride) 100 mls @ 4 mls/hr IVPB TITR [facility]; 2 UNITS/HR PRN Reason: Protocol Last Admin: 09/28/17 15:25 Dose: Not Given Sodium Chloride (Normal Saline -) 1,000 mls @ 150 mls/hr IV ASDIR [facility] Last Admin: 09/28/17 16:15 Dose: 150 mls/hr Norepinephrine Bitartrate 4, (000 mcg/ Sodium Chloride) 500 mls @ 37.5 mls/hr IV TITR [facility]; 5 MCG/MIN PRN Reason: Protocol Last Admin: 09/28/17 22:12 Dose: Not Given Fentanyl 500 mcg/ Sodium (Chloride) 100 mls @ 10 mls/hr IVPB TITR [facility]; 50 MCG/ HR PRN Reason: Protocol Last Admin: 09/28/17 19:00 Dose: Not Given CEFTRIAXONE IN IS-OSM DEXTROSE (Ceftriaxone 2 Gm-D5w Bag) 2 gm in 50 mls @ 100 mls/hr IVPB DAILY [facility] Last Admin: 09/29/17 09:39 Dose: 100 mls/hr Famotidine/Sodium Chloride (Pepcid 20 Mg Premixed Ivpb -) 20 mg in 50 mls @ 100 mls/hr IVPB BID [facility] Last Admin: 09/29/17 09:12 Dose: 100 mls/hr Metronidazole (Flagyl 500mg Premixed Ivpb -) 500 mg in 100 mls @ 100 mls/hr IVPB Q8H-IV [facility] Last Admin: 09/29/17 09:39 Dose: 100 mls/hr - Objective Vital Signs: Vital Signs Temperature 97.6 F 09/29/17 10:00 Pulse Rate 92 H 09/29/17 10:00 Respiratory Rate 12 09/29/17 11:56 Blood Pressure 121/72 09/29/17 10:00 O2 Sat by Pulse Oximetry (%) 100 09/29/17 09:06 Constitutional: Yes: No Distress Eyes: Yes: Conjunctiva Clear Cardiovascular: Yes: Regular Rate and Rhythm, S1, S2 Respiratory: Yes: Mechanically Ventilated Gastrointestinal: Yes: Normal Bowel Sounds, Soft. No: Tenderness Extremities: Yes: Other (surgical dressing in place R LE stump) Labs: CBC, BMP 09/28/17 06:10 09/28/17 06:10 INR, PTT INR 1.37 (0.82-1.09) H 09/26/17 05:35 Fibrinogen 452.0 mg/dL (238-498) 09/26/17 05:35 Assessment/Plan Respiratory failure Sepsis MRSA bacteremia S/P R LE amputation Metastatic ca Paraplegia Will hold vancomycin, check level am Continue ceftriaxone/ flagyl
--- NOTE | 2017-09-29 12:10 | PN ---
Progress Note, Physician History of Present Illness: Pt is intubated, on Fentanyl Drip, sedated. Pt was seen and examined in ICU in AM. - Current Medication List Current Medications: Active Medications Amino Acids (Prosource No Carb Liquid Pkt) 30 ml PO DAILY@1730 [facility] Last Admin: 09/28/17 17:05 Dose: 30 ml Amiodarone HCl (Cordarone -) 200 mg NGT DAILY [facility] Last Admin: 09/29/17 09:12 Dose: 200 mg Chlorhexidine Gluconate (Hibiclens For Decolonization -) 1 applic TP HS [facility] Last Admin: 09/28/17 22:14 Dose: 1 applic Chlorhexidine Gluconate (Peridex -) 15 ml MM BID [facility] Last Admin: 09/29/17 09:12 Dose: 15 ml Cyanocobalamin (Vitamin B12 Injection -) 1,000 mcg IM Q7D@1000 [facility] Epoetin Memo (Procrit -) 20,000 unit SQ DAILY [facility] Last Admin: 09/29/17 10:43 Dose: 20,000 unit Folic Acid (Folic Acid -) 1 mg PO DAILY [facility] Last Admin: 09/29/17 09:12 Dose: 1 mg Propofol (Diprivan -) 1,000,000 mcg in 100 mls @ 3.205 mls/hr IVPB TITR [facility]; 5 MCG/KG/MIN PRN Reason: Protocol Last Admin: 09/29/17 09:40 Dose: 42.11 mcg/kg/min, 27 mls/hr Vasopressin 50 units/ Sodium (Chloride) 100 mls @ 4 mls/hr IVPB TITR [facility]; 2 UNITS/HR PRN Reason: Protocol Last Admin: 09/28/17 15:25 Dose: Not Given Sodium Chloride (Normal Saline -) 1,000 mls @ 150 mls/hr IV ASDIR [facility] Last Admin: 09/28/17 16:15 Dose: 150 mls/hr Norepinephrine Bitartrate 4, (000 mcg/ Sodium Chloride) 500 mls @ 37.5 mls/hr IV TITR [facility]; 5 MCG/MIN PRN Reason: Protocol Last Admin: 09/28/17 22:12 Dose: Not Given Fentanyl 500 mcg/ Sodium (Chloride) 100 mls @ 10 mls/hr IVPB TITR [facility]; 50 MCG/ HR PRN Reason: Protocol Last Admin: 09/28/17 19:00 Dose: Not Given CEFTRIAXONE IN IS-OSM DEXTROSE (Ceftriaxone 2 Gm-D5w Bag) 2 gm in 50 mls @ 100 mls/hr IVPB DAILY [facility] Last Admin: 09/29/17 09:39 Dose: 100 mls/hr Famotidine/Sodium Chloride (Pepcid 20 Mg Premixed Ivpb -) 20 mg in 50 mls @ 100 mls/hr IVPB BID [facility] Last Admin: 09/29/17 09:12 Dose: 100 mls/hr Metronidazole (Flagyl 500mg Premixed Ivpb -) 500 mg in 100 mls @ 100 mls/hr IVPB Q8H-IV [facility] Last Admin: 09/29/17 09:39 Dose: 100 mls/hr - Objective Vital Signs: Vital Signs Temperature 97.5 F L 09/29/17 12:00 Pulse Rate 92 H 09/29/17 12:00 Respiratory Rate 15 09/29/17 12:00 Blood Pressure 120/68 09/29/17 12:00 O2 Sat by Pulse Oximetry (%) 100 09/29/17 09:06 Constitutional: Yes: No Distress, Calm Cardiovascular: Yes: Regular Rate and Rhythm, S1, S2 Respiratory: Yes: Regular, CTA Bilaterally Gastrointestinal: Yes: Normal Bowel Sounds, Soft. No: Palpable Mass Edema: No (left pretibial) Labs: CBC, BMP 09/28/17 06:10 09/28/17 06:10 INR, PTT INR 1.37 (0.82-1.09) H 09/26/17 05:35 Fibrinogen 452.0 mg/dL (238-498) 09/26/17 05:35 pending today labs Problem List - Problems (1) Septic shock Code(s): A41.9 - SEPSIS, UNSPECIFIED ORGANISM; R65.21 - SEVERE SEPSIS WITH SEPTIC SHOCK (2) Sepsis Code(s): A41.9 - SEPSIS, UNSPECIFIED ORGANISM Qualifiers: Sepsis type: sepsis due to unspecified organism Qualified Code(s): A41.9 - Sepsis, unspecified organism (3) Sacral decubitus ulcer, stage IV Code(s): L89.154 - PRESSURE ULCER OF SACRAL REGION, STAGE 4 (4) Atrial tachycardia Code(s): I47.1 - SUPRAVENTRICULAR TACHYCARDIA (5) Lactic acidosis Code(s): E87.2 - ACIDOSIS (6) Metastatic primary lung cancer Code(s): C34.90 - MALIGNANT NEOPLASM OF UNSP PART OF UNSP BRONCHUS OR LUNG Qualifiers: Laterality: unspecified laterality Qualified Code(s): C34.90 - Malignant neoplasm of unspecified part of unspecified bronchus or lung (7) Paraplegia Code(s): G82.20 - PARAPLEGIA, UNSPECIFIED (8) Bacteremia Code(s): R78.81 - BACTEREMIA (9) Gas gangrene of lower extremity Code(s): A48.0 - GAS GANGRENE (10) Above knee amputation of right lower extremity Code(s): Z89.611 - ACQUIRED ABSENCE OF RIGHT LEG ABOVE KNEE (11) Gram-positive bacteremia Code(s): R78.81 - BACTEREMIA (12) Anemia Code(s): D64.9 - ANEMIA, UNSPECIFIED Qualifiers: Anemia type: unspecified type Qualified Code(s): D64.9 - Anemia, unspecified (13) Thrombocytopenia Code(s): D69.6 - THROMBOCYTOPENIA, UNSPECIFIED (14) Hypomagnesemia Code(s): E83.42 - HYPOMAGNESEMIA (15) Hypophosphatemia Code(s): E83.39 - OTHER DISORDERS OF PHOSPHORUS METABOLISM (16) Hyponatremia Code(s): E87.1 - HYPO-OSMOLALITY AND HYPONATREMIA Assessment/Plan Admitted to ICU. Pt on Pressors (NE), off Vasopressin. Off IV Amiodarone, switched to PO. IV abtx- per ID Pulmonary/CCM, ID, Cardio, Onco, Surgery, Ortho, Renal consults appreciated. s/p emergency surgery 09/21/2017, s/p right AKA s/p OR on 09/23/2017 for reevaluation/ debridement/ removal of port-a-cath/ central line placement. Pt was started on TF via NGT. Vent management per CCM- AC mode. Wound care per Sx. Cont to monitor and replete electolytes. Improved Na+ level; continue to monitor Na+. H/H is trending down; pt is Jehova witness, no PRBC Tx; on Epogen and IV Iron. Case was d/w pt's nurse. AM labs. Prognosis: remains poor; pt's is aware. Time spent for managing pt's care: 40 minutes.
--- NOTE | 2017-09-29 12:28 | PN ---
Progress Note (short form) - Note Progress Note: Oncology follow-up Note S: Per RN, patient on low dose pressor, further down-titrated pressor last night , he seems to be improving. Last Vital Signs Temp Pulse Resp BP Pulse Ox 97.5 F L 92 H 15 120/68 100 09/29/17 12:00 09/29/17 12:00 09/29/17 12:00 09/29/17 12:00 09/29/17 09:06 O/E General: Intubated. Cor: RSR, No murmurs, No gallops Lungs: Clear to P&A Abd: Soft, Normal bowel sounds, No organomegaly Ext: in dressing. (rt amputated), left :chronic skin changes , with edema CBC, BMP 09/28/17 06:10 09/28/17 06:10 Current Medications Generic Name Dose Route Start Last Admin Trade Name Freq PRN Reason Stop Dose Admin Amino Acids 30 ml 09/27/17 17:30 09/28/17 17:05 Prosource No Carb Liquid Pkt PO 30 ml DAILY@1730 [facility] Administration Amiodarone HCl 200 mg 09/27/17 21:00 09/29/17 09:12 Cordarone - NGT 200 mg DAILY [facility] Administration Chlorhexidine Gluconate 1 applic 09/23/17 22:00 09/28/17 22:14 Hibiclens For Decolonization - TP 1 applic HS [facility] Administration Chlorhexidine Gluconate 15 ml 09/25/17 22:00 09/29/17 09:12 Peridex - MM 15 ml BID [facility] Administration Cyanocobalamin 1,000 mcg 10/04/17 10:00 Vitamin B12 Injection - IM Q7D@1000 [facility] Epoetin Memo 20,000 unit 09/28/17 10:28 09/29/17 10:43 Procrit - SQ 20,000 unit DAILY [facility] Administration Folic Acid 1 mg 09/24/17 10:00 09/29/17 09:12 Folic Acid - PO 1 mg DAILY [facility] Administration Propofol 1,000,000 mcg in 100 mls @ 3.205 mls/hr 09/23/17 15:25 09/29/17 09: 40 Diprivan - IVPB 42.11 mcg/kg/min TITR [facility] 27 mls/hr Protocol Administration 5 MCG/KG/MIN Vasopressin 50 units/ Sodium 100 mls @ 4 mls/hr 09/23/17 15:25 09/28/17 15:25 Chloride IVPB Not Given TITR [facility] Protocol 2 UNITS/HR Sodium Chloride 1,000 mls @ 150 mls/hr 09/24/17 16:15 09/28/17 16:15 Normal Saline - IV 150 mls/hr ASDIR [facility] Administration Norepinephrine Bitartrate 4, 500 mls @ 37.5 mls/hr 09/24/17 18:45 09/28/17 22 :12 000 mcg/ Sodium Chloride IV Not Given TITR [facility] Protocol 5 MCG/MIN Fentanyl 500 mcg/ Sodium 100 mls @ 10 mls/hr 09/24/17 18:45 09/28/17 19:00 Chloride IVPB Not Given TITR [facility] Protocol 50 MCG/HR CEFTRIAXONE IN IS-OSM DEXTROSE 2 gm in 50 mls @ 100 mls/hr 09/25/17 10:00 09:39 Ceftriaxone 2 Gm-D5w Bag IVPB 100 mls/hr DAILY [facility] Administration Famotidine/Sodium Chloride 20 mg in 50 mls @ 100 mls/hr 09/26/17 10:00 09:12 Pepcid 20 Mg Premixed Ivpb - IVPB 100 mls/hr BID [facility] Administration Metronidazole 500 mg in 100 mls @ 100 mls/hr 09/27/17 18:00 09/29/17 09:39 Flagyl 500mg Premixed Ivpb - IVPB 100 mls/hr Q8H-IV [facility] Administration Assessment/Plan: 62 y/o male with metastatic Lung Ca ( [place].Daniel [place] [facility] [place] at [place]. Had RT to rt. lung in 07/19, Most recent chemotherapy 09/19/17) Now admitted with : Septic shock MRSA bacteremia. gas gangrene of the RLE with sacral ulcer/decubitus Jehovah witness Anemia of chronic disease Thrombocytopenia from sepsis Bed bound from T8 paraplegia Intubated for epogen daily x5days for IV Iron daily x5days, replaced order for IV iron today, will order daily, day 3 today at bedside was explained yesterday that epogen and iron are to boost patients Hgb and she is agreeable with this plan check daily retic count to monitor response to treatment, ordered retic count to be checked today vitB12 weekly folate daily. abx per ID
[2017-09-29 13:16] LABS: ALK PHOS 117 U/L (45-117); ANION GAP 7 (8-16); BILIRUBIN,TOTAL 0.4 mg/dL (0.2-1.0); BLOOD UREA NITROGEN 10 mg/dL (7-18); CHLORIDE 105 mmol/L (98-107); CO2 28 mmol/L (21-32); CREATININE 0.3 mg/dL (0.7-1.3); GLUCOSE,RANDOM 165 mg/dL (74-106); POTASSIUM 3.5 mmol/L (3.5-5.1); SGOT/AST 20 U/L (15-37); SGPT/ALT 10 U/L (12-78); SODIUM 140 mmol/L (136-145); TOT PROT 4.3 g/dl (6.4-8.2)
[2017-09-29 13:23] LABS: CALCIUM 6.8 mg/dL (8.5-10.1)
--- NOTE | 2017-09-29 13:50 | PN ---
Progress Note, Physician History of Present Illness: Covering for Dr. 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 He was taken back 2 days later for removal of chemo port, placement of RIJ CVC and pulse irrigation of right ischium and RLE stump. He has been intubated since the first surgery, sedated in the ICU, on Fentanyl and Propofol drips. Has been on pressors - vasopressin off because of hyponatremia, still on levophed, now down to 3 mcg. Getting tube feeds at goal via NGT. On antibiotics for bacteremia ( MRSA) and necrotizing infection per ID. Not currently stable for transfer, but likely requires ortho plastic or ortho trauma specialist for definitive source control (as per ortho note) at tertiary care facility, as hip/pelvis/posterior upper thigh still with necrotic tissue and open planes. Overall prognosis is poor, pt is DNR/DNI (if extubated), and family is aware. Surgery is doing dressing changes on AKA stump and R ischium with betadine/saline Kerlix gauze. Pt is awake and denies pain. is not at bedside. Nursing staff assisted with R ischial and AKA stump dressing changes. - Current Medication List Current Medications: Active Medications Amino Acids (Prosource No Carb Liquid Pkt) 30 ml PO DAILY@1730 [facility] Last Admin: 09/28/17 17:05 Dose: 30 ml Amiodarone HCl (Cordarone -) 200 mg NGT DAILY [facility] Last Admin: 09/29/17 09:12 Dose: 200 mg Chlorhexidine Gluconate (Hibiclens For Decolonization -) 1 applic TP HS [facility] Last Admin: 09/28/17 22:14 Dose: 1 applic Chlorhexidine Gluconate (Peridex -) 15 ml MM BID [facility] Last Admin: 09/29/17 09:12 Dose: 15 ml Cyanocobalamin (Vitamin B12 Injection -) 1,000 mcg IM Q7D@1000 [facility] Epoetin Memo (Procrit -) 20,000 unit SQ DAILY [facility] Last Admin: 09/29/17 10:43 Dose: 20,000 unit Folic Acid (Folic Acid -) 1 mg PO DAILY [facility] Last Admin: 09/29/17 09:12 Dose: 1 mg Propofol (Diprivan -) 1,000,000 mcg in 100 mls @ 3.205 mls/hr IVPB TITR [facility]; 5 MCG/KG/MIN PRN Reason: Protocol Last Admin: 09/29/17 09:40 Dose: 42.11 mcg/kg/min, 27 mls/hr Vasopressin 50 units/ Sodium (Chloride) 100 mls @ 4 mls/hr IVPB TITR [facility]; 2 UNITS/HR PRN Reason: Protocol Last Admin: 09/28/17 15:25 Dose: Not Given Sodium Chloride (Normal Saline -) 1,000 mls @ 150 mls/hr IV ASDIR [facility] Last Admin: 09/28/17 16:15 Dose: 150 mls/hr Norepinephrine Bitartrate 4, (000 mcg/ Sodium Chloride) 500 mls @ 37.5 mls/hr IV TITR [facility]; 5 MCG/MIN PRN Reason: Protocol Last Admin: 09/28/17 22:12 Dose: Not Given Fentanyl 500 mcg/ Sodium (Chloride) 100 mls @ 10 mls/hr IVPB TITR [facility]; 50 MCG/ HR PRN Reason: Protocol Last Admin: 09/28/17 19:00 Dose: Not Given CEFTRIAXONE IN IS-OSM DEXTROSE (Ceftriaxone 2 Gm-D5w Bag) 2 gm in 50 mls @ 100 mls/hr IVPB DAILY [facility] Last Admin: 09/29/17 09:39 Dose: 100 mls/hr Famotidine/Sodium Chloride (Pepcid 20 Mg Premixed Ivpb -) 20 mg in 50 mls @ 100 mls/hr IVPB BID [facility] Last Admin: 09/29/17 09:12 Dose: 100 mls/hr Metronidazole (Flagyl 500mg Premixed Ivpb -) 500 mg in 100 mls @ 100 mls/hr IVPB Q8H-IV [facility] Last Admin: 09/29/17 09:39 Dose: 100 mls/hr - Objective Vital Signs: Vital Signs Temperature 97.5 F L 09/29/17 12:00 Pulse Rate 92 H 09/29/17 12:00 Respiratory Rate 15 09/29/17 12:00 Blood Pressure 120/68 09/29/17 12:00 O2 Sat by Pulse Oximetry (%) 100 09/29/17 09:06 Constitutional: Yes: Well Nourished, No Distress, Calm Eyes: Yes: Conjunctiva Clear, EOM Intact Respiratory: Yes: Intubated, Mechanically Ventilated Gastrointestinal: Yes: Soft, Abdomen, Obese ...Rectal Exam: Yes: Hemorrhoids/External, Other (flexiseal in place with liquid brown stool output) Genitourinary: Yes: River Present (light yellow urine). No: Hematuria Extremities: Yes: Amputation (R AKA guillotine), External Rotation (LLE) Edema: Yes (mild generalized) Integumentary: Yes: Incision (R AKA stump, dressed), Pressure Ulcer (midback with optifoam on; 2 small sacral stage 2, clean, VICENTA; R ischial stage 4, packed) Wound/Incision: Yes: Dressing Removed (from both sites and dressings redone), Draining (both ischial and stump wounds, thin, seropurulent, less dark fluid in back than yesterday; ischial wound repacked with betadine/saline Kerlix gauze, including tunneled planes toward RLE, covered with folded ABD pad), Unapproximated (R AKA stump - packing removed, still with some necrotic/pale muscle tissue and open planes by femur and posterolaterally, seropurulent drainage - repacked with betadine/saline Kerlix gauze, dressed with ABD pads, Kerlix and Joey wrap). No: Dressing Dry and Intact (stump dressing popped off, ischial dressing soaked with drainage), Reddened Neurological: Yes: Alert (awake, but sedated), Pre-Existing Deficit (paraplegic) , Other (responds somewhat to questions, yes/no) Labs: [facility] 09/29/17 12:49 retic count 4 CMP Sodium 140 mmol/L (136-145) 09/29/17 12:49 Potassium 3.5 mmol/L (3.5-5.1) 09/29/17 12:49 Chloride 105 mmol/L (98-107) 09/29/17 12:49 Carbon Dioxide 28 mmol/L (21-32) 09/29/17 12:49 Anion Gap 7 (8-16) L 09/29/17 12:49 BUN 10 mg/dL (7-18) D 09/29/17 12:49 Creatinine 0.3 mg/dL (0.7-1.3) L 09/29/17 12:49 Creat Clearance w eGFR > 60 (>60) 09/29/17 12:49 Random Glucose 165 mg/dL (74-106) H D 09/29/17 12:49 Calcium 6.8 mg/dL (8.5-10.1) L* 09/29/17 12:49 Total Bilirubin 0.4 mg/dL (0.2-1.0) 09/29/17 12:49 AST 20 U/L (15-37) 09/29/17 12:49 ALT 10 U/L (12-78) L 09/29/17 12:49 Alkaline Phosphatase 117 U/L (45-117) 09/29/17 12:49 Total Protein 4.3 g/dl (6.4-8.2) L 09/29/17 12:49 Albumin 1.0 g/dl (3.4-5.0) L 09/29/17 12:49 Problem List - Problems (1) Septic shock due to methicillin resistant Staphylococcus aureus Assessment/Plan: Pt on minimal levophed bacteremic with MRSA IV hydration and CVP monitoring strict I/O's continue antibiotics per ID ICU supportive care source is R ischial decubitus and pelvic gas gangrene ortho consult noted for complete/definitive source control, pt would likely need transfer to tertiary facility with ortho plastics or ortho trauma specialist available, when stable given medical comorbidities and metastatic lung CA, overall prognosis is poor, with or without further intervention Code(s): A41.02 - SEPSIS DUE TO METHICILLIN RESISTANT STAPHYLOCOCCUS AUREUS; R65.21 - SEVERE SEPSIS WITH SEPTIC SHOCK (2) Right ischial pressure sore, stage 4 Assessment/Plan: Necrotizing infection with gas gangrene, source of gas gangrene extending into RLE s/p R guillotine AKA R ischial ulcer being packed daily with betadine/saline Kerlix gauze, including reachable tracts continue dressing changes continue antibiotics per ID turn and position pt frequently to minimize pressure points Code(s): L89.314 - PRESSURE ULCER OF RIGHT BUTTOCK, STAGE 4 (3) Gas gangrene of pelvis Assessment/Plan: s/p R guillotine AKA extensive debridement into pelvis/hip area outside of scope of general surgery without ortho plastics or ortho trauma specialist continuing supportive treatment and dressing changes as able antibiotics per ID Code(s): A48.0 - GAS GANGRENE (4) Gas gangrene of lower extremity Assessment/Plan: POD 8/6 s/p R daya [place] and return to OR for washout/pulse irrigation of stump and R ischial decub/removal of port/insertion of CVC upper thigh likely still with affected tissues posteriorly tracking up into R ischial region, at least one open plane connects these two wounds stump redressed with betadine/saline Kerlix, covered with ABD pads, Kerlix, Joey wrap edema decreased continue supportive care per ICU continue antibiotics per ID Code(s): A48.0 - GAS GANGRENE (5) Above knee amputation of right lower extremity Code(s): Z89.611 - ACQUIRED ABSENCE OF RIGHT LEG ABOVE KNEE (6) Anemia Assessment/Plan: on Epogen and iron Code(s): D64.9 - ANEMIA, UNSPECIFIED Qualifiers: Anemia type: unspecified type Qualified Code(s): D64.9 - Anemia, unspecified (7) Lung cancer metastatic to bone Code(s): C34.90 - MALIGNANT NEOPLASM OF UNSP PART OF UNSP BRONCHUS OR LUNG; C79.51 - SECONDARY MALIGNANT NEOPLASM OF BONE (8) Paraplegia Code(s): G82.20 - PARAPLEGIA, UNSPECIFIED (9) Refusal of blood transfusions as patient is Jewish Code(s): Z53.1 - PROC/TRTMT NOT CRD OUT BEC PT BELIEF AND GROUP PRESSURE
[2017-09-29] MEDS: FENTANYL INJECTION 500 MCG in SODIUM CHLORIDE 90 ML IVPB SCH ×2 (14:35→18:45)
[2017-09-29] MEDS: VASOPRESSIN 50 UNITS in SODIUM CHLORIDE 97.5 ML IVPB SCH (15:25)
[2017-09-29 15:34] LABS: HEMATOCRIT 22.9 % (35.4-49); HEMOGLOBIN 7.4 GM/dL (11.7-16.9); MCH 28.7 pg (25.7-33.7); MCHC 32.5 g/dl (32.0-35.9); MEAN CELL VOLUME 88.3 fl (80-96); MEAN PLT VOLUME 9.1 fl (7.5-11.1); PLATELET COUNT 208 K/MM3 (134-434); RBC 2.59 M/mm3 (4.00-5.60); RDW 22.3 % (11.9-15.9); WHITE BLOOD COUNT 5.9 K/mm3 (4.0-10.0)
[2017-09-29] MEDS: SODIUM CHLORIDE 1,000 ML IV SCH (16:15)
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
[2017-09-29] MEDS: AMINO ACIDS/PROTEIN HYDROLYS 30 ML LIQUID.PKT PO SCH (17:20)
[2017-09-29] MEDS: NOREPINEPHRINE BITARTRATE 4,000 MCG in SODIUM CHLORIDE 496 ML IV SCH (18:45)
[2017-09-29] MEDS: CHLORHEXIDINE GLUCONATE 4% CLEANSER FOR DECOLONIZATION TP SCH (21:37)
[2017-09-30 06:05] LABS: HEMATOCRIT 22.2 % (35.4-49); HEMOGLOBIN 7.3 GM/dL (11.7-16.9); MCH 28.8 pg (25.7-33.7); MCHC 32.8 g/dl (32.0-35.9); MEAN CELL VOLUME 87.8 fl (80-96); MEAN PLT VOLUME 8.7 fl (7.5-11.1); PLATELET COUNT 218 K/MM3 (134-434); RBC 2.53 M/mm3 (4.00-5.60); RDW 22.2 % (11.9-15.9)
[2017-09-30 06:57] LABS: ALK PHOS 116 U/L (45-117); ANION GAP 4 (8-16); BILIRUBIN,TOTAL 0.4 mg/dL (0.2-1.0); BLOOD UREA NITROGEN 11 mg/dL (7-18); CHLORIDE 109 mmol/L (98-107); CO2 30 mmol/L (21-32); CREATININE 0.3 mg/dL (0.7-1.3); GLUCOSE,RANDOM 107 mg/dL (74-106); MAGNESIUM 1.6 mg/dL (1.8-2.4); PHOSPHOROUS 2.3 mg/dL (2.5-4.9); POTASSIUM 3.6 mmol/L (3.5-5.1); SGOT/AST 18 U/L (15-37); SGPT/ALT 10 U/L (12-78); SODIUM 143 mmol/L (136-145); TOT PROT 4.4 g/dl (6.4-8.2)
[2017-09-30 07:22] LABS: CALCIUM 6.7 mg/dL (8.5-10.1)
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
[2017-09-30] MEDS ORDERED: MAGNESIUM SULF 50% (8.12 MEQ/2 ML-1 GM VIAL) IVPB ONE ×2 (07:28→10:33)
--- NOTE | 2017-09-30 07:34 | PN ---
Progress Note (short form) - Note Progress Note: ID Multiorgan failure with pressort support Septic shock Antibiotics Ceftriaxone Metronidazole Vancomycin Selected Entries 09/30/17 09/30/17 06:00 07:09 Temperature 98.2 F Pulse Rate 96 H Respiratory 14 Rate Blood Pressure 133/91 Intubated with extensive sacral ischial and leg wounds as per surgery note yesterday Microbiology Thoracic paraplegia 09/23/17 15:10 Tissue-Other Gram Stain - Final 09/23/17 15:10 Tissue-Other Anaerobic Culture - Final NO GROWTH OF AEROBIC ORGANISMS AFTER 48 HOURS INCUBATION 09/22/17 06:35 Blood - Tara Cath Blood Culture - Final NO GROWTH AFTER 5 DAYS INCUBATION 09/22/17 06:35 Blood - Tara Cath Blood Culture - Final NO GROWTH AFTER 5 DAYS INCUBATION Laboratory Tests 09/30/17 09/30/17 09/30/17 05:10 05:10 05:10 WBC 6.0 Hgb 7.3 L Hct 22.2 L Plt Count 218 BUN 11 Creatinine 0.3 L Total Bilirubin 0.4 AST 18 ALT 10 L Alkaline Phosphatase 116 Random Vancomycin 18.850 Assessment Metastatic lung cancer Gas gangrene with extensive tracking wounds sacrum ischial leg MRSA bacteremia Thoracic paraplegia Plan To continue antibiotics as ordered Sharda ZAPATA
[2017-09-30] MEDS ORDERED: PT OWN MED DRAWER 7, Y5N ONE ×2 (09:00→13:55)
[2017-09-30] MEDS ORDERED: POTASSIUM PHOSPHATE 30 MM in DEXTROSE 5%-WATER - 250 ML IVPB ONE (09:00)
[2017-09-30] MEDS ORDERED: MAGNESIUM SULFATE IN WATER 2 GM/50 ML IVPB IVPB ONE ×2 (09:00→12:00)
[2017-09-30] MEDS: AMIODARONE HCL 200 MG TABLET (FP) NGT SCH (09:08)
[2017-09-30] MEDS: FOLIC ACID 1 MG TABLET (FP) PO SCH (09:08)
[2017-09-30] MEDS: CHLORHEXIDINE GLUCONATE 0.12% 15ML CUP MM SCH ×2 (09:09→22:05)
[2017-09-30] MEDS: FAMOTIDINE 20 MG/50 ML IVPB 20 MG/50 ML MG IVPB SCH ×2 (09:10→22:05)
[2017-09-30] MEDS: CEFTRIAXONE IN IS-OSM DEXTROSE 2 GM/50 ML BAG IVPB SCH (09:11)
--- NOTE | 2017-09-30 10:22 | PN ---
Progress Note, Physician Chief Complaint: gas gangrene sacurm and right leg History of Present Illness: 62yo male PMH Lung CA with mets to Skin, Heart, Spine, left eye; pt is under care of [facility] [place], were he is receiving Chemo( last chemo was last week on Saturday) via port-a-cath (than was changer last week. Presented with fever and weakness on 09/20. CT scan showed extensive gas gangrene of the right leg. He has been on vasopressor support since surgery, found to have MRSA bactermia, remains and intubated. - Current Medication List Current Medications: Active Medications Amino Acids (Prosource No Carb Liquid Pkt) 30 ml PO DAILY@1730 [facility] Last Admin: 09/29/17 17:20 Dose: 30 ml Amiodarone HCl (Cordarone -) 200 mg NGT DAILY [facility] Last Admin: 09/30/17 09:08 Dose: 200 mg Chlorhexidine Gluconate (Hibiclens For Decolonization -) 1 applic TP HS [facility] Last Admin: 09/29/17 21:37 Dose: 1 applic Chlorhexidine Gluconate (Peridex -) 15 ml MM BID [facility] Last Admin: 09/30/17 09:09 Dose: 15 ml Cyanocobalamin (Vitamin B12 Injection -) 1,000 mcg IM Q7D@1000 [facility] Epoetin Memo (Procrit -) 20,000 unit SQ DAILY [facility] Last Admin: 09/29/17 10:43 Dose: 20,000 unit Folic Acid (Folic Acid -) 1 mg PO DAILY [facility] Last Admin: 09/30/17 09:08 Dose: 1 mg Propofol (Diprivan -) 1,000,000 mcg in 100 mls @ 3.205 mls/hr IVPB TITR [facility]; 5 MCG/KG/MIN PRN Reason: Protocol Last Admin: 09/29/17 18:49 Dose: 42.11 mcg/kg/min, 27 mls/hr Vasopressin 50 units/ Sodium (Chloride) 100 mls @ 4 mls/hr IVPB TITR [facility]; 2 UNITS/HR PRN Reason: Protocol Last Admin: 09/29/17 15:25 Dose: Not Given Sodium Chloride (Normal Saline -) 1,000 mls @ 150 mls/hr IV ASDIR [facility] Last Admin: 09/29/17 16:15 Dose: 150 mls/hr Norepinephrine Bitartrate 4, (000 mcg/ Sodium Chloride) 500 mls @ 37.5 mls/hr IV TITR [facility]; 5 MCG/MIN PRN Reason: Protocol Last Admin: 09/29/17 18:45 Dose: Not Given Fentanyl 500 mcg/ Sodium (Chloride) 100 mls @ 10 mls/hr IVPB TITR [facility]; 50 MCG/ HR PRN Reason: Protocol Last Admin: 09/29/17 18:45 Dose: Not Given CEFTRIAXONE IN IS-OSM DEXTROSE (Ceftriaxone 2 Gm-D5w Bag) 2 gm in 50 mls @ 100 mls/hr IVPB DAILY [facility] Last Admin: 09/30/17 09:11 Dose: 100 mls/hr Famotidine/Sodium Chloride (Pepcid 20 Mg Premixed Ivpb -) 20 mg in 50 mls @ 100 mls/hr IVPB BID [facility] Last Admin: 09/30/17 09:10 Dose: 100 mls/hr Metronidazole (Flagyl 500mg Premixed Ivpb -) 500 mg in 100 mls @ 100 mls/hr IVPB Q8H-IV [facility] Last Admin: 09/30/17 09:10 Dose: 100 mls/hr Potassium Phosphate 30 mm/ (Dextrose) 260 mls @ 62.5 mls/hr IVPB ONCE ONE Stop: 09/30/17 13:09 - Objective Vital Signs: Vital Signs Temperature 98.2 F 09/30/17 06:00 Pulse Rate 96 H 09/30/17 06:00 Respiratory Rate 13 09/30/17 08:40 Blood Pressure 133/91 09/30/17 06:00 O2 Sat by Pulse Oximetry (%) 100 09/30/17 07:45 Constitutional: Yes: Well Nourished, No Distress, Calm Eyes: Yes: Conjunctiva Clear, EOM Intact HENT: Yes: Atraumatic, Normocephalic Neck: Yes: Supple, Trachea Midline Cardiovascular: Yes: Regular Rate and Rhythm, S1, S2. No: Murmur Respiratory: Yes: Regular, CTA Bilaterally, Intubated, Mechanically Ventilated Gastrointestinal: Yes: Normal Bowel Sounds, Soft. No: Tenderness ...Rectal Exam: Yes: Deferred Genitourinary: No: CVA Tenderness - Left, CVA Tenderness - Right Breast(s): No: Discharge from Nipple, Mass Musculoskeletal: Yes: Muscle Weakness (bilateral legs). No: Muscle Pain Extremities: Yes: Amputation (right AKA). No: Cool, Cyanosis Integumentary: No: Jaundice, Rash Wound/Incision: Yes: Clean/Dry Neurological: Yes: Alert, Oriented Psychiatric: Yes: Alert, Oriented, Agitated, Suicidal Ideation (expressing she to have care withdrawn) Labs: CBC, BMP 09/30/17 05:10 09/30/17 05:10 INR, PTT INR 1.37 (0.82-1.09) H 09/26/17 05:35 Fibrinogen 452.0 mg/dL (238-498) 09/26/17 05:35 Problem List - Problems (1) Septic shock Assessment/Plan: 62 yo male PMH Right leg gas gangrene (extending from upper sacrum to Knee) extending from a pelvic abscess and an infected decubitus ulcer seen on CT scan of of the pelvis and lower extremity. Patient is a CAODAISM and will not accept blood transfusion or blood products. He hemodynamically unstable BP 94/60 and HR 140, no pressors. POD#10/ s/p RLE Gaudencio SANCHES, Now toxic shock on vasopressors. ICU supportive care Broad spectrum IV antibiotics trend labs, correct electrolytes Local wound care - Daily bedside procedure Ethics discussion with family to discuss goals of care, consider family meeting regarding withdrawal of care Tube feeds titrate to goal Code(s): A41.9 - SEPSIS, UNSPECIFIED ORGANISM; R65.21 - SEVERE SEPSIS WITH SEPTIC SHOCK (2) Gas gangrene of lower extremity Code(s): A48.0 - GAS GANGRENE (3) Lung cancer metastatic to bone Code(s): C34.90 - MALIGNANT NEOPLASM OF UNSP PART OF UNSP BRONCHUS OR LUNG; C79.51 - SECONDARY MALIGNANT NEOPLASM OF BONE (4) Atrial tachycardia Code(s): I47.1 - SUPRAVENTRICULAR TACHYCARDIA (5) Gram-positive bacteremia Code(s): R78.81 - BACTEREMIA (6) Infected pressure ulcer Code(s): L89.90 - PRESSURE ULCER OF UNSPECIFIED SITE, UNSPECIFIED STAGE; L08.9 - LOCAL INFECTION OF THE SKIN AND SUBCUTANEOUS TISSUE, UNSP Qualifiers: Pressure ulcer stage: stage 4 Qualified Code(s): L89.94 - Pressure ulcer of unspecified site, stage 4; L08.9 - Local infection of the skin and subcutaneous tissue, unspecified; L08.9 - Local infection of the skin and subcutaneous tissue, unspecified
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
--- NOTE | 2017-09-30 12:10 | PN ---
Teaching Attending Note Name of Resident: Deepa Kelly ATTENDING PHYSICIAN STATEMENT I saw and evaluated the patient. I reviewed the resident's note and discussed the case with the resident. I agree with the resident's findings and plan as documented. SUBJECTIVE: Pt seen and examined in the ICU. Remains intubated, sedated on low dose levophed gtt. Vented on volume assist control with 40% FiO2. CVP 13 OBJECTIVE: Last Vital Signs Temp Pulse Resp BP Pulse Ox 98.2 F 96 H 13 133/91 100 09/30/17 06:00 09/30/17 06:00 09/30/17 08:40 09/30/17 06:00 09/30/17 07:45 Intake & Output 09/27/17 09/28/17 09/29/17 09/30/17 23:59 23:59 23:59 23:59 Intake Total 6767 7416.0 8438.0 3224 Output Total 3300 2250 1575 520 Balance 3467 5166.0 6863.0 2704 Weight 110.767 kg 114.305 kg 114.033 kg 114.487 kg Gen: intubated, sedated Heart: RRR Lung: scattered rhonchi Abd: soft, nontender Ext: R AKA, + edema CBC, BMP 09/30/17 05:10 09/30/17 05:10 Active Medications Amino Acids (Prosource No Carb Liquid Pkt) 30 ml PO DAILY@1730 [facility] Last Admin: 09/29/17 17:20 Dose: 30 ml Amiodarone HCl (Cordarone -) 200 mg NGT DAILY [facility] Last Admin: 09/30/17 09:08 Dose: 200 mg Chlorhexidine Gluconate (Hibiclens For Decolonization -) 1 applic TP HS [facility] Last Admin: 09/29/17 21:37 Dose: 1 applic Chlorhexidine Gluconate (Peridex -) 15 ml MM BID [facility] Last Admin: 09/30/17 09:09 Dose: 15 ml Cyanocobalamin (Vitamin B12 Injection -) 1,000 mcg IM Q7D@1000 [facility] Epoetin Memo (Procrit -) 20,000 unit SQ DAILY [facility] Last Admin: 09/29/17 10:43 Dose: 20,000 unit Folic Acid (Folic Acid -) 1 mg PO DAILY [facility] Last Admin: 09/30/17 09:08 Dose: 1 mg Propofol (Diprivan -) 1,000,000 mcg in 100 mls @ 3.205 mls/hr IVPB TITR [facility]; 5 MCG/KG/MIN PRN Reason: Protocol Last Admin: 09/29/17 18:49 Dose: 42.11 mcg/kg/min, 27 mls/hr Vasopressin 50 units/ Sodium (Chloride) 100 mls @ 4 mls/hr IVPB TITR [facility]; 2 UNITS/HR PRN Reason: Protocol Last Admin: 09/29/17 15:25 Dose: Not Given Sodium Chloride (Normal Saline -) 1,000 mls @ 150 mls/hr IV ASDIR [facility] Last Admin: 09/29/17 16:15 Dose: 150 mls/hr Norepinephrine Bitartrate 4, (000 mcg/ Sodium Chloride) 500 mls @ 37.5 mls/hr IV TITR [facility]; 5 MCG/MIN PRN Reason: Protocol Last Admin: 09/29/17 18:45 Dose: Not Given Fentanyl 500 mcg/ Sodium (Chloride) 100 mls @ 10 mls/hr IVPB TITR [facility]; 50 MCG/ HR PRN Reason: Protocol Last Admin: 09/29/17 18:45 Dose: Not Given CEFTRIAXONE IN IS-OSM DEXTROSE (Ceftriaxone 2 Gm-D5w Bag) 2 gm in 50 mls @ 100 mls/hr IVPB DAILY [facility] Last Admin: 09/30/17 09:11 Dose: 100 mls/hr Famotidine/Sodium Chloride (Pepcid 20 Mg Premixed Ivpb -) 20 mg in 50 mls @ 100 mls/hr IVPB BID [facility] Last Admin: 09/30/17 09:10 Dose: 100 mls/hr Metronidazole (Flagyl 500mg Premixed Ivpb -) 500 mg in 100 mls @ 100 mls/hr IVPB Q8H-IV [facility] Last Admin: 09/30/17 09:10 Dose: 100 mls/hr Potassium Phosphate 30 mm/ (Dextrose) 260 mls @ 62.5 mls/hr IVPB ONCE ONE Stop: 09/30/17 13:09 Last Admin: 09/30/17 11:03 Dose: 62.5 mls/hr MAGNESIUM SULFATE IN WATER (Magnesium Sulf 2 G/50 Ml Bag) 2 gm in 50 mls @ 50 mls/hr IVPB ONCE ONE Stop: 01/29/18 12:59 ASSESSMENT AND PLAN: Acute Hypoxic Respiratory Failure Infected Sacral Decubitus Ulcer s/p R AKA MRSA Bacteremia Septic Shock Lactic Acidosis Coagulopathy/Thrombocytopenia r/o DIC Metastatic Lung Ca Hyponatremia PSVT - continue antibiotics - d/c IVF - taper off levophed gtt, maintain MAP >65 - lasix 40mg BID today - monitor urine output, creatinine - amiodarone per cardiology - monitor lytes - no transfusions due to yazdanism observances - daily sedation vacations to assess mental status - spontaneous breathing trials as tolerated when mental status - enteral feeds - DVT/GI prophylaxis - continue ICU monitoring critical care time spent in reviewing chart, evaluating patient and formulating plan 35 min
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
[2017-09-30] MEDS: FUROSEMIDE 40 MG/4 ML INJECTABLE VIAL IVPUSH SCH (13:57)
[2017-09-30] MEDS ORDERED: fentaNYL CITRATE 250 MCG/5 ML VIAL ONE ×2 (14:55→21:53)
[2017-09-30] MEDS: FENTANYL INJECTION 500 MCG in SODIUM CHLORIDE 90 ML IVPB SCH ×2 (14:59→19:30)
--- NOTE | 2017-09-30 17:19 | PN ---
Progress Note (short form) - Note Progress Note: Patient requesting to be taken off ventilator. He is currently DNR/DNI. He is off sedation and indicated to his family at bedside(Shauna, family friend and voodoo lapping machine set up operator) that he does not to be weaned and wants to be placed on comfort care. He is awake, alert and states understanding that if he is taken off the ventilator that he will go into respiratory distress and may pass away. When the process of weaning over several days was explained with the goal of being able to safely be taken off the vent, he declined and said he wants to be taken off the ventilator tonight. Shauna asked him to give her time to discuss with his children, his sister and his mother tonight and plan for the terminal wean tomorrow. He accepted to wait until tomorrow.
[2017-09-30] MEDS: VASOPRESSIN 50 UNITS in SODIUM CHLORIDE 97.5 ML IVPB SCH (18:41)
[2017-09-30] MEDS: PROPOFOL 1,000,000 MCG/100 ML VIAL IVPB SCH (18:42)
[2017-09-30] MEDS: AMINO ACIDS/PROTEIN HYDROLYS 30 ML LIQUID.PKT PO SCH (18:42)
[2017-09-30] MEDS: NOREPINEPHRINE BITARTRATE 4,000 MCG in SODIUM CHLORIDE 496 ML IV SCH (19:29)
[2017-09-30] MEDS: EPOETIN ALFA 20,000 UNIT/1 ML VIAL SQ SCH ×2 (19:46→22:07)
[2017-09-30] MEDS: EPOETIN ALFA 10,000 UNIT/1 ML VIAL SQ SCH (19:46)
--- NOTE | 2017-09-30 20:57 | PN ---
Progress Note, Physician History of Present Illness: Pt is intubated, on Fentanyl Drip, sedated. Pt was seen and examined in ICU in AM and PM. - Current Medication List Current Medications: Active Medications Amino Acids (Prosource No Carb Liquid Pkt) 30 ml PO DAILY@1730 [facility] Last Admin: 09/30/17 18:42 Dose: 30 ml Amiodarone HCl (Cordarone -) 200 mg NGT DAILY [facility] Last Admin: 09/30/17 09:08 Dose: 200 mg Chlorhexidine Gluconate (Hibiclens For Decolonization -) 1 applic TP HS [facility] Last Admin: 09/29/17 21:37 Dose: 1 applic Chlorhexidine Gluconate (Peridex -) 15 ml MM BID [facility] Last Admin: 09/30/17 09:09 Dose: 15 ml Cyanocobalamin (Vitamin B12 Injection -) 1,000 mcg IM Q7D@1000 [facility] Epoetin Memo (Procrit -) 20,000 unit SQ DAILY [facility] Last Admin: 09/30/17 19:46 Dose: Not Given Folic Acid (Folic Acid -) 1 mg PO DAILY [facility] Last Admin: 09/30/17 09:08 Dose: 1 mg Furosemide (Lasix Injection -) 40 mg IVPUSH BID@0600,1400 [facility] Stop: 10/01/17 06:01 Last Admin: 09/30/17 13:57 Dose: 40 mg Propofol (Diprivan -) 1,000,000 mcg in 100 mls @ 3.205 mls/hr IVPB TITR [facility]; 5 MCG/KG/MIN PRN Reason: Protocol Last Admin: 09/30/17 18:42 Dose: 42.11 mcg/kg/min, 27 mls/hr Vasopressin 50 units/ Sodium (Chloride) 100 mls @ 4 mls/hr IVPB TITR [facility]; 2 UNITS/HR PRN Reason: Protocol Last Admin: 09/30/17 18:41 Dose: Not Given Norepinephrine Bitartrate 4, (000 mcg/ Sodium Chloride) 500 mls @ 37.5 mls/hr IV TITR [facility]; 5 MCG/MIN PRN Reason: Protocol Last Admin: 09/30/17 19:29 Dose: Not Given Fentanyl 500 mcg/ Sodium (Chloride) 100 mls @ 10 mls/hr IVPB TITR [facility]; 50 MCG/ HR PRN Reason: Protocol Last Admin: 09/30/17 19:30 Dose: Not Given CEFTRIAXONE IN IS-OSM DEXTROSE (Ceftriaxone 2 Gm-D5w Bag) 2 gm in 50 mls @ 100 mls/hr IVPB DAILY [facility] Last Admin: 09/30/17 09:11 Dose: 100 mls/hr Famotidine/Sodium Chloride (Pepcid 20 Mg Premixed Ivpb -) 20 mg in 50 mls @ 100 mls/hr IVPB BID [facility] Last Admin: 09/30/17 09:10 Dose: 100 mls/hr Metronidazole (Flagyl 500mg Premixed Ivpb -) 500 mg in 100 mls @ 100 mls/hr IVPB Q8H-IV [facility] Last Admin: 09/30/17 18:42 Dose: 100 mls/hr - Objective Vital Signs: Vital Signs Temperature 99.0 F 09/30/17 18:00 Pulse Rate 106 H 09/30/17 18:00 Respiratory Rate 18 09/30/17 19:08 Blood Pressure 117/66 09/30/17 19:29 O2 Sat by Pulse Oximetry (%) 100 09/30/17 07:45 Constitutional: Yes: No Distress, Calm Cardiovascular: Yes: Regular Rate and Rhythm, S1, S2 Respiratory: Yes: Regular, Other (bilaterally coarse BS) Gastrointestinal: Yes: Normal Bowel Sounds, Soft (+ BS), Other Extremities: Yes: Other (s/p AKA) Edema: LLE: 1+ Labs: CBC, BMP 09/30/17 05:10 09/30/17 05:10 INR, PTT INR 1.37 (0.82-1.09) H 09/26/17 05:35 Fibrinogen 452.0 mg/dL (238-498) 09/26/17 05:35 Problem List - Problems (1) Septic shock Code(s): A41.9 - SEPSIS, UNSPECIFIED ORGANISM; R65.21 - SEVERE SEPSIS WITH SEPTIC SHOCK (2) Sepsis Code(s): A41.9 - SEPSIS, UNSPECIFIED ORGANISM Qualifiers: Sepsis type: sepsis due to unspecified organism Qualified Code(s): A41.9 - Sepsis, unspecified organism (3) Sacral decubitus ulcer, stage IV Code(s): L89.154 - PRESSURE ULCER OF SACRAL REGION, STAGE 4 (4) Atrial tachycardia Code(s): I47.1 - SUPRAVENTRICULAR TACHYCARDIA (5) Lactic acidosis Code(s): E87.2 - ACIDOSIS (6) Metastatic primary lung cancer Code(s): C34.90 - MALIGNANT NEOPLASM OF UNSP PART OF UNSP BRONCHUS OR LUNG Qualifiers: Laterality: unspecified laterality Qualified Code(s): C34.90 - Malignant neoplasm of unspecified part of unspecified bronchus or lung (7) Paraplegia Code(s): G82.20 - PARAPLEGIA, UNSPECIFIED (8) Bacteremia Code(s): R78.81 - BACTEREMIA (9) Gas gangrene of lower extremity Code(s): A48.0 - GAS GANGRENE (10) Above knee amputation of right lower extremity Code(s): Z89.611 - ACQUIRED ABSENCE OF RIGHT LEG ABOVE KNEE (11) Gram-positive bacteremia Code(s): R78.81 - BACTEREMIA (12) Anemia Code(s): D64.9 - ANEMIA, UNSPECIFIED Qualifiers: Anemia type: unspecified type Qualified Code(s): D64.9 - Anemia, unspecified (13) Thrombocytopenia Code(s): D69.6 - THROMBOCYTOPENIA, UNSPECIFIED (14) Hypomagnesemia Code(s): E83.42 - HYPOMAGNESEMIA (15) Hypophosphatemia Code(s): E83.39 - OTHER DISORDERS OF PHOSPHORUS METABOLISM (16) Hyponatremia Code(s): E87.1 - HYPO-OSMOLALITY AND HYPONATREMIA Assessment/Plan Admitted to ICU. Pt on Pressors (NE), off Vasopressin; to try to taper off NE. Off IV Amiodarone, switched to PO, HR is better. IV abtx- per ID Pulmonary/CCM, ID, Cardio, Onco, Surgery, Ortho, Renal consults appreciated. s/p emergency surgery 09/21/2017, s/p right AKA s/p OR on 09/23/2017 for reevaluation/ debridement/ removal of port-a-cath/ central line placement. Pt was started on TF via NGT. Vent management per CCM- AC mode; weaning off per Pulmonary. Wound care per Sx. Cont to monitor and replete electolytes. Improved Na+ level; continue to monitor Na+. H/H is trending down; pt is Jehova witness, no PRBC Tx; on Epogen and IV Iron. Case was d/w pt's nurse. Pt's and request noted, it was discussed with Dr Tsai and Dr. Willard; to f/ u in AM AM labs. Prognosis: remains poor; pt's is aware. Time spent for managing pt's care: 40 minutes.
[2017-09-30] MEDS: CHLORHEXIDINE GLUCONATE 4% CLEANSER FOR DECOLONIZATION TP SCH (22:05)
[2017-10-01] MEDS: FUROSEMIDE 40 MG/4 ML INJECTABLE VIAL IVPUSH SCH (05:33)
[2017-10-01 06:23] LABS: BASO % 0.6 % (0-2.0); LYMPH % 5.5 % (8-40); MCH 29.3 pg (25.7-33.7); MCHC 32.8 g/dl (32.0-35.9); MEAN CELL VOLUME 89.4 fl (80-96); MEAN PLT VOLUME 8.7 fl (7.5-11.1); MONO % 9.1 % (3.8-10.2); NEUT % 83.8 % (42.8-82.8); PLATELET COUNT 209 K/MM3 (134-434); RBC 2.35 M/mm3 (4.00-5.60); RDW 22.1 % (11.9-15.9); WHITE BLOOD COUNT 7.3 K/mm3 (4.0-10.0)
[2017-10-01 06:38] LABS: HEMOGLOBIN 6.9 GM/dL (11.7-16.9)
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
[2017-10-01] MEDS: PROPOFOL 1,000,000 MCG/100 ML VIAL IVPB SCH (08:09)
--- NOTE | 2017-10-01 10:05 | PN ---
Progress Note, Physician History of Present Illness: Pt is intubated, alert and oriented. Pt w/o SOB, CP, palpitations, abd pain. He wants the ET tube out today. He remembers yesterday discussion with ICU doctors and his about removing ET tube and confirms his wish to remove ET tube today; he wants to wait for his family. Dr. Linn at bedside. Pt was seen and examined in ICU in AM and PM. - Current Medication List Current Medications: Active Medications Amino Acids (Prosource No Carb Liquid Pkt) 30 ml PO DAILY@1730 [facility] Last Admin: 09/30/17 18:42 Dose: 30 ml Amiodarone HCl (Cordarone -) 200 mg NGT DAILY [facility] Last Admin: 09/30/17 09:08 Dose: 200 mg Chlorhexidine Gluconate (Hibiclens For Decolonization -) 1 applic TP HS [facility] Last Admin: 09/30/17 22:05 Dose: 1 applic Chlorhexidine Gluconate (Peridex -) 15 ml MM BID [facility] Last Admin: 09/30/17 22:05 Dose: 15 ml Cyanocobalamin (Vitamin B12 Injection -) 1,000 mcg IM Q7D@1000 [facility] Epoetin Memo (Procrit -) 20,000 unit SQ DAILY [facility] Last Admin: 09/30/17 22:07 Dose: 20,000 unit Folic Acid (Folic Acid -) 1 mg PO DAILY [facility] Last Admin: 09/30/17 09:08 Dose: 1 mg Propofol (Diprivan -) 1,000,000 mcg in 100 mls @ 3.205 mls/hr IVPB TITR [facility]; 5 MCG/KG/MIN PRN Reason: Protocol Last Admin: 10/01/17 08:09 Dose: 49.13 mcg/kg/min, 31.497 mls/hr Vasopressin 50 units/ Sodium (Chloride) 100 mls @ 4 mls/hr IVPB TITR [facility]; 2 UNITS/HR PRN Reason: Protocol Last Admin: 09/30/17 18:41 Dose: Not Given Norepinephrine Bitartrate 4, (000 mcg/ Sodium Chloride) 500 mls @ 37.5 mls/hr IV TITR [facility]; 5 MCG/MIN PRN Reason: Protocol Last Admin: 09/30/17 19:29 Dose: Not Given Fentanyl 500 mcg/ Sodium (Chloride) 100 mls @ 10 mls/hr IVPB TITR [facility]; 50 MCG/ HR PRN Reason: Protocol Last Admin: 09/30/17 19:30 Dose: Not Given CEFTRIAXONE IN IS-OSM DEXTROSE (Ceftriaxone 2 Gm-D5w Bag) 2 gm in 50 mls @ 100 mls/hr IVPB DAILY [facility] Last Admin: 09/30/17 09:11 Dose: 100 mls/hr Famotidine/Sodium Chloride (Pepcid 20 Mg Premixed Ivpb -) 20 mg in 50 mls @ 100 mls/hr IVPB BID [facility] Last Admin: 09/30/17 22:05 Dose: 100 mls/hr Metronidazole (Flagyl 500mg Premixed Ivpb -) 500 mg in 100 mls @ 100 mls/hr IVPB Q8H-IV [facility] Last Admin: 10/01/17 02:00 Dose: 100 mls/hr - Objective Vital Signs: Vital Signs Temperature 99.8 F H 10/01/17 06:00 Pulse Rate 99 H 10/01/17 08:45 Respiratory Rate 12 10/01/17 08:45 Blood Pressure 96/64 10/01/17 08:00 O2 Sat by Pulse Oximetry (%) 100 10/01/17 08:45 Constitutional: Yes: No Distress, Calm, Other (pt is intubated; NGT is present; right side TLC is present.) Cardiovascular: Yes: Regular Rate and Rhythm, S1, S2 Respiratory: Yes: Regular, CTA Bilaterally. No: Rhonchi Gastrointestinal: Yes: Normal Bowel Sounds, Soft, Other (rectal tube is present (draining soft/liquid stool)). No: Tenderness Extremities: Yes: Other (right AKA) Edema: LLE: 1+ Neurological: Yes: Alert Labs: CBC, BMP 10/01/17 05:25 INR, PTT INR 1.37 (0.82-1.09) H 09/26/17 05:35 Fibrinogen 452.0 mg/dL (238-498) 09/26/17 05:35 Problem List - Problems (1) Septic shock Code(s): A41.9 - SEPSIS, UNSPECIFIED ORGANISM; R65.21 - SEVERE SEPSIS WITH SEPTIC SHOCK (2) Sepsis Code(s): A41.9 - SEPSIS, UNSPECIFIED ORGANISM Qualifiers: Sepsis type: sepsis due to unspecified organism Qualified Code(s): A41.9 - Sepsis, unspecified organism (3) Sacral decubitus ulcer, stage IV Code(s): L89.154 - PRESSURE ULCER OF SACRAL REGION, STAGE 4 (4) Atrial tachycardia Code(s): I47.1 - SUPRAVENTRICULAR TACHYCARDIA (5) Lactic acidosis Code(s): E87.2 - ACIDOSIS (6) Metastatic primary lung cancer Code(s): C34.90 - MALIGNANT NEOPLASM OF UNSP PART OF UNSP BRONCHUS OR LUNG Qualifiers: Laterality: unspecified laterality Qualified Code(s): C34.90 - Malignant neoplasm of unspecified part of unspecified bronchus or lung (7) Paraplegia Code(s): G82.20 - PARAPLEGIA, UNSPECIFIED (8) Bacteremia Code(s): R78.81 - BACTEREMIA (9) Gas gangrene of lower extremity Code(s): A48.0 - GAS GANGRENE (10) Above knee amputation of right lower extremity Code(s): Z89.611 - ACQUIRED ABSENCE OF RIGHT LEG ABOVE KNEE (11) Gram-positive bacteremia Code(s): R78.81 - BACTEREMIA (12) Anemia Code(s): D64.9 - ANEMIA, UNSPECIFIED Qualifiers: Anemia type: unspecified type Qualified Code(s): D64.9 - Anemia, unspecified (13) Thrombocytopenia Code(s): D69.6 - THROMBOCYTOPENIA, UNSPECIFIED (14) Hypomagnesemia Code(s): E83.42 - HYPOMAGNESEMIA (15) Hypophosphatemia Code(s): E83.39 - OTHER DISORDERS OF PHOSPHORUS METABOLISM (16) Hyponatremia Code(s): E87.1 - HYPO-OSMOLALITY AND HYPONATREMIA Assessment/Plan Admitted to ICU. Pt is on low dose NE, off Vasopressin; to try to taper off NE. Off IV Amiodarone, switched to PO; HR is better. IV abtx- per ID Pulmonary/CCM, ID, Cardio, Onco, Surgery, Ortho, Renal consults appreciated. Pt is s/p emergency surgery 09/21/2017, s/p right AKA; s/p OR on 09/23/2017 for reevaluation/ debridement/ removal of port-a-cath/ central line placement. Pt was started on TF via NGT. Vent management per CCM- AC mode; weaning off per Pulmonary. Wound care per Sx. Cont to monitor and replete electolytes. Improved Na+ level; continue to monitor Na+. H/H is trending down; pt is Jehova witness, no PRBC Tx; on Epogen and IV Iron. Case was d/w pt's nurse. I explained to pt that his current condition/ stage of recovery might not allow him to breath on his own for a long period of time if ET tube is removed, and he would get tired and have trouble breathing, that can lead to distress but also more serious complications including ; pt signals that he understands , he confirms that wants ET tube removed today, and confirms his DNI and DNR status. Case was d/w Dr Leon. To wait for pt's family to arrive, as established yesterday. AM labs. Prognosis: remains poor; pt's is aware. Time spent for managing pt's care: 45 minutes.
--- NOTE | 2017-10-01 10:10 | PN ---
Progress Note, Physician Chief Complaint: gas gangrene sacurm and right leg History of Present Illness: 62yo male PMH Lung CA with mets to Skin, Heart, Spine, left eye; pt is under care of [facility], were he is receiving Chemo( last chemo was last week on Saturday) via port-a-cath (than was changer last week. Presented with fever and weakness on 09/20. CT scan showed extensive gas gangrene of the right leg. He has been on vasopressor support since surgery, found to have MRSA bactermia, now extubated on morphine drip. visting with family. - Current Medication List Current Medications: Active Medications Amino Acids (Prosource No Carb Liquid Pkt) 30 ml PO DAILY@1730 [facility] Last Admin: 09/30/17 18:42 Dose: 30 ml Amiodarone HCl (Cordarone -) 200 mg NGT DAILY [facility] Last Admin: 09/30/17 09:08 Dose: 200 mg Chlorhexidine Gluconate (Hibiclens For Decolonization -) 1 applic TP HS [facility] Last Admin: 09/30/17 22:05 Dose: 1 applic Chlorhexidine Gluconate (Peridex -) 15 ml MM BID [facility] Last Admin: 09/30/17 22:05 Dose: 15 ml Cyanocobalamin (Vitamin B12 Injection -) 1,000 mcg IM Q7D@1000 [facility] Epoetin Memo (Procrit -) 20,000 unit SQ DAILY [facility] Last Admin: 09/30/17 22:07 Dose: 20,000 unit Folic Acid (Folic Acid -) 1 mg PO DAILY [facility] Last Admin: 09/30/17 09:08 Dose: 1 mg Propofol (Diprivan -) 1,000,000 mcg in 100 mls @ 3.205 mls/hr IVPB TITR [facility]; 5 MCG/KG/MIN PRN Reason: Protocol Last Admin: 10/01/17 08:09 Dose: 49.13 mcg/kg/min, 31.497 mls/hr Vasopressin 50 units/ Sodium (Chloride) 100 mls @ 4 mls/hr IVPB TITR [facility]; 2 UNITS/HR PRN Reason: Protocol Last Admin: 09/30/17 18:41 Dose: Not Given Norepinephrine Bitartrate 4, (000 mcg/ Sodium Chloride) 500 mls @ 37.5 mls/hr IV TITR [facility]; 5 MCG/MIN PRN Reason: Protocol Last Admin: 09/30/17 19:29 Dose: Not Given Fentanyl 500 mcg/ Sodium (Chloride) 100 mls @ 10 mls/hr IVPB TITR [facility]; 50 MCG/ HR PRN Reason: Protocol Last Admin: 09/30/17 19:30 Dose: Not Given CEFTRIAXONE IN IS-OSM DEXTROSE (Ceftriaxone 2 Gm-D5w Bag) 2 gm in 50 mls @ 100 mls/hr IVPB DAILY [facility] Last Admin: 09/30/17 09:11 Dose: 100 mls/hr Famotidine/Sodium Chloride (Pepcid 20 Mg Premixed Ivpb -) 20 mg in 50 mls @ 100 mls/hr IVPB BID [facility] Last Admin: 09/30/17 22:05 Dose: 100 mls/hr Metronidazole (Flagyl 500mg Premixed Ivpb -) 500 mg in 100 mls @ 100 mls/hr IVPB Q8H-IV [facility] Last Admin: 10/01/17 02:00 Dose: 100 mls/hr - Objective Vital Signs: Vital Signs Temperature 99.8 F H 10/01/17 06:00 Pulse Rate 99 H 10/01/17 08:45 Respiratory Rate 12 10/01/17 08:45 Blood Pressure 96/64 10/01/17 08:00 O2 Sat by Pulse Oximetry (%) 100 10/01/17 08:45 Vital Signs Period Temp Pulse Resp BP Sys/Topete Pulse Ox Last 24 Hr 98.6 F-99.8 F 99-118 12-27 94-123/54-80 100-100 Intake & Output 09/30/17 10/01/17 10/01/17 23:59 07:59 15:59 Intake Total 100 1590 Output Total 50 550 Balance 50 1040 Weight 253 lb 6.4 oz Intake: IV 590 FENTANYL 120 PEPCID 20 MG PREMIXED 50 IVPB - 20 mg In 50 ml @ 100 mls/hr IVPB BID [facility] Rx#:[id number] PROPOFOL 420 Pitressin - 50 Units In 0 Normal Saline - 97.5 ml @ 2 UNITS/HR 4 mls/hr IVPB TITR [facility] Rx#:[id number] IVPB 100 Tube Feeding 660 Tube Irrigant 100 240 Output: Drainage 50 150 FLEXISEAL 50 150 Urine 400 River 400 Other: Voiding Method Indwelling Catheter Bowel Movement Yes Yes Weight Measurement Method Built in Bedscale Constitutional: Yes: Well Nourished, No Distress, Calm Eyes: Yes: Conjunctiva Clear, EOM Intact HENT: Yes: Atraumatic, Normocephalic Neck: Yes: Supple, Trachea Midline Respiratory: Yes: Regular, CTA Bilaterally Gastrointestinal: Yes: Normal Bowel Sounds, Soft. No: Tenderness Genitourinary: No: CVA Tenderness - Left, CVA Tenderness - Right Extremities: Yes: Amputation (Right AKA) Labs: CBC, BMP 10/01/17 05:25 INR, PTT INR 1.37 (0.82-1.09) H 09/26/17 05:35 Fibrinogen 452.0 mg/dL (238-498) 09/26/17 05:35 Problem List - Problems (1) Septic shock Assessment/Plan: 62 yo male PMH Right leg gas gangrene (extending from upper sacrum to Knee) extending from a pelvic abscess and an infected decubitus ulcer seen on CT scan of of the pelvis and lower extremity. Patient is a JUDAISM and will not accept blood transfusion or blood products. He hemodynamically unstable BP 94/60 and HR 140, no pressors. POD#10/7 s/p RLE Gaudencio SANCHES, Now toxic shock on vasopressors. ICU supportive care Broad spectrum IV antibiotics trend labs, correct electrolytes Local wound care - Daily bedside procedure Ethics discussion with family patient now on comfort care only Recall if surgery is needed This patient is critically ill. Time spent reviewing chart, examining patient, talking with providers and/or family and documentation is 35 minutes Code(s): A41.9 - SEPSIS, UNSPECIFIED ORGANISM; R65.21 - SEVERE SEPSIS WITH SEPTIC SHOCK (2) Gas gangrene of lower extremity Code(s): A48.0 - GAS GANGRENE (3) Lung cancer metastatic to bone Code(s): C34.90 - MALIGNANT NEOPLASM OF UNSP PART OF UNSP BRONCHUS OR LUNG; C79.51 - SECONDARY MALIGNANT NEOPLASM OF BONE (4) Atrial tachycardia Code(s): I47.1 - SUPRAVENTRICULAR TACHYCARDIA (5) Gram-positive bacteremia Code(s): R78.81 - BACTEREMIA (6) Infected pressure ulcer Code(s): L89.90 - PRESSURE ULCER OF UNSPECIFIED SITE, UNSPECIFIED STAGE; L08.9 - LOCAL INFECTION OF THE SKIN AND SUBCUTANEOUS TISSUE, UNSP Qualifiers: Pressure ulcer stage: stage 4 Qualified Code(s): L89.94 - Pressure ulcer of unspecified site, stage 4; L08.9 - Local infection of the skin and subcutaneous tissue, unspecified; L08.9 - Local infection of the skin and subcutaneous tissue, unspecified
--- NOTE | 2017-10-01 10:19 | PN ---
Progress Note (short form) - Note Progress Note: responsive no complaints remains intubated bedside dressing changes by surgery diarrhea- rectal tube placed Vital Signs Period Temp Pulse Resp BP Sys/Topete Pulse Ox Last 24 Hr 98.6 F-99.8 F 99-118 12-27 94-123/54-80 100-100 cor-rrr lungs decreased bs at bases abd soft,nt ext dressing right AKA shayna CBC, BMP 10/01/17 05:25 Laboratory Tests 09/30/17 05:10 Random Vancomycin 18.850 a/p sepsis pressors being tapered mrsa bacteremia gas gangrene of the RLE with sacral ulcer/decubitus s/p AKA 09/21 jehovahs witness-persistent anemia metastatic lung cancer cefrriaxone/flagyl to continue resume vancomycin at 1250mg ivpb bid Problem List - Problems (1) Sepsis Code(s): A41.9 - SEPSIS, UNSPECIFIED ORGANISM Qualifiers: Sepsis type: sepsis due to unspecified organism Qualified Code(s): A41.9 - Sepsis, unspecified organism (2) Gram-positive bacteremia Code(s): R78.81 - BACTEREMIA (3) Infected pressure ulcer Code(s): L89.90 - PRESSURE ULCER OF UNSPECIFIED SITE, UNSPECIFIED STAGE; L08.9 - LOCAL INFECTION OF THE SKIN AND SUBCUTANEOUS TISSUE, UNSP Qualifiers: Pressure ulcer stage: stage 4 Qualified Code(s): L89.94 - Pressure ulcer of unspecified site, stage 4; L08.9 - Local infection of the skin and subcutaneous tissue, unspecified; L08.9 - Local infection of the skin and subcutaneous tissue, unspecified (4) Atrial tachycardia Code(s): I47.1 - SUPRAVENTRICULAR TACHYCARDIA (5) Metastatic primary lung cancer Code(s): C34.90 - MALIGNANT NEOPLASM OF UNSP PART OF UNSP BRONCHUS OR LUNG Qualifiers: Laterality: unspecified laterality Qualified Code(s): C34.90 - Malignant neoplasm of unspecified part of unspecified bronchus or lung (6) Penicillin allergy Code(s): Z88.0 - ALLERGY STATUS TO PENICILLIN
[2017-10-01] MEDS ORDERED: PT OWN MED DRAWER 7, Y5N ONE (10:40)
[2017-10-01] MEDS: CEFTRIAXONE IN IS-OSM DEXTROSE 2 GM/50 ML BAG IVPB SCH (10:51)
[2017-10-01] MEDS: FOLIC ACID 1 MG TABLET (FP) PO SCH ×2 (10:51→10:59)
[2017-10-01] MEDS: FAMOTIDINE 20 MG/50 ML IVPB 20 MG/50 ML MG IVPB SCH (10:52)
[2017-10-01] MEDS: AMIODARONE HCL 200 MG TABLET (FP) NGT SCH (10:53)
[2017-10-01] MEDS: CHLORHEXIDINE GLUCONATE 0.12% 15ML CUP MM SCH (10:53)
[2017-10-01] MEDS ORDERED: FUROSEMIDE 40 MG/4 ML INJECTABLE VIAL IVPUSH ONE (11:15)
--- NOTE | 2017-10-01 11:19 | PN ---
Progress Note (short form) - Note Progress Note: I was called by the nurse Sary Emery to the patient room. He refused talking all medications that were scheduled for this morning, including Furosemide, antibiotics etc. He was informed about risk of denying medications and expressed understanding. Problem List - Problems (1) Above knee amputation of right lower extremity Code(s): Z89.611 - ACQUIRED ABSENCE OF RIGHT LEG ABOVE KNEE (2) Anemia Code(s): D64.9 - ANEMIA, UNSPECIFIED Qualifiers: Anemia type: unspecified type Qualified Code(s): D64.9 - Anemia, unspecified (3) Bacteremia Code(s): R78.81 - BACTEREMIA (4) Gas gangrene of lower extremity Code(s): A48.0 - GAS GANGRENE (5) Lung cancer metastatic to bone Code(s): C34.90 - MALIGNANT NEOPLASM OF UNSP PART OF UNSP BRONCHUS OR LUNG; C79.51 - SECONDARY MALIGNANT NEOPLASM OF BONE (6) Metastatic primary lung cancer Code(s): C34.90 - MALIGNANT NEOPLASM OF UNSP PART OF UNSP BRONCHUS OR LUNG Qualifiers: Laterality: unspecified laterality Qualified Code(s): C34.90 - Malignant neoplasm of unspecified part of unspecified bronchus or lung (7) Paraplegia Code(s): G82.20 - PARAPLEGIA, UNSPECIFIED (8) Septic shock Code(s): A41.9 - SEPSIS, UNSPECIFIED ORGANISM; R65.21 - SEVERE SEPSIS WITH SEPTIC SHOCK
[2017-10-01] MEDS ORDERED: VANCOMYCIN 1,250 MG in DEXTROSE 5%-WATER - 250 ML IVPB SCH (11:30)
[2017-10-01 11:44] LABS: ALBUMIN 1.2 g/dl (3.4-5.0); ALK PHOS 111 U/L (45-117); ANION GAP 6 (8-16); BILIRUBIN,TOTAL 0.4 mg/dL (0.2-1.0); BLOOD UREA NITROGEN 19 mg/dL (7-18); CALCIUM 7.1 mg/dL (8.5-10.1); CHLORIDE 110 mmol/L (98-107); CO2 28 mmol/L (21-32); CREATININE 0.6 mg/dL (0.7-1.3); GLUCOSE,RANDOM 105 mg/dL (74-106); MAGNESIUM 2.2 mg/dL (1.8-2.4); PHOSPHOROUS 3.6 mg/dL (2.5-4.9); POTASSIUM 3.9 mmol/L (3.5-5.1); SGOT/AST 19 U/L (15-37); SGPT/ALT 10 U/L (12-78); SODIUM 144 mmol/L (136-145); TOT PROT 4.6 g/dl (6.4-8.2)
--- NOTE | 2017-10-01 12:07 | PN ---
Teaching Attending Note Name of Resident: Deepa Kelly ATTENDING PHYSICIAN STATEMENT I saw and evaluated the patient. I reviewed the resident's note and discussed the case with the resident. I agree with the resident's findings and plan as documented. SUBJECTIVE: Pt seen and examined in the ICU. Events overnight noted, pt had expressed desire for compassionate extubation and comfort care. Seen this AM, awake alert confirming pt's wishes. Pt also currently declining further medications. OBJECTIVE: Last Vital Signs Temp Pulse Resp BP Pulse Ox 98.3 F 112 H 25 H 97/63 100 10/01/17 10:00 10/01/17 11:57 10/01/17 11:57 10/01/17 10:00 10/01/17 11:57 Intake & Output 09/28/17 09/29/17 09/30/17 10/01/17 23:59 23:59 23:59 23:59 Intake Total 7416.0 8438.0 4876 1590 Output Total 2250 1575 945 550 Balance 5166.0 6863.0 3931 1040 Weight 114.305 kg 114.033 kg 114.487 kg 114.94 kg Gen: intubated, awake Heart: tachycardic, regular Lung: scattered rhonchi Abd: soft, nontender Ext: + R AKA, + edema CBC, BMP 10/01/17 05:25 10/01/17 05:25 Active Medications Amino Acids (Prosource No Carb Liquid Pkt) 30 ml PO DAILY@1730 [facility] Last Admin: 09/30/17 18:42 Dose: 30 ml Amiodarone HCl (Cordarone -) 200 mg NGT DAILY [facility] Last Admin: 09/30/17 09:08 Dose: 200 mg Chlorhexidine Gluconate (Hibiclens For Decolonization -) 1 applic TP HS [facility] Last Admin: 09/30/17 22:05 Dose: 1 applic Chlorhexidine Gluconate (Peridex -) 15 ml MM BID [facility] Last Admin: 10/01/17 10:53 Dose: 15 ml Cyanocobalamin (Vitamin B12 Injection -) 1,000 mcg IM Q7D@1000 [facility] Epoetin Memo (Procrit -) 20,000 unit SQ DAILY [facility] Last Admin: 09/30/17 22:07 Dose: 20,000 unit Folic Acid (Folic Acid -) 1 mg PO DAILY [facility] Last Admin: 10/01/17 10:59 Dose: Not Given Propofol (Diprivan -) 1,000,000 mcg in 100 mls @ 3.205 mls/hr IVPB TITR [facility]; 5 MCG/KG/MIN PRN Reason: Protocol Last Admin: 10/01/17 08:09 Dose: 49.13 mcg/kg/min, 31.497 mls/hr Vasopressin 50 units/ Sodium (Chloride) 100 mls @ 4 mls/hr IVPB TITR [facility]; 2 UNITS/HR PRN Reason: Protocol Last Admin: 09/30/17 18:41 Dose: Not Given Norepinephrine Bitartrate 4, (000 mcg/ Sodium Chloride) 500 mls @ 37.5 mls/hr IV TITR [facility]; 5 MCG/MIN PRN Reason: Protocol Last Admin: 09/30/17 19:29 Dose: Not Given Fentanyl 500 mcg/ Sodium (Chloride) 100 mls @ 10 mls/hr IVPB TITR [facility]; 50 MCG/ HR PRN Reason: Protocol Last Admin: 09/30/17 19:30 Dose: Not Given CEFTRIAXONE IN IS-OSM DEXTROSE (Ceftriaxone 2 Gm-D5w Bag) 2 gm in 50 mls @ 100 mls/hr IVPB DAILY [facility] Last Admin: 09/30/17 09:11 Dose: 100 mls/hr Famotidine/Sodium Chloride (Pepcid 20 Mg Premixed Ivpb -) 20 mg in 50 mls @ 100 mls/hr IVPB BID [facility] Last Admin: 09/30/17 22:05 Dose: 100 mls/hr Metronidazole (Flagyl 500mg Premixed Ivpb -) 500 mg in 100 mls @ 100 mls/hr IVPB Q8H-IV [facility] Last Admin: 10/01/17 02:00 Dose: 100 mls/hr Vancomycin HCl 1,250 mg/ (Dextrose) 250 mls @ 125 mls/hr IVPB BID@0000,1200 [facility] PRN Reason: Protocol ASSESSMENT AND PLAN: Acute Hypoxic Respiratory Failure Infected Sacral Decubitus Ulcer s/p R AKA MRSA Bacteremia Septic Shock improving Lactic Acidosis resolved Coagulopathy/Thrombocytopenia Metastatic Lung Ca Hyponatremia PSVT - continue antibiotics - lasix if pt allows - off levophed gtt, maintain MAP >65 - monitor urine output, creatinine - amiodarone per cardiology - monitor lytes - no transfusions due to roman catholic observances - daily sedation vacations to assess mental status - spontaneous breathing trials as tolerated when mental status - enteral feeds - DVT/GI prophylaxis - continue ICU monitoring - continue discussions regarding goals of care, advanced directives critical care time spent in reviewing the chart, evaluating patient and formulating plan 35 min
[2017-10-01] MEDS ORDERED: MORPHINE SULFATE 10 MG/1 ML *VIAL IVPUSH ONE (12:19)
[2017-10-01] MEDS: MORPHINE 100 MG in SODIUM CHLORIDE 98 ML IVPB SCH (12:34)
[2017-10-01] MEDS ORDERED: ACETAMINOPHEN 1000 MG/100 ML VIAL (NON FORMULARY) IVPB PRN (14:40)
[2017-10-01] MEDS: LORazepam 2 MG/ML SDV VIAL IVPUSH PRN (18:57)
[2017-10-02] MEDS: MORPHINE 100 MG in SODIUM CHLORIDE 98 ML IVPB SCH (01:06)
--- NOTE | 2017-10-02 06:56 | PN ---
Progress Note (short form) - Note Progress Note: ID Apparently patient has expressed his wishes to have nothing further onde and refusing treatment including antibiotics Extubated Tachypneic tachycardic responsive to verbal stimuli Selected Entries 10/01/17 22:00 Temperature 98.3 F Pulse Rate 113 H Respiratory 21 Rate Blood Pressure 105/67 Laboratory Tests 10/01/17 10/01/17 05:25 05:25 WBC 7.3 Hgb 6.9 L* Hct 21.0 L Plt Count 209 BUN 19 H D Assessment End of life care on morphine drip Plan Comfort care Sharda ZAPATA
[2017-10-02] MEDS: LORazepam 2 MG/ML SDV VIAL IVPUSH PRN (07:29)
[2017-10-02] MEDS ORDERED: SODIUM CHLORIDE 1,000 ML IV SCH (08:00)
--- NOTE | 2017-10-02 09:45 | PN ---
Physical Exam: SUBJECTIVE: Patient seen and examined. Was extubated yesterday and is now on NC- 2L, and morphine drip with intermittent ativan. OBJECTIVE: Vital Signs Period Temp Pulse Resp BP Sys/Topete Pulse Ox Last 24 Hr 97.9 F-99.4 F 105-122 18-32 89-107/50-74 95-100 Vital Signs Temp 99 F 10/02/17 06:00 Pulse 112 H 10/02/17 08:00 Resp 25 H 10/02/17 09:00 BP 102/54 10/02/17 08:00 Pulse Ox 96 10/02/17 09:00 Intake & Output 09/29/17 09/30/17 10/01/17 10/02/17 23:59 23:59 23:59 23:59 Intake Total 8438.0 4876 1622 64 Output Total 1575 797 938 7185 Balance 6863.0 3931 822 -1936 Weight 114.033 kg 114.487 kg 114.94 kg 117.14 kg GENERAL: The patient is sedated. HEAD: Normal with no signs of trauma. ENT: NC-2L NECK: supple. LUNGS: tachypneic, transmitted Breath sounds bilaterally, creps and rhonchi R>L HEART: tachycardic, S1, S2 ABDOMEN: Obese, normoactive bowel sounds, enlarged scrotum, corral catheter in place EXTREMITIES: AKA on R, stump dressing dry NEUROLOGICAL: extubated, and sedated Lines: NGT, ETT, Corral, rectal tube, RIJ Laboratory Results - last 24 hr 10/01/17 10/01/17 05:25 11:14 Sodium 144 Potassium 3.9 Chloride 110 H Carbon Dioxide 28 Anion Gap 6 L BUN 19 H D Creatinine 0.6 L D Creat Clearance w eGFR > 60 Random Glucose 105 Calcium 7.1 L Phosphorus 3.6 D Magnesium 2.2 D Total Bilirubin 0.4 AST 19 ALT 10 L Alkaline Phosphatase 111 Total Protein 4.6 L Albumin 1.2 L Random Vancomycin 10.819 Active Medications Generic Name Dose Route Start Last Admin Trade Name Freq PRN Reason Stop Dose Admin Acetaminophen 1,000 mg 10/01/17 14:40 Ofirmev Injection - IVPB Q6H PRN PAIN Morphine Sulfate 100 mg/ 100 mls @ 4 mls/hr 10/01/17 12:30 10/02/17 07:29 Sodium Chloride IVPB 10/02/17 12:29 9 mg/hr TITR [facility] 9 mls/hr Protocol Titration 4 MG/HR Sodium Chloride 1,000 mls @ 10 mls/hr 10/02/17 08:00 Normal Saline - IV ASDIR [facility] Lorazepam 2 mg 10/01/17 14:50 10/02/17 07:29 Ativan Injection - IVPUSH 2 mg Q6H PRN Administration ANXIETY ASSESSMENT/PLAN: 62 y/o man bed bound from T8 paraplegia with metastatic adenocarcinoma of lung CA presented with tachydysrhthmia and sepsis 2/2 sacral decub ulcer s/p R AKA and debridement , intubated and off vasopressors for compassionately extubated yesterday, now on NC and morphine drip Comfort measures only: Continue lines: corral, rectal tube , RIJ, NC-2L Continue morphine drip iv Ativan 2mg Q6H PRN iv tylenol 1g Q6H Dispo: For transfer to floors Hospice care Visit type - Emergency Visit Emergency Visit: Yes ED Registration Date: 09/20/17 Care time: The patient presented to the Emergency Department on the above date and was hospitalized for further evaluation of their emergent condition. - New Patient This patient is new to me today: No - Critical Care Critical Care patient: Yes Total Critical Care Time (in minutes): 29 - Discharge Referral Referred to [facility] Med [facility] No
--- NOTE | 2017-10-02 10:04 | PN ---
Progress Note, Physician History of Present Illness: Pt is s/p compassionate extubation, on Morphine drip for comfort care. Pt in unresponsive. - Current Medication List Current Medications: Active Medications Acetaminophen (Ofirmev Injection -) 1,000 mg IVPB Q6H PRN PRN Reason: PAIN Morphine Sulfate 100 mg/ (Sodium Chloride) 100 mls @ 4 mls/hr IVPB TITR RACHEAL; 4 MG/HR PRN Reason: Protocol Stop: 10/02/17 12:29 Last Titration: 10/02/17 07:29 Dose: 9 mg/hr, 9 mls/hr Sodium Chloride (Normal Saline -) 1,000 mls @ 10 mls/hr IV ASDIR RACHEAL Lorazepam (Ativan Injection -) 2 mg IVPUSH Q6H PRN PRN Reason: ANXIETY Last Admin: 10/02/17 07:29 Dose: 2 mg - Objective Vital Signs: Vital Signs Temperature 99 F 10/02/17 06:00 Pulse Rate 112 H 10/02/17 08:00 Respiratory Rate 25 H 10/02/17 09:00 Blood Pressure 102/54 10/02/17 08:00 O2 Sat by Pulse Oximetry (%) 96 10/02/17 09:00 Cardiovascular: Yes: Regular Rate and Rhythm, S1, S2 Respiratory: Yes: Regular, Rhonchi Gastrointestinal: Yes: Normal Bowel Sounds, Soft. No: Tenderness Edema: LLE: 2+ Labs: CBC, BMP 10/01/17 05:25 10/01/17 05:25 INR, PTT INR 1.37 (0.82-1.09) H 09/26/17 05:35 Fibrinogen 452.0 mg/dL (238-498) 09/26/17 05:35 Problem List - Problems (1) Comfort measures only status Assessment/Plan: Pt is only on Morphine drip, per patient and family wishes. Code(s): Z51.5 - ENCOUNTER FOR PALLIATIVE CARE (2) Hypotension Assessment/Plan: Comfort care only. Code(s): I95.9 - HYPOTENSION, UNSPECIFIED (3) Septic shock Code(s): A41.9 - SEPSIS, UNSPECIFIED ORGANISM; R65.21 - SEVERE SEPSIS WITH SEPTIC SHOCK (4) Sepsis Code(s): A41.9 - SEPSIS, UNSPECIFIED ORGANISM Qualifiers: Sepsis type: sepsis due to unspecified organism Qualified Code(s): A41.9 - Sepsis, unspecified organism (5) Sacral decubitus ulcer, stage IV Code(s): L89.154 - PRESSURE ULCER OF SACRAL REGION, STAGE 4 (6) Atrial tachycardia Code(s): I47.1 - SUPRAVENTRICULAR TACHYCARDIA (7) Lactic acidosis Code(s): E87.2 - ACIDOSIS (8) Metastatic primary lung cancer Code(s): C34.90 - MALIGNANT NEOPLASM OF UNSP PART OF UNSP BRONCHUS OR LUNG Qualifiers: Laterality: unspecified laterality Qualified Code(s): C34.90 - Malignant neoplasm of unspecified part of unspecified bronchus or lung (9) Paraplegia Code(s): G82.20 - PARAPLEGIA, UNSPECIFIED (10) Bacteremia Code(s): R78.81 - BACTEREMIA (11) Gas gangrene of lower extremity Code(s): A48.0 - GAS GANGRENE (12) Above knee amputation of right lower extremity Code(s): Z89.611 - ACQUIRED ABSENCE OF RIGHT LEG ABOVE KNEE (13) Gram-positive bacteremia Code(s): R78.81 - BACTEREMIA (14) Anemia Code(s): D64.9 - ANEMIA, UNSPECIFIED Qualifiers: Anemia type: unspecified type Qualified Code(s): D64.9 - Anemia, unspecified (15) Thrombocytopenia Code(s): D69.6 - THROMBOCYTOPENIA, UNSPECIFIED (16) Hypomagnesemia Code(s): E83.42 - HYPOMAGNESEMIA (17) Hypophosphatemia Code(s): E83.39 - OTHER DISORDERS OF PHOSPHORUS METABOLISM (18) Hyponatremia Code(s): E87.1 - HYPO-OSMOLALITY AND HYPONATREMIA Assessment/Plan Pt is s/p compassionate extubation, on comfort care since yesterday. Morphine for comfort care.
--- NOTE | 2017-10-02 11:29 | PN ---
Teaching Attending Note Name of Resident: Deepa Kelly ATTENDING PHYSICIAN STATEMENT I saw and evaluated the patient. I reviewed the resident's note and discussed the case with the resident. I agree with the resident's findings and plan as documented. SUBJECTIVE: Pt seen and examined in the ICU. Extubated yesterday on morphine gtt. Awake, alert and interactive with family yesterday, today somnolent on morphine gtt. OBJECTIVE: Last Vital Signs Temp Pulse Resp BP Pulse Ox 99 F 112 H 25 H 102/54 96 10/02/17 06:00 10/02/17 08:00 10/02/17 09:00 10/02/17 08:00 10/02/17 09:00 Intake & Output 09/29/17 09/30/17 10/01/17 10/02/17 23:59 23:59 23:59 23:59 Intake Total 8438.0 4876 1622 64 Output Total 1575 292 182 5106 Balance 6863.0 3931 822 -1936 Weight 114.033 kg 114.487 kg 114.94 kg 117.14 kg Gen: mildly tachypneic at rest Heart: tachycardic, regular Lung: bilateral rhonchi Abd: soft, nontender Ext: R AKA, + edema CBC, BMP 10/01/17 05:25 10/01/17 05:25 Active Medications Acetaminophen (Ofirmev Injection -) 1,000 mg IVPB Q6H PRN PRN Reason: PAIN Morphine Sulfate 100 mg/ (Sodium Chloride) 100 mls @ 4 mls/hr IVPB TITR RACHEAL; 4 MG/HR PRN Reason: Protocol Stop: 10/02/17 12:29 Last Titration: 10/02/17 07:29 Dose: 9 mg/hr, 9 mls/hr Sodium Chloride (Normal Saline -) 1,000 mls @ 10 mls/hr IV ASDIR RACHEAL Lorazepam (Ativan Injection -) 2 mg IVPUSH Q6H PRN PRN Reason: ANXIETY Last Admin: 10/02/17 07:29 Dose: 2 mg Scopolamine HBr (Transderm-Scop -) 1 patch TD Q72H RACHEAL ASSESSMENT AND PLAN: Acute Hypoxic Respiratory Failure Infected Sacral Decubitus Ulcer s/p R AKA MRSA Bacteremia Septic Shock improving Lactic Acidosis resolved Coagulopathy/Thrombocytopenia Metastatic Lung Ca Hyponatremia PSVT - continue comfort measures - titrate morphine gtt to RR <25 - scopolamine patch for secretions - ativan PRN - can transfer to private room
[2017-10-02] MEDS ORDERED: SCOPOLAMINE HYDROBROMIDE 1 PATCH PATCH.TD72 TD SCH (12:00)
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
[2017-10-03] MEDS ORDERED: MORPHINE 100 MG in SODIUM CHLORIDE 98 ML IVPB SCH (01:00)
[2017-10-03 02:13] VITALS: TEMP 97.6
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
[2017-10-03 04:13] VITALS: BP 0/0; PULSE 0
[2017-10-04] MEDS ORDERED: CYANOCOBALAMIN (VITAMIN B-12) 1000 MCG/1 ML VIAL IM SCH (10:00)
== END 2017-10-03 02:30 | disposition expired | DRG 853 ==
LOC: JER 12:48 → JERBED 17:12 → JICU 20:07
PROVIDERS: ADMIT Specialist; ATTEND Specialist
PROC: 3E10X8Z Irrigation of Skin and Mucous Membranes using Irrigating Substance (ICD-10-PCS; 2017-09-21)
PROC: 0Y6C0Z1 Detachment at Right Upper Leg, High, Open Approach (ICD-10-PCS; principal; 2017-09-21 19:26)
PROC: 0JB70ZZ Excision of Back Subcutaneous Tissue and Fascia, Open Approach (ICD-10-PCS; 2017-09-23)
PROC: 0JB70ZZ Excision of Back Subcutaneous Tissue and Fascia, Open Approach (ICD-10-PCS; 2017-09-23)
PROC: 05HM33Z Insertion of Infusion Device into Right Internal Jugular Vein, Percutaneous Approach (ICD-10-PCS; 2017-09-23)
PROC: 0JPV0WZ Removal of Totally Implantable Vascular Access Device from Upper Extremity Subcutaneous Tissue and Fascia, Open Approach (ICD-10-PCS; 2017-09-23)
PROC: 5A1955Z Respiratory Ventilation, Greater than 96 Consecutive Hours (ICD-10-PCS; 2017-09-23)
PROC: 0J970ZZ Drainage of Back Subcutaneous Tissue and Fascia, Open Approach (ICD-10-PCS; 2017-09-25)
PROC: 0DH67UZ Insertion of Feeding Device into Stomach, Via Natural or Artificial Opening (ICD-10-PCS; 2017-09-25)
PROC: 3E0G76Z Introduction of Nutritional Substance into Upper GI, Via Natural or Artificial Opening (ICD-10-PCS; 2017-09-25)
DX: A41.02 Sepsis due to Methicillin resistant Staphylococcus aureus (principal); R65.21 Severe sepsis with septic shock; A48.0 Gas gangrene; L89.154 Pressure ulcer of sacral region, stage 4; L89.894 Pressure ulcer of other site, stage 4; J96.01 Acute respiratory failure with hypoxia; G82.20 Paraplegia, unspecified; E87.1 Hypo-osmolality and hyponatremia; I47.1 Supraventricular tachycardia; C34.90 Malignant neoplasm of unspecified part of unspecified bronchus or lung; C79.51 Secondary malignant neoplasm of bone; C79.49 Secondary malignant neoplasm of other parts of nervous system; C79.89 Secondary malignant neoplasm of other specified sites; C79.2 Secondary malignant neoplasm of skin; D68.9 Coagulation defect, unspecified; E87.2 Acidosis; J90 Pleural effusion, not elsewhere classified; M86.8X8 Other osteomyelitis, other site; E78.5 Hyperlipidemia, unspecified; D69.6 Thrombocytopenia, unspecified; D63.8 Anemia in other chronic diseases classified elsewhere; E83.42 Hypomagnesemia; E83.51 Hypocalcemia; I48.91 Unspecified atrial fibrillation; E87.6 Hypokalemia; E83.39 Other disorders of phosphorus metabolism; E66.8 Other obesity; Z68.36 Body mass index [BMI] 36.0-36.9, adult; Z88.0 Allergy status to penicillin; Z87.891 Personal history of nicotine dependence; Z74.01 Bed confinement status; Z66 Do not resuscitate; Z53.1 Procedure and treatment not carried out because of patient's decision for reasons of belief and group pressure; Z89.611 Acquired absence of right leg above knee
CPT/HCPCS: 36415; 36600; 71045-TC; 71045-TC-FY; 71275-TC; 73701-TC-RT; 74177-TC; 76882; 80048; 80053; 81003; 82040; 82550; 82553; 82607; 82728; 82747; 82803; 83540; 83550; 83605; 83735; 84100; 84134; 84300; 84484; 84540; 85014; 85025; 85027; 85044; 85384; 85610; 85730; 86140; 86850; 86900; 86901; 87040; 87070; 87075; 87086; 87186; 87205; 87324; 87449; 87804; 90670; 93005; 93010; 93306-TC; 93970-TC; 94002; 99284-25; G0480; J0885; J1756